=== PATIENT | female | born 1940 | race Caucasian/White ===

== ENCOUNTER 2016-04-26 11:52 | Emergency (ER) | payer MEDICARE, OTHER ==
[2016-04-26] MEDS ORDERED: KETOROLAC 60 MG/2 ML VIAL IM STA (13:33)
[2016-04-26] MEDS ORDERED: DEXAMETHASONE 10 MG/ML VIAL PO STA (13:33)
[2016-04-26] MEDS ORDERED: DEXAMETHASONE 10 MG/ML VIAL ONE (13:34)
[2016-04-26] MEDS ORDERED: CHERRY SYRUP 10 ML UDC PO ONE (13:35)
[2016-04-26] MEDS ORDERED: KETOROLAC 60 MG/2 ML VIAL ONE (13:35)
== END 2016-04-26 15:06 | disposition home or self-care (01) ==
DX: S20.219A Contusion of unspecified front wall of thorax, initial encounter (principal); W01.198A Fall on same level from slipping, tripping and stumbling with subsequent striking against other object, initial encounter; Y93.01 Activity, walking, marching and hiking; Y92.009 Unspecified place in unspecified non-institutional (private) residence as the place of occurrence of the external cause; Y99.8 Other external cause status; R03.0 Elevated blood-pressure reading, without diagnosis of hypertension; I50.9 Heart failure, unspecified; Z87.01 Personal history of pneumonia (recurrent); Z79.82 Long term (current) use of aspirin
CPT/HCPCS: 71020; 96372; 99283; 99284; A9270

== ENCOUNTER 2016-11-05 13:11 | Outpatient (CLI) | payer MEDICARE ==
--- NOTE | 2016-11-05 16:15 | DEXA Report ---
DEXA SCAN: 11/05/2016 CLINICAL INDICATION: Postmenopausal. TECHNIQUE: Dual energy x-ray absorptiometry (DXA) was performed on a [employer] system. Regions measured are the AP spine, femoral neck, and, if needed, forearm. COMPARISON: None. In accordance with the International Society for Clinical Densitometry (ISCD) guidelines, data from previous exams may be reanalyzed using current recommendations and techniques. This is done to allow a more accurate basis for comparison with the current study. FINDINGS: The data for the lumbar spine is as follows: REGION BMD (g/cm/cm) T-SCORE Z-SCORE L1 0.959 -1.4 0.3 L2 1.291 0.8 2.5 L3 1.478 2.3 4.0 L4 1.238 0.3 2.0 TOTAL 1.255 0.6 2.3 NOTE: All evaluable vertebrae are used for classification. The data for the hip is as follows: REGION BMD (g/cm/cm) T-SCORE Z-SCORE Neck 0.730 -2.2 -0.3 TOTAL 0.793 -1.7 0.0 NOTE: The femoral neck or total proximal femur, whichever is lowest, is used for classification. IMPRESSION: THE WHO CLASSIFICATION BASED ON THE INTERNATIONAL REFERENCE STANDARD IS OSTEOPENIA. THE FRACTURE RISK IS INCREASED. RECOMMENDATION: Patients with diagnosis of osteoporosis or osteopenia should have regular bone mineral density assessment. For those eligible for Medicare, routine testing is allowed once every 2 years. Testing frequency can be increased for patients who have rapidly progressing disease or for those who are receiving medical therapy to restore bone mass. COMMENT: World Health Organization (WHO) definitions for osteoporosis and osteopenia: NORMAL BMD: T-score at -1.0 or higher, fracture risk is low. OSTEOPENIA BMD: T-score between -1.0 and -2.5, fracture risk is increased. OSTEOPOROSIS BMD: T-score at -2.5 or lower, fracture risk high. National Osteoporosis Foundation recommends: 1. Obtain adequate dietary calcium (at least 1200 mg per day) and vitamin D (400 -800 international units per day). 2. Participate, as appropriate, in regular weightbearing and muscle- strengthening exercise. 3. Avoid tobacco use and reduce alcohol and caffeine intake. 4. For more detailed information see the website at www.NOF.org. MTDD
== END 2016-11-05 13:12 | disposition home or self-care (01) ==
LOC: DI 13:11
PROVIDERS: ATTEND Internal Medicine
DX: Z13.820 Encounter for screening for osteoporosis (principal); N95.8 Other specified menopausal and perimenopausal disorders; M85.88 Other specified disorders of bone density and structure, other site
CPT/HCPCS: 77080

== ENCOUNTER 2017-10-22 16:15 | Emergency (ER) | payer MEDICARE, OTHER ==
[2017-10-22 16:47] LABS: BASOPHILS # (AUTO) 0.1 10^3/uL (0.0-0.1); EOSINOPHILS % (AUTO) 0.5 %; HGB - HEMOGLOBIN 13.4 g/dL (12.0-16.0); LYMPHOCYTES # (AUTO) 1.4 10^3/uL (1.5-3.5); LYMPHOCYTES % (AUTO) 19.8 %; MEAN CORPUSCULAR HGB CONC 34.5 g/dL (32.0-36.0); MEAN CORPUSCULAR VOLUME 101.5 fL (81.0-99.0); MEAN PLATELET VOLUME 8.8 fL (7.9-10.8); MONOCYTES # (AUTO) 0.4 10^3/uL (0.0-1.0); MONOCYTES % (AUTO) 5.8 %; NEUTROPHILS # (AUTO) 5.3 10^3/uL (1.5-6.6); NEUTROPHILS % (AUTO) 72.9 %; PLT - PLATELET COUNT 164 10^3/uL (130-450); RED BLOOD COUNT 3.83 10^6/uL (4.20-5.40); RED CELL DISTRIBUTION WIDTH 14.6 % (12.0-15.0); WHITE BLOOD COUNT 7.3 x10^3/uL (4.8-10.8)
[2017-10-22] MEDS ORDERED: LOPERAMIDE 2 MG CAPSULE PO STA ×2 (16:51→18:13)
[2017-10-22] MEDS ORDERED: ONDANSETRON 4 MG/2 ML VIAL IVP STA (16:51)
[2017-10-22] MEDS ORDERED: PANTOPRAZOLE 40 MG VIAL IVP STA (16:51)
[2017-10-22 16:52] LABS: ALBUMIN 3.4 g/dL (3.2-5.5); ALBUMIN/GLOBULIN RATIO 1.1 (1.0-2.2); BILIRUBIN,TOTAL 1.2 mg/dL (0.2-1.0); CREATININE 1.3 mg/dL (0.4-1.0); TOTAL PROTEIN 6.6 g/dL (6.7-8.2)
--- NOTE | 2017-10-22 16:54 | ED Physician Documentation ---
PD HPI ABD PAIN - Stated complaint Stated Complaint: N/V/D WITH BLACK STOOL - Chief complaint Chief Complaint: Abd Pain - History obtained from History obtained from: Patient - History of Present Illness Timing - onset: Last night (Upset stomach last night and developed vomiting and diarrhea. Now she just has dry heaves in the vomit did turn dark this morning, quite black in fact. She has not taken any Pepto-Bismol. She does take Aleve somewhat regularly for bad back and also drinks occasionally but not daily. She takes Prilosec on occasion for heartburn. She does not have an history of ulcers per se.) Review of Systems Ten Systems: 10 systems reviewed and negative Constitutional: denies: Fever, Chills Cardiac: denies: Chest pain / pressure, Palpitations Respiratory: denies: Dyspnea, Cough GI: reports: Abdominal Pain, Nausea, Vomiting, Diarrhea, Bloody / black stool PD PAST MEDICAL HISTORY - Past Medical History Cardiovascular: Congestive heart failure, Hypertension Respiratory: Pneumonia GI: GERD - Past Surgical History Past Surgical History: Yes HEENT: Tonsil/Adenoidectomy - Present Medications Home Medications: Ambulatory Orders Medication Instructions Recorded Confirmed Aspirin [Aspir-Low] 81 mg PO 04/26/16 Furosemide [Lasix] 20 mg PO DAILY 04/26/16 04/26/16 HYDROcod/ACETAM 5/325 [[place] 5/325] 1 - 2 ea PO Q6H PRN #15 tablet 04/26/16 Omeprazole [PriLOSEC] 20 mg PO DAILY 04/26/16 04/26/16 - Allergies Allergies/Adverse Reactions: Allergies Allergy/AdvReac Type Severity Reaction Status Date / Time No Known Drug Allergies Allergy Verified 10/22/17 16:21 - Social History Does the pt smoke?: Yes Smoking Status: Current every day smoker Does the pt drink ETOH?: No Does the pt have substance abuse?: No - Family History Family history: reports: Non contributory - Immunizations Immunizations are current?: Yes PD ED PE NORMAL - Vitals Vital signs reviewed: Yes - General General: Alert and oriented X 3, No acute distress - HEENT HEENT: PERRL, EOMI - Neck Neck: Supple, no meningeal sign, No bony TTP, No bruit - Cardiac Cardiac: RRR, No murmur - Respiratory Respiratory: No respiratory distress - Abdomen Abdomen: Normal bowel sounds, Soft, Non tender - Rectal Rectal: Other (with Rebecca RN, Very loose liquidy brown stool but very guaiac positive.) - Back Back: No CVA TTP, No spinal TTP - Derm Derm: Normal color, Warm and dry - Extremities Extremities: No edema, No calf tenderness / cord - Neuro Neuro: Alert and oriented X 3, Normal speech - Psych Psych: Normal mood, Normal affect Results - Vitals Vitals: Vital Signs - 24 hr 10/22/17 10/22/17 16:18 17:26 Temperature 36.3 C L Heart Rate 56 L 72 Respiratory 22 16 Rate Blood Pressure 146/83 H 169/84 H O2 Saturation 97 96 Oxygen O2 Source Room air - Labs Labs: Laboratory Tests 10/22/17 10/22/17 10/22/17 16:29 16:29 17:07 WBC 7.3 RBC 3.83 L Hgb 13.4 Hct 38.8 MCV 101.5 H MCH 35.0 H MCHC 34.5 RDW 14.6 Plt Count 164 MPV 8.8 Neut # (Auto) 5.3 Lymph # (Auto) 1.4 L Ashley # (Auto) 0.4 Eos # (Auto) 0.0 Baso # (Auto) 0.1 Absolute Nucleated RBC 0.00 Nucleated RBC % 0.0 PT INR Sodium 137 Potassium 3.9 Chloride 105 Carbon Dioxide 24 Anion Gap 8.0 BUN 32 H Creatinine 1.3 H Estimated GFR (MDRD) 40 L Glucose 105 H Calcium 9.0 Total Bilirubin 1.2 H AST 22 ALT 13 Alkaline Phosphatase 51 Total Protein 6.6 L Albumin 3.4 Globulin 3.2 Albumin/Globulin Ratio 1.1 Lipase 33 Blood Type O POSITIVE Antibody Screen NEGATIVE 10/22/17 17:07 WBC RBC Hgb Hct MCV MCH MCHC RDW Plt Count MPV Neut # (Auto) Lymph # (Auto) Ashley # (Auto) Eos # (Auto) Baso # (Auto) Absolute Nucleated RBC Nucleated RBC % PT 11.0 INR 1.0 Sodium Potassium Chloride Carbon Dioxide Anion Gap BUN Creatinine Estimated GFR (MDRD) Glucose Calcium Total Bilirubin AST ALT Alkaline Phosphatase Total Protein Albumin Globulin Albumin/Globulin Ratio Lipase Blood Type Antibody Screen PD MEDICAL DECISION MAKING - ED course ED course: 76-year-old woman with what sounds like gastroenteritis. She had no hematemesis but developed dark stools and she is modestly guaiac positive but with reassuring H&H and hemodynamics. She was observed for couple of hours here and after medications was feeling much better and passed an oral challenge. She had no bowel movements while in the department. The lack of hematemesis is reassuring. She was eager for discharge and I told her to return in the morning if not better or anytime if worse. - Sepsis Event Vital Signs: Vital Signs - 24 hr 10/22/17 10/22/17 16:18 17:26 Temperature 36.3 C L Heart Rate 56 L 72 Respiratory 22 16 Rate Blood Pressure 146/83 H 169/84 H O2 Saturation 97 96 Oxygen O2 Source Room air Departure - Departure Disposition: Home, Self Care Clinical Impression: Gastroenteritis Condition: Good Record reviewed to determine appropriate education?: Yes Instructions: ED Gastroenteritis Viral Comments: Take your Prilosec daily. Return tomorrow morning if not better or anytime if worsening or if new symptoms develop, especially persistent black stools, dizziness, shortness of breath. Your blood pressure was elevated today on check into the emergency department. This does not mean that you have hypertension, it is a common phenomenon to come to the emergency department and have elevated blood pressure. I recommend that you see your primary care physician within the week to have it rechecked when you are feeling better.
[2017-10-22 17:27] VITALS: BP 169/84
[2017-10-22] MEDS ORDERED: ONDANSETRON ODT 4 MG Prepack 2 TL STA (18:13)
== END 2017-10-22 18:29 | disposition home or self-care (01) ==
LOC: ED 16:15
DX: K52.9 Noninfective gastroenteritis and colitis, unspecified (principal); I11.0 Hypertensive heart disease with heart failure; F17.200 Nicotine dependence, unspecified, uncomplicated
CPT/HCPCS: 36415; 80053; 83690; 85025; 85610; 86850; 86900; 86901; 96374; 99283; A9270

== ENCOUNTER 2017-10-25 11:45 | Outpatient (CLI) | payer MEDICARE | END 2017-10-25 11:46 | disposition critical access hospital (66) | LOC: EMS 11:45 | PROVIDERS: ATTEND Surgery | DX: R55 Syncope and collapse (principal) ==

== ENCOUNTER 2017-10-25 12:02 | Emergency (ER) | payer MEDICARE ==
[2017-10-25 13:12] LABS: BASOPHILS % (AUTO) 0.7 %; EOSINOPHILS # (AUTO) 0.1 10^3/uL (0.0-0.7); EOSINOPHILS % (AUTO) 0.9 %; HGB - HEMOGLOBIN 11.8 g/dL (12.0-16.0); LYMPHOCYTES # (AUTO) 0.6 10^3/uL (1.5-3.5); LYMPHOCYTES % (AUTO) 10.2 %; MEAN CORPUSCULAR HEMOGLOBIN 35.5 pg (27.0-31.0); MEAN CORPUSCULAR HGB CONC 34.5 g/dL (32.0-36.0); MEAN CORPUSCULAR VOLUME 102.9 fL (81.0-99.0); MEAN PLATELET VOLUME 8.9 fL (7.9-10.8); MONOCYTES # (AUTO) 0.3 10^3/uL (0.0-1.0); MONOCYTES % (AUTO) 5.7 %; NEUTROPHILS # (AUTO) 4.7 10^3/uL (1.5-6.6); NEUTROPHILS % (AUTO) 82.5 %; PLT - PLATELET COUNT 135 10^3/uL (130-450); RED BLOOD COUNT 3.32 10^6/uL (4.20-5.40); RED CELL DISTRIBUTION WIDTH 14.4 % (12.0-15.0); WHITE BLOOD COUNT 5.7 x10^3/uL (4.8-10.8)
[2017-10-25 13:29] LABS: ALBUMIN 3.5 g/dL (3.2-5.5); ALBUMIN/GLOBULIN RATIO 1.3 (1.0-2.2); BILIRUBIN,TOTAL 1.5 mg/dL (0.2-1.0); CALCIUM 9.1 mg/dL (8.5-10.3); CREATININE 1.6 mg/dL (0.4-1.0); TOTAL PROTEIN 6.3 g/dL (6.7-8.2)
--- NOTE | 2017-10-25 14:10 | ED Physician Documentation ---
PD HPI SYNCOPE - Stated complaint Stated Complaint: NEAR SYNCOPE - Chief complaint Chief Complaint: Neuro - History obtained from History obtained from: Patient - History of Present Illness Witnessed: Witnessed Timing - onset: How many hours ago (1.5), Today Duration: Minutes Preceding symptoms: Light headed (she had had blood in stool 2 days ago and had good blood count without further stools. Denies melena nor blood in BM yesterday. Had not had much to eat nor drink. Was standing briefly this morning and felt lightheaded and almost fainted. She sat down and felt better. Incontinuent of urine but states she leaks urine intermittently previously.), Generalized weakness Associated symptoms: Incontinant of urine. No: Headache, Chest pain, Diaphoresis, Dyspnea, Nausea / vomiting, Abdominal pain Contributing factors: Decreased PO intake, Just stood up, Other (she had had some blood in stool 2 days ago; none since.). No: Recent med change Injury occurred: No: Fell, Head injury, Neck injury Similar symptoms before: Has not had sx before Recently seen: Emergency Dept Review of Systems Constitutional: denies: Fever, Chills, Myalgias Nose: denies: Rhinorrhea / runny nose, Congestion Throat: denies: Sore throat Cardiac: denies: Chest pain / pressure, Palpitations Respiratory: denies: Cough GI: reports: Bloody / black stool (2 days ago, not since). denies: Abdominal Pain, Nausea, Vomiting : reports: Incontinent. denies: Dysuria Musculoskeletal: denies: Neck pain, Back pain Neurologic: reports: Generalized weakness, Near syncope. denies: Focal weakness , Numbness, Syncope, Seizure, Altered mental status PD PAST MEDICAL HISTORY - Past Medical History Cardiovascular: Congestive heart failure, Hypertension Respiratory: Pneumonia GI: GERD - Past Surgical History Past Surgical History: Yes HEENT: Tonsil/Adenoidectomy - Present Medications Home Medications: Ambulatory Orders Medication Instructions Recorded Confirmed Aspirin [Aspir-Low] 81 mg PO 04/26/16 Furosemide [Lasix] 20 mg PO DAILY 04/26/16 04/26/16 HYDROcod/ACETAM 5/325 [[place] 5/325] 1 - 2 ea PO Q6H PRN #15 tablet 04/26/16 Omeprazole [PriLOSEC] 20 mg PO DAILY 03/06/17 03/06/17 - Allergies Allergies/Adverse Reactions: Allergies Allergy/AdvReac Type Severity Reaction Status Date / Time No Known Drug Allergies Allergy Verified 10/25/17 12:12 - Social History Does the pt smoke?: Yes Smoking Status: Current every day smoker Does the pt drink ETOH?: No Does the pt have substance abuse?: No - Immunizations Immunizations are current?: Yes PD ED PE NORMAL - Vitals Vital signs reviewed: Yes - General General: Alert and oriented X 3, No acute distress, Well developed/nourished - HEENT HEENT: Pharynx benign. No: Moist mucous membranes - Neck Neck: Supple, no meningeal sign, No adenopathy - Cardiac Cardiac: RRR, No murmur - Respiratory Respiratory: Clear bilaterally - Abdomen Abdomen: Normal bowel sounds, Soft, Non tender, Non distended - Female Female : Deferred - Rectal Rectal: Other (stool brown and guiac negative) - Derm Derm: Normal color, Warm and dry - Extremities Extremities: No deformity, No tenderness to palpate, Normal ROM s pain, No edema , No calf tenderness / cord - Neuro Neuro: Alert and oriented X 3, No motor deficit, Normal speech Eye Opening: Spontaneous Motor: Obeys Commands Verbal: Oriented GCS Score: 15 Results - Vitals Vitals: Oxygen O2 Source Room air - Labs Labs: Laboratory Tests 10/25/17 10/25/17 10/25/17 12:48 12:48 13:03 WBC 5.7 RBC 3.32 L Hgb 11.8 L Hct 34.2 L MCV 102.9 H MCH 35.5 H MCHC 34.5 RDW 14.4 Plt Count 135 MPV 8.9 Neut # (Auto) 4.7 Lymph # (Auto) 0.6 L [place] # (Auto) 0.3 Eos # (Auto) 0.1 Baso # (Auto) 0.0 Absolute Nucleated RBC 0.00 Nucleated RBC % 0.0 Sodium 138 Potassium 4.0 Chloride 104 Carbon Dioxide 25 Anion Gap 9.0 BUN 21 H Creatinine 1.6 H Estimated GFR (MDRD) 31 L Glucose 113 H Calcium 9.1 Total Bilirubin 1.5 H AST 28 ALT 13 Alkaline Phosphatase 52 Troponin I < 0.04 Total Protein 6.3 L Albumin 3.5 Globulin 2.8 Albumin/Globulin Ratio 1.3 Lipase 34 Urine Color Urine Clarity Urine pH Ur Specific [place] Urine Protein Urine Glucose (UA) Urine Ketones Urine Occult Blood Urine Nitrite Urine Bilirubin Urine Urobilinogen Ur Leukocyte Esterase Urine RBC Urine WBC Ur Squamous Epith Cells Urine Bacteria Ur Microscopic Review Urine Culture Comments 10/25/17 15:00 WBC RBC Hgb Hct MCV MCH MCHC RDW Plt Count MPV Neut # (Auto) Lymph # (Auto) [place] # (Auto) Eos # (Auto) Baso # (Auto) Absolute Nucleated RBC Nucleated RBC % Sodium Potassium Chloride Carbon Dioxide Anion Gap BUN Creatinine Estimated GFR (MDRD) Glucose Calcium Total Bilirubin AST ALT Alkaline Phosphatase Troponin I Total Protein Albumin Globulin Albumin/Globulin Ratio Lipase Urine Color YELLOW Urine Clarity HAZY Urine pH 5.5 Ur Specific [place] 1.025 Urine Protein 100 H Urine Glucose (UA) NEGATIVE Urine Ketones NEGATIVE Urine Occult Blood NEGATIVE Urine Nitrite NEGATIVE Urine Bilirubin NEGATIVE Urine Urobilinogen 0.2 (NORMAL) Ur Leukocyte Esterase SMALL H Urine RBC None Seen Urine WBC 0-3 Ur Squamous Epith Cells MANY Squamous H Urine Bacteria Few Ur Microscopic Review INDICATED Urine Culture Comments NOT INDICATED PD MEDICAL DECISION MAKING - ED course Complexity details: reviewed old records, reviewed results, considered differential, d/w patient - Sepsis Event Vital Signs: Oxygen O2 Source Room air Departure - Departure Disposition: Home, Self Care Clinical Impression: Near syncope Condition: Stable Record reviewed to determine appropriate education?: Yes Instructions: ED Near Syncope Unkn Follow-Up: Rey Slater MD [Primary Care Provider] - [facility]Provider Group] Comments: Drink lots of fluids. Continue your omeprazole. Follow-up with your primary care and the surgery center regarding the recent GI bleeding. Your blood count went down just a little bit compared to the prior visit so does not seem like significant ongoing bleeding. Return if persistently lightheaded or he develop more blood or melena in your stool. Otherwise follow-up with your primary care and drink lots of fluids and have light activity for the next few days. Discharge Date/Time: 10/25/17 16:05
[2017-10-25 15:25] VITALS: BP 185/69
[2017-10-25 15:29] LABS: GLUCOSE, URINE (UA) NEGATIVE (NEGATIVE); KETONES,URINE (UA) NEGATIVE (NEGATIVE); LEUKOCYTE ESTERASE, URINE SMALL (NEGATIVE); NITRITE,URINE NEGATIVE (NEGATIVE); OCCULT BLOOD,URINE NEGATIVE (NEGATIVE); PH,URINE 5.5 PH (5.0-7.5); PROTEIN,URINE 100 mg/dL (NEGATIVE); UROBILINOGEN,URINE 0.2 (NORMAL) E.U./dL (NORMAL)
[2017-10-25 15:36] LABS: BILIRUBIN,URINE NEGATIVE (NEGATIVE); CLARITY,URINE HAZY (CLEAR); ICTOTEST,URINE NEGATIVE
[2017-10-25 15:56] LABS: BACTERIA,URINE Few /HPF (None Seen); RBC,URINE None Seen /HPF (0-5); SQUAMOUS EPITHELIAL CELL,UR MANY Squamous (<= Few)
== END 2017-10-25 16:05 | disposition home or self-care (01) ==
LOC: EDUNIT# → ED 12:02
DX: R55 Syncope and collapse (principal); I50.9 Heart failure, unspecified; F17.200 Nicotine dependence, unspecified, uncomplicated
CPT/HCPCS: 36415; 80053; 81001; 81003; 83690; 84484; 85025; 87086; 99284

== ENCOUNTER 2018-02-21 09:05 | Emergency (ER) | payer MEDICARE, MEDICAID ==
[2018-02-21] MEDS ORDERED: PANTOPRAZOLE 40 MG VIAL IVP STA (09:38)
--- NOTE | 2018-02-21 09:39 | ED Physician Documentation ---
PD HPI GI BLEED - Stated complaint Stated Complaint: THROWING UP, BLACK STOOLS - Chief complaint Chief Complaint: Abd Pain - History obtained from History obtained from: Patient, Family - History of Present Illness Timing - onset: Last night Timing - duration: Hours Timing - details: Gradual onset, Still present Associated symptoms: Coffee ground emesis, Black/tarry stool Contributing factors: Alcohol use. No: Sick contact, Bad food, Travel, Recent antibiotics, Aspirin use, NSAID use, Stress, Anticoagulated, Diabetes Improved by: Laying still, Vomiting Similar symptoms before: Diagnosis (GI bleeding) Recently seen: Not recently seen - Additional information Additional information: 77-year-old female with a history of GERD and hypertension and COPD has had a prior GI bleed 6 months ago and she developed symptoms again last night. She developed symptoms of vomiting coffee-ground emesis and dark tarry stool. She has not had syncope. Her past history with GI bleeding was a single episode in June 2017 at which time she had a syncopal episode at [facility] and was brought to the hospital. At that time her blood counts were stable. She was not admitted to the hospital and she has not had scoping done in follow-up. Review of Systems Constitutional: denies: Fever Eyes: denies: Decreased vision Ears: denies: Ear pain Nose: denies: Rhinorrhea / runny nose, Congestion Throat: denies: Sore throat Cardiac: denies: Chest pain / pressure, Palpitations Respiratory: denies: Dyspnea, Cough GI: reports: Nausea, Vomiting, Bloody / black stool, Other (coffee ground e mesis). denies: Abdominal Pain : denies: Dysuria Skin: denies: Rash Musculoskeletal: denies: Neck pain, Back pain, Extremity pain Neurologic: denies: Generalized weakness, Focal weakness, Numbness PD PAST MEDICAL HISTORY - Past Medical History Past Medical History: Yes Cardiovascular: Congestive heart failure, Hypertension Respiratory: Pneumonia GI: GERD, GI bleed - Past Surgical History Past Surgical History: Yes HEENT: Tonsil/Adenoidectomy - Present Medications Home Medications: Ambulatory Orders Medication Instructions Recorded Confirmed Omeprazole [PriLOSEC] 20 mg PO DAILY 04/26/16 02/21/18 Ranitidine HCl [Acid Manager Cost] 75 mg PO DAILY 02/21/18 02/21/18 Sucralfate [Carafate] 1 gm PO ACHS #30 tablet 02/21/18 - Allergies Allergies/Adverse Reactions: Allergies Allergy/AdvReac Type Severity Reaction Status Date / Time No Known Drug Allergies Allergy Verified 02/21/18 11:44 - Social History Does the pt smoke?: Yes Smoking Status: Current every day smoker Does the pt drink ETOH?: No Does the pt have substance abuse?: No - Immunizations Immunizations are current?: Yes PD ED PE NORMAL - Vitals Vital signs reviewed: Yes (tachy and hypertensive tachypneic) - General General: Alert and oriented X 3, No acute distress, Well developed/nourished - HEENT HEENT: Atraumatic, PERRL, EOMI - Neck Neck: Supple, no meningeal sign, No bony TTP - Cardiac Cardiac: No murmur, Other (tachy to 110) - Respiratory Respiratory: No respiratory distress, Other (scattered wheezes and rhonchi) - Abdomen Abdomen: Soft, Non tender - Derm Derm: Normal color, Warm and dry, No rash - Extremities Extremities: No deformity, No edema - Neuro Neuro: Alert and oriented X 3, label operator 2-12 intact, No motor deficit, No sensory deficit, Normal speech Eye Opening: Spontaneous Motor: Obeys Commands Verbal: Oriented GCS Score: 15 - Psych Psych: Normal mood, Normal affect Results - Vitals Vitals: Vital Signs - 24 hr 02/21/18 02/21/18 02/21/18 09:13 09:36 12:20 Temperature 36.6 C Heart Rate 106 H 80 80 Respiratory 28 H 20 20 Rate Blood Pressure 138/101 H 142/68 H 158/71 H O2 Saturation 96 100 97 Oxygen O2 Source Room air - Labs Labs: Laboratory Tests 02/21/18 02/21/18 02/21/18 10:20 10:20 10:45 WBC 6.0 RBC 3.71 L Hgb 12.6 Hct 37.2 MCV 100.4 H MCH 34.1 H MCHC 34.0 RDW 15.0 Plt Count 168 MPV 8.8 Neut # (Auto) 4.5 Lymph # (Auto) 1.0 L [place] # (Auto) 0.4 Eos # (Auto) 0.0 Baso # (Auto) 0.1 Absolute Nucleated RBC 0.00 Nucleated RBC % 0.0 PT INR APTT Sodium 136 Potassium 4.7 Chloride 103 Carbon Dioxide 23 Anion Gap 10.0 BUN 54 H Creatinine 1.2 H Estimated GFR (MDRD) 44 L Glucose 105 H Calcium 8.9 Total Bilirubin 0.9 AST 18 ALT 13 Alkaline Phosphatase 60 Troponin I < 0.04 Total Protein 6.2 L Albumin 3.0 L Globulin 3.2 Albumin/Globulin Ratio 0.9 L Lipase 34 Blood Type Antibody Screen 02/21/18 02/21/18 02/21/18 10:45 10:45 11:55 WBC RBC Hgb 12.4 Hct 36.7 L MCV MCH MCHC RDW Plt Count MPV Neut # (Auto) Lymph # (Auto) [place] # (Auto) Eos # (Auto) Baso # (Auto) Absolute Nucleated RBC Nucleated RBC % PT 11.3 INR 1.0 APTT 31.7 Sodium Potassium Chloride Carbon Dioxide Anion Gap BUN Creatinine Estimated GFR (MDRD) Glucose Calcium Total Bilirubin AST ALT Alkaline Phosphatase Troponin I Total Protein Albumin Globulin Albumin/Globulin Ratio Lipase Blood Type O POSITIVE Antibody Screen NEGATIVE PD MEDICAL DECISION MAKING - ED course Complexity details: reviewed old records, reviewed results, re-evaluated patient, considered differential, d/w patient, d/w family ED course: 77-year-old female with a prior history of upper GI bleed which resolved has not had formal evaluation with scoping. I have asked the patient to follow-up with the surgeon for scoping in follow-up. Today her hematocrit is stable and she has had no further output in the emergency department. Departure - Departure Disposition: 01 Home, Self Care Clinical Impression: Upper GI bleeding Condition: Stable Instructions: ED Bleed UGI Stable Follow-Up: Rey Slater MD [Primary Care Provider] - Toribio Logan MD [Provider Admit Priv/Credential] - Prescriptions: Sucralfate [Carafate] 1 gm PO ACHS #30 tablet
[2018-02-21 11:04] LABS: BASOPHILS # (AUTO) 0.1 10^3/uL (0.0-0.1); EOSINOPHILS % (AUTO) 0.8 %; HGB - HEMOGLOBIN 12.6 g/dL (12.0-16.0); LYMPHOCYTES % (AUTO) 16.2 %; MEAN CORPUSCULAR HEMOGLOBIN 34.1 pg (27.0-31.0); MEAN CORPUSCULAR VOLUME 100.4 fL (81.0-99.0); MEAN PLATELET VOLUME 8.8 fL (7.9-10.8); MONOCYTES # (AUTO) 0.4 10^3/uL (0.0-1.0); MONOCYTES % (AUTO) 6.3 %; NEUTROPHILS # (AUTO) 4.5 10^3/uL (1.5-6.6); NEUTROPHILS % (AUTO) 75.7 %; PLT - PLATELET COUNT 168 10^3/uL (130-450); RED BLOOD COUNT 3.71 10^6/uL (4.20-5.40)
[2018-02-21 11:23] LABS: PT - PROTHROMBIN TIME 11.3 secs (9.9-12.6)
[2018-02-21 12:10] LABS: HGB - HEMOGLOBIN 12.4 g/dL (12.0-16.0)
[2018-02-21 12:22] VITALS: BP 158/71
[2018-02-21 12:25] LABS: ALBUMIN/GLOBULIN RATIO 0.9 (1.0-2.2); BILIRUBIN,TOTAL 0.9 mg/dL (0.2-1.0); CALCIUM 8.9 mg/dL (8.5-10.3); CREATININE 1.2 mg/dL (0.4-1.0); TOTAL PROTEIN 6.2 g/dL (6.7-8.2)
== END 2018-02-21 12:46 | disposition home or self-care (01) ==
LOC: ED 09:05
DX: K92.0 Hematemesis (principal); K92.1 Melena; K21.9 Gastro-esophageal reflux disease without esophagitis; I10 Essential (primary) hypertension; J44.9 Chronic obstructive pulmonary disease, unspecified; F17.200 Nicotine dependence, unspecified, uncomplicated
CPT/HCPCS: 36415; 80053; 83690; 84484; 85014; 85018; 85025; 85610; 85730; 86850; 86900; 86901; 96374; 99283

== ENCOUNTER 2019-02-03 13:59 | Outpatient (CLI) | payer MEDICARE, MEDICAID | END 2019-02-03 14:00 | disposition critical access hospital (66) | LOC: EMS 13:59 | PROVIDERS: ATTEND Surgery | DX: M54.5 Low back pain (principal); S09.90XA Unspecified injury of head, initial encounter; W18.39XA Other fall on same level, initial encounter; Y92.512 Supermarket, store or market as the place of occurrence of the external cause; M25.522 Pain in left elbow; R42 Dizziness and giddiness; R11.2 Nausea with vomiting, unspecified | CPT/HCPCS: A0425; A0427 ==

== ENCOUNTER 2019-02-03 14:19 | Inpatient (IN) | payer MEDICARE, MEDICAID ==
--- NOTE | 2019-02-03 15:07 | ED Physician Documentation ---
PD HPI SYNCOPE - Stated complaint Stated Complaint: NEAR SYNCOPE - Chief complaint Chief Complaint: Neuro - History obtained from History obtained from: Patient, EMS - History of Present Illness Witnessed: Witnessed Timing - onset: Today Duration: Seconds Preceding symptoms: Vision changes, Light headed, Generalized weakness Associated symptoms: Seizure. No: Headache, Vision changes, Chest pain, Palpitations, Diaphoresis Contributing factors: Decreased PO intake Injury occurred: Fell, None Similar symptoms before: Has not had sx before Recently seen: Not recently seen - Additional information Additional information: 78 y/o female shopping at [employer] has had a syncopal episode and collapsed onto her back. She has pain to the head, neck and lower back. Review of Systems Constitutional: reports: Fatigue. denies: Fever, Chills Eyes: denies: Decreased vision Ears: denies: Ear pain Nose: denies: Rhinorrhea / runny nose, Congestion Throat: denies: Sore throat Cardiac: denies: Chest pain / pressure, Palpitations, Pedal edema, Calf pain Respiratory: reports: Cough (chronic). denies: Dyspnea, Wheezing GI: reports: Constipation. denies: Abdominal Pain, Nausea, Vomiting : denies: Dysuria, Frequency Skin: denies: Rash, Lesions Musculoskeletal: denies: Neck pain, Back pain, Extremity pain Neurologic: reports: Generalized weakness. denies: Focal weakness, Numbness PD PAST MEDICAL HISTORY - Past Medical History Cardiovascular: Congestive heart failure, Hypertension Respiratory: Pneumonia GI: GERD, GI bleed - Past Surgical History Past Surgical History: Yes HEENT: Tonsil/Adenoidectomy - Present Medications Home Medications: Ambulatory Orders Medication Instructions Recorded Confirmed Omeprazole [PriLOSEC] 20 mg PO DAILY 04/26/16 02/21/18 Ranitidine HCl [Acid Air Quality Consultant] 75 mg PO DAILY 02/21/18 02/21/18 Sucralfate [Carafate] 1 gm PO ACHS #30 tablet 02/21/18 - Allergies Allergies/Adverse Reactions: Allergies Allergy/AdvReac Type Severity Reaction Status Date / Time No Known Drug Allergies Allergy Verified 02/03/19 14:25 - Social History Does the pt smoke?: Yes Smoking Status: Current every day smoker Does the pt drink ETOH?: No Does the pt have substance abuse?: No - Immunizations Immunizations are current?: Yes PD ED PE NORMAL - Vitals Vital signs reviewed: Yes (hypertensive ) - General General: Alert and oriented X 3, No acute distress, Well developed/nourished - HEENT HEENT: Atraumatic, PERRL, EOMI, Other (dry mucous membranes ) - Neck Neck: Supple, no meningeal sign, Other (tenderness to the mid and lower cervical spine ) - Cardiac Cardiac: RRR, No murmur - Respiratory Respiratory: No respiratory distress, Clear bilaterally, Other (diminished breath sounds bilat) - Abdomen Abdomen: Soft, Non tender - Back Back: No CVA TTP, Other (tenderness to the lumbar spine especially to the lower lumbar/sacaral area. 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, No motor deficit, No sensory deficit, Normal speech Eye Opening: Spontaneous Motor: Obeys Commands Verbal: Oriented GCS Score: 15 - Psych Psych: Normal mood, Normal affect Results - Vitals Vitals: Vital Signs - 24 hr 02/03/19 02/03/19 02/03/19 14:25 15:01 17:00 Temperature 36.6 C 36.6 C Heart Rate 68 68 74 Respiratory 14 14 14 Rate Blood Pressure 180/100 H 180/100 H 241/94 H O2 Saturation 93 93 97 Oxygen O2 Source Room air Oxygen Flow Rate 2 - EKG (time done) 1523 Rate: Rate (enter#) (70) Rhythm: LAE QRS: LVH Ischemia: Other (strain pattern for LVH ) Compare to prior EKG: Unchanged from prior EKG (SPT 10-25-2017 no sig change) Computer interpretation: Agree with computer - Labs Labs: Laboratory Tests 02/03/19 02/03/19 02/03/19 15:15 15:15 15:15 WBC 6.1 RBC 4.64 Hgb 14.2 Hct 44.7 MCV 96.3 MCH 30.6 MCHC 31.8 L RDW 13.3 Plt Count 227 MPV 9.7 Neut # (Auto) 4.4 Lymph # (Auto) 1.1 L Leon # (Auto) 0.3 Eos # (Auto) 0.2 Baso # (Auto) 0.1 Absolute Nucleated RBC 0.00 Nucleated RBC % 0.0 VBG pH Ionized Calcium Sodium 137 Potassium 4.8 Chloride 95 L Carbon Dioxide 31 Anion Gap 11.0 BUN 15 Creatinine 2.0 H Estimated GFR (MDRD) 24 L Glucose 120 H Calcium 14.8 H* Total Bilirubin 1.1 H AST 21 ALT 13 Alkaline Phosphatase 78 Troponin I High Sens 39.5 H* Total Protein 7.8 Albumin 3.6 Globulin 4.2 Albumin/Globulin Ratio 0.9 L Lipase 41 PTH Intact Urine Color Urine Clarity Urine pH Ur Specific [place] Urine Protein Urine Glucose (UA) Urine Ketones Urine Occult Blood Urine Nitrite Urine Bilirubin Urine Urobilinogen Ur Leukocyte Esterase Urine RBC Urine WBC Ur Squamous Epith Cells Urine Bacteria Ur Microscopic Review Urine Culture Comments 02/03/19 02/03/19 02/03/19 15:15 16:45 17:15 WBC RBC Hgb Hct MCV MCH MCHC RDW Plt Count MPV Neut # (Auto) Lymph # (Auto) Leon # (Auto) Eos # (Auto) Baso # (Auto) Absolute Nucleated RBC Nucleated RBC % VBG pH Ionized Calcium Sodium Potassium Chloride Carbon Dioxide Anion Gap BUN Creatinine Estimated GFR (MDRD) Glucose Calcium 14.3 H* Total Bilirubin AST ALT Alkaline Phosphatase Troponin I High Sens Total Protein Albumin Globulin Albumin/Globulin Ratio Lipase PTH Intact 12 Urine Color YELLOW Urine Clarity CLEAR Urine pH 7.0 Ur Specific [place] 1.020 Urine Protein 100 H Urine Glucose (UA) NEGATIVE Urine Ketones NEGATIVE Urine Occult Blood TRACE-INTA Urine Nitrite NEGATIVE Urine Bilirubin NEGATIVE Urine Urobilinogen 0.2 (NORMAL) Ur Leukocyte Esterase NEGATIVE Urine RBC None Seen Urine WBC 0-3 Ur Squamous Epith Cells FEW Squamous Urine Bacteria Rare Ur Microscopic Review INDICATED Urine Culture Comments NOT INDICATED 02/03/19 02/03/19 17:35 18:20 WBC RBC Hgb Hct MCV MCH MCHC RDW Plt Count MPV Neut # (Auto) Lymph # (Auto) Leon # (Auto) Eos # (Auto) Baso # (Auto) Absolute Nucleated RBC Nucleated RBC % VBG pH 7.447 H Ionized Calcium 1.60 H* Sodium Potassium Chloride Carbon Dioxide Anion Gap BUN Creatinine Estimated GFR (MDRD) Glucose Calcium Total Bilirubin AST ALT Alkaline Phosphatase Troponin I High Sens 45.5 H* Total Protein Albumin Globulin Albumin/Globulin Ratio Lipase PTH Intact Urine Color Urine Clarity Urine pH Ur Specific [place] Urine Protein Urine Glucose (UA) Urine Ketones Urine Occult Blood Urine Nitrite Urine Bilirubin Urine Urobilinogen Ur Leukocyte Esterase Urine RBC Urine WBC Ur Squamous Epith Cells Urine Bacteria Ur Microscopic Review Urine Culture Comments - Rads (name of study) lumbar spine Radiology: Prelim report reviewed (Impression: 1. Compression deformities at L1- L3, indeterminate age but possibly chronic. MR could be considered for further evaluation if clinically warranted. Osteopenia. Multilevel lumbar degeneration. Diffuse atherosclerotic disease and probable abdominal aortic aneurysm measuring up to 32 mm.), EMP read indepedently, See rad report chest Radiology: Prelim report reviewed (Impression: 1. Lungs are clear. Small to moderate hiatal hernia.), EMP read indepedently, See rad report cervical spine Radiology: Prelim report reviewed (Impression: 1. No definite acute fracture or malalignment. Multilevel cervical degeneration.), EMP read indepedently, See rad report CT head Radiology: Prelim report reviewed (Impression: 1. No definite acute intracranial abnormality. No skull fracture. 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 She has marked hypercalcemia. She has normal albumin and a normal PTH. The albumin corrected calcium is 15.44 with treatment recommended and she is given saline as well as zoledronic acid 4mg IV. We do not have calcitonin. The patient is markedly hypertensive as well and is administered IV labetalol. Her injuries from the fall appear benign. The patient will require continued hydration and further work up. Her trops are mildly elevated and will need to be followed as well Departure - Departure Disposition: 66 [facility] DC/Xfer Clinical Impression: Dehydration, Hypercalcemia Syncope Qualifiers: Syncope type: unspecified Qualified Code(s): R55 - Syncope and collapse Condition: Stable
[2019-02-03 15:22] LABS: BASOPHILS # (AUTO) 0.1 10^3/uL (0.0-0.1); BASOPHILS % (AUTO) 0.8 %; EOSINOPHILS # (AUTO) 0.2 10^3/uL (0.0-0.7); EOSINOPHILS % (AUTO) 3.3 %; HGB - HEMOGLOBIN 14.2 g/dL (12.0-16.0); LYMPHOCYTES # (AUTO) 1.1 10^3/uL (1.5-3.5); LYMPHOCYTES % (AUTO) 17.6 %; MEAN CORPUSCULAR HEMOGLOBIN 30.6 pg (27.0-31.0); MEAN CORPUSCULAR HGB CONC 31.8 g/dL (32.0-36.0); MEAN CORPUSCULAR VOLUME 96.3 fL (81.0-99.0); MEAN PLATELET VOLUME 9.7 fL (7.9-10.8); MONOCYTES # (AUTO) 0.3 10^3/uL (0.0-1.0); MONOCYTES % (AUTO) 5.1 %; NEUTROPHILS # (AUTO) 4.4 10^3/uL (1.5-6.6); NEUTROPHILS % (AUTO) 72.4 %; PLT - PLATELET COUNT 227 10^3/uL (130-450); RED BLOOD COUNT 4.64 10^6/uL (4.20-5.40); RED CELL DISTRIBUTION WIDTH 13.3 % (12.0-15.0); WHITE BLOOD COUNT 6.1 x10^3/uL (4.8-10.8)
--- NOTE | 2019-02-03 15:22 | XRAY Report ---
Reason: fall tailbone pain Procedure Date: 02/03/2019 Accession Number: [id number] / [id number] Procedure: XR - Lumbar Spine 2 View CPT Code: Final Report FULL RESULT: EXAM: LUMBOSACRAL SPINE RADIOGRAPHY EXAM DATE: 02/03/2019 02:55 PM. CLINICAL HISTORY: Fall tailbone pain. COMPARISONS: None. TECHNIQUE: 3 views. FINDINGS: Alignment: Normal. No spondylolisthesis or scoliosis. Bones: Last complete disk space designated L5-S1. There is a moderate compression deformity of L1, mild compression deformities of L2 and L3, indeterminate age, possibly chronic. Disks: There is evidence of multilevel mild lumbar disc and moderate facet degeneration, most pronounced at the mid to lower lumbar levels. Facets: As above. Sacroiliac Joints: Unremarkable. Soft Tissues: Paraspinous soft tissues are unremarkable.Diffuse aortoiliac atheromatous calcification, aneurysmal appearance of the aorta measuring up to 32 mm. IMPRESSION: 1. Compression deformities at L1-L3, indeterminate age but possibly chronic. MR could be considered for further evaluation if clinically warranted. 2. Osteopenia.Multilevel lumbar degeneration. 3. Diffuse atherosclerotic disease and probable abdominal aortic aneurysm measuring up to 32 mm. RADIA
[2019-02-03] MEDS ORDERED: SODIUM CHLORIDE 0.9% 1,000 ML IV ONE (15:26)
--- NOTE | 2019-02-03 15:30 | CT Report ---
Reason: fall. head injury ? seizure Procedure Date: 02/03/2019 Accession Number: [id number] / [id number] Procedure: CT - HEAD WO CPT Code: Final Report FULL RESULT: EXAM: CT HEAD. CT SCAN OF THE CERVICAL SPINE. EXAM DATE: 02/03/2019 03:08 PM. CLINICAL HISTORY: Fall head injury neck pain. COMPARISON: HEAD W/O 02/03/2019 2:59 PM. TECHNIQUE: Noncontrast axial sections through the head and cervical spine. Reformats: Sagittal and coronal of the head, coronal and sagittal of the cervical spine. In accordance with CT protocol optimization, one or more of the following dose reduction techniques were utilized for this exam: automated exposure control, adjustment of mA and/or KV based on patient size, or use of iterative reconstructive technique. FINDINGS CT HEAD: Parenchyma: No intraparenchymal hemorrhage. No evidence of mass, midline shift, or CT findings of infarction. Probable small chronic left thalamic lacunar infarct versus prominent perivascular space. Borrero-white differentiation is otherwise distinct. Mild patchy hypodensity in the periventricular white matter and centrum semiovale, nonspecific but probably chronic microvascular ischemic change. Extraaxial Spaces: Normal for age. No subdural or epidural collections identified. Ventricles: Normal in size and position. Sinuses and orbits: Imaged paranasal sinuses, orbits, and mastoids show no significant abnormality. Bones: No evidence of fracture or calvarial defect. Other: None. FINDINGS CT CERVICAL SPINE: Alignment: Normal. No scoliosis or spondylolisthesis. Bones: No fracture or bone lesion. Interspace Levels/Facets: Multilevel cervical disk degeneration most pronounced at C4-C5 and C5-C6. Moderate multilevel cervical facet degeneration. Spinal Canal: Normal. Musculature: Normal. No fatty atrophy. Other: The paravertebral and prevertebral soft tissues are unremarkable. Mild linear atelectasis or scarring left posterior apex. Small apical pleural bleb on the right. IMPRESSION: Head CT: 1. No definite acute intracranial abnormality. No skull fracture. 2. Probable chronic microvascular ischemic changes as noted above. Cervical Spine CT: 1. No definite acute fracture or malalignment. 2. Multilevel cervical degeneration. RADIA
--- NOTE | 2019-02-03 15:30 | CT Report ---
Reason: fall head injury neck pain Procedure Date: 02/03/2019 Accession Number: [id number] / [id number] Procedure: CT - CERVICAL SPINE WO CPT Code: Final Report FULL RESULT: EXAM: CT HEAD. CT SCAN OF THE CERVICAL SPINE. EXAM DATE: 02/03/2019 03:08 PM. CLINICAL HISTORY: Fall head injury neck pain. COMPARISON: HEAD W/O 02/03/2019 2:59 PM. TECHNIQUE: Noncontrast axial sections through the head and cervical spine. Reformats: Sagittal and coronal of the head, coronal and sagittal of the cervical spine. In accordance with CT protocol optimization, one or more of the following dose reduction techniques were utilized for this exam: automated exposure control, adjustment of mA and/or KV based on patient size, or use of iterative reconstructive technique. FINDINGS CT HEAD: Parenchyma: No intraparenchymal hemorrhage. No evidence of mass, midline shift, or CT findings of infarction. Probable small chronic left thalamic lacunar infarct versus prominent perivascular space. Borrero-white differentiation is otherwise distinct. Mild patchy hypodensity in the periventricular white matter and centrum semiovale, nonspecific but probably chronic microvascular ischemic change. Extraaxial Spaces: Normal for age. No subdural or epidural collections identified. Ventricles: Normal in size and position. Sinuses and orbits: Imaged paranasal sinuses, orbits, and mastoids show no significant abnormality. Bones: No evidence of fracture or calvarial defect. Other: None. FINDINGS CT CERVICAL SPINE: Alignment: Normal. No scoliosis or spondylolisthesis. Bones: No fracture or bone lesion. Interspace Levels/Facets: Multilevel cervical disk degeneration most pronounced at C4-C5 and C5-C6. Moderate multilevel cervical facet degeneration. Spinal Canal: Normal. Musculature: Normal. No fatty atrophy. Other: The paravertebral and prevertebral soft tissues are unremarkable. Mild linear atelectasis or scarring left posterior apex. Small apical pleural bleb on the right. IMPRESSION: Head CT: 1. No definite acute intracranial abnormality. No skull fracture. 2. Probable chronic microvascular ischemic changes as noted above. Cervical Spine CT: 1. No definite acute fracture or malalignment. 2. Multilevel cervical degeneration. RADIA
[2019-02-03 15:38] LABS: ALBUMIN 3.6 g/dL (3.2-5.5); ALBUMIN/GLOBULIN RATIO 0.9 (1.0-2.2); BILIRUBIN,TOTAL 1.1 mg/dL (0.2-1.0); TOTAL PROTEIN 7.8 g/dL (6.7-8.2)
[2019-02-03 15:39] LABS: CALCIUM 14.8 mg/dL (8.5-10.3)
--- NOTE | 2019-02-03 16:16 | XRAY Report ---
Reason: syncope cough Procedure Date: 02/03/2019 Accession Number: [id number] / [id number] Procedure: XR - Chest 1 View X-Ray CPT Code: 81920 Final Report FULL RESULT: EXAM: CHEST RADIOGRAPHY EXAM DATE: 02/03/2019 03:50 PM. CLINICAL HISTORY: Syncope cough. COMPARISON: CHEST 2 VIEW PA/LAT 04/26/2016 2:00 PM. TECHNIQUE: Upright AP view. FINDINGS: Lungs/Pleura: No focal opacities evident. No pleural effusion. No pneumothorax. Mediastinum: Heart size is normal with minimal aortic arch calcification. Small to moderate hiatal hernia. Other: Minimal bilateral acromioclavicular joint osteoarthritis. Bones otherwise are grossly unremarkable. IMPRESSION: 1. Lungs are clear. 2. Small to moderate hiatal hernia. RADIA
[2019-02-03 17:03] LABS: BILIRUBIN,URINE NEGATIVE (NEGATIVE); GLUCOSE, URINE (UA) NEGATIVE (NEGATIVE); KETONES,URINE (UA) NEGATIVE (NEGATIVE); LEUKOCYTE ESTERASE, URINE NEGATIVE (NEGATIVE); NITRITE,URINE NEGATIVE (NEGATIVE); OCCULT BLOOD,URINE TRACE-INTA (NEGATIVE); PROTEIN,URINE 100 mg/dL (NEGATIVE); UROBILINOGEN,URINE 0.2 (NORMAL) E.U./dL (NORMAL)
[2019-02-03 17:13] LABS: CLARITY,URINE CLEAR (CLEAR)
[2019-02-03 17:14] LABS: BACTERIA,URINE Rare /HPF (None Seen); RBC,URINE None Seen /HPF (0-5); SQUAMOUS EPITHELIAL CELL,UR FEW Squamous (<= Few)
[2019-02-03] MEDS ORDERED: CALCITONIN 400 UNITS/2 ML VIAL IM ONE (17:50)
[2019-02-03] MEDS ORDERED: ZOLEDRONIC ACID 4 MG/100 ML 4 MG/100 ML BAG IV STA (17:59)
[2019-02-03] MEDS ORDERED: ZOLEDRONIC ACID 4 MG in SODIUM CHLORIDE 0.9% 100ML 100 ML IV SCH (18:00)
[2019-02-03] MEDS ORDERED: LABETALOL 20 MG/4 ML SYRINGE IVP STA (18:12)
[2019-02-03 18:26] LABS: VBG PH 7.447 (7.31-7.41)
--- NOTE | 2019-02-03 19:39 | HISTORY & PHYSICAL EXAMINATION ---
Chief Complaint - Chief Complaint Chief Complaint: Fall History of Present Illness - Admitted From Admitted From:: Home - History Obtained From Records Reviewed: Yes History obtained from: Patient, ER Physician, EMR Exam Limitations: Patient is lethargic and nauseous preferring not to speak a lot. - History of Present Illness HPI Comment/Other: This is a 78-year-old female without any significant past medical history who p resents today after having a fall while at [facility]. She states she was walking when she felt dizzy and she fell backwards and hit her head. She denies any chest pain prior to the event although she feels like her heart may have been racing a little bit. She states she felt dizzy this morning as well but did not fall. She reports she does have a history of falls in the past but cannot recall how recent was the last one. She does not report any loss of consciousness or syncope. She states this has not happened to her before. She normally ambulates on her own without the use of a walker or a cane. She states she currently feels nauseous and has had episodes of emesis. She reports her h ead does not hurt her at this time. She does complain of some abdominal pain. Reports no prior history of malignancy. She is a smoker and continues smoke a pack a day. She has been smoking for over 50 years. She does not report taking any [id number] vitamins including vitamin D. In the emergency room, she is found to be afebrile with temperature of 36.6, heart rate of 68, hypertensive the blood pressure of 180/100, and saturating 90% on room air. Labs were significant for a calcium of 14.8 and a creatinine of 2.0. Her ionized calcium was 1.6 mmol/L. Troponin is also elevated at 39.5. Chest x-ray performed was unremarkable. CT of the head and C-spine did not show any acute abnormalities. An x-ray of the lumbar spine revealed compression fomites at L1-L3 which may be chronic. There is also osteopenia noted. She started on IV hydration and given zoledronic acid IV in the emergency department. Unfortunately, Calcitonin is not available at this moment. Given her presentation and lab findings, medicine was consulted for admission. I did discuss goals of care with the patient and she would like to be a DNR. History - Past Medical History Cardiovascular: reports: Hypertension Respiratory: reports: Pneumonia GI: reports: GERD, GI bleed MRSA Hx?: No - Past Surgical History HEENT: reports: Tonsil/Adenoidectomy - Family & Social History Family History Comment/Other: She reports no family history to her knowledge. Living arrangement: At home Living Situation: With friend(s) Social History Notes: She lives at home with a friend. She ambulates on her own at baseline. She continues to smoke a pack a day and has been smoking for more than 50 years. She does drink alcohol but denies daily use. - Substance History Use: Uses substance without health or social issues: Tobacco, Alcohol Meds/Allgy - Home Medications Home Medications: Ambulatory Orders Medication Instructions Recorded Confirmed Omeprazole [PriLOSEC] 20 mg PO DAILY 04/26/16 02/21/18 Ranitidine HCl [Acid Principal Technical Specialist] 75 mg PO DAILY 02/21/18 02/21/18 Sucralfate [Carafate] 1 gm PO ACHS #30 tablet 02/21/18 - Allergies Allergies/Adverse Reactions: Allergies Allergy/AdvReac Type Severity Reaction Status Date / Time No Known Drug Allergies Allergy Verified 02/03/19 14:25 Review of Systems - Constitutional Constitutional: reports: Fatigue, Malaise, Weakness - Cardiovascular Cariovascular: reports: Palpitations, Lightheadedness. denies: Chest pain, Syncope, Exertional dyspnea, Decr. exercise tolerance - Respiratory Respiratory: denies: Cough, SOB at rest, SOB with exertion - Gastrointestinal Gastrointestinal: reports: Abdominal pain, Nausea, Vomiting - Musculoskeletal Musculoskeletal: reports: Back pain, Muscle weakness - Integumentary Integumentary: denies: Rash - Neurological Neurological: reports: General weakness, Dizziness. denies: Headache - All Other Systems All Other Systems: reports: Reviewed and negative (Review of systems is limited given she is lethargic and nauseous which limits her ability to converse.), Other Prior Level of Functionality: She is normally independent with her ADLs and ambulates without assistance. She does report a history of falls but is unable to go more in depth regarding will cause these falls and when the most recent one was. Exam - Vital Signs Reviewed Vital Signs: Yes Vital Signs: Vital Signs x48h Temp Pulse Resp BP Pulse Ox 02/03/19 18:52 57 L 27 H 243/109 H 95 02/03/19 18:43 61 24 237/91 H 94 02/03/19 18:41 70 21 250/102 H 98 02/03/19 17:00 74 14 241/94 H 97 02/03/19 15:01 36.6 C 68 14 180/100 H 93 02/03/19 14:25 36.6 C 68 14 180/100 H 93 - Physical Exam General Appearance: positive: Alert, Moderate distress, Lethargic Eyes Bilateral: positive: Normal inspection ENT: positive: ENT inspection nml, Dry mucous membranes Neck: positive: Nml inspection Respiratory: positive: No respiratory distress. negative: Wheezes, Rales, Rhonchi Cardiovascular: positive: Regular rate & rhythm, No murmur. negative: Systolic murmur, Diastolic murmur Abdomen: positive: Tenderness, Abnml bowel sounds (Hypoactive). negative: Guarding, Rebound Skin: positive: No rash, Warm, Dry Extremities: positive: Full ROM, No pedal edema Neurologic/Psychiatric: positive: Oriented x3, Other (No focal motor deficits). negative: Disoriented to person, Disoriented to place, Disoriented to time Conclusion/Plan - Problem List (1) Hypercalcemia Conclusion/Plan: The etiology of her hypercalcemia is not clear at this time. Her PTH is normal. She is not anemic or thrombocytopenic so less likely this is multiple myeloma. Given her smoking history the concern will be for a lung malignancy although her chest x-ray was unremarkable. Will treat her with IV saline at 200 cc an hour. She received zoledronic acid in the emergency department. Calcitonin is not available at this moment. We will continue to monitor her calcium and renal function. We will check a vitamin D level and PTH related protein given the concern for malignancy. (2) Acute kidney injury superimposed on chronic kidney disease Conclusion/Plan: The acute kidney injury is likely prerenal in nature given the hypercalcemia. She has chronic kidney disease at baseline with a creatinine of 1.4 and the etiology is not clear but suspect this may be secondary to hypertension. We will treat her with IV fluids and monitor her renal function. He does have proteinuria on her urinalysis and would likely benefit from an JESS or ARB once her kidney injury resolves. (3) Near syncope Conclusion/Plan: It appears her fall was not syncope but rather near syncope as she felt dizzy prior to the episode and never lost consciousness. Suspect sec secondary to her being dehydrated from the hypercalcemia. Will hydrate her with IV fluids. Will monitor her on telemetry. We will obtain an echocardiogram on Tuesday as it is not available over the weekend. (4) Hypertension Conclusion/Plan: Her blood pressure was initially in the 180s systolic and has now increased to the 220s systolic. The acute increase is likely from the IV saline in addition to the hypercalcemia. She does have a history of hypertension but not any medications at home. Her EKG does show LVH.. We will treat her with IV hydralazine for the time being. If her blood pressure remains significantly elevated, will consider transfer to the care unit for an IV infusion. Unable to give oral hypertensive at this time given her nausea and vomiting. (5) Elevated troponin Conclusion/Plan: She has no chest pain and EKG is without signs of ischemia. Suspect this is elevated secondary to the acute kidney injury. We will continue to trend her troponin and monitor her on telemetry. (6) Lumbar compression fracture Conclusion/Plan: She has compression fractures of L1-L3 evident on the x-ray of the lumbar spine. The chronicity is not clear at this time. We will treat her pain with Tylenol as needed. Qualifiers: Encounter type: initial encounter Lumbar vertebra fracture level: unspecified lumbar vertebra Qualified Code(s): S32.000A - Wedge compression fracture of unspecified lumbar vertebra, initial encounter for closed fracture - Lab Results Lab results reviewed: Yes Fish Bones: 02/03/19 15:15 02/03/19 15:15 - Diagnostic Imaging Results Diagnostic Imaging Results: positive: Final report reviewed - EKG Results EKG Interpreted Independently: Yes EKG Findings: Sinus rhythm without ischemic changes. Core Measures - Anticipated LOS I expect patient to be DC'd or transferred within 96 hours.: Yes - Issues Hospital Issues and Management Plan: 78-year-old female with hypercalcemia and acute kidney injury requiring IV hydration and further work-up of her hypercalcemia. - DVT/VTE - Prophylaxis VTE/DVT Device ordered at admit?: Yes VTE/DVT Prophylaxis med ordered at admit?: Yes
[2019-02-03] MEDS: ONDANSETRON 4 MG/2 ML VIAL IVP PRN (19:54)
[2019-02-03] MEDS: SODIUM CHLORIDE FLUSH 0.9% 10 ML SYRINGE IVP PRN (19:54)
[2019-02-03] MEDS: SODIUM CHLORIDE 0.9% 1,000 ML IV SCH (19:54)
[2019-02-03] MEDS: hydrALAZINE INJ 20 MG/ML VIAL IVP PRN ×2 (20:08→22:37)
[2019-02-03] MEDS ORDERED: PROCHLORPERAZINE 10 MG/2 ML VIAL IVP PRN (21:33)
[2019-02-03] MEDS: amLODIPine 5 MG TABLET PO SCH (23:07)
[2019-02-04] MEDS: SODIUM CHLORIDE 0.9% 1,000 ML IV SCH ×5 (00:51→22:22)
[2019-02-04] MEDS: SODIUM CHLORIDE FLUSH 0.9% 10 ML SYRINGE IVP SCH ×3 (00:51→18:10)
[2019-02-04] MEDS: oxyCODONE 5 MG TABLET PO PRN ×2 (01:00→04:53)
[2019-02-04 05:06] LABS: BASOPHILS % (AUTO) 0.2 %; HGB - HEMOGLOBIN 12.8 g/dL (12.0-16.0); LYMPHOCYTES # (AUTO) 0.7 10^3/uL (1.5-3.5); LYMPHOCYTES % (AUTO) 8.7 %; MEAN CORPUSCULAR HEMOGLOBIN 31.9 pg (27.0-31.0); MEAN CORPUSCULAR VOLUME 96.8 fL (81.0-99.0); MEAN PLATELET VOLUME 9.6 fL (7.9-10.8); MONOCYTES # (AUTO) 0.3 10^3/uL (0.0-1.0); MONOCYTES % (AUTO) 3.3 %; NEUTROPHILS # (AUTO) 7.2 10^3/uL (1.5-6.6); NEUTROPHILS % (AUTO) 87.2 %; PLT - PLATELET COUNT 210 10^3/uL (130-450); RED BLOOD COUNT 4.01 10^6/uL (4.20-5.40); RED CELL DISTRIBUTION WIDTH 13.2 % (12.0-15.0); WHITE BLOOD COUNT 8.3 x10^3/uL (4.8-10.8)
[2019-02-04 05:20] LABS: ALBUMIN 2.9 g/dL (3.2-5.5); ALBUMIN/GLOBULIN RATIO 0.8 (1.0-2.2); CALCIUM 11.5 mg/dL (8.5-10.3); CREATININE 1.7 mg/dL (0.4-1.0); MAGNESIUM 1.4 mg/dL (1.7-2.8); PHOSPHORUS 4.7 mg/dL (2.5-4.6); TOTAL PROTEIN 6.5 g/dL (6.7-8.2)
[2019-02-04] MEDS ORDERED: MAGNESIUM SULFATE 1 GM in SODIUM CHLORIDE 0.9% 50 ML IV ONE (08:00)
--- NOTE | 2019-02-04 08:14 | PROVIDER PROGRESS NOTE ---
Subjective - Prog Note Date Prog Note Date: 02/04/19 Prog Note Time: 10:17 - Subjective Subjective: She is sleeping. Does wake to my voice. Will wake with the nurse walks in. But she does not stay awake for long. And she keeps on telling us to leave her alone. She does not want to eat breakfast. She does not want to get up out of the bed to get in a chair. And she fell getting back to sleep. Calcium is come down to 14.3 and then to 11.5. Troponin has stayed steady state and was mildly elevated again this morning. She denies chest pain, shortness of breath. Current Medications - Current Medications Current Medications: Active Medications Acetaminophen (Tylenol) 650 mg PO Q4HR PRN PRN Reason: Pain 1 to 4 Amlodipine Besylate (Norvasc) 5 mg PO DAILY [facility] Last Admin: 02/03/19 23:07 Dose: Not Given Heparin Sodium (Porcine) () 5,000 unit SUBQ BID [facility] Hydralazine HCl (Apresoline Inj) 10 mg IVP Q4HR PRN PRN Reason: NEEDED PER PROVIDER ORDERS Last Admin: 02/03/19 22:37 Dose: 10 mg Sodium Chloride (Normal Saline 0.9%) 1,000 mls @ 200 mls/hr IV .Q5H [facility] Last Admin: 02/04/19 05:51 Dose: 200 mls/hr Magnesium Sulfate 1 gm/ Sodium (Chloride) 52 mls @ 52 mls/hr IV ONCE ONE Stop: 02/04/19 08:59 Magnesium Oxide (Mag Ox) 400 mg PO DAILYWM [facility] Nicotine (Nicoderm) 1 patch TOP DAILY [facility] Ondansetron HCl (Zofran Inj) 4 mg IVP Q6HR PRN PRN Reason: Nausea / Vomiting Last Admin: 02/03/19 19:54 Dose: 4 mg Ondansetron HCl (Zofran Odt) 4 mg TL Q6HR PRN PRN Reason: Nausea / Vomiting Oxycodone HCl (Roxicodone) 5 mg PO Q4HR PRN PRN Reason: Pain 5 to 7 Last Admin: 02/04/19 04:53 Dose: 5 mg Polyethylene Glycol (Miralax) 17 gm PO DAILY [facility] Prochlorperazine Edisylate (Compazine Inj) 10 mg IVP Q4HR PRN PRN Reason: Nausea / Vomiting Last Admin: 02/03/19 22:04 Dose: 10 mg Sodium Chloride (Normal Saline Flush 0.9%) 10 ml IVP PRN PRN PRN Reason: NEEDED PER PROVIDER ORDERS Last Admin: 02/03/19 19:54 Dose: 10 ml Sodium Chloride (Normal Saline Flush 0.9%) 10 ml IVP 0100,0900,1700 MIRANDA Last Admin: 02/04/19 00:51 Dose: 10 ml Omeprazole [PriLOSEC] 20 mg PO DAILY 04/26/16 Ranitidine HCl [Acid Director Digital Marketing] 75 mg PO DAILY 02/21/18 Objective - Vital Signs/Intake & Output Reviewed Vital Signs: Yes Vital Signs: Vital Signs x48h Temp Pulse Resp BP Pulse Ox 02/04/19 05:03 36.9 C 91 18 165/67 H 94 02/04/19 03:17 75 158/58 H Intake & Output: Intake & Output 02/01/19 02/02/19 02/03/19 02/04/19 23:59 23:59 23:59 23:59 Intake Total 1100 1990 Output Total 525 150 Balance 575 1840 - Objective General Appearance: positive: No acute distress, Lethargic Eyes Bilateral: positive: PERRL, EOMI ENT: positive: Dry mucous membranes Neck: positive: No JVD. negative: Stiff neck, Carotid bruit Respiratory: positive: Chest non-tender, No respiratory distress. negative: Wheezes, Rales, Rhonchi Cardiovascular: positive: Regular rate & rhythm, Systolic murmur. negative: Gallop/S4, Friction rub Abdomen: positive: Non-tender, No organomegaly, Nml bowel sounds, No distention Skin: positive: Warm, Dry Extremities: positive: Non-tender, Full ROM, No pedal edema Neurologic/Psychiatric: positive: CN's nml (2-12), Motor nml, Disoriented to place, Disoriented to time, Slurred/abnml speech Babinski Reflex: Right: Down, Left: Down - Lab Results Fish Bones: 02/04/19 04:55 02/04/19 04:55 Other Labs: Lab Results x24hrs 02/04/19 02/04/19 02/04/19 Range/Units 04:55 04:55 04:55 WBC 8.3 (4.8-10.8) x10^3/uL RBC 4.01 L (4.20-5.40) 10^6/uL Hgb 12.8 (12.0-16.0) g/dL Hct 38.8 (37.0-47.0) % MCV 96.8 (81.0-99.0) fL MCH 31.9 H (27.0-31.0) pg MCHC 33.0 (32.0-36.0) g/dL RDW 13.2 (12.0-15.0) % Plt Count 210 (130-450) 10^3/uL MPV 9.6 (7.9-10.8) fL Neut # (Auto) 7.2 H (1.5-6.6) 10^3/uL Lymph # (Auto) 0.7 L (1.5-3.5) 10^3/uL Ashley # (Auto) 0.3 (0.0-1.0) 10^3/uL Eos # (Auto) 0.0 (0.0-0.7) 10^3/uL Baso # (Auto) 0.0 (0.0-0.1) 10^3/uL Absolute Nucleated RBC 0.00 x10^3/uL Nucleated RBC % 0.0 /100WBC VBG pH (7.31-7.41) Ionized Calcium (1.15-1.33) mmol/L Sodium 137 (135-145) mmol/L Potassium 4.8 (3.5-5.0) mmol/L Chloride 100 L (101-111) mmol/L Carbon Dioxide 30 (21-32) mmol/L Anion Gap 7.0 (6-13) BUN 21 H (6-20) mg/dL Creatinine 1.7 H (0.4-1.0) mg/dL Estimated GFR (MDRD) 29 L (>89) Glucose 129 H (70-100) mg/dL Calcium 11.5 H (8.5-10.3) mg/dL Phosphorus 4.7 H (2.5-4.6) mg/dL Magnesium 1.4 L (1.7-2.8) mg/dL Total Bilirubin 1.0 (0.2-1.0) mg/dL AST 21 (10-42) IU/L ALT 12 (10-60) IU/L Alkaline Phosphatase 65 (42-121) IU/L Troponin I High Sens 54.1 H* (2.3-14.8) ng/L Total Protein 6.5 L (6.7-8.2) g/dL Albumin 2.9 L (3.2-5.5) g/dL Globulin 3.6 (2.1-4.2) g/dL Albumin/Globulin Ratio 0.8 L (1.0-2.2) Lipase (22-51) U/L PTH Intact (12-88) pg/mL Urine Color Urine Clarity (CLEAR) Urine pH (5.0-7.5) PH Ur Specific [place] (1.002-1.030) Urine Protein (NEGATIVE) mg/dL Urine Glucose (UA) (NEGATIVE) mg/dL Urine Ketones (NEGATIVE) mg/dL Urine Occult Blood (NEGATIVE) Urine Nitrite (NEGATIVE) Urine Bilirubin (NEGATIVE) Urine Urobilinogen (NORMAL) E.U./dL Ur Leukocyte Esterase (NEGATIVE) Urine RBC (0-5) /HPF Urine WBC (0-5) /HPF Ur Squamous Epith Cells (<= Few) Urine Bacteria (None Seen) /HPF Ur Microscopic Review Urine Culture Comments 02/03/19 02/03/19 02/03/19 Range/Units 22:00 18:20 17:35 WBC (4.8-10.8) x10^3/uL RBC (4.20-5.40) 10^6/uL Hgb (12.0-16.0) g/dL Hct (37.0-47.0) % MCV (81.0-99.0) fL MCH (27.0-31.0) pg MCHC (32.0-36.0) g/dL RDW (12.0-15.0) % Plt Count (130-450) 10^3/uL MPV (7.9-10.8) fL Neut # (Auto) (1.5-6.6) 10^3/uL Lymph # (Auto) (1.5-3.5) 10^3/uL Ashley # (Auto) (0.0-1.0) 10^3/uL Eos # (Auto) (0.0-0.7) 10^3/uL Baso # (Auto) (0.0-0.1) 10^3/uL Absolute Nucleated RBC x10^3/uL Nucleated RBC % /100WBC VBG pH 7.447 H (7.31-7.41) Ionized Calcium 1.60 H* (1.15-1.33) mmol/L Sodium (135-145) mmol/L Potassium (3.5-5.0) mmol/L Chloride (101-111) mmol/L Carbon Dioxide (21-32) mmol/L Anion Gap (6-13) BUN (6-20) mg/dL Creatinine (0.4-1.0) mg/dL Estimated GFR (MDRD) (>89) Glucose (70-100) mg/dL Calcium (8.5-10.3) mg/dL Phosphorus (2.5-4.6) mg/dL Magnesium (1.7-2.8) mg/dL Total Bilirubin (0.2-1.0) mg/dL AST (10-42) IU/L ALT (10-60) IU/L Alkaline Phosphatase (42-121) IU/L Troponin I High Sens 37.3 H* 45.5 H* (2.3-14.8) ng/L Total Protein (6.7-8.2) g/dL Albumin (3.2-5.5) g/dL Globulin (2.1-4.2) g/dL Albumin/Globulin Ratio (1.0-2.2) Lipase (22-51) U/L PTH Intact (12-88) pg/mL Urine Color Urine Clarity (CLEAR) Urine pH (5.0-7.5) PH Ur Specific [place] (1.002-1.030) Urine Protein (NEGATIVE) mg/dL Urine Glucose (UA) (NEGATIVE) mg/dL Urine Ketones (NEGATIVE) mg/dL Urine Occult Blood (NEGATIVE) Urine Nitrite (NEGATIVE) Urine Bilirubin (NEGATIVE) Urine Urobilinogen (NORMAL) E.U./dL Ur Leukocyte Esterase (NEGATIVE) Urine RBC (0-5) /HPF Urine WBC (0-5) /HPF Ur Squamous Epith Cells (<= Few) Urine Bacteria (None Seen) /HPF Ur Microscopic Review Urine Culture Comments 02/03/19 02/03/19 02/03/19 Range/Units 17:15 16:45 15:15 WBC (4.8-10.8) x10^3/uL RBC (4.20-5.40) 10^6/uL Hgb (12.0-16.0) g/dL Hct (37.0-47.0) % MCV (81.0-99.0) fL MCH (27.0-31.0) pg MCHC (32.0-36.0) g/dL RDW (12.0-15.0) % Plt Count (130-450) 10^3/uL MPV (7.9-10.8) fL Neut # (Auto) (1.5-6.6) 10^3/uL Lymph # (Auto) (1.5-3.5) 10^3/uL Ashley # (Auto) (0.0-1.0) 10^3/uL Eos # (Auto) (0.0-0.7) 10^3/uL Baso # (Auto) (0.0-0.1) 10^3/uL Absolute Nucleated RBC x10^3/uL Nucleated RBC % /100WBC VBG pH (7.31-7.41) Ionized Calcium (1.15-1.33) mmol/L Sodium (135-145) mmol/L Potassium (3.5-5.0) mmol/L Chloride (101-111) mmol/L Carbon Dioxide (21-32) mmol/L Anion Gap (6-13) BUN (6-20) mg/dL Creatinine (0.4-1.0) mg/dL Estimated GFR (MDRD) (>89) Glucose (70-100) mg/dL Calcium 14.3 H* (8.5-10.3) mg/dL Phosphorus (2.5-4.6) mg/dL Magnesium (1.7-2.8) mg/dL Total Bilirubin (0.2-1.0) mg/dL AST (10-42) IU/L ALT (10-60) IU/L Alkaline Phosphatase (42-121) IU/L Troponin I High Sens (2.3-14.8) ng/L Total Protein (6.7-8.2) g/dL Albumin (3.2-5.5) g/dL Globulin (2.1-4.2) g/dL Albumin/Globulin Ratio (1.0-2.2) Lipase (22-51) U/L PTH Intact 12 (12-88) pg/mL Urine Color YELLOW Urine Clarity CLEAR (CLEAR) Urine pH 7.0 (5.0-7.5) PH Ur Specific [place] 1.020 (1.002-1.030) Urine Protein 100 H (NEGATIVE) mg/dL Urine Glucose (UA) NEGATIVE (NEGATIVE) mg/dL Urine Ketones NEGATIVE (NEGATIVE) mg/dL Urine Occult Blood TRACE-INTA (NEGATIVE) Urine Nitrite NEGATIVE (NEGATIVE) Urine Bilirubin NEGATIVE (NEGATIVE) Urine Urobilinogen 0.2 (NORMAL) (NORMAL) E.U./dL Ur Leukocyte Esterase NEGATIVE (NEGATIVE) Urine RBC None Seen (0-5) /HPF Urine WBC 0-3 (0-5) /HPF Ur Squamous Epith Cells FEW Squamous (<= Few) Urine Bacteria Rare (None Seen) /HPF Ur Microscopic Review INDICATED Urine Culture Comments NOT INDICATED 02/03/19 02/03/19 02/03/19 Range/Units 15:15 15:15 15:15 WBC 6.1 (4.8-10.8) x10^3/uL RBC 4.64 (4.20-5.40) 10^6/uL Hgb 14.2 (12.0-16.0) g/dL Hct 44.7 (37.0-47.0) % MCV 96.3 (81.0-99.0) fL MCH 30.6 (27.0-31.0) pg MCHC 31.8 L (32.0-36.0) g/dL RDW 13.3 (12.0-15.0) % Plt Count 227 (130-450) 10^3/uL MPV 9.7 (7.9-10.8) fL Neut # (Auto) 4.4 (1.5-6.6) 10^3/uL Lymph # (Auto) 1.1 L (1.5-3.5) 10^3/uL Ashley # (Auto) 0.3 (0.0-1.0) 10^3/uL Eos # (Auto) 0.2 (0.0-0.7) 10^3/uL Baso # (Auto) 0.1 (0.0-0.1) 10^3/uL Absolute Nucleated RBC 0.00 x10^3/uL Nucleated RBC % 0.0 /100WBC VBG pH (7.31-7.41) Ionized Calcium (1.15-1.33) mmol/L Sodium 137 (135-145) mmol/L Potassium 4.8 (3.5-5.0) mmol/L Chloride 95 L (101-111) mmol/L Carbon Dioxide 31 (21-32) mmol/L Anion Gap 11.0 (6-13) BUN 15 (6-20) mg/dL Creatinine 2.0 H (0.4-1.0) mg/dL Estimated GFR (MDRD) 24 L (>89) Glucose 120 H (70-100) mg/dL Calcium 14.8 H* (8.5-10.3) mg/dL Phosphorus (2.5-4.6) mg/dL Magnesium (1.7-2.8) mg/dL Total Bilirubin 1.1 H (0.2-1.0) mg/dL AST 21 (10-42) IU/L ALT 13 (10-60) IU/L Alkaline Phosphatase 78 (42-121) IU/L Troponin I High Sens 39.5 H* (2.3-14.8) ng/L Total Protein 7.8 (6.7-8.2) g/dL Albumin 3.6 (3.2-5.5) g/dL Globulin 4.2 (2.1-4.2) g/dL Albumin/Globulin Ratio 0.9 L (1.0-2.2) Lipase 41 (22-51) U/L PTH Intact (12-88) pg/mL Urine Color Urine Clarity (CLEAR) Urine pH (5.0-7.5) PH Ur Specific [place] (1.002-1.030) Urine Protein (NEGATIVE) mg/dL Urine Glucose (UA) (NEGATIVE) mg/dL Urine Ketones (NEGATIVE) mg/dL Urine Occult Blood (NEGATIVE) Urine Nitrite (NEGATIVE) Urine Bilirubin (NEGATIVE) Urine Urobilinogen (NORMAL) E.U./dL Ur Leukocyte Esterase (NEGATIVE) Urine RBC (0-5) /HPF Urine WBC (0-5) /HPF Ur Squamous Epith Cells (<= Few) Urine Bacteria (None Seen) /HPF Ur Microscopic Review Urine Culture Comments ABX Reporting Has patient been on IV antibiotics over the past 48 hours?: No Assessment/Plan - Problem List (1) Hypercalcemia Impression: Calcium:14.8> 14.3> 11.5 The etiology of her hypercalcemia is not clear at this time. Her PTH is normal. She is not anemic or thrombocytopenic so less likely this is multiple myeloma. Given her smoking history the concern will be for a lung malignancy although her chest x-ray was unremarkable. Will treat her with IV saline at 200 cc an hour. She received zoledronic acid in the emergency department. Calcitonin is not available at this moment. We will continue to monitor her calcium and renal function. We will check a vitamin D level and PTH related protein given the concern for malignancy. Will also order SPEP with next blood draw. (2) Acute kidney injury superimposed on chronic kidney disease Conclusion/Plan: The acute kidney injury is likely prerenal in nature given the hypercalcemia. She has chronic kidney disease at baseline with a creatinine of 1.4 and the etiology is not clear but suspect this may be secondary to hypertension. We will treat her with IV fluids and monitor her renal function. She does have proteinuria on her urinalysis and would likely benefit from an JESS or ARB once her kidney injury resolves. Creatinine: 2.0>1.7 (3) Near syncope Conclusion/Plan: It appears her fall was not syncope but rather near syncope as she felt dizzy prior to the episode and never lost consciousness. Suspect sec secondary to her being dehydrated from the hypercalcemia. Will hydrate her with IV fluids. Monitor her on telemetry does not show any arrythmia. We will obtain an echocardiogram on Tuesday as it is not available over the weekend. (4) Hypertension Conclusion/Plan: Her blood pressure was initially in the 180s systolic and then increased to the 220s systolic. The acute increase is likely from the IV saline in addition to the hypercalcemia. She does have a history of hypertension but not any medications at home. Her EKG does show LVH.. W treated her with IV hydralazine for the time being. If her blood pressure remains significantly elevated, will consider transfer to the care unit for an IV infusion. Unable to give oral hypertensive at this time given her nausea and vomiting. So far systolic 148-165 this morning. No change in treatment at this time. Continue to monitor. (5) Elevated troponin Conclusion/Plan: Troponin: 45.5> 37.3>54.1 She has no chest pain and EKG is without signs of ischemia. Suspect this is elevated secondary to the acute kidney injury. We will continue to trend her troponin and monitor her on telemetry. (6) Lumbar compression fracture Conclusion/Plan: She has compression fractures of L1-L3 evident on the x-ray of the lumbar spine. The chronicity is not clear at this time. We will treat her pain with Tylenol as needed. Qualifiers: Encounter type: initial encounter Lumbar vertebra fracture level: unspec ified lumbar vertebra Qualified Code(s): S32.000A - Wedge compression fracture of unspecified lumbar vertebra, initial encounter for closed fracture
[2019-02-04] MEDS: HEPARIN 5,000 UNIT/ML VIAL SUBQ SCH ×2 (08:28→21:05)
[2019-02-04] MEDS: MAGNESIUM OXIDE 400 MG TABLET PO SCH (10:20)
[2019-02-04] MEDS: POLYETHYLENE GLYCOL 3350 17 GM PACKET PO SCH (10:20)
[2019-02-04] MEDS: amLODIPine 5 MG TABLET PO SCH (10:20)
[2019-02-04] MEDS: NICOTINE 21 MG PATCH TOP SCH (10:24)
[2019-02-04 13:36] LABS: CALCIUM 10.6 mg/dL (8.5-10.3)
[2019-02-04] MEDS: hydrALAZINE INJ 20 MG/ML VIAL IVP PRN (14:31)
[2019-02-04] MEDS ORDERED: FUROSEMIDE 20 MG/2 ML VIAL IVP STA (14:49)
--- NOTE | 2019-02-04 18:10 | Ultrasound Report ---
Reason: NEW RENAL FAILURE,HYPERCALCEMIA Procedure Date: 02/04/2019 Accession Number: [id number] / [id number] Procedure: US - Retroperitoneal CPT Code: Addended Final Report FULL RESULT: EXAM: RENAL ULTRASOUND EXAM DATE: 02/04/2019 04:40 PM. CLINICAL HISTORY: NEW RENAL Failure, hypercalcemia. COMPARISON: CHEST 1 VIEW 02/03/2019 3:35 PM. TECHNIQUE: Real-time scanning was performed with static images obtained. FINDINGS: Limited exam due to patient combativeness. Right Kidney: 12.1 x 4.9 x 5.8 cm. Thinned and echogenic cortex. No hydronephrosis. There are several cysts measuring up to 3.4 cm. Left Kidney: 9.5 x 5.0 x 5.2 cm. Thinned and echogenic cortex. No hydronephrosis. Probable nonobstructing stone measures 4 mm. Bladder: Bilateral jets seen. The prevoid bladder volume was 145 cc. The postvoid bladder volume was 122 cc. Other: The lace pinner identifies a solid appearing lesion in the right upper quadrant medial to the right kidney and liver and inferior to the gallbladder that measures 4.8 x 2.7 x 2.7 cm. This is of uncertain etiology. IMPRESSION: 1. Medical renal disease. No hydronephrosis. 2. Probable nonobstructing left renal stone. 3. Postvoid residual of 122 cc. 4. Solid appearing lesion in the right upper quadrant is of uncertain etiology, possibly a lymph node. CT could further assess. COLT The call report notification system was initiated by Dr. Jaquan Ma at 06:09 PM on 02/04/2019. ADDENDUM: 02/04/19 18:24 The above call report findings were discussed with Dr. Erwin by Dr. Jaquan Ma at 06:24 PM on 02/04/2019.
[2019-02-04 19:00] LABS: CALCIUM 10.5 mg/dL (8.5-10.3)
--- NOTE | 2019-02-04 21:38 | CT Report ---
Reason: neoplasm Procedure Date: 02/04/2019 Accession Number: [id number] / [id number] Procedure: CT - CHEST WO CPT Code: Final Report FULL RESULT: EXAM: CT CHEST EXAM DATE: 02/04/2019 07:18 PM. CLINICAL HISTORY: Neoplasm. COMPARISONS: ABDOMEN/PELVIS W/O 02/04/2019 7:13 PM. TECHNIQUE: Routine helical CT imaging was performed through the chest. IV contrast: None. Reconstructions: Coronal and sagittal. In accordance with CT protocol optimization, one or more of the following dose reduction techniques were utilized for this exam: automated exposure control, adjustment of mA and/or KV based on patient size, or use of iterative reconstructive technique. FINDINGS: Lungs/Pleura: Trace right pleural effusion. Bibasilar atelectasis and scarring. No nodules, bronchial thickening, consolidation, or edema. Pulmonary vasculature is normal. No pericardial effusion. No pneumothorax. Mediastinum: A moderate hiatal hernia limited to posterior mediastinum. Few subcentimeter mediastinal lymph nodes noted. The heart and great vessels are normal. Bones: Osteoporosis with age indeterminate mild compression of T4 vertebral body. Visualized Abdomen: Unremarkable. Other: None. IMPRESSION: A moderate hiatal hernia limited to the posterior mediastinum.Trace right pleural effusion. Bibasilar atelectasis and scarring, right greater than left. A few multistation mediastinal subcentimeter lymph nodes. No other significant abnormality. Osteoporosis with age indeterminate mild compression of T4 vertebral body. RADIA
--- NOTE | 2019-02-04 21:49 | CT Report ---
Reason: neoplasm abdomen Procedure Date: 02/04/2019 Accession Number: [id number] / [id number] Procedure: CT - Abdomen/Pelvis WO CPT Code: Final Report FULL RESULT: EXAM: CT ABDOMEN AND PELVIS EXAM DATE:02/04/2019 07:18 PM CLINICAL HISTORY: Neoplasm abdomen. Solid lesion in the right upper quadrant. COMPARISONS: RETROPERITONEAL 02/04/2019 4:13 PM CHEST 2 VIEW PA/LAT 04/26/2016 2:00 PM. TECHNIQUE: Routine helical CT imaging was performed through the abdomen and pelvis without IV contrast or oral contrast. Reconstructions: Coronal and sagittal. In accordance with CT protocol optimization, one or more of the following dose reduction techniques were utilized for this exam: automated exposure control, adjustment of mA and/or KV based on patient size, or use of iterative reconstructive technique. FINDINGS: Lung Bases: Mild cardiomegaly. Otherwise, unremarkable. Liver: Unremarkable. Gallbladder/Bile Ducts: Unremarkable. Spleen: Unremarkable. Pancreas: 3.2 x 2.5 x 1.6 cm heavily calcified mass at or adjacent to the uncinate process of the pancreas. The remainder of the head, body, and tail are intact. Adrenal Glands: Unremarkable. Kidneys: Unremarkable. Punctate calcifications are favored to represent arterial atherosclerotic calcifications. Renal cysts. Peritoneal Cavity/Bowel: Moderate hiatal hernia. Otherwise unremarkable.. The bowel is normal in contour and caliber. Normal appendix. Pelvic Organs: Unremarkable. Vasculature: Severe coronary artery and severe aortic atherosclerotic calcifications.. Bones: Unremarkable. Other: None. IMPRESSION: 1. 3.2 x 2.5 x 1.6 cm heavily calcified mass at or adjacent to the uncinate process of the pancreas. This correlates with the mass seen on the recent ultrasound. The differential diagnosis includes calcified neuroendocrine tumor and calcified peripancreatic lymph node. 2. Mild cardiomegaly. 3. Severe coronary artery and severe aortic atherosclerotic calcifications. 4. Moderate hiatal hernia RADIA
[2019-02-05] MEDS: SODIUM CHLORIDE FLUSH 0.9% 10 ML SYRINGE IVP SCH ×3 (00:19→16:26)
[2019-02-05] MEDS: SODIUM CHLORIDE 0.9% 1,000 ML IV SCH ×4 (03:55→22:05)
[2019-02-05 04:55] LABS: BASOPHILS % (AUTO) 0.4 %; EOSINOPHILS # (AUTO) 0.1 10^3/uL (0.0-0.7); EOSINOPHILS % (AUTO) 1.1 %; HGB - HEMOGLOBIN 10.1 g/dL (12.0-16.0); LYMPHOCYTES # (AUTO) 0.9 10^3/uL (1.5-3.5); LYMPHOCYTES % (AUTO) 12.3 %; MEAN CORPUSCULAR HEMOGLOBIN 31.1 pg (27.0-31.0); MEAN CORPUSCULAR HGB CONC 31.5 g/dL (32.0-36.0); MEAN CORPUSCULAR VOLUME 98.8 fL (81.0-99.0); MEAN PLATELET VOLUME 9.9 fL (7.9-10.8); MONOCYTES # (AUTO) 0.3 10^3/uL (0.0-1.0); MONOCYTES % (AUTO) 4.5 %; PLT - PLATELET COUNT 161 10^3/uL (130-450); RED BLOOD COUNT 3.25 10^6/uL (4.20-5.40); RED CELL DISTRIBUTION WIDTH 13.8 % (12.0-15.0); WHITE BLOOD COUNT 7.4 x10^3/uL (4.8-10.8)
[2019-02-05 05:11] LABS: ALBUMIN 2.6 g/dL (3.2-5.5); ALBUMIN/GLOBULIN RATIO 0.9 (1.0-2.2); CALCIUM 9.5 mg/dL (8.5-10.3); CREATININE 1.7 mg/dL (0.4-1.0); MAGNESIUM 1.6 mg/dL (1.7-2.8); PHOSPHORUS 2.9 mg/dL (2.5-4.6); TOTAL PROTEIN 5.6 g/dL (6.7-8.2)
[2019-02-05] MEDS: hydrALAZINE INJ 20 MG/ML VIAL IVP PRN (08:11)
[2019-02-05] MEDS: oxyCODONE 5 MG TABLET PO PRN ×2 (08:13→15:45)
[2019-02-05] MEDS: MAGNESIUM OXIDE 400 MG TABLET PO SCH (08:13)
[2019-02-05] MEDS: NICOTINE 21 MG PATCH TOP SCH (08:14)
[2019-02-05] MEDS: amLODIPine 5 MG TABLET PO SCH (08:14)
[2019-02-05] MEDS: POLYETHYLENE GLYCOL 3350 17 GM PACKET PO SCH (08:14)
[2019-02-05] MEDS: HEPARIN 5,000 UNIT/ML VIAL SUBQ SCH ×2 (08:17→22:04)
--- NOTE | 2019-02-05 08:28 | PROVIDER PROGRESS NOTE ---
Subjective - Prog Note Date Prog Note Date: 02/05/19 Prog Note Time: 15:44 - Subjective Subjective: confused, tired. not eating. doesn't want to get out of bed. Calcium is normal today. Current Medications - Current Medications Current Medications: Active Medications Acetaminophen (Tylenol) 650 mg PO Q4HR PRN PRN Reason: Pain 1 to 4 Amlodipine Besylate (Norvasc) 5 mg PO DAILY COUNTS INCLUDE 234 BEDS AT THE [facility] Last Admin: 02/05/19 08:14 Dose: 5 mg Heparin Sodium (Porcine) () 5,000 unit SUBQ BID COUNTS INCLUDE 234 BEDS AT THE [facility] Last Admin: 02/05/19 08:17 Dose: 5,000 unit Hydralazine HCl (Apresoline Inj) 10 mg IVP Q4HR PRN PRN Reason: NEEDED PER PROVIDER ORDERS Last Admin: 02/05/19 08:11 Dose: 10 mg Sodium Chloride (Normal Saline 0.9%) 1,000 mls @ 200 mls/hr IV .Q5H COUNTS INCLUDE 234 BEDS AT THE [facility] Last Infusion: 02/05/19 06:21 Dose: 200 mls/hr Magnesium Oxide (Mag Ox) 400 mg PO DAILYWM COUNTS INCLUDE 234 BEDS AT THE [facility] Last Admin: 02/05/19 08:13 Dose: 400 mg Nicotine (Nicoderm) 1 patch TOP DAILY COUNTS INCLUDE 234 BEDS AT THE [facility] Last Admin: 02/05/19 08:14 Dose: Not Given Ondansetron HCl (Zofran Inj) 4 mg IVP Q6HR PRN PRN Reason: Nausea / Vomiting Last Admin: 02/03/19 19:54 Dose: 4 mg Ondansetron HCl (Zofran Odt) 4 mg TL Q6HR PRN PRN Reason: Nausea / Vomiting Oxycodone HCl (Roxicodone) 5 mg PO Q4HR PRN PRN Reason: Pain 5 to 7 Last Admin: 02/05/19 08:13 Dose: 5 mg Polyethylene Glycol (Miralax) 17 gm PO DAILY COUNTS INCLUDE 234 BEDS AT THE [facility] Last Admin: 02/05/19 08:14 Dose: 17 gm Prochlorperazine Edisylate (Compazine Inj) 10 mg IVP Q4HR PRN PRN Reason: Nausea / Vomiting Last Admin: 02/03/19 22:04 Dose: 10 mg Sodium Chloride (Normal Saline Flush 0.9%) 10 ml IVP PRN PRN PRN Reason: NEEDED PER PROVIDER ORDERS Last Admin: 02/03/19 19:54 Dose: 10 ml Sodium Chloride (Normal Saline Flush 0.9%) 10 ml IVP 0100,0900,1700 MIRANDA Last Admin: 02/05/19 00:19 Dose: 10 ml Omeprazole [PriLOSEC] 20 mg PO DAILY 04/26/16 Ranitidine HCl [Acid Book Jacket Cover Machine Operator] 75 mg PO DAILY 02/21/18 Objective - Vital Signs/Intake & Output Reviewed Vital Signs: Yes Vital Signs: Vital Signs x48h Temp Pulse Pulse Resp BP BP Pulse Ox 02/05/19 08:23 198/65 H 02/05/19 08:11 188/58 H 02/05/19 07:58 36.9 C 82 22 188/58 H 94 02/05/19 06:11 37 C 80 18 95 02/05/19 04:51 37.0 C 80 18 177/64 H 95 Intake & Output: Intake & Output 02/02/19 02/03/19 02/04/19 02/05/19 23:59 23:59 23:59 23:59 Intake Total 1100 5465.333 1483.334 Output Total 525 1750 300 Balance 575 3715.333 1183.334 - Objective General Appearance: positive: No acute distress, Lethargic Eyes Bilateral: positive: PERRL, EOMI ENT: positive: Pharynx nml Neck: positive: No JVD. negative: Stiff neck Respiratory: positive: Chest non-tender, Rhonchi. negative: Wheezes, Rales Cardiovascular: positive: Regular rate & rhythm, Systolic murmur. negative: Gallop/S4, Friction rub Abdomen: positive: Non-tender, No organomegaly, Nml bowel sounds, No distention Skin: positive: Warm, Dry Extremities: positive: Full ROM, Pedal edema Neurologic/Psychiatric: positive: CN's nml (2-12), Motor nml, Disoriented to place, Disoriented to time, Slurred/abnml speech (slurred speech at times) - Lab Results Fish Bones: 02/05/19 04:39 02/05/19 04:39 Other Labs: Lab Results x24hrs 02/05/19 02/05/19 02/04/19 Range/Units 04:39 04:39 18:45 WBC 7.4 (4.8-10.8) x10^3/uL RBC 3.25 L (4.20-5.40) 10^6/uL Hgb 10.1 L (12.0-16.0) g/dL Hct 32.1 L (37.0-47.0) % MCV 98.8 (81.0-99.0) fL MCH 31.1 H (27.0-31.0) pg MCHC 31.5 L (32.0-36.0) g/dL RDW 13.8 (12.0-15.0) % Plt Count 161 (130-450) 10^3/uL MPV 9.9 (7.9-10.8) fL Neut # (Auto) 6.0 (1.5-6.6) 10^3/uL Lymph # (Auto) 0.9 L (1.5-3.5) 10^3/uL Smith # (Auto) 0.3 (0.0-1.0) 10^3/uL Eos # (Auto) 0.1 (0.0-0.7) 10^3/uL Baso # (Auto) 0.0 (0.0-0.1) 10^3/uL Absolute Nucleated RBC 0.00 x10^3/uL Nucleated RBC % 0.0 /100WBC Sodium 140 141 (135-145) mmol/L Potassium 4.1 4.6 (3.5-5.0) mmol/L Chloride 109 107 (101-111) mmol/L Carbon Dioxide 26 28 (21-32) mmol/L Anion Gap 5.0 L 6.0 (6-13) BUN 34 H 37 H (6-20) mg/dL Creatinine 1.7 H 2.0 H (0.4-1.0) mg/dL Estimated GFR (MDRD) 29 L 24 L (>89) Glucose 83 95 (70-100) mg/dL Calcium 9.5 10.5 H (8.5-10.3) mg/dL Phosphorus 2.9 (2.5-4.6) mg/dL Magnesium 1.6 L (1.7-2.8) mg/dL Total Bilirubin 1.0 (0.2-1.0) mg/dL AST 15 (10-42) IU/L ALT 10 (10-60) IU/L Alkaline Phosphatase 52 (42-121) IU/L Troponin I High Sens (2.3-14.8) ng/L Total Protein 5.6 L (6.7-8.2) g/dL Albumin 2.6 L (3.2-5.5) g/dL Globulin 3.0 (2.1-4.2) g/dL Albumin/Globulin Ratio 0.9 L (1.0-2.2) 02/04/19 02/04/19 Range/Units 13:05 09:58 WBC (4.8-10.8) x10^3/uL RBC (4.20-5.40) 10^6/uL Hgb (12.0-16.0) g/dL Hct (37.0-47.0) % MCV (81.0-99.0) fL MCH (27.0-31.0) pg MCHC (32.0-36.0) g/dL RDW (12.0-15.0) % Plt Count (130-450) 10^3/uL MPV (7.9-10.8) fL Neut # (Auto) (1.5-6.6) 10^3/uL Lymph # (Auto) (1.5-3.5) 10^3/uL Smith # (Auto) (0.0-1.0) 10^3/uL Eos # (Auto) (0.0-0.7) 10^3/uL Baso # (Auto) (0.0-0.1) 10^3/uL Absolute Nucleated RBC x10^3/uL Nucleated RBC % /100WBC Sodium 139 (135-145) mmol/L Potassium 5.4 H (3.5-5.0) mmol/L Chloride 105 (101-111) mmol/L Carbon Dioxide 25 (21-32) mmol/L Anion Gap 9.0 (6-13) BUN 35 H (6-20) mg/dL Creatinine 2.0 H (0.4-1.0) mg/dL Estimated GFR (MDRD) 24 L (>89) Glucose 95 (70-100) mg/dL Calcium 10.6 H (8.5-10.3) mg/dL Phosphorus (2.5-4.6) mg/dL Magnesium (1.7-2.8) mg/dL Total Bilirubin (0.2-1.0) mg/dL AST (10-42) IU/L ALT (10-60) IU/L Alkaline Phosphatase (42-121) IU/L Troponin I High Sens 65.0 H* (2.3-14.8) ng/L Total Protein (6.7-8.2) g/dL Albumin (3.2-5.5) g/dL Globulin (2.1-4.2) g/dL Albumin/Globulin Ratio (1.0-2.2) ABX Reporting Has patient been on IV antibiotics over the past 48 hours?: No Assessment/Plan - Problem List (1) Neoplasm of abdomen Impression: Yesterday afternoon into the evening her urine output was not as brisk as I would expect considering she was getting 200 cc an hour. She was sleepy, lethargic and was not improving. Creatinine was not improving. As such I obtained a renal ultrasound to see if she had obstruction. While she did not have renal obstruction, a mass was seen in the abdomen and as such I obtained a CT of the chest abdomen and pelvis. On CT abd a 3.2 x 2.5 x 1.6 cm heavily calcified mass seen at or adjacent to the uncinate process of the pancreas. The remainder of the head, body, and tail are intact. Moderate hiatal hernia. Severe coronary artery and severe aortic atherosclerotic calcification. Mild cardiomegaly. Lungs have a trace right pleural effusion. Bibasilar atelectasis and scarring. No nodules, bronchial thickening, consolidation, or anemia. (2) Hypercalcemia resolved Impression: Calcium:14.8> 14.3> 11.5>10.6>10.5>9.5 this am The etiology of her hypercalcemia may be the mass seen on CT. Her PTH is normal. She is not anemic or thrombocytopenic so less likely this is multiple myeloma. Given her smoking history the concern was for a lung malignancy but her chest x-ray and CT of the chest was unremarkable. We were treating her with IV saline at 200 cc an hour but with cough, congestion and hypoxia yesterday, I reduced rate to 85 cc/hr. She received zoledronic acid in the emergency department. Calcitonin is not available at this moment. We will continue to monitor her calcium and renal function even though calcium nml this am. We have checked a vitamin D level and PTH related protein given the concern for malignancy and those results are pengin. SPEP is also pending. (3) Acute kidney injury superimposed on chronic kidney disease Conclusion/Plan: The acute kidney injury is likely prerenal in nature given the hypercalcemia. She has chronic kidney disease at baseline with a creatinine of 1.4 and the etiology is not clear but suspect this may be secondary to hypertension. We have treated her with IV fluids and continue to monitor her renal function. We did not use contrast for the CT bc of the renal function. She does have pr oteinuria on her urinalysis and would likely benefit from an JESS or ARB once her kidney injury resolves. Creatinine: 2.0>1.7>2.0>2.0>1.7 this am (4) Near syncope Conclusion/Plan: It appears her fall was not syncope but rather near syncope as she felt dizzy prior to the episode and never lost consciousness. Suspect secondary to her being dehydrated from the hypercalcemia. We have hydrated her with IV fluids. Monitor her on telemetry does not show any arrythmia. We will obtain an echocardiogram on Tuesday as it is not available over the weekend. (5) Hypertension Conclusion/Plan: Her blood pressure was initially in the 180s systolic and then increased to the 220s systolic. The acute increase is likely from the IV saline in addition to the hypercalcemia. She does have a history of hypertension but not any m edications at home. Her EKG does show LVH. We treated her with IV hydralazine for the time being. If her blood pressure remains significantly elevated, would consider transfer to the care unit for an IV infusion. Unable to give oral hypertensive at this time given her nausea and vomiting. She has been consistently elevated. Her initial greater than 200 systolic is at least gone down. 24 January 2015 she was in the 140s to 160s. This morning she is 180s to 190s.She is on amlodipine 5 mg, hydralazine as needed. Will give amlodipine 10 mg this morning (6) Elevated troponin Conclusion/Plan: Troponin: 45.5> 37.3>54.1 >65.0 so trend is mildly up but not felt to have OH. Due to high BP and creatinine. She has no chest pain and EKG is without signs of ischemia. We will continue to trend her troponin and monitor her on telemetry. (7) Lumbar compression fracture Conclusion/Plan: She has compression fractures of L1-L3 evident on the x-ray of the lumbar spine. The chronicity is not clear at this time. We will treat her pain with Tylenol as needed. Qualifiers: Encounter type: initial encounter Lumbar vertebra fracture level: unspecified lumbar vertebra Qualified Code(s): S32.000A - Wedge compression fracture of unspecified lumbar vertebra, initial encounter for closed fracture (8) Metabolic encephalopathy Even though her calcium is been corrected, this patient has not rebounding to the level of what she was described at on admission. She described as an independent patient who lives with her sister. Drives cars. Pays bills. Goes grocery shopping. We will try and get her to work with physical therapy. I had hoped that nursing would be able to get out of bed but she is not wanting to get out of bed. She prefers the lights off, room darkened. Conversation is not very meaningful at this time with her.
--- NOTE | 2019-02-05 09:21 | PHARMACY PROGRESS NOTE ---
- Best Possible Medication History Admit Date and Time: 02/03/19 1824 Processed by: Pharmacy Medication History completed: In progress Patient Interview: Pt unable to participate Secondary Source(s): Other family member (pending interview), Physician records (Contacted listed PCP's office [phone]) As the person ultimately responsible for medication therapy, providers are able to order a medication from an existing home medication list in [facility] via the "Reconcile Routine" prior to Confirmation of that medication by retail support associate. Such practice is discouraged except when the physician, in their clinical judgment, deems that a medical need exists for a medication without regard to previous use.
[2019-02-06] MEDS: ACETAMINOPHEN 325 MG TABLET PO PRN (01:48)
[2019-02-06] MEDS: SODIUM CHLORIDE FLUSH 0.9% 10 ML SYRINGE IVP SCH ×3 (04:10→16:17)
[2019-02-06] MEDS: ONDANSETRON 4 MG/2 ML VIAL IVP PRN ×2 (05:05→17:37)
[2019-02-06 05:06] LABS: BASOPHILS % (AUTO) 0.6 %; EOSINOPHILS # (AUTO) 0.1 10^3/uL (0.0-0.7); EOSINOPHILS % (AUTO) 1.4 %; HGB - HEMOGLOBIN 9.3 g/dL (12.0-16.0); LYMPHOCYTES % (AUTO) 15.5 %; MEAN CORPUSCULAR HEMOGLOBIN 30.6 pg (27.0-31.0); MEAN CORPUSCULAR HGB CONC 30.1 g/dL (32.0-36.0); MEAN CORPUSCULAR VOLUME 101.6 fL (81.0-99.0); MEAN PLATELET VOLUME 10.1 fL (7.9-10.8); MONOCYTES # (AUTO) 0.3 10^3/uL (0.0-1.0); MONOCYTES % (AUTO) 4.5 %; NEUTROPHILS % (AUTO) 77.1 %; PLT - PLATELET COUNT 137 10^3/uL (130-450); RED BLOOD COUNT 3.04 10^6/uL (4.20-5.40); RED CELL DISTRIBUTION WIDTH 14.1 % (12.0-15.0); WHITE BLOOD COUNT 6.5 x10^3/uL (4.8-10.8)
[2019-02-06 05:20] LABS: MAGNESIUM 1.9 mg/dL (1.7-2.8); PHOSPHORUS 2.9 mg/dL (2.5-4.6)
[2019-02-06] MEDS: hydrALAZINE INJ 20 MG/ML VIAL IVP PRN (09:17)
[2019-02-06] MEDS: MAGNESIUM OXIDE 400 MG TABLET PO SCH (09:17)
[2019-02-06] MEDS: amLODIPine 5 MG TABLET PO SCH (09:17)
[2019-02-06] MEDS: oxyCODONE 5 MG TABLET PO PRN ×3 (09:17→21:33)
[2019-02-06] MEDS: POLYETHYLENE GLYCOL 3350 17 GM PACKET PO SCH (09:18)
[2019-02-06] MEDS: NICOTINE 21 MG PATCH TOP SCH (09:19)
[2019-02-06] MEDS: HEPARIN 5,000 UNIT/ML VIAL SUBQ SCH ×2 (09:21→21:33)
--- NOTE | 2019-02-06 11:22 | PROVIDER PROGRESS NOTE ---
Subjective - Prog Note Date Prog Note Date: 02/06/19 Prog Note Time: 11:19 - Subjective Subjective: I spoke to Dr. Slater about her. Try to get a baseline status of her activities, involvement with her healthcare. He sees her infrequently. The last time he saw her was February 2018 in follow-up for her coffee-ground emesis that we admitted her for. She did have hypercalcemia at that time. It also resolved with hydration. When she saw him in the office he felt that she may have alcohol gastritis. She never followed through with getting an EGD with a surgeon. As the last time he saw her. She continues to be withdrawn, sleeping. Hemoglobin is drifted down to 9.3 from 12.6 but does not require transfusion. She is hemodynamically stable with blood pressures that are quite brisk. Afebrile. Creatinine is coming back down to 1.7. Her baseline appears to be 1.3. Current Medications - Current Medications Current Medications: Active Medications Acetaminophen (Tylenol) 650 mg PO Q4HR PRN PRN Reason: Pain 1 to 4 Last Admin: 02/06/19 01:48 Dose: 650 mg Amlodipine Besylate (Norvasc) 5 mg PO DAILY [facility] Last Admin: 02/06/19 09:17 Dose: 5 mg Heparin Sodium (Porcine) () 5,000 unit SUBQ BID [facility] Last Admin: 02/06/19 09:21 Dose: 5,000 unit Hydralazine HCl (Apresoline Inj) 10 mg IVP Q4HR PRN PRN Reason: NEEDED PER PROVIDER ORDERS Last Admin: 02/06/19 09:17 Dose: 10 mg Sodium Chloride (Normal Saline 0.9%) 1,000 mls @ 80 mls/hr IV .[id number] [facility] Last Admin: 02/05/19 22:05 Dose: 80 mls/hr Magnesium Oxide (Mag Ox) 400 mg PO DAILYWM [facility] Last Admin: 02/06/19 09:17 Dose: 400 mg Nicotine (Nicoderm) 1 patch TOP DAILY [facility] Last Admin: 02/06/19 09:19 Dose: Not Given Ondansetron HCl (Zofran Inj) 4 mg IVP Q6HR PRN PRN Reason: Nausea / Vomiting Last Admin: 02/06/19 05:05 Dose: 4 mg Ondansetron HCl (Zofran Odt) 4 mg TL Q6HR PRN PRN Reason: Nausea / Vomiting Oxycodone HCl (Roxicodone) 5 mg PO Q4HR PRN PRN Reason: Pain 5 to 7 Last Admin: 02/06/19 09:17 Dose: 5 mg Polyethylene Glycol (Miralax) 17 gm PO DAILY [facility] Last Admin: 02/06/19 09:18 Dose: 17 gm Prochlorperazine Edisylate (Compazine Inj) 10 mg IVP Q4HR PRN PRN Reason: Nausea / Vomiting Last Admin: 02/03/19 22:04 Dose: 10 mg Sodium Chloride (Normal Saline Flush 0.9%) 10 ml IVP PRN PRN PRN Reason: NEEDED PER PROVIDER ORDERS Last Admin: 02/03/19 19:54 Dose: 10 ml Sodium Chloride (Normal Saline Flush 0.9%) 10 ml IVP 0100,0900,1700 [facility] Last Admin: 02/06/19 09:20 Dose: Not Given Omeprazole [PriLOSEC] 20 mg PO DAILY 04/26/16 Bupropion HCl [Bupropion HCl Sr] 150 mg PO BID 02/05/19 Objective - Vital Signs/Intake & Output Reviewed Vital Signs: Yes Vital Signs: Vital Signs x48h Temp Pulse Resp BP BP BP Pulse Ox 02/06/19 09:47 152/47 H 02/06/19 09:17 181/60 H 02/06/19 07:44 36.6 C 78 22 181/60 H 92 02/06/19 04:33 36.2 C L 72 20 170/50 H 95 Intake & Output: Intake & Output 02/03/19 02/04/19 02/05/19 02/06/19 23:59 23:59 23:59 23:59 Intake Total 1100 5465.333 3671.334 50 Output Total 525 1750 1000 410 Balance 575 3715.333 1521.334 360 - Objective General Appearance: positive: No acute distress, Lethargic Eyes Bilateral: positive: PERRL, EOMI ENT: positive: No signs of dehydration Neck: positive: No JVD Respiratory: positive: Chest non-tender, Other (Every once while she produces some scant phlegm that she has to cough up. But not severe.). negative: Wheezes, Rales, Rhonchi Cardiovascular: positive: Regular rate & rhythm. negative: Gallop/S4, Friction rub Abdomen: positive: Non-tender, No organomegaly, Nml bowel sounds, No distention Skin: positive: Warm, Dry, Pallor Extremities: positive: Non-tender, No pedal edema Neurologic/Psychiatric: positive: Oriented x3, CN's nml (2-12), Other (She requires a 2 person max assist to sit to stand and transferring to get to a chair. Psychomotor retardation.). negative: Motor nml (Generalized, nonfocal weakness) - Lab Results Fish Bones: 02/06/19 04:48 02/05/19 04:39 Other Labs: Lab Results x24hrs 02/06/19 02/06/19 02/04/19 Range/Units 04:48 04:48 04:55 WBC 6.5 (4.8-10.8) x10^3/uL RBC 3.04 L (4.20-5.40) 10^6/uL Hgb 9.3 L (12.0-16.0) g/dL Hct 30.9 L (37.0-47.0) % MCV 101.6 H (81.0-99.0) fL MCH 30.6 (27.0-31.0) pg MCHC 30.1 L (32.0-36.0) g/dL RDW 14.1 (12.0-15.0) % Plt Count 137 (130-450) 10^3/uL MPV 10.1 (7.9-10.8) fL Neut # (Auto) 5.0 (1.5-6.6) 10^3/uL Lymph # (Auto) 1.0 L (1.5-3.5) 10^3/uL [place] # (Auto) 0.3 (0.0-1.0) 10^3/uL Eos # (Auto) 0.1 (0.0-0.7) 10^3/uL Baso # (Auto) 0.0 (0.0-0.1) 10^3/uL Absolute Nucleated RBC 0.00 x10^3/uL Nucleated RBC % 0.0 /100WBC Phosphorus 2.9 (2.5-4.6) mg/dL Magnesium 1.9 (1.7-2.8) mg/dL 25-OH Vitamin D Total 5 L (30-100) ng/mL Assessment/Plan - Problem List (1) Neoplasm of abdomen Impression: 02/04 afternoon into the evening her urine output was not as brisk as I would expect considering she was getting 200 cc an hour. She was sleepy, lethargic and was not improving. Creatinine was not improving. As such I obtained a renal ultrasound to see if she had obstruction. While she did not have renal obstruction, a mass was seen in the abdomen and as such I obtained a CT of the chest abdomen and pelvis. On CT abd a 3.2 x 2.5 x 1.6 cm heavily calcified mass seen at or adjacent to the uncinate process of the pancreas. The remainder of the head, body, and tail are intact. Moderate hiatal hernia. Severe coronary artery and severe aortic atherosclerotic calcification. Mild cardiomegaly. Lungs have a trace right pleural effusion. Bibasilar atelectasis and scarring. No nodules, bronchial thickening, consolidation, or anemia. I do not know if that is been the cause of her hypercalcemia. She does not have hyperparathyroidism. Serum protein electrophoresis is pending. She will need to be seen in the outpatient setting in follow-up by oncology for continued work-up. (2) Hypercalcemia resolved Impression: Calcium:14.8> 14.3> 11.5>10.6>10.5>9.5 on 1216 am The etiology of her hypercalcemia may be the mass seen on CT. Her PTH is normal. She is not anemic or thrombocytopenic so less likely this is multiple myeloma. Given her smoking history the concern was for a lung malignancy but her chest x-ray and CT of the chest was unremarkable. We were treating her with IV saline at 200 cc an hour but with cough, congestion and hypoxia yesterday, I reduced rate to 85 cc/hr. She received zoledronic acid in the emergency department. Calcitonin is not available at this moment. We will continue to monitor her calcium and renal function even though calcium nml this am. We have checked a vitamin D level and PTH related protein given the concern for malignancy and those results are pengin. SPEP is also pending. (3) Acute kidney injury superimposed on chronic kidney disease Conclusion/Plan: The acute kidney injury is likely prerenal in nature given the hypercalcemia. She has chronic kidney disease at baseline with a creatinine of 1.4 and the etiology is not clear but suspect this may be secondary to hypertension. We have treated her with IV fluids and continue to monitor her renal function. We did not use contrast for the CT bc of the renal function. She does have proteinuria on her urinalysis and would likely benefit from an JESS or ARB once her kidney injury resolves. Creatinine: 2.0>1.7>2.0>2.0>1.7 this am (4) Near syncope Conclusion/Plan: It appears her fall was not syncope but rather near syncope as she felt dizzy prior to the episode and never lost consciousness. Suspect secondary to her being dehydrated from the hypercalcemia. We have hydrated her with IV fluids. Monitor her on telemetry does not show any arrythmia. We will obtain an echocardiogram on Tuesday as it is not available over the weekend. (5) Hypertension Conclusion/Plan: Her blood pressure was initially in the 180s systolic and then increased to the 220s systolic. The acute increase is likely from the IV saline in addition to the hypercalcemia. She does have a history of hypertension but not any medications at home. Her EKG does show LVH. We treated her with IV hydralazine for the time being. If her blood pressure remains significantly elevated, would consider transfer to the care unit for an IV infusion. Unable to give oral hypertensive at this time given her nausea and vomiting. She has been consistently elevated. Her initial greater than 200 systolic is at least gone down. 24 January 2015 she was in the 140s to 160s. 02/05 morning she was 180s to 190s. She was on amlodipine 5 mg, hydralazine as needed. Increased amlodipine to 10 mg and this morning 150s to 180s. (6) Elevated troponin Conclusion/Plan: Troponin: 45.5> 37.3>54.1 >65.0 so trend is mildly up but not felt to have [place]. Due to high BP and creatinine. She has no chest pain and EKG is without signs of ischemia. We will continue to trend her troponin and monitor her on telemetry. (7) Lumbar compression fracture Conclusion/Plan: She has compression fractures of L1-L3 evident on the x-ray of the lumbar spine. The chronicity is not clear at this time. We will treat her pain with Tylenol as needed. Qualifiers: Encounter type: initial encounter Lumbar vertebra fracture level: unspecified lumbar vertebra Qualified Code(s): S32.000A - Wedge compression fracture of unspecified lumbar vertebra, initial encounter for closed fracture (8) Metabolic encephalopathy Even though her calcium is been corrected, this patient has not rebounding to the level of what she was described at on admission. She described as an independent patient who lives with her sister. Drives cars. Pays bills. Goes grocery shopping. I try to get a baseline status with her primary care provider, unfortunately, he only sees her irregularly. While she walked into his office in February 2018 and appeared intact. He has not seen her since. We will try and get her to work with physical therapy. Nursing got her out of bed today. She prefers the lights off, room darkened And this was what she was doing in February 2018 when she was admitted for alcoholic gastritis. Conversation is not very meaningful at this time with her. I did find out this morning that the "sister" that she lives with is really not her sister. It is her landlord. The landlord feels there is close his sisters. The landlord has been presenting herself is the power of divorce attorney for this patient and she has not. I have asked social work to please track down the nearest living relative. That may be the niece of her brother Vinod Deras who is recently and used to be the next of kin to contact. I am asking for physical therapy evaluation for ability to cooperate with rehab. That would be her neck step is to place her in [facility] facility for strengthening.
[2019-02-06] MEDS: ONDANSETRON ODT 4 MG TABLET TL PRN (11:44)
[2019-02-06 11:51] LABS: CALCIUM 8.6 mg/dL (8.5-10.3); CREATININE 1.7 mg/dL (0.4-1.0)
[2019-02-06] MEDS: SODIUM CHLORIDE 0.9% 1,000 ML IV SCH (12:12)
[2019-02-06] MEDS: SODIUM CHLORIDE FLUSH 0.9% 10 ML SYRINGE IVP PRN (17:37)
[2019-02-07] MEDS: SODIUM CHLORIDE 0.9% 1,000 ML IV SCH (01:01)
[2019-02-07] MEDS: ONDANSETRON 4 MG/2 ML VIAL IVP PRN (01:05)
[2019-02-07] MEDS: SODIUM CHLORIDE FLUSH 0.9% 10 ML SYRINGE IVP SCH ×4 (01:08→15:51)
[2019-02-07] MEDS: ACETAMINOPHEN 325 MG TABLET PO PRN (05:58)
[2019-02-07 06:24] LABS: BASOPHILS % (AUTO) 0.6 %; EOSINOPHILS # (AUTO) 0.1 10^3/uL (0.0-0.7); EOSINOPHILS % (AUTO) 1.3 %; HGB - HEMOGLOBIN 9.9 g/dL (12.0-16.0); LYMPHOCYTES # (AUTO) 0.9 10^3/uL (1.5-3.5); LYMPHOCYTES % (AUTO) 12.3 %; MEAN CORPUSCULAR HEMOGLOBIN 31.8 pg (27.0-31.0); MEAN CORPUSCULAR VOLUME 102.6 fL (81.0-99.0); MEAN PLATELET VOLUME 10.4 fL (7.9-10.8); MONOCYTES # (AUTO) 0.3 10^3/uL (0.0-1.0); MONOCYTES % (AUTO) 4.2 %; NEUTROPHILS # (AUTO) 5.6 10^3/uL (1.5-6.6); NEUTROPHILS % (AUTO) 80.5 %; PLT - PLATELET COUNT 152 10^3/uL (130-450); RED BLOOD COUNT 3.11 10^6/uL (4.20-5.40); RED CELL DISTRIBUTION WIDTH 13.7 % (12.0-15.0)
[2019-02-07 06:31] LABS: CALCIUM 8.5 mg/dL (8.5-10.3); CREATININE 1.7 mg/dL (0.4-1.0); PHOSPHORUS 2.2 mg/dL (2.5-4.6)
[2019-02-07] MEDS: POLYETHYLENE GLYCOL 3350 17 GM PACKET PO SCH (08:16)
[2019-02-07] MEDS: NICOTINE 21 MG PATCH TOP SCH (08:16)
[2019-02-07] MEDS: MAGNESIUM OXIDE 400 MG TABLET PO SCH (08:17)
[2019-02-07] MEDS: amLODIPine 5 MG TABLET PO SCH (08:19)
[2019-02-07] MEDS: HEPARIN 5,000 UNIT/ML VIAL SUBQ SCH (08:27)
--- NOTE | 2019-02-07 08:30 | PROVIDER PROGRESS NOTE ---
Subjective - Prog Note Date Prog Note Date: 02/07/19 Prog Note Time: 08:41 - Subjective Subjective: she is coughing and sounds quite phlegmy in bed this am. Today is the most alert she's been with me. Trying to joke about her confusion and how hard it's been but she is alert and oriented, weak, tired, has no appetite. denies cp. phlegm is clear to white. denies abd pain. Current Medications - Current Medications Current Medications: Active Medications Acetaminophen (Tylenol) 650 mg PO Q4HR PRN PRN Reason: Pain 1 to 4 Last Admin: 02/07/19 05:58 Dose: 650 mg Amlodipine Besylate (Norvasc) 5 mg PO DAILY [facility] Last Admin: 02/07/19 08:19 Dose: 5 mg Heparin Sodium (Porcine) () 5,000 unit SUBQ BID [facility] Last Admin: 02/07/19 08:27 Dose: 5,000 unit Hydralazine HCl (Apresoline Inj) 10 mg IVP Q4HR PRN PRN Reason: NEEDED PER PROVIDER ORDERS Last Admin: 02/06/19 09:17 Dose: 10 mg Sodium Chloride (Normal Saline 0.9%) 1,000 mls @ 80 mls/hr IV .[id number] [facility] Last Infusion: 02/07/19 05:04 Dose: 80 mls/hr Magnesium Oxide (Mag Ox) 400 mg PO DAILYWM [facility] Last Admin: 02/07/19 08:17 Dose: 400 mg Nicotine (Nicoderm) 1 patch TOP DAILY [facility] Last Admin: 02/07/19 08:16 Dose: 1 patch Ondansetron HCl (Zofran Inj) 4 mg IVP Q6HR PRN PRN Reason: Nausea / Vomiting Last Admin: 02/07/19 01:05 Dose: 4 mg Ondansetron HCl (Zofran Odt) 4 mg TL Q6HR PRN PRN Reason: Nausea / Vomiting Last Admin: 02/06/19 11:44 Dose: 4 mg Oxycodone HCl (Roxicodone) 5 mg PO Q4HR PRN PRN Reason: Pain 5 to 7 Last Admin: 02/06/19 21:33 Dose: 5 mg Polyethylene Glycol (Miralax) 17 gm PO DAILY [facility] Last Admin: 02/07/19 08:16 Dose: 17 gm Prochlorperazine Edisylate (Compazine Inj) 10 mg IVP Q4HR PRN PRN Reason: Nausea / Vomiting Last Admin: 02/03/19 22:04 Dose: 10 mg Sodium Chloride (Normal Saline Flush 0.9%) 10 ml IVP PRN PRN PRN Reason: NEEDED PER PROVIDER ORDERS Last Admin: 02/06/19 17:37 Dose: 10 ml Sodium Chloride (Normal Saline Flush 0.9%) 10 ml IVP 0100,0900,1700 [facility] Last Admin: 02/07/19 08:17 Dose: 10 ml Omeprazole [PriLOSEC] 20 mg PO DAILY [facility] Bupropion HCl [Bupropion HCl Sr] 150 mg PO BID 02/05/19 Objective - Vital Signs/Intake & Output Reviewed Vital Signs: Yes Intake & Output: Intake & Output 02/04/19 02/05/19 02/06/19 02/07/19 23:59 23:59 23:59 23:59 Intake Total 5465.333 3671.334 1475 1674 Output Total 1750 1000 810 250 Balance 3715.333 2671.030 410 8012 - Objective General Appearance: positive: Alert (but tired), Mild distress (with cough and phlegm) Eyes Bilateral: positive: PERRL, EOMI Neck: positive: No JVD Respiratory: positive: Chest non-tender, Rhonchi, Other (mild increased rate with speaking to me, no use of accessory muscles). negative: Wheezes, Rales Cardiovascular: positive: Regular rate & rhythm. negative: Gallop/S4, Friction rub Abdomen: positive: Non-tender, No organomegaly, Nml bowel sounds, No distention Skin: positive: Warm, Dry Extremities: positive: Non-tender, Pedal edema Neurologic/Psychiatric: positive: Oriented x3, CN's nml (2-12), Motor nml (but with generalized weakness) - Lab Results Fish Bones: 02/07/19 06:10 02/07/19 06:10 Other Labs: Lab Results x24hrs 02/07/19 02/07/19 02/06/19 Range/Units 06:10 06:10 11:33 WBC 7.0 (4.8-10.8) x10^3/uL RBC 3.11 L (4.20-5.40) 10^6/uL Hgb 9.9 L (12.0-16.0) g/dL Hct 31.9 L (37.0-47.0) % MCV 102.6 H (81.0-99.0) fL MCH 31.8 H (27.0-31.0) pg MCHC 31.0 L (32.0-36.0) g/dL RDW 13.7 (12.0-15.0) % Plt Count 152 (130-450) 10^3/uL MPV 10.4 (7.9-10.8) fL Neut # (Auto) 5.6 (1.5-6.6) 10^3/uL Lymph # (Auto) 0.9 L (1.5-3.5) 10^3/uL [place] # (Auto) 0.3 (0.0-1.0) 10^3/uL Eos # (Auto) 0.1 (0.0-0.7) 10^3/uL Baso # (Auto) 0.0 (0.0-0.1) 10^3/uL Absolute Nucleated RBC 0.00 x10^3/uL Nucleated RBC % 0.0 /100WBC Sodium 142 139 (135-145) mmol/L Potassium 4.0 4.0 (3.5-5.0) mmol/L Chloride 111 109 (101-111) mmol/L Carbon Dioxide 24 24 (21-32) mmol/L Anion Gap 7.0 6.0 (6-13) BUN 29 H 33 H (6-20) mg/dL Creatinine 1.7 H 1.7 H (0.4-1.0) mg/dL Estimated GFR (MDRD) 29 L 29 L (>89) Glucose 82 94 (70-100) mg/dL Calcium 8.5 8.6 (8.5-10.3) mg/dL Phosphorus 2.2 L (2.5-4.6) mg/dL Magnesium 2.0 (1.7-2.8) mg/dL Assessment/Plan - Problem List (1) Cough Impression: with rhonchi and after agressive IVF for her hypercalcemia. She also has hypoxi a. Plan: BNP chest xray get out of bed (2) Metabolic encephalopathy Impression: Today is the best I've seen her with mentation. She is alert, appropriate, try ing to joke about her own confusion. Starting to want to go home. Doesn't have an appetite and doesn't want to eat. She described as an independent patient who lives with her sister (who really isn't her sister, it's her landlord). Drives cars. Pays bills. Goes grocery shopping. I tried to get a baseline status with her primary care provider 02/06, unfortunately, he only sees her irregularly. While she walked into his office in February 2018 and appeared intact. He has not seen her since. We will try and get her to work with physical therapy today. Nursing got her out of bed 02/06. She prefers the lights off, room darkened And this was what she was doing in February 2018 when she was admitted for alcoholic gastritis. Conversation is not very meaningful at this time with her. I did find out this morning that the "sister" that she lives with is really not her sister. It is her landlord. The landlord feels there is close his sisters. The landlord has been presenting herself is the power of district attorney for this patient and she has not. I have asked social work to please track down the nearest living relative. That may be the niece of her brother Vinod Deras who is recently and used to be the next of kin to contact. I am asking for physical therapy evaluation for ability to cooperate with rehab. That would be her neck step is to place her in assisted facility for strengthening. (3) Neoplasm of abdomen Impression: Impression: 02/05 afternoon into the evening her urine output was not as brisk as I would expect considering she was getting 200 cc an hour. She was sleepy, lethargic and was not improving. Creatinine was not improving. As such I obtained a renal ultrasound to see if she had obstruction. While she did not have renal obstruction, a mass was seen in the abdomen and as such I obtained a CT of the chest abdomen and pelvis. On CT abd a 3.2 x 2.5 x 1.6 cm heavily calcified mass seen at or adjacent to the uncinate process of the pancreas. The remainder of the head, body, and tail are intact. Moderate hiatal hernia. Severe coronary artery and severe aortic atherosclerotic calcification. Mild cardiomegaly. Lungs have a trace right pleural effusion. Bibasilar atelectasis and scarring. No nodules, bronchial thickening, consolidation, or anemia. (4) Hypercalcemia resolved Impression: Calcium:14.8> 14.3> 11.5>10.6>10.5>9.5>8.6>8.5 this am The etiology of her hypercalcemia may be the mass seen on CT. Her PTH is normal. She is not anemic or thrombocytopenic so less likely this is multiple myeloma. Given her smoking history the concern was for a lung malignancy but her chest x-ray and CT of the chest was unremarkable. We were treating her with IV saline at 200 cc an hour but with cough, congestion and hypoxia yesterday, I reduced rate to 85 cc/hr. She received zoledronic acid in the emergency department. Calcitonin is not available at this moment. We will continue to monitor her calcium and renal function even though calcium nml this am. We have checked a vitamin D level and PTH related protein given the concern for malignancy and those results are pengin. SPEP is also pending. Check iron and B12 studies since she has developed normocytic anemia during this stay. (5) Acute kidney injury resolved, superimposed on chronic kidney disease Conclusion/Plan: The acute kidney injury is likely prerenal in nature given the hypercalcemia. She has chronic kidney disease at baseline with a creatinine of 1.4 and the etiology is not clear but suspect this may be secondary to hypertension. We have treated her with IV fluids and continue to monitor her renal function. We did not use contrast for the CT bc of the renal function. She does have proteinuria on her urinalysis and would likely benefit from an JESS or ARB once her kidney injury resolves. Creatinine: 2.0>1.7>2.0>2.0>1.7 this am and for 3 days now. IVF have been reduced to 85 cc and she isn't drinking much (6) Near syncope resolved Conclusion/Plan: It appears her fall was not syncope but rather near syncope as she felt dizzy prior to the episode and never lost consciousness. Suspect secondary to her being dehydrated from the hypercalcemia. We have hydrated her with IV fluids. Monitor her on telemetry does not show any arrythmia. We will obtain an echocardiogram on Tuesday as it is not available over the weekend. (7) Hypertension Conclusion/Plan: Her blood pressure was initially in the 180s systolic and then increased to the 220s systolic. The acute increase is likely from the IV saline in addition to the hypercalcemia. She does have a history of hypertension but not any medications at home. Her EKG does show LVH. We treated her with IV hydralazine for the time being. If her blood pressure remains significantly elevated, would consider transfer to the care unit for an IV infusion. Unable to give oral hypertensive at this time given her nausea and vomiting. She has been consistently elevated. Her initial greater than 200 systolic is at least gone down. 24 January 2015 she was in the 140s to 160s. This morning she is 180s to 190s.She is on amlodipine 5 mg, hydralazine as needed. Will give amlodipine 10 mg this morning (8) Elevated troponin Conclusion/Plan: Troponin: 45.5> 37.3>54.1 >65.0 so trend is mildly up but not felt to have [place]. Due to high BP and creatinine. She has no chest pain and EKG is without signs of ischemia. We will continue to trend her troponin and monitor her on telemetry. (9) Lumbar compression fracture Conclusion/Plan: She has compression fractures of L1-L3 evident on the x-ray of the lumbar spine. The chronicity is not clear at this time. We will treat her pain with Tylenol as needed. Qualifiers: Encounter type: initial encounter Lumbar vertebra fracture level: unspecified lumbar vertebra Qualified Code(s): S32.000A - Wedge compression fracture of unspecified lumbar vertebra, initial encounter for closed fracture
--- NOTE | 2019-02-07 12:25 | XRAY Report ---
Reason: cough, hypoxia Procedure Date: 02/07/2019 Accession Number: [id number] / [id number] Procedure: XR - Chest 2 View X-Ray CPT Code: 76277 Final Report FULL RESULT: EXAM: CHEST RADIOGRAPHY EXAM DATE: 02/07/2019 09:41 AM. CLINICAL HISTORY: Cough, hypoxia. COMPARISON: CHEST 1 VIEW 02/03/2019 3:35 PM. TECHNIQUE: 2 views. FINDINGS: Lungs/Pleura: Development of small bilateral pleural fluid collections. Mildly prominent interstitial markings bilaterally suggesting increased fluid status such as borderline pulmonary edema. Borderline hyperinflation. Mediastinum: Stable moderate cardiomegaly. Stable appearance of the mediastinum. Other: Grade 2 compressive change at the L2 vertebral body, presumed chronic. IMPRESSION: Suspect developing pulmonary edema. Stable cardiomegaly. [facility]
[2019-02-07] MEDS ORDERED: SODIUM CHLORIDE FLUSH 0.9% 10 ML SYRINGE ONE (14:06)
[2019-02-07] MEDS: hydrALAZINE INJ 20 MG/ML VIAL IVP PRN (14:07)
[2019-02-07] MEDS ORDERED: NITROGLYCERIN 2% PASTE TOP ONE (14:08)
[2019-02-07] MEDS: MORPHINE 2 MG/ML CARPUJECT IVP PRN ×2 (14:15→21:28)
[2019-02-07] MEDS ORDERED: MORPHINE 10 MG/ML VIAL IVP ONE (14:36)
[2019-02-07] MEDS ORDERED: LORazepam 2 MG/ML VIAL IVP STA (14:40)
[2019-02-07] MEDS ORDERED: FUROSEMIDE 20 MG/2 ML VIAL IVP STA (14:51)
--- NOTE | 2019-02-07 15:05 | XRAY Report ---
Reason: sudden severe cp Procedure Date: 02/07/2019 Accession Number: [id number] / [id number] Procedure: XR - Chest 1 View X-Ray CPT Code: 91470 Final Report FULL RESULT: EXAM: CHEST RADIOGRAPHY EXAM DATE: 02/07/2019 02:39 PM. CLINICAL HISTORY: Sudden severe cp. COMPARISON: CHEST 2 VIEW 02/07/2019 9:14 AM. TECHNIQUE: 1 view. FINDINGS: Lungs/Pleura: Persistent groundglass opacities bilaterally which is slightly increased which may be due to technique and patient positioning. Mediastinum: Within exam limitations, the cardiomediastinal contour is normal. Other: None. IMPRESSION: No new focal consolidation. [facility]
[2019-02-07] MEDS ORDERED: ATORVASTATIN 40 MG TABLET PO SCH (15:14)
[2019-02-07] MEDS ORDERED: ENOXAPARIN 60 MG/0.6 ML SYRINGE SUBQ SCH (15:33)
[2019-02-07] MEDS: ASPIRIN 325 MG TABLET PO SCH (15:50)
[2019-02-07] MEDS: SODIUM CHLORIDE FLUSH 0.9% 10 ML SYRINGE IVP PRN (21:29)
[2019-02-07 22:15] LABS: ALBUMIN 2.9 g/dL (3.8-4.8); ALPHA 1 GLOBULIN 0.4 g/dL (0.2-0.3); BETA 1 GLOBULIN 0.5 g/dL (0.4-0.6); BETA 2 GLOBULIN 0.5 g/dL (0.2-0.5)
[2019-02-08] MEDS: SODIUM CHLORIDE FLUSH 0.9% 10 ML SYRINGE IVP SCH ×3 (00:09→16:57)
[2019-02-08] MEDS: ONDANSETRON ODT 4 MG TABLET TL PRN ×2 (02:01→11:47)
[2019-02-08] MEDS: MORPHINE 2 MG/ML CARPUJECT IVP PRN ×5 (02:02→14:09)
[2019-02-08 05:15] LABS: CALCIUM 8.2 mg/dL (8.5-10.3); CREATININE 1.8 mg/dL (0.4-1.0)
[2019-02-08] MEDS: POLYETHYLENE GLYCOL 3350 17 GM PACKET PO SCH (08:05)
[2019-02-08] MEDS: ONDANSETRON 4 MG/2 ML VIAL IVP PRN (08:05)
[2019-02-08] MEDS: DOCUSATE SODIUM 250 MG CAPSULE PO SCH (08:06)
[2019-02-08] MEDS: ASPIRIN 325 MG TABLET PO SCH (08:06)
[2019-02-08] MEDS: SODIUM CHLORIDE FLUSH 0.9% 10 ML SYRINGE IVP PRN (08:06)
[2019-02-08] MEDS: PANTOPRAZOLE 40 MG TABLET PO SCH (08:06)
[2019-02-08] MEDS: amLODIPine 5 MG TABLET PO SCH (08:06)
[2019-02-08] MEDS: SENNA 8.6 MG TABLET PO SCH (08:07)
[2019-02-08] MEDS: MAGNESIUM OXIDE 400 MG TABLET PO SCH (08:07)
[2019-02-08] MEDS ORDERED: ENOXAPARIN 60 MG/0.6 ML SYRINGE SUBQ SCH (09:00)
--- NOTE | 2019-02-08 13:12 | Nuclear Medicine Report ---
Reason: chest pain Procedure Date: 02/08/2019 Accession Number: [id number] / [id number] Procedure: NM - Lung Vent/Perf V/Q CPT Code: Final Report FULL RESULT: EXAM: VENTILATION/PERFUSION SCAN (V/Q SCAN) EXAM DATE: 02/08/2019 12:55 PM. CLINICAL HISTORY: Chest pain. COMPARISON: CHEST 1 VIEW 02/07/2019 2:16 PM CHEST W/O 02/04/2019 7:13 PM. TECHNIQUE: Patient was administered 41.3 mCi of technetium 99m DTPA aerosol by inhalation and 8 standard ventilation images of the lungs were obtained. Next, the patient was injected with 5.2 mCi of technetium 99m MAA intravenously and 8 standard perfusion images of the lungs were obtained. FINDINGS: Ventilation Scan: There is central clumping of the aerosolized radiotracer with very poor ventilation of lung periphery. Perfusion Scan: There is better perfusion compared with ventilation. IMPRESSION: 1. Low probability pattern for pulmonary embolism. 2. Central clumping of the aerosolized radiotracer with poor ventilation of the lung periphery, pattern may be seen with obstructive lung disease. [facility]
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
--- NOTE | 2019-02-08 14:08 | PROVIDER PROGRESS NOTE ---
Subjective - Prog Note Date Prog Note Date: 02/08/19 Prog Note Time: 14:21 - Subjective Subjective: She had a great day yesterday morning. Into the afternoon. She was awake, alert. Starting to eat a little bit. The fall was lifting. Then she started h aving agonizing chest pain at about 130 to 2:00 in the afternoon. It was so severe she was crying out with it and saying she would rather than live with this. She was evaluated for cardiac ischemia that was negative. Evaluated for pneumothorax or change on chest x-ray and that was negative. VQ scan was done this morning and she is not having a pulmonary emboli. Today the pain is still there off and on. It is not always present. It was worse with eating breakfast. It is also worse with changing position. Coughing, deep breathing. She says sometimes it is so severe it takes her jae ath away. It is right parasternal, right anterior chest and part of sternum. She is convinced that she did something to her chest wall when she fell before admission. But I explained to her that she would have had rib cage pain on admission and she did not. Pain started yesterday afternoon. Current Medications - Current Medications Current Medications: Active Medications Acetaminophen (Tylenol) 650 mg PO Q4HR PRN PRN Reason: Pain 1 to 4 Last Admin: 02/07/19 05:58 Dose: 650 mg Amlodipine Besylate (Norvasc) 5 mg PO DAILY [facility] Last Admin: 02/08/19 08:06 Dose: 5 mg Aspirin (Adi) 325 mg PO DAILYWM [facility] Last Admin: 02/08/19 08:06 Dose: 325 mg Atorvastatin Calcium (Lipitor) 40 mg PO QPM [facility] Docusate Sodium (Colace 250mg Capsule) 250 - 500 mg PO DAILY [facility] Last Admin: 02/08/19 08:06 Dose: 500 mg Enoxaparin Sodium (Lovenox) 60 mg SUBQ DAILY [facility] Hydralazine HCl (Apresoline Inj) 10 mg IVP Q4HR PRN PRN Reason: NEEDED PER PROVIDER ORDERS Last Admin: 02/07/19 14:07 Dose: 10 mg Magnesium Oxide (Mag Ox) 400 mg PO DAILYWM [facility] Last Admin: 02/08/19 08:07 Dose: 400 mg Morphine Sulfate (Morphine (Carpuject)) 2 mg IVP Q2HR PRN PRN Reason: PAIN Last Admin: 02/08/19 14:09 Dose: 2 mg Ondansetron HCl (Zofran Inj) 4 mg IVP Q6HR PRN PRN Reason: Nausea / Vomiting Last Admin: 02/08/19 08:05 Dose: 4 mg Ondansetron HCl (Zofran Odt) 4 mg TL Q6HR PRN PRN Reason: Nausea / Vomiting Last Admin: 02/08/19 11:47 Dose: 4 mg Oxycodone HCl (Roxicodone) 5 mg PO Q4HR PRN PRN Reason: Pain 5 to 7 Last Admin: 02/06/19 21:33 Dose: 5 mg Pantoprazole Sodium (Protonix) 40 mg PO QDAC [facility] Last Admin: 02/08/19 08:06 Dose: 40 mg Polyethylene Glycol (Miralax) 17 gm PO DAILY [facility] Last Admin: 02/08/19 08:05 Dose: 17 gm Prochlorperazine Edisylate (Compazine Inj) 10 mg IVP Q4HR PRN PRN Reason: Nausea / Vomiting Last Admin: 02/03/19 22:04 Dose: 10 mg Senna (Senokot) 8.6 - 17.2 mg PO DAILY [facility] Last Admin: 02/08/19 08:07 Dose: 17.2 mg Sodium Chloride (Normal Saline Flush 0.9%) 10 ml IVP PRN PRN PRN Reason: NEEDED PER PROVIDER ORDERS Last Admin: 02/08/19 08:06 Dose: 10 ml Sodium Chloride (Normal Saline Flush 0.9%) 10 ml IVP 0100,0900,1700 [facility] Last Admin: 02/08/19 08:06 Dose: 10 ml Omeprazole [PriLOSEC] 20 mg PO DAILY 04/26/16 Bupropion HCl [Bupropion HCl Sr] 150 mg PO BID 02/05/19 Objective - Vital Signs/Intake & Output Vital Signs: Vital Signs x48h Temp Pulse Pulse Pulse Resp BP BP 02/08/19 13:19 80 80 154/60 H 02/08/19 08:00 36.4 C L 61 20 177/65 H BP Pulse Ox 02/08/19 13:19 155/81 H 02/08/19 08:00 98 Intake & Output: Intake & Output 02/05/19 02/06/19 02/07/19 02/08/19 23:59 23:59 23:59 23:59 Intake Total 3671.334 1475 3023.34 850 Output Total 1000 810 925 300 Balance 2671.209 492 3323.34 550 - Objective General Appearance: positive: Mild distress, Other (exhausted. she has worked with OT today. Up in chair. Had a V/Q scan.) Eyes Bilateral: positive: PERRL, EOMI ENT: positive: No signs of dehydration, Other (dentures loose and come out and go back in) Neck: positive: No JVD. negative: Stiff neck Respiratory: positive: No respiratory distress, Rhonchi (that clear with cough), Other (pain of chest wall with palpaiton of ribs in right and sternum) Cardiovascular: positive: Regular rate & rhythm, Systolic murmur. negative: Gallop/S4, Friction rub Abdomen: positive: Non-tender, No organomegaly, Nml bowel sounds, No distention Skin: positive: Warm, Dry, Pallor Extremities: positive: Non-tender, No pedal edema Neurologic/Psychiatric: positive: Oriented x3, CN's nml (2-12), Motor nml (but w generalized weakness from being in bed) - Lab Results Fish Bones: 02/07/19 06:10 02/08/19 04:25 Other Labs: Lab Results x24hrs 02/08/19 02/08/19 02/07/19 Range/Units 04:25 04:25 23:30 D-Dimer (200.0-255.0) ng/mL Sodium 142 (135-145) mmol/L Potassium 4.1 (3.5-5.0) mmol/L Chloride 108 (101-111) mmol/L Carbon Dioxide 26 (21-32) mmol/L Anion Gap 8.0 (6-13) BUN 34 H (6-20) mg/dL Creatinine 1.8 H (0.4-1.0) mg/dL Estimated GFR (MDRD) 27 L (>89) Glucose 90 (70-100) mg/dL Calcium 8.2 L (8.5-10.3) mg/dL Troponin I High Sens 92.6 H* 94.9 H* (2.3-14.8) ng/L Zeht-9-Ubblydss (0.4-0.6) g/dL Vvlr-9-Xrxtutku (0.2-0.5) g/dL RODY & SPEP Interp Total Protein (RODY) (6.1-8.1) g/dL Albumin (RODY) (3.8-4.8) g/dL Xgjos-9-Mbrpvuxpn RODY (0.2-0.3) g/dL Xvost-9-Axjhwfuez RODY (0.5-0.9) g/dL Gamma Globulins (RODY) (0.8-1.7) g/dL 02/07/19 02/07/19 02/07/19 Range/Units 19:09 16:36 14:24 D-Dimer 935.6 H (200.0-255.0) ng/mL Sodium (135-145) mmol/L Potassium (3.5-5.0) mmol/L Chloride (101-111) mmol/L Carbon Dioxide (21-32) mmol/L Anion Gap (6-13) BUN (6-20) mg/dL Creatinine (0.4-1.0) mg/dL Estimated GFR (MDRD) (>89) Glucose (70-100) mg/dL Calcium (8.5-10.3) mg/dL Troponin I High Sens 94.0 H* 79.1 H* (2.3-14.8) ng/L Abwp-4-Qmoswyld (0.4-0.6) g/dL Yfvw-0-Xvqzjjkv (0.2-0.5) g/dL RODY & SPEP Interp Total Protein (RODY) (6.1-8.1) g/dL Albumin (RODY) (3.8-4.8) g/dL Qyvkn-6-Pfzaqkjmw RODY (0.2-0.3) g/dL Krwcm-2-Nogjgfzcf RODY (0.5-0.9) g/dL Gamma Globulins (RODY) (0.8-1.7) g/dL 02/07/19 02/04/19 Range/Units 14:24 14:30 D-Dimer (200.0-255.0) ng/mL Sodium (135-145) mmol/L Potassium (3.5-5.0) mmol/L Chloride (101-111) mmol/L Carbon Dioxide (21-32) mmol/L Anion Gap (6-13) BUN (6-20) mg/dL Creatinine (0.4-1.0) mg/dL Estimated GFR (MDRD) (>89) Glucose (70-100) mg/dL Calcium (8.5-10.3) mg/dL Troponin I High Sens 87.5 H* (2.3-14.8) ng/L Vabu-0-Yqznhdqk 0.5 (0.4-0.6) g/dL Qpag-3-Cbuvyczd 0.5 (0.2-0.5) g/dL RODY & SPEP Interp SEE NOTE Total Protein (RODY) 6.3 (6.1-8.1) g/dL Albumin (RODY) 2.9 L (3.8-4.8) g/dL Pjmjv-7-Hocpyggyf RODY 0.4 H (0.2-0.3) g/dL Jegxj-3-Lcsnuuimu RODY 1.0 H (0.5-0.9) g/dL Gamma Globulins (RODY) 1.0 (0.8-1.7) g/dL ABX Reporting Has patient been on IV antibiotics over the past 48 hours?: No Assessment/Plan - Problem List (1) Dementia Impression: She shares with me today that she has had a diagnosis of "empty head syndrome" which she tells me is dementia. I told her that I would make sure noted in the chart. Advanced care planning conversation held under separate note. Qualifiers: Dementia type: unspecified type Dementia behavioral disturbance: without behavioral disturbance Qualified Code(s): F03.90 - Unspecified dementia without behavioral disturbance (2) Chest pain, musculoskeletal Impression: When she was first admitted, she did have troponins checked to make sure that some of her metabolic encephalopathy was not caused by cardiac etiology. Troponin: 45.5> 37.3>54.1 >65.0 so trend is mildly up but not felt to have HI. Due to high BP and creatinine. She had no chest pain and EKG was without signs of ischemia. Then on February 07 she had sudden onset of agonizing, severe, pleuritic chest pain on the right side of her chest that was nonradiating. It was so agonizing she kept on saying she wanted to . It lasted for minutes. She needed 2 doses of morphine and Ativan to be able to take the pain away. She also received nitroglycerin paste, aspirin, statin, Lovenox 100 mg subcu twice daily. Which she responded to was the morphine and Ativan. EKG was without any change, and troponins were 87.5> 79.1> 94.0> 94.9> 92.6. Chest x-ray yesterday morning showed early vascular congestion. Repeat chest x- ray with this episode of chest pain showed the same vascular congestion. She has a moderate hiatal hernia. No acute infiltrate. No pneumothorax. I could not do a CT pulmonary angiogram because of her creatinine and GFR. A ventilation/perfusion scan shows low probability of pulmonary emboli. Today, she continues to have right-sided chest pain that comes and goes. Even lightly compressing her chest wall and sternum reproduces the pain and she cries out and will grab her hand to remove it from her chest. Sometimes eating makes it worse. My suspicion is that she has musculoskeletal chest wall pain. And some element of hiatal hernia pain. Plan: Check plain films for rib fractures Pain management Stop Lovenox and statin and aspirin (3) Metabolic encephalopathy resolved. By 02/07 She was alert, appropriate, trying to joke about her own confusion. Starting to want to go home. Doesn't have an appetite and doesn't want to eat. She described as an independent patient who lives with her sister (who really isn't her sister, it's her landlord). Drives cars. Pays bills. Goes grocery shopping. I tried to get a baseline status with her primary care provider 02/06, unfortunately, he only sees her irregularly. While she walked into his office in February 2018 and appeared intact. He has not seen her since. We will try and get her to work with physical therapy today. Nursing got her out of bed 02/06. She prefers the lights off, room darkened And this was what she was doing in February 2018 when she was admitted for alcoholic gastritis. Conversation was not very meaningful for the first few days here with her. I did find out 02/07 that the "sister" that she lives with is really not her s ister. It is her landlord. The landlord feels they are as close as sisters. The landlord has been presenting herself is the power of practice office associate for this patient and she is not. I have asked social work to please track down the nearest living relative. That may be the niece of her brother Vinod Deras who is recently and used to be the next of kin to contact. Yesterday I received the name of Anat Rizo [phone] and left a message then and today. No contact yet. Today I was also told a niece Shonna Dye [phone] is also available for contact. I am asking for physical therapy evaluation for ability to cooperate with rehab. Next step is to place her in care home facility for strengthening to return to independent living. Advanced Care Plan under separate conversation today. (4) Neoplasm of abdomen Impression: Impression: 02/05 afternoon into the evening her urine output was not as brisk as I would expect considering she was getting 200 cc an hour. She was sleepy, lethargic and was not improving. Creatinine was not improving. As such I obtained a renal ultrasound to see if she had obstruction. While she did not have renal obstruction, a mass was seen in the abdomen and as such I obtained a CT of the chest abdomen and pelvis. On CT abd a 3.2 x 2.5 x 1.6 cm heavily calcified mass seen at or adjacent to the uncinate process of the pancreas. The remainder of the head, body, and tail are intact. Moderate hiatal hernia. Severe coronary artery and severe aortic atherosclerotic calcification. Mild cardiomegaly. Lungs have a trace right pleural effusion. Bibasilar atelectasis and scarring. No nodules, bronchial thickening, consolidation, or anemia. She will need outpatient followup for this. (5) Hypercalcemia resolved Impression: Calcium:14.8> 14.3> 11.5>10.6>10.5>9.5>8.6>8.5>8.2 this am The etiology of her hypercalcemia may be the mass seen on CT. Her PTH is normal. She is not anemic or thrombocytopenic so less likely this is multiple myeloma. Given her smoking history the concern was for a lung malignancy but her chest x-ray and CT of the chest was unremarkable. We were treating her with IV saline at 200 cc an hour but with cough, congestion and hypoxia 02/06 I reduced rate to 85 cc/hr. She received zoledronic acid in the emergency department. Calcitonin is not available at this moment. We will continue to monitor her calcium and renal function even though calcium nml this am. We have checked a vitamin D level which was low and PTH related protein given the concern for malignancy and those results are pending. SPEP is inflam matory pattern, not multiple myeloma. (6) Acute kidney injury resolved, superimposed on chronic kidney disease Conclusion/Plan: The acute kidney injury is likely prerenal in nature given the hypercalcemia. She has chronic kidney disease at baseline with a creatinine of 1.4 and the etiology is not clear but suspect this may be secondary to hypertension. We have treated her with IV fluids and continue to monitor her renal function. We did not use contrast for the CT bc of the renal function. She does have proteinuria on her urinalysis and would likely benefit from an JESS or ARB once her kidney injury resolves. Creatinine: 2.0>1.7>2.0>2.0>1.7 for 3 days>1.8 today IVF have been stopped since she had vascular congestion 02/07 and she received a dose of lasix (7) Near syncope resolved Conclusion/Plan: It appears her fall was not syncope but rather near syncope as she felt dizzy prior to the episode and never lost consciousness. Suspect secondary to her being dehydrated from the hypercalcemia. We have hydrated her with IV fluids. Monitor her on telemetry does not show any arrythmia. We will obtain an e chocardiogram on Tuesday as it is not available over the weekend. (8) Hypertension Conclusion/Plan: Her blood pressure was initially in the 180s systolic and then increased to the 220s systolic. The acute increase is likely from the IV saline in addition to the hypercalcemia. She does have a history of hypertension but not any medications at home. Her EKG does show LVH. We treated her with IV hydralazine for the time being. If her blood pressure remains significantly elevated, would consider transfer to the care unit for an IV infusion. Unable to give oral hypertensive at this time given her nausea and vomiting. She has been consistently elevated. Her initial greater than 200 systolic is at least gone down. 24 January 2015 she was in the 140s to 160s. This morning she is 180s to 190s.She is on amlodipine 5 mg, hydralazine as needed. Will give amlodipine 10 mg this morning (9) Lumbar compression fracture and osteoporosis on plain film Conclusion/Plan: She has compression fractures of L1-L3 evident on the x-ray of the lumbar spine. The chronicity is not clear at this time. We will treat her pain with Tylenol as needed. Qualifiers: Encounter type: initial encounter Lumbar vertebra fracture level: unspecified lumbar vertebra Qualified Code(s): S32.000A - Wedge compression fracture of unspecified lumbar vertebra, initial encounter for closed fracture
--- NOTE | 2019-02-08 16:01 | XRAY Report ---
Reason: severe bone pain w palpation Procedure Date: 02/08/2019 Accession Number: [id number] / [id number] Procedure: XR - Ribs 2 View RT CPT Code: Final Report FULL RESULT: EXAM: RIGHT RIB RADIOGRAPHY EXAM DATE: 02/08/2019 03:28 PM. CLINICAL HISTORY: Severe bone pain w palpation. COMPARISON: CHEST 1 VIEW 02/07/2019 2:16 PM. TECHNIQUE: 2 views. FINDINGS: Bones: No rib fracture. Lungs: There is mild blunting of the right costophrenic angle consistent with a very small right pleural effusion. Mediastinum: There is atherosclerotic aortic calcification. No pneumothorax. Other: None. IMPRESSION: No visualized rib fracture or pneumothorax. RADIA
[2019-02-08] MEDS ORDERED: ATORVASTATIN 40 MG TABLET PO SCH (21:00)
[2019-02-09] MEDS: SODIUM CHLORIDE FLUSH 0.9% 10 ML SYRINGE IVP SCH ×2 (00:49→08:16)
[2019-02-09 05:13] LABS: CREATININE 1.8 mg/dL (0.4-1.0)
[2019-02-09] MEDS: PANTOPRAZOLE 40 MG TABLET PO SCH (05:59)
[2019-02-09 08:07] VITALS: BP 161/69
[2019-02-09] MEDS: POLYETHYLENE GLYCOL 3350 17 GM PACKET PO SCH (08:12)
[2019-02-09] MEDS: DOCUSATE SODIUM 250 MG CAPSULE PO SCH (08:13)
[2019-02-09] MEDS: SENNA 8.6 MG TABLET PO SCH (08:13)
[2019-02-09] MEDS: amLODIPine 5 MG TABLET PO SCH (08:14)
[2019-02-09] MEDS: ACETAMINOPHEN 325 MG TABLET PO PRN (08:14)
[2019-02-09] MEDS: ASPIRIN 325 MG TABLET PO SCH (08:14)
[2019-02-09] MEDS: MAGNESIUM OXIDE 400 MG TABLET PO SCH (08:14)
[2019-02-09] MEDS ORDERED: ENOXAPARIN 60 MG/0.6 ML SYRINGE SUBQ SCH (09:00)
[2019-02-09] MEDS ORDERED: ERGOCALCIFEROL 50,000 UNIT CAPSULE PO ONE (09:30)
[2019-02-09] MEDS ORDERED: MULTIVITAMIN W/MINERALS TABLET PO SCH (10:00)
--- NOTE | 2019-02-09 10:35 | Discharge Plan ---
"Discharge Plan for SNF / [facility] - Discharge Plan And Transition Orders Problem Reviewed?: Yes Disposition: SNF DC/Xfer Condition: Stable Allergies and Adverse Reactions: Allergies Allergy/AdvReac Type Severity Reaction Status Date / Time No Known Drug Allergies Allergy Verified 02/03/19 14:25 Health Concerns: Patient presented with hypercalcemia and hypertensive urgency. She was effectively treated for both her hypercalcemia and her hypertensive urgency. Her hypercalcemia has resolved and hypertensive urgency is now better controlled. We found a abdominal mass on her CT which needs further work-up and could be the source of her hypercalcemia. Patient is still pending her work-up for paraneoplastic cause of hypercalcemia as her PTH related protein is pending. She is very weak and needs PT and OT at the jail facility before she can go home. It is important that she follows up with her primary care physician regarding the above. She will also need titration of her antihypertensive medications while she is at the jail facility. Plan of Treatment: PT/OT will likely require 1 to 2 weeks of rehab before returning home. She will need follow-up for her abdominal mass, hypercalcemia and hypertension. - SNF / CUSTODIAL Transition Orders Admit to ([facility]): [facility] Discharge Diagnosis: 1. Severe hypercalcemia: Resolved 2. Abdominal mass: Guarded 3. Hypertensive urgency: Stable 4. Acute metabolic encephalopathy: Resolved 5. Acute kidney injury on chronic kidney disease: Stable 6. Chest pain: Stable 7. Mild cognitive impairment: Stable 8. Near syncope: Resolved 9. Lumbar compression fracture and osteoporosis: Stable Medicare Certification Statement: I certify that [facility] is medically necessary on a continuing basis for any of the conditions for which she/he is receiving care during hospitalization. Notify PCP of admission and forward orders to primary provider for signature. Weight on admission and: Weekly Call PCP immediately if weight increases by: 5 kg Other Notification Orders: Call PCP immediately if patient develops dyspnea, chest pain/tightness or edema. House Bowel Program: Yes Additional Bowel Program Orders: If no BM after 2 days, nurse may give M.O.M. 30ml PO PRN and/or ducolax Supp 1 [place] and/or CRISTIANO 250mg P.O., and/or senna 1-2 tabs PO. On day 3 nurse may give repeat above order until residents constipation is resolved. Annual Influenza Vaccine (between Oct 22 and May 21): Yes Two-step PPD per [facility] [id number] or approved exception documents: Yes Oxygen Orders: 1 L of oxygen at rest and with exertion please try to titrate while she is At the jail facility Lab Tests or X-ray Orders: None Medication Orders: PLEASE REFER TO THE DISCHARGE MEDICATION LIST. - Diet Type: Geriatric Texture: Regular Liquids: Thin May have monthly special meal: Yes - Therapies | Activity Therapy: Evaluation | Treat if indicated: PT, OT Rehabilitation Potential: Maximize functional status Activity: No Restrictions Weight Bearing: Full Weight Assistance Devices: Walker Follow Up: Patient needs follow-up with her primary care physician once she is discharged from the jail facility She will need further evaluation of the abdominal mass that was seen on CT scan with likely biopsy. She needs continued monitoring of her blood pressure and will need titration of antihypertensive medications. She needs follow-up for PTH related peptide which is still pending."
--- NOTE | 2019-02-09 10:51 | DISCHARGE SUMMARY ---
Discharge Summary Admit Date: 02/01/19 Discharge Date: 02/09/19 Discharging Provider: Francis Childress MD Primary Care Provider: Rey Slater Code Status: Do Not Attempt Resuscitation Condition at Discharge: Stable Discharge Disposition: 03 SNF DC/Xfer Discharge Facility Name: [facility] - DIAGNOSES Admission Diagnoses: 1. Hypercalcemia 2. Acute kidney injury superimposed on chronic kidney disease 3. Near syncope 4. Hypertension 5. Elevated troponin 6. Lumbar compression fracture Discharge Diagnoses with Status of Each Condition: 1. Severe hypercalcemia: Resolved 2. Abdominal mass: Guarded 3. Hypertensive urgency: Stable 4. Acute metabolic encephalopathy: Resolved 5. Acute kidney injury on chronic kidney disease: Stable 6. Chest pain: Stable 7. Mild cognitive impairment: Stable 8. Near syncope: Stable 9. Lumbar compression fracture and osteoporosis: Stable - HPI History of Present Illness: This is a 78-year-old female without any significant past medical history who presents today after having a fall while at [facility]. She states she was walking when she felt dizzy and she fell backwards and hit her head. She denies any chest pain prior to the event although she feels like her heart may have been racing a little bit. She states she felt dizzy this morning as well but did not fall. She reports she does have a history of falls in the past but cannot recall how recent was the last one. She does not report any loss of c onsciousness or syncope. She states this has not happened to her before. She normally ambulates on her own without the use of a walker or a cane. She states she currently feels nauseous and has had episodes of emesis. She reports her head does not hurt her at this time. She does complain of some abdominal pain. Reports no prior history of malignancy. She is a smoker and continues smoke a pack a day. She has been smoking for over 50 years. She does not report taking any qkaj-vpv-lunqyei vitamins including vitamin D. In the emergency room, she is found to be afebrile with temperature of 36.6, heart rate of 68, hypertensive the blood pressure of 180/100, and saturating 90% on room air. Labs were significant for a calcium of 14.8 and a creatinine of 2.0. Her ionized calcium was 1.6 mmol/L. Troponin is also elevated at 39.5. Chest x-ray performed was unremarkable. CT of the head and C-spine did not show any acute abnormalities. An x-ray of the lumbar spine revealed compression fomites at L1-L3 which may be chronic. There is also osteopenia noted. She started on IV hydration and given zoledronic acid IV in the emergency department. Unfortunately, Calcitonin is not available at this moment. Given her presentation and lab findings, medicine was consulted for admission. I did discuss goals of care with the patient and she would like to be a DNR. - HOSPITAL COURSE Hospital Course: The patient was admitted for hypercalcemia with initial calcium of 14.8. Work- up for her hypercalcemia revealed a normal PTH, low vitamin D level and a SPEP which shows an inflammatory pattern not consistent with multiple myeloma. The patient also had a PTH related protein sent off with concern for malignancy but this was still pending at the time of discharge. The patient was treated with IV fluids, zoledronic acid and calcium was monitored. The patient's calcium improved and was borderline low at discharge down to 8.2. The patient underwent a CT of her abdomen and pelvis which did reveal a 3.2 x 2.5 x 1.6 cm heavily calcified mass adjacent to the uncinate process of the pancreas. This was concerning for malignancy and could be the possible source of her hypercalcemia. No biopsy was done during the hospitalization but the patient will need to follow-up for further work-up on this mass. During the hospital course the franky ent also developed metabolic encephalopathy likely due to the hypercalcemia which seemed to resolve. The patient was noted to have some mild cognitive impairment at baseline. The patient was initially hypertensive on presentation and developed hypertensive urgency during the hospital course. She was treated with IV hydralazine and placed on oral amlodipine. The patient's amlodipine dose has been adjusted to 10 mg at the time of discharge and will need to have continued monitoring of her blood pressure at the senior care facility and might need further titration of her medications. The patient also had developed acute kidney injury on presentation likely secondary to hypercalcemia and severe dehydration. This improved with IV fluids and creatinine was back down to her baseline which is 1.8. The patient also developed chest pain during the hospitalization which was thought to be musculoskeletal. Patient did have troponins checked were which were mildly elevated but likely at her baseline given her chronic kidney disease. Patient underwent a VQ scan to rule out a PE and this showed low probability of PE. The patient's EKG showed no signs of acute ischemia. The patient was seen by PT and OT and was quite debilitated therefore they recommended that the patient go to a senior care facility. Care management worked on finding a senior care facility and were able to get her set up for [facility]. The patient was in stable condition at the time of discharge on 02/09/2019. It is important that she follows up closely for her hypertension and for this abdominal mass which needs further work-up. It is also important that her PTH related peptide lab work is followed up. - ALLERGIES Allergies/Adverse Reactions: Allergies Allergy/AdvReac Type Severity Reaction Status Date / Time No Known Drug Allergies Allergy Verified 02/03/19 14:25 - MEDICATIONS Home Medications: Ambulatory Orders Medication Instructions Recorded Confirmed Omeprazole [PriLOSEC] 20 mg PO DAILY 04/26/16 02/05/19 Bupropion HCl [Bupropion HCl Sr] 150 mg PO BID 02/05/19 02/05/19 Acetaminophen [Tylenol] 650 mg PO Q4HR PRN tablet 02/09/19 Aspirin [Adi] 325 mg PO DAILYWM tablet 02/09/19 Magnesium Oxide [Mag Ox] 400 mg PO DAILYWM tablet 02/09/19 Multivitamin W/Minerals [Theragran 1 tab PO DAILYWM tablet 02/09/19 M] amLODIPine [Norvasc] 10 mg PO DAILY tablet 02/09/19 - PHYSICAL EXAM AT DISCHARGE General Appearance: positive: No acute distress, Alert Eyes Bilateral: positive: Normal inspection, PERRL, EOMI, No lid inflammation, Conjunctivae nml, No scleral icterus ENT: positive: ENT inspection nml, Pharynx nml, No signs of dehydration Neck: positive: Nml inspection, Thyroid nml, No JVD, Trachea midline. negative: Lymphadenopathy (R), Lymphadenopathy (L), Stiff neck, Carotid bruit, Tracheal deviation Respiratory: positive: Chest non-tender, No respiratory distress, Rales (Rales at the bases). negative: Wheezes, Rhonchi Cardiovascular: positive: Regular rate & rhythm, No murmur, No gallop Peripheral Pulses: positive: 2+ Abdomen: positive: Non-tender, No organomegaly, Nml bowel sounds, No distention. negative: Guarding, Rebound, Hepatomegaly Back: positive: Nml inspection. negative: CVA tenderness (R), CVA tenderness (L) Skin: positive: Color nml, No rash, Warm. negative: Cyanosis, Diaphoresis, Pallor Extremities: positive: Non-tender, Full ROM, Nml appearance, No pedal edema Neurologic/Psychiatric: positive: Oriented x3, CN's nml (2-12), Motor nml, Sensation nml, Mood/affect nml - LABS Result Diagrams: 02/07/19 06:10 02/09/19 04:25 - DIAGNOSTIC IMAGING Diagnostic Imaging Results: Final report reviewed - QUALITY (Female Hip Fx Only) Was patient sent home on osteoporosis medication?: Yes - FOLLOW UP Follow Up: Patient will follow-up with provider at the senior care facility - TIME SPENT Time Spent in Discharge (Minutes): 45
== END 2019-02-09 13:27 | DRG 640 ==
LOC: EDUNIT# → ED 14:19 → MS3 18:24
PROVIDERS: ADMIT Internal Medicine; ATTEND Internal Medicine
DX: E83.52 Hypercalcemia (principal); G93.41 Metabolic encephalopathy; N17.9 Acute kidney failure, unspecified; R79.89 Other specified abnormal findings of blood chemistry; I11.0 Hypertensive heart disease with heart failure; I50.9 Heart failure, unspecified; R51 Headache; M50.321 Other cervical disc degeneration at C4-C5 level; M47.812 Spondylosis without myelopathy or radiculopathy, cervical region; M47.816 Spondylosis without myelopathy or radiculopathy, lumbar region; F17.200 Nicotine dependence, unspecified, uncomplicated; M80.08XA Age-related osteoporosis with current pathological fracture, vertebra(e), initial encounter for fracture; N18.9 Chronic kidney disease, unspecified; R55 Syncope and collapse; I16.0 Hypertensive urgency; I13.10 Hypertensive heart and chronic kidney disease without heart failure, with stage 1 through stage 4 chronic kidney disease, or unspecified chronic kidney disease; R07.89 Other chest pain; F17.210 Nicotine dependence, cigarettes, uncomplicated; E86.0 Dehydration; C76.2 Malignant neoplasm of abdomen; R11.2 Nausea with vomiting, unspecified; K21.9 Gastro-esophageal reflux disease without esophagitis; K44.9 Diaphragmatic hernia without obstruction or gangrene; I25.10 Atherosclerotic heart disease of native coronary artery without angina pectoris; I70.0 Atherosclerosis of aorta; F41.9 Anxiety disorder, unspecified; R05 Cough; R09.02 Hypoxemia; T50.3X5A Adverse effect of electrolytic, caloric and water-balance agents, initial encounter; Y92.230 Patient room in hospital as the place of occurrence of the external cause; D64.9 Anemia, unspecified; F32.9 Major depressive disorder, single episode, unspecified; R63.0 Anorexia; F03.90 Unspecified dementia, unspecified severity, without behavioral disturbance, psychotic disturbance, mood disturbance, and anxiety; Z66 Do not resuscitate; Z91.81 History of falling; Z79.899 Other long term (current) drug therapy; Z87.19 Personal history of other diseases of the digestive system; Z63.4 Disappearance and death of family member; Z68.21 Body mass index [BMI] 21.0-21.9, adult
CPT/HCPCS: 36415; 70450; 71045; 71046; 71100; 71250; 72100; 72125; 74176; 76770; 78582; 80048; 80053; 81001; 82306; 82310; 82330; 83519; 83690; 83735; 83970; 84100; 84155; 84165; 84484; 85025; 85379; 87205; 93005; 96360; 96361; 97116; 97161; 97165; 97530; 99284; 99285; A9270; J1650; J2060; J3489; J7040; Q0162; 81003; 87070; 87086

== ENCOUNTER 2019-02-20 11:05 | Outpatient (CLI) | payer MEDICARE, MEDICAID ==
[2019-02-20 18:49] LABS: BASOPHILS # (AUTO) 0.1 10^3/uL (0.0-0.1); EOSINOPHILS # (AUTO) 0.4 10^3/uL (0.0-0.7); EOSINOPHILS % (AUTO) 7.2 %; HGB - HEMOGLOBIN 8.9 g/dL (12.0-16.0); LYMPHOCYTES # (AUTO) 1.1 10^3/uL (1.5-3.5); LYMPHOCYTES % (AUTO) 22.4 %; MEAN CORPUSCULAR HEMOGLOBIN 31.2 pg (27.0-31.0); MEAN CORPUSCULAR VOLUME 97.5 fL (81.0-99.0); MEAN PLATELET VOLUME 10.6 fL (7.9-10.8); MONOCYTES # (AUTO) 0.6 10^3/uL (0.0-1.0); MONOCYTES % (AUTO) 11.5 %; NEUTROPHILS # (AUTO) 2.8 10^3/uL (1.5-6.6); NEUTROPHILS % (AUTO) 57.3 %; PLT - PLATELET COUNT 281 10^3/uL (130-450); RED BLOOD COUNT 2.85 10^6/uL (4.20-5.40); RED CELL DISTRIBUTION WIDTH 14.6 % (12.0-15.0); WHITE BLOOD COUNT 4.9 x10^3/uL (4.8-10.8)
[2019-02-20 19:39] LABS: ALBUMIN 2.4 g/dL (3.2-5.5); ALBUMIN/GLOBULIN RATIO 0.7 (1.0-2.2); ALKALINE PHOSPHATASE 66 IU/L (42-121); ALT ALANINE AMINOTRANSFERASE < 10 IU/L (10-60); AST ASPARTATE AMINOTRANSFERASE 18 IU/L (10-42); BILIRUBIN,TOTAL 0.5 mg/dL (0.2-1.0); BUN - BLOOD UREA NITROGEN 19 mg/dL (6-20); CALCIUM 8.3 mg/dL (8.5-10.3); CARBON DIOXIDE - CO2 21 mmol/L (21-32); CHLORIDE 106 mmol/L (101-111); CREATININE 2.4 mg/dL (0.4-1.0); GFR - MDRD 20 (>89); GLUCOSE 91 mg/dL (70-100); MAGNESIUM 2.9 mg/dL (1.7-2.8); PHOSPHORUS 3.5 mg/dL (2.5-4.6); SODIUM 135 mmol/L (135-145)
== END 2019-02-20 23:59 | disposition home or self-care (01) ==
LOC: LAB.R 11:05
DX: E61.2 Magnesium deficiency (principal); R79.89 Other specified abnormal findings of blood chemistry; R55 Syncope and collapse; R19.30 Abdominal rigidity, unspecified site; R68.89 Other general symptoms and signs; D51.9 Vitamin B12 deficiency anemia, unspecified; N17.9 Acute kidney failure, unspecified; Z87.19 Personal history of other diseases of the digestive system
CPT/HCPCS: 80053; 82607; 82728; 83735; 84100; 85025

== ENCOUNTER 2019-02-22 15:46 | Emergency (ER) | payer MEDICARE, MEDICAID ==
[2019-02-22] MEDS ORDERED: HYDROmorphone 1 MG/ML CARPUJECT IVP STA (16:29)
--- NOTE | 2019-02-22 16:32 | ED Physician Documentation ---
History of Present Illness - Stated complaint Stated Complaint: SOA/RIB PX - Chief complaint Chief Complaint: General - History obtained from History obtained from: Patient (She fell at [facility] a few weeks ago, was hospitalized here. There was no rib fracture but she did have elevated calcium and the pancreatic mass was identified needing follow-up. She was at a senior living until she went home and after going home her rib pain increased. She is not on any pain medications at home. She also has shortness of breath. Denies a significant cough.) Review of Systems Ten Systems: 10 systems reviewed and negative Constitutional: denies: Fever, Chills Cardiac: denies: Pedal edema, Calf pain Respiratory: denies: Hemoptysis, Wheezing PD PAST MEDICAL HISTORY - Past Medical History Cardiovascular: Hypertension Respiratory: Pneumonia GI: GERD, GI bleed Musculoskeletal: Chronic back pain - Past Surgical History Past Surgical History: Yes HEENT: Tonsil/Adenoidectomy - Present Medications Home Medications: Ambulatory Orders Medication Instructions Recorded Confirmed Omeprazole [PriLOSEC] 20 mg PO DAILY 04/26/16 02/05/19 Bupropion HCl [Bupropion HCl Sr] 150 mg PO BID 02/05/19 02/05/19 Acetaminophen [Tylenol] 650 mg PO Q4HR PRN tablet 02/09/19 Aspirin [Adi] 325 mg PO DAILYWM tablet 02/09/19 Magnesium Oxide [Mag Ox] 400 mg PO DAILYWM tablet 02/09/19 Multivitamin W/Minerals [Theragran 1 tab PO DAILYWM tablet 02/09/19 M] amLODIPine [Norvasc] 10 mg PO DAILY tablet 02/09/19 Oxycodone HCl/Acetaminophen 1 - 2 each PO Q6H PRN #20 tablet 02/22/19 [Percocet 5-325 mg Tablet] - Allergies Allergies/Adverse Reactions: Allergies Allergy/AdvReac Type Severity Reaction Status Date / Time No Known Drug Allergies Allergy Verified 02/22/19 15:52 - Social History Does the pt smoke?: Yes Smoking Status: Current every day smoker Does the pt drink ETOH?: No Does the pt have substance abuse?: No - Family History Family history: reports: Non contributory - Immunizations Immunizations are current?: Yes PD ED PE NORMAL - Vitals Vital signs reviewed: Yes - General General: Other (Smells heavily of cigarette smoke, winces in pain when she takes deep breaths or moves) - HEENT HEENT: PERRL, EOMI - Neck Neck: Supple, no meningeal sign, No bony TTP - Cardiac Cardiac: RRR, Other (Tender to the low ribs on both sides, breath sounds are equal, she does have a 2 out of 6 heart murmur systolic at the left lower sternal border) - Respiratory Respiratory: No respiratory distress, Clear bilaterally - Abdomen Abdomen: Non tender - Back Back: No CVA TTP, No spinal TTP - Derm Derm: Normal color, Warm and dry - Neuro Neuro: Alert and oriented X 3, Normal speech Results - Vitals Vitals: Vital Signs - 24 hr 02/22/19 02/22/19 15:52 17:02 Temperature 36.6 C Heart Rate 77 62 Respiratory 18 16 Rate Blood Pressure 139/87 H 158/66 H O2 Saturation 96 95 Oxygen O2 Source Room air - EKG (time done) 1653 Rate: Rate (enter#) (58) Rhythm: NSR (occ pac) [place]: Normal Intervals: Normal [place] QRS: LVH Ischemia: Non specific changes Compare to prior EKG: Unchanged from prior EKG Computer interpretation: Agree with computer - Labs Labs: Laboratory Tests 02/22/19 02/22/19 16:50 16:50 WBC 4.5 L RBC 3.00 L Hgb 9.5 L Hct 28.9 L MCV 96.3 MCH 31.7 H MCHC 32.9 RDW 14.6 Plt Count 255 MPV 10.1 Neut # (Auto) 2.8 Lymph # (Auto) 0.8 L [place] # (Auto) 0.5 Eos # (Auto) 0.3 Baso # (Auto) 0.1 Absolute Nucleated RBC 0.00 Nucleated RBC % 0.0 Sodium 132 L Potassium 4.2 Chloride 101 Carbon Dioxide 22 Anion Gap 9.0 BUN 18 Creatinine 2.3 H Estimated GFR (MDRD) 21 L Glucose 116 H Calcium 8.5 Total Bilirubin 0.8 AST 19 ALT 10 Alkaline Phosphatase 70 Total Protein 6.7 Albumin 2.8 L Globulin 3.9 Albumin/Globulin Ratio 0.7 L Lipase 47 - Rads (name of study) CT Chest Radiology: EMP read contemporaneously (new T12 comp frx; Bilateral pleural effusions, unchanged mediastinal lymph nodes.) PD MEDICAL DECISION MAKING - ED course ED course: 78-year-old woman with recent hospitalization for injury presents with new severe pain of the lower ribs, found to have a new T12 compression fracture which is likely causative. She is following up for the known pancreatic masses and pleural effusions as well, these are not acute. Departure - Departure Disposition: 01 Home, Self Care Clinical Impression: T12 compression fracture Qualifiers: Encounter type: initial encounter Qualified Code(s): S22.080A - Wedge compression fracture of T11-T12 vertebra, initial encounter for closed fracture Condition: Good Record reviewed to determine appropriate education?: Yes Instructions: ED Fx Comp Vertebral Prescriptions: Oxycodone HCl/Acetaminophen [Percocet 5-325 mg Tablet] 1 - 2 each PO Q6H PRN #20 tablet PRN Reason: pain Comments: Call your doctor to arrange a follow-up appointment, make the next available ap pointment. In the interim, return anytime if worse or if new symptoms develop. Do not drink or drive while taking narcotic pain medication. Note that many narcotic pain relievers also contain Tylenol/acetaminophen. Please ensure that your total dose of acetaminophen from all sources does not exceed 3 g (3000 mg) per day. You may get constipated while on this medication. Take a stool softener such as Colace twice a day while you are on it. Also add an agjv-hgv-fgxwmnk laxative such as senna or MiraLAX on any day that you do not have a bowel movement. If you received a narcotic pain medication or sedative while in the emergency department, do not drive for the next 24 hours.
[2019-02-22 17:02] LABS: BASOPHILS # (AUTO) 0.1 10^3/uL (0.0-0.1); BASOPHILS % (AUTO) 1.1 %; EOSINOPHILS # (AUTO) 0.3 10^3/uL (0.0-0.7); EOSINOPHILS % (AUTO) 6.9 %; HGB - HEMOGLOBIN 9.5 g/dL (12.0-16.0); LYMPHOCYTES # (AUTO) 0.8 10^3/uL (1.5-3.5); LYMPHOCYTES % (AUTO) 17.9 %; MEAN CORPUSCULAR HEMOGLOBIN 31.7 pg (27.0-31.0); MEAN CORPUSCULAR HGB CONC 32.9 g/dL (32.0-36.0); MEAN CORPUSCULAR VOLUME 96.3 fL (81.0-99.0); MEAN PLATELET VOLUME 10.1 fL (7.9-10.8); MONOCYTES # (AUTO) 0.5 10^3/uL (0.0-1.0); MONOCYTES % (AUTO) 11.6 %; NEUTROPHILS # (AUTO) 2.8 10^3/uL (1.5-6.6); NEUTROPHILS % (AUTO) 61.6 %; PLT - PLATELET COUNT 255 10^3/uL (130-450); RED CELL DISTRIBUTION WIDTH 14.6 % (12.0-15.0); WHITE BLOOD COUNT 4.5 x10^3/uL (4.8-10.8)
[2019-02-22 17:15] LABS: ALBUMIN 2.8 g/dL (3.2-5.5); ALBUMIN/GLOBULIN RATIO 0.7 (1.0-2.2); BILIRUBIN,TOTAL 0.8 mg/dL (0.2-1.0); CALCIUM 8.5 mg/dL (8.5-10.3); CREATININE 2.3 mg/dL (0.4-1.0); TOTAL PROTEIN 6.7 g/dL (6.7-8.2)
--- NOTE | 2019-02-22 18:20 | CT Report ---
Reason: chest wall pain Procedure Date: 02/22/2019 Accession Number: [id number] / [id number] Procedure: CT - CHEST WO CPT Code: Final Report FULL RESULT: EXAM: CT CHEST EXAM DATE: 02/22/2019 05:34 PM. CLINICAL HISTORY: Chest wall pain. COMPARISONS: CHEST W/O 02/04/2019 7:13 PM RIBS 2 VIEW RT 02/08/2019 3:01 PM CHEST 1 VIEW 02/07/2019 2:16 PM ABDOMEN/PELVIS W/O 02/04/2019 7:13 PM. TECHNIQUE: Routine helical CT imaging was performed through the chest. IV contrast: None. Reconstructions: Coronal and sagittal. In accordance with CT protocol optimization, one or more of the following dose reduction techniques were utilized for this exam: automated exposure control, adjustment of mA and/or KV based on patient size, or use of iterative reconstructive technique. FINDINGS: Lungs/Pleura: Small to moderate right pleural effusion and small left pleural effusion and bilateral lower lung opacities. No endobronchial obstruction. No vascular congestion. No pneumothorax. No parenchymal cavities. Emphysematous changes. Mediastinum: Cardiomegaly. Large hiatal hernia. Coronary artery and thoracic aortic calcified plaque. No aneurysm. No mediastinal hematoma. Aortic valve calcifications are also present. Mildly enlarged mediastinal and hilar lymph nodes are seen, the largest precarinal measuring up to 12-13 mm. Bones: Degenerative changes of the thoracic spine. Superior endplate compression of T4 again seen. Moderate superior endplate T12 compression deformity is new. L1 superior endplate compression is again evident. Degenerative changes of both shoulders. Visualized Abdomen: Abdominal aortic and vascular calcified plaque. Otherwise included portions of liver, spleen, pancreas and gallbladder appear normal. Bilateral adrenal gland thickening again seen. Bilateral renal parenchymal volume loss. Bilateral renal low-attenuation lesions indeterminate although limited in detail. Cluster of calcifications by the pancreatic head noted as before. Other: Subcutaneous edema. IMPRESSION: 1. Small to moderate right and small left plural effusions with posterior and bilateral lower lobe opacities likely atelectasis. 2. No pneumothorax. 3. Large hiatal hernia. 4. Thoracic aortic and coronary artery calcified plaque. 5. Multiple enlarged mediastinal hilar lymph nodes without significant change. 6. New moderate superior T12 compression fracture compared to 02/04/2019 CT. Superior endplate compression of T4 is unchanged. RADIA
[2019-02-22 18:39] VITALS: BP 183/64
[2019-02-22] MEDS ORDERED: ONDANSETRON ODT 4 MG TABLET TL STA (18:53)
== END 2019-02-22 19:00 | disposition home or self-care (01) ==
LOC: ED 15:46
DX: S22.080A Wedge compression fracture of T11-T12 vertebra, initial encounter for closed fracture (principal); I10 Essential (primary) hypertension; F17.200 Nicotine dependence, unspecified, uncomplicated
CPT/HCPCS: 36415; 71250; 80053; 83690; 85025; 93005; 96374; 99284; 99285; J1170; Q0162

== ENCOUNTER 2019-03-06 07:59 | Outpatient (CLI) | payer MEDICARE, MEDICAID | END 2019-03-06 08:00 | disposition critical access hospital (66) | LOC: EMS 07:59 | PROVIDERS: ATTEND Surgery | DX: R11.2 Nausea with vomiting, unspecified (principal); R53.1 Weakness; R05 Cough | CPT/HCPCS: A0425; A0427 ==

== ENCOUNTER 2019-03-06 08:24 | Inpatient (IN) | payer MEDICARE, MEDICAID ==
--- NOTE | 2019-03-06 08:39 | ED Physician Documentation ---
History of Present Illness - Stated complaint Stated Complaint: N/V - Chief complaint Chief Complaint: Cardiac - History obtained from History obtained from: Patient, EMS - History of Present Illness Timing: Yesterday Pain level max: 7 Pain level now: 7 - Additonal information Additional information: 78-year-old female, presents to the emergency department with nausea and vomiting since last night. She states she has had a cough for the past several weeks as well. 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 Possible calcified neuroendocrine tumor? She has a history of hypercalcemia as well. She denies any fevers. She states that her entire body aches. She was given Zofran by EMS. She is currently living at home with a roommate. Has chronic abdominal pain. She states that this is unchanged from her usual pain Last month she was discharged from the hospital to [facility]. She has been home for the past 2 weeks. Review of Systems Constitutional: denies: Fever, Chills Nose: reports: Rhinorrhea / runny nose, Congestion GI: reports: Nausea, Vomiting. denies: Diarrhea Skin: denies: Rash Musculoskeletal: denies: Neck pain, Back pain Neurologic: denies: Headache PD PAST MEDICAL HISTORY - Past Medical History Cardiovascular: Hypertension Respiratory: Pneumonia GI: GERD, GI bleed Musculoskeletal: Chronic back pain - Past Surgical History Past Surgical History: Yes HEENT: Tonsil/Adenoidectomy - Present Medications Home Medications: Ambulatory Orders Medication Instructions Recorded Confirmed Omeprazole [PriLOSEC] 20 mg PO DAILY 04/26/16 02/05/19 buPROPion HCL [Bupropion HCl Sr] 150 mg PO BID 02/05/19 02/05/19 Acetaminophen [Tylenol] 650 mg PO Q4HR PRN tablet 02/09/19 Aspirin [Adi] 325 mg PO DAILYWM tablet 02/09/19 Magnesium Oxide [Mag Ox] 400 mg PO DAILYWM tablet 02/09/19 Multivitamin W/Minerals [Theragran 1 tab PO DAILYWM tablet 02/09/19 M] amLODIPine [Norvasc] 10 mg PO DAILY tablet 02/09/19 Oxycodone HCl/Acetaminophen 1 - 2 each PO Q6H PRN #20 tablet 02/22/19 [Percocet 5-325 mg Tablet] - Allergies Allergies/Adverse Reactions: Allergies Allergy/AdvReac Type Severity Reaction Status Date / Time No Known Drug Allergies Allergy Verified 03/06/19 08:37 - Social History Does the pt smoke?: Yes Smoking Status: Current every day smoker Does the pt drink ETOH?: No Does the pt have substance abuse?: No - Immunizations Immunizations are current?: Yes PD ED PE NORMAL - Vitals Vital signs reviewed: Yes - General General: Alert and oriented X 3, No acute distress, Well developed/nourished - HEENT HEENT: PERRL, Moist mucous membranes, Pharynx benign - Neck Neck: Supple, no meningeal sign - Cardiac Cardiac: RRR, Strong equal pulses - Respiratory Respiratory: Other (Rhonchi bilaterally, tachypnea) - Abdomen Abdomen: Soft, Non distended, Other (diffusely ttp, no peritoneal signs) - Derm Derm: Warm and dry, No rash - Extremities Extremities: No edema - Neuro Neuro: Alert and oriented X 3 - Psych Psych: Normal mood, Normal affect - Free text exam Free text exam: diffuse all over body ttp Results - Vitals Vitals: Vital Signs - 24 hr 03/06/19 03/06/19 03/06/19 08:33 08:55 09:45 Temperature 36.3 C L Heart Rate 72 72 74 Respiratory 28 H 32 H 21 Rate Blood Pressure 196/88 H 217/80 H O2 Saturation 100 100 03/06/19 03/06/19 03/06/19 10:31 10:32 10:37 Temperature Heart Rate 55 L 55 L 53 L Respiratory 25 H 20 18 Rate Blood Pressure 212/84 H 122/70 151/76 H O2 Saturation 99 98 100 03/06/19 03/06/19 03/06/19 10:42 10:57 11:12 Temperature Heart Rate 54 L 54 L 55 L Respiratory 18 18 18 Rate Blood Pressure 178/79 H 186/84 H 191/65 H O2 Saturation 100 97 97 03/06/19 11:26 Temperature Heart Rate 55 L Respiratory 18 Rate Blood Pressure 198/82 H O2 Saturation 97 Oxygen O2 Source Nasal cannula - EKG (time done) 0826 Rate: Rate (enter#) (75) Rhythm: NSR, Other (PAC) [place]: Normal Intervals: Normal [place] QRS: LVH Ischemia: Normal ST segments - Labs Labs: Laboratory Tests 03/06/19 03/06/19 03/06/19 08:55 09:01 09:01 WBC 6.6 RBC 3.50 L Hgb 10.9 L Hct 32.6 L MCV 93.1 MCH 31.1 H MCHC 33.4 RDW 14.1 Plt Count 248 MPV 9.7 Neut # (Auto) 4.9 Lymph # (Auto) 1.2 L [place] # (Auto) 0.4 Eos # (Auto) 0.1 Baso # (Auto) 0.0 Absolute Nucleated RBC 0.00 Nucleated RBC % 0.0 Sodium 135 Potassium 3.9 Chloride 100 L Carbon Dioxide 23 Anion Gap 12.0 BUN 11 Creatinine 1.7 H Estimated GFR (MDRD) 29 L Glucose 139 H Calcium 9.5 Phosphorus 2.4 L Magnesium 1.6 L Total Bilirubin 0.8 AST 19 ALT < 10 L Alkaline Phosphatase 95 Troponin I High Sens Total Protein 6.9 Albumin 3.1 L Globulin 3.8 Albumin/Globulin Ratio 0.8 L Lipase 37 Urine Color Urine Clarity Urine pH Ur Specific [place] Urine Protein Urine Glucose (UA) Urine Ketones Urine Occult Blood Urine Nitrite Urine Bilirubin Urine Urobilinogen Ur Leukocyte Esterase Urine RBC Urine WBC Ur Epithelial Cells Ur Squamous Epith Cells Urine Bacteria Urine Casts Ur Microscopic Review Urine Culture Comments Influenza A (Rapid) Negative Influenza B (Rapid) Negative 03/06/19 03/06/19 09:01 10:25 WBC RBC Hgb Hct MCV MCH MCHC RDW Plt Count MPV Neut # (Auto) Lymph # (Auto) [place] # (Auto) Eos # (Auto) Baso # (Auto) Absolute Nucleated RBC Nucleated RBC % Sodium Potassium Chloride Carbon Dioxide Anion Gap BUN Creatinine Estimated GFR (MDRD) Glucose Calcium Phosphorus Magnesium Total Bilirubin AST ALT Alkaline Phosphatase Troponin I High Sens 17.9 H* Total Protein Albumin Globulin Albumin/Globulin Ratio Lipase Urine Color YELLOW Urine Clarity CLEAR Urine pH 7.5 Ur Specific [place] 1.025 Urine Protein 100 H Urine Glucose (UA) NEGATIVE Urine Ketones NEGATIVE Urine Occult Blood NEGATIVE Urine Nitrite NEGATIVE Urine Bilirubin NEGATIVE Urine Urobilinogen 0.2 (NORMAL) Ur Leukocyte Esterase NEGATIVE Urine RBC 0-5 Urine WBC 4-5 Ur Epithelial Cells RARE Renal Tubular Ur Squamous Epith Cells NONE SEEN Urine Bacteria Few Urine Casts 0-2 Hyaline Casts Ur Microscopic Review INDICATED Urine Culture Comments NOT INDICATED Influenza A (Rapid) Influenza B (Rapid) - Rads (name of study) cxr Radiology: Prelim report reviewed, EMP read contemporaneously, See rad report (Persistent small right pleural effusion and basilar airspace disease similar to previous. No significant new findings. ) PD MEDICAL DECISION MAKING - ED course Complexity details: reviewed results, re-evaluated patient, considered differential, d/w patient, d/w family ED course: 78-year-old female presents to the emergency department with persistent vomiting. Given Zofran x2, Phenergan. Continues to be unable to tolerate p.o. Appears to have a persistent pneumonia on chest x-ray as well. Was given Levaquin IV for this. She does not appear septic. Her O2 sat drops to 88-89 lying in bed, therefore was started on supplemental oxygen. Does not appear septic. Discussed the case with the hospitalist, Dr. Mora who accepts. This document was made in part using voice recognition software. While efforts are made to proofread this document, sound alike and grammatical errors may occur. Departure - Departure Disposition: 66 [facility] DC/Xfer Clinical Impression: Pleural effusion Pneumonia Qualifiers: Pneumonia type: due to unspecified organism Laterality: unspecified laterality Lung location: unspecified part of lung Qualified Code(s): J18.9 - Pneumonia, unspecified organism Intractable vomiting Qualifiers: Vomiting type: unspecified Nausea presence: with nausea Qualified Code(s): R11.2 - Nausea with vomiting, unspecified Condition: Stable Discharge Date/Time: 03/06/19 14:03
--- NOTE | 2019-03-06 09:00 | XRAY Report ---
Reason: cough Procedure Date: 03/06/2019 Accession Number: [id number] / [id number] Procedure: XR - Chest 2 View X-Ray CPT Code: 34066 Final Report FULL RESULT: EXAM: CHEST RADIOGRAPHY EXAM DATE: 03/06/2019 08:35 AM. CLINICAL HISTORY: Cough. COMPARISON: RIBS 2 VIEW RT 02/08/2019 3:01 PM CHEST 1 VIEW 02/07/2019 2:16 PM CHEST 2 VIEW 02/07/2019 9:14 AM CHEST W/O 02/22/2019 5:32 PM CHEST W/O 02/04/2019 7:13 PM. TECHNIQUE: 2 views. FINDINGS: Patient is rotated to the right. Lungs/Pleura: Right basilar airspace disease and pleural effusions similar to previous. No other focal opacities evident. No left pleural effusion. No pneumothorax. Mediastinum: Heart size accentuated by the AP technique. Other: Hiatal hernia. Degenerative change with compression fractures of the spine. IMPRESSION: Persistent small right pleural effusion and basilar airspace disease similar to previous. No significant new findings. RADIA
[2019-03-06 09:08] LABS: BASOPHILS % (AUTO) 0.6 %; EOSINOPHILS # (AUTO) 0.1 10^3/uL (0.0-0.7); EOSINOPHILS % (AUTO) 1.4 %; HGB - HEMOGLOBIN 10.9 g/dL (12.0-16.0); LYMPHOCYTES # (AUTO) 1.2 10^3/uL (1.5-3.5); LYMPHOCYTES % (AUTO) 17.7 %; MEAN CORPUSCULAR HEMOGLOBIN 31.1 pg (27.0-31.0); MEAN CORPUSCULAR HGB CONC 33.4 g/dL (32.0-36.0); MEAN CORPUSCULAR VOLUME 93.1 fL (81.0-99.0); MEAN PLATELET VOLUME 9.7 fL (7.9-10.8); MONOCYTES # (AUTO) 0.4 10^3/uL (0.0-1.0); MONOCYTES % (AUTO) 5.9 %; NEUTROPHILS # (AUTO) 4.9 10^3/uL (1.5-6.6); NEUTROPHILS % (AUTO) 73.9 %; PLT - PLATELET COUNT 248 10^3/uL (130-450); RED CELL DISTRIBUTION WIDTH 14.1 % (12.0-15.0); WHITE BLOOD COUNT 6.6 x10^3/uL (4.8-10.8)
[2019-03-06] MEDS ORDERED: PROMETHAZINE INJ 25 MG in SODIUM CHLORIDE 0.9% 50 ML IV STA (09:13)
[2019-03-06] MEDS ORDERED: ALBUTEROL NEB 2.5 MG/3 ML INH STA (09:13)
[2019-03-06] MEDS ORDERED: SODIUM CHLORIDE 0.9% 1,000 ML IV ONE (09:13)
[2019-03-06 09:19] LABS: ALBUMIN 3.1 g/dL (3.2-5.5); ALBUMIN/GLOBULIN RATIO 0.8 (1.0-2.2); ALKALINE PHOSPHATASE 95 IU/L (42-121); ALT ALANINE AMINOTRANSFERASE < 10 IU/L (10-60); AST ASPARTATE AMINOTRANSFERASE 19 IU/L (10-42); BILIRUBIN,TOTAL 0.8 mg/dL (0.2-1.0); BUN - BLOOD UREA NITROGEN 11 mg/dL (6-20); CALCIUM 9.5 mg/dL (8.5-10.3); CARBON DIOXIDE - CO2 23 mmol/L (21-32); CHLORIDE 100 mmol/L (101-111); CREATININE 1.7 mg/dL (0.4-1.0); GFR - MDRD 29 (>89); GLUCOSE 139 mg/dL (70-100); LIPASE 37 U/L (22-51); MAGNESIUM 1.6 mg/dL (1.7-2.8); PHOSPHORUS 2.4 mg/dL (2.5-4.6); SODIUM 135 mmol/L (135-145); TOTAL PROTEIN 6.9 g/dL (6.7-8.2)
[2019-03-06] MEDS ORDERED: MAGNESIUM SULFATE 2 GRAM 2 GM/50 ML BAG IV ONE ×2 (09:25→12:53)
[2019-03-06] MEDS ORDERED: LABETALOL 20 MG/4 ML SYRINGE IVP STA (10:07)
[2019-03-06] MEDS ORDERED: LABETALOL 5 MG/1 ML 20 ML MDV IVP STA (10:11)
[2019-03-06 10:40] LABS: BILIRUBIN,URINE NEGATIVE (NEGATIVE); GLUCOSE, URINE (UA) NEGATIVE (NEGATIVE); KETONES,URINE (UA) NEGATIVE (NEGATIVE); LEUKOCYTE ESTERASE, URINE NEGATIVE (NEGATIVE); NITRITE,URINE NEGATIVE (NEGATIVE); OCCULT BLOOD,URINE NEGATIVE (NEGATIVE); PH,URINE 7.5 PH (5.0-7.5); PROTEIN,URINE 100 mg/dL (NEGATIVE); UROBILINOGEN,URINE 0.2 (NORMAL) E.U./dL (NORMAL)
[2019-03-06 10:42] LABS: CLARITY,URINE CLEAR (CLEAR)
[2019-03-06 10:47] LABS: BACTERIA,URINE Few /HPF (None Seen); EPITHELIAL CELLS,UR RARE Renal Tubular /HPF (<= Few); RBC,URINE 0-5 /HPF (0-5); SQUAMOUS EPITHELIAL CELL,UR NONE SEEN (<= Few)
[2019-03-06 10:48] LABS: CASTS, URINE 0-2 Hyaline Casts /LPF
[2019-03-06] MEDS ORDERED: MORPHINE 2 MG/ML CARPUJECT IVP STA (11:11)
[2019-03-06] MEDS ORDERED: ONDANSETRON 4 MG/2 ML VIAL IVP STA (11:11)
[2019-03-06] MEDS ORDERED: levoFLOXacin 750 MG/150 ML 750 MG/150 ML BAG IV STA (11:41)
[2019-03-06] MEDS ORDERED: ACETAMINOPHEN 325 MG TABLET PO PRN (12:09)
[2019-03-06] MEDS ORDERED: VANCOMYCIN INJ 1.25 GM in SODIUM CHLORIDE 0.9% 250 ML IV ONE (13:00)
[2019-03-06] MEDS ORDERED: VANCOMYCIN PER PHARMACY 100 GM in SODIUM CHLORIDE 0.9% 250 ML IV SCH (13:00)
[2019-03-06] MEDS: DEXTROSE 5%-0.9% NACL 1,000 ML IV SCH (14:10)
[2019-03-06] MEDS: ONDANSETRON 4 MG/2 ML VIAL IVP PRN (14:15)
--- NOTE | 2019-03-06 15:55 | PHARMACY PROGRESS NOTE ---
- Therapy Status Vancomycin regimen day #: 1 (Loading dose: 1250 mg IV x1 (~21 mg/kg per protocol); Maintenance dose: 1 g IVq36h (17 mg/kg per protocol for target trough ~17)) Therapy status: Awaiting steady state Basis for treatment: Empirical Treatment indication: Pneumonia Trough goal: 15-20 Concurrent antibiotics: Levofloxacin - SHADIA Risk Acute Kidney Injury risk factors: Baseline CrCl <50, Goal trough >15, Chronic baseline hypertension - Monitoring and Recommendation Clinical response to treatment: I&O Previous 24 hours 03/04/19 03/05/19 03/06/19 23:59 23:59 23:59 Intake Total 251 Output Total 150 Balance 101 Lab Results 03/06/19 09:01 BUN 11 Creatinine 1.7 H Estimated GFR (MDRD) 29 L WBC: 6.6, Temp: 36.3 Monitoring plan: Daily serum creatinine, Draw trough early Next trough due prior to maintenance dose #: 1 (This may not represent true steady state; drawing level early to spot check for clearnace given current renal status) Next trough due (date/time): 03/08 at 00:33 Areas for additional monitoring: IV to PO when appropriate, Therapy de- escalation based on culture results, Acute Kidney Injury Pharmacy recommendation: Continue current regime (Dosing cautiously given renal status. Recommending renal and level monitoring and making subsequent dose adjustments accordingly as clinically appropriate)
[2019-03-06] MEDS: PROCHLORPERAZINE 10 MG/2 ML VIAL IVP PRN (16:45)
[2019-03-06] MEDS: SODIUM CHLORIDE FLUSH 0.9% 10 ML SYRINGE IVP SCH (16:45)
[2019-03-06] MEDS ORDERED: hydrALAZINE INJ 20 MG/ML VIAL IVP PRN (17:41)
[2019-03-06] MEDS ORDERED: cloNIDine 0.1 MG PATCH TOP SCH (18:00)
--- NOTE | 2019-03-06 20:02 | HISTORY & PHYSICAL EXAMINATION ---
DATE OF SERVICE: 03/06/2019 Physician: Tanisha Mora MD HISTORY OF PRESENT ILLNESS: This is a 78-year-old white female with a history of pancreatic mass, which was found when she was admitted here 1 month ago with symptomatic hypercalcemia. She was advised oncology workup and followup. She required muscle strengthening and was discharged to a shelter facility after that admission and has now been home for about 2 weeks. She developed a cough over the past 2 weeks and then one day of nausea and vomiting and presented to the emergency room. Chest imaging in the ER shows bilateral basilar opacities, which could be infiltrates, plus pleural effusions bilaterally that are larger than the trivial right-sided pleural effusion she had on past recent imaging, and she is being admitted for antiemetics and IV fluids and possible pneumonia. PAST MEDICAL HISTORY: Pancreatic mass, hypercalcemia which has now resolved, hypertension, GERD, remote GI bleeding, chronic back pain, CKD. MEDICATIONS 1. Prilosec 20 mg daily. 2. Bupropion 150 mg daily. 3. Tylenol p.r.n. 4. Aspirin 325 mg daily. 5. Magnesium oxide 400 mg daily. 6. Multivitamin daily. 7. Amlodipine 10 mg daily. 8. Tylenol with Codeine p.r.n. ALLERGIES: NONE. SOCIAL HISTORY: The patient is a smoker of a pack a day, drinks no alcohol, no history of drug use. FAMILY HISTORY: Noncontributory. REVIEW OF SYSTEMS: There has been no orthopnea, leg edema, chest pain, palpitations, or syncope. She remembers no fever and she produces no sputum. There has been no diarrhea or abdominal pain. A comprehensive review of systems was performed and the pertinent positives are listed, the rest are negative. PHYSICAL EXAMINATION GENERAL: Sleepy, elderly white female. She is in no distress. VITAL SIGNS: Blood pressure 190/70 and as high as 211/79, afebrile, heart rate 66, room air saturation 99%. HEENT: Reveals mildly dry oral mucosa and she is lethargic, but awakens and speaks normally and then dozes off to sleep. NECK: No JVD at a 30-degree upright angle. CHEST: Diminished breath sounds at both bases, but no rhonchi or rales or wheezes. HEART: Distant heart sounds. No RV heave. No murmur or gallop is heard. ABDOMEN: Soft with positive bowel sounds, nontender. No organomegaly. EXTREMITIES: No clubbing, cyanosis, or edema. NEUROLOGIC: Grossly intact. LABORATORY DATA: Normal electrolytes. BUN is 11, creatinine 1.7, which is approximately her baseline. Magnesium 1.6, phosphorus 2.4. Normal lipase. Normal liver tests. White blood count 6.6, hemoglobin 10.9, platelet count 248. No INR was done. Urinalysis was unremarkable. Serology was negative for influenza A and B. CHEST X-RAY: Mild bilateral opacities, mild bilateral pleural effusions. EKG: Normal sinus rhythm with frequent PACs, LVH voltage and nonspecific ST-T changes. There is also baseline wandering, which makes interpretation difficult. IMPRESSION/DIAGNOSIS 1. Bilateral opacities and new cough are concerning for healthcare-acquired pneumonia. 2. Nausea and vomiting, which is very likely a viral gastroenteritis by its presentation. 3. Pleural effusions. 4. Hypertension, poorly controlled. 5. Left ventricular hypertrophy on EKG. 6. Chronic pain. 7. Chronic kidney disease. 8. Hypomagnesemia. 9. Hypophosphatemia. 9. Pancreatic mass. 10. Anemia. PLAN: Place the patient in Observation status for beginning IV antibiotics, IV antiemetic antiemetics, IV fluids. Advance her diet as tolerated. Treat her hypertension with IV pushes of labetalol and hydralazine, and start a topical Clonidine patch. Oral medications can be resumed when her nausea and vomiting clear. Oral antibiotics will be started for empiric course of the pneumonia treatment as well, when she is not vomiting. CODE STATUS: DNR. DEEP VENOUS THROMBOSIS PROPHYLAXIS: SCDs. ATTESTATION: The patient is expected to be discharged or transferred to another facility within 96 hours: Yes. cc: Rey Slater MD TD: 03/06/2019 19:05 [email or web address]
[2019-03-06] MEDS: FAMOTIDINE 20 MG TABLET PO SCH (21:06)
[2019-03-06] MEDS: buPROPion SR 150 MG TABLET PO SCH (21:07)
[2019-03-07] MEDS: DEXTROSE 5%-0.9% NACL 1,000 ML IV SCH ×3 (01:25→21:29)
[2019-03-07] MEDS: SODIUM CHLORIDE FLUSH 0.9% 10 ML SYRINGE IVP SCH ×3 (01:31→16:25)
[2019-03-07 07:35] LABS: BASOPHILS % (AUTO) 0.2 %; EOSINOPHILS % (AUTO) 0.2 %; HGB - HEMOGLOBIN 9.2 g/dL (12.0-16.0); LYMPHOCYTES # (AUTO) 1.2 10^3/uL (1.5-3.5); LYMPHOCYTES % (AUTO) 14.4 %; MEAN CORPUSCULAR HEMOGLOBIN 30.9 pg (27.0-31.0); MEAN CORPUSCULAR HGB CONC 32.3 g/dL (32.0-36.0); MEAN CORPUSCULAR VOLUME 95.6 fL (81.0-99.0); MEAN PLATELET VOLUME 9.5 fL (7.9-10.8); MONOCYTES # (AUTO) 0.7 10^3/uL (0.0-1.0); NEUTROPHILS # (AUTO) 6.2 10^3/uL (1.5-6.6); NEUTROPHILS % (AUTO) 75.6 %; PLT - PLATELET COUNT 218 10^3/uL (130-450); RED BLOOD COUNT 2.98 10^6/uL (4.20-5.40); RED CELL DISTRIBUTION WIDTH 14.5 % (12.0-15.0); WHITE BLOOD COUNT 8.2 x10^3/uL (4.8-10.8)
[2019-03-07 07:47] LABS: CALCIUM 7.9 mg/dL (8.5-10.3); CREATININE 1.8 mg/dL (0.4-1.0); MAGNESIUM 1.8 mg/dL (1.7-2.8); PHOSPHORUS 2.8 mg/dL (2.5-4.6)
[2019-03-07] MEDS: buPROPion SR 150 MG TABLET PO SCH ×2 (08:42→20:45)
[2019-03-07] MEDS: ASPIRIN 325 MG TABLET PO SCH (08:42)
[2019-03-07] MEDS: FAMOTIDINE 20 MG TABLET PO SCH (08:42)
[2019-03-07] MEDS ORDERED: amLODIPine 5 MG TABLET PO SCH ×2 (09:00)
--- NOTE | 2019-03-07 09:09 | PHARMACY PROGRESS NOTE ---
- Best Possible Medication History Admit Date and Time: 03/06/19 1200 Processed by: Pharmacy Medication History completed: Yes Patient Interview: Completed Secondary Source(s): Physician records As the person ultimately responsible for medication therapy, providers are able to order a medication from an existing home medication list in [facility] via the "Reconcile Routine" prior to Confirmation of that medication by customer support professional. Such practice is discouraged except when the physician, in their clinical judgment, deems that a medical need exists for a medication without regard to previous use.
--- NOTE | 2019-03-07 09:33 | XRAY Report ---
Reason: Eval for pneumonia vs atelectasis Procedure Date: 03/07/2019 Accession Number: [id number] / [id number] Procedure: XR - Chest 1 View X-Ray CPT Code: 31354 Final Report FULL RESULT: EXAM: CHEST RADIOGRAPHY EXAM DATE: 03/07/2019 09:11 AM. CLINICAL HISTORY: Eval for pneumonia vs atelectasis. COMPARISON: CHEST 2 VIEW 03/06/2019 8:35 AM. TECHNIQUE: 1 view. FINDINGS: Lungs/Pleura: Subsegmental opacity right lung base posteromedially again seen. No separate consolidation. Lungs otherwise clear. No gross pleural effusion seen on frontal projection exam. Pulmonary vascularity appears normal. No edema. No pneumothorax. Mediastinum: Calcified atherosclerosis. Heart size normal. Air-fluid level associated with Hiatal hernia less apparent. Other: None. IMPRESSION: 1. Mild atelectasis/subsegmental consolidation at right lung base not significantly changed. 2. No other change seen. RADIA
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
[2019-03-08] MEDS ORDERED: VANCOMYCIN INJ 1 GM in SODIUM CHLORIDE 0.9% 250 ML IV SCH ×2 (01:00→02:00)
[2019-03-08 01:19] LABS: VANCOMYCIN,TROUGH 8.8 ug/mL (10.0-20.0)
[2019-03-08] MEDS: SODIUM CHLORIDE FLUSH 0.9% 10 ML SYRINGE IVP SCH ×3 (01:34→16:23)
[2019-03-08] MEDS: ONDANSETRON 4 MG/2 ML VIAL IVP PRN ×3 (04:38→19:25)
[2019-03-08] MEDS: HYDROmorphone 0.5 MG/0.5 ML SYRINGE IVP PRN ×3 (05:24→20:17)
[2019-03-08 05:52] LABS: BASOPHILS % (AUTO) 0.4 %; EOSINOPHILS # (AUTO) 0.2 10^3/uL (0.0-0.7); EOSINOPHILS % (AUTO) 3.7 %; HGB - HEMOGLOBIN 7.9 g/dL (12.0-16.0); LYMPHOCYTES # (AUTO) 1.7 10^3/uL (1.5-3.5); LYMPHOCYTES % (AUTO) 32.1 %; MEAN CORPUSCULAR HEMOGLOBIN 29.8 pg (27.0-31.0); MEAN CORPUSCULAR HGB CONC 31.3 g/dL (32.0-36.0); MEAN CORPUSCULAR VOLUME 95.1 fL (81.0-99.0); MONOCYTES # (AUTO) 0.5 10^3/uL (0.0-1.0); MONOCYTES % (AUTO) 8.7 %; NEUTROPHILS # (AUTO) 2.8 10^3/uL (1.5-6.6); NEUTROPHILS % (AUTO) 53.9 %; PLT - PLATELET COUNT 212 10^3/uL (130-450); RED BLOOD COUNT 2.65 10^6/uL (4.20-5.40); RED CELL DISTRIBUTION WIDTH 14.7 % (12.0-15.0); WHITE BLOOD COUNT 5.2 x10^3/uL (4.8-10.8)
[2019-03-08] MEDS: DEXTROSE 5%-0.9% NACL 1,000 ML IV SCH ×2 (08:30→09:23)
[2019-03-08] MEDS: SENNA 8.6 MG TABLET PO SCH (08:30)
[2019-03-08] MEDS: CHOLECALCIFEROL 5,000 UNIT CAPSULE PO SCH (08:30)
[2019-03-08] MEDS: ASPIRIN 325 MG TABLET PO SCH (08:30)
[2019-03-08] MEDS: buPROPion SR 150 MG TABLET PO SCH (08:30)
[2019-03-08] MEDS: DOCUSATE SODIUM 250 MG CAPSULE PO SCH (08:31)
[2019-03-08] MEDS: FAMOTIDINE 20 MG TABLET PO SCH (08:31)
[2019-03-08] MEDS ORDERED: amLODIPine 5 MG TABLET PO SCH (09:00)
--- NOTE | 2019-03-08 09:16 | PROVIDER PROGRESS NOTE ---
Assessment/Plan - Problem List (1) Chest pain Assessment/Plan: The [facility] [employer] [facility] Hospitalist saw her last night and found that she had significant tenderness of the anterior chest wall. This may be consistent with her recent excessive coughing and vomiting. EKG was done that showed LVH with strain pattern. Troponin was done that was negative. We will treat with empiric prn nonsteroidal anti-inflammatories (2) HCAP (healthcare-associated pneumonia) Assessment/Plan: No cough Sputum cx is growing Gram pos cocci and gram neg rods, awaiting identification and sensitivities. Empiric iv antibiotics continue. Will probably transition to oral antibx tomorrow and poss DCh tomorrow (3) Hypertensive urgency Assessment/Plan: She still has poorly controlled BP at night, without sundowning or other obvious cause, except 6L (+) fluid balance. Will increase the Amlodipine dose (4) Anemia Assessment/Plan: Hgb has dropped from 10 to 9 and today 7.9. She is 6L (+) in fluid balance, and this is likely hemodilutional. Will check B12, Folate and iron levels, treat if low. (5) Pancreatic mass Assessment/Plan: This needed outpt Oncol w/u (6) Chronic pain Assessment/Plan: No c/o (7) CKD (chronic kidney disease) Assessment/Plan: She is at her baseline with creat of 1.6 today (8) Dementia Assessment/Plan: Good mental status today, was able to discuss her home aprtment and living situation (9) N&V (nausea and vomiting) Assessment/Plan: Resolved. Will advance diet (10) Dehydration Assessment/Plan: Resolved (11) Acute kidney injury superimposed on chronic kidney disease Assessment/Plan: Resolved, she is at her baseline creat of 1.6 today. - Current Meds Current Meds: Current Medications Generic Name Dose Route Start Last Admin Trade Name Freq PRN Reason Stop Dose Admin Acetaminophen 650 mg 03/06/19 12:09 03/06/19 16:34 Tylenol PO 650 mg Q6H PRN Administration Pain or Fever > 38C (100.4F) Amlodipine Besylate 5 mg 03/08/19 09:00 03/08/19 08:30 Norvasc PO 5 mg DAILY MIRANDA Administration Aspirin 325 mg 03/07/19 08:00 03/08/19 08:30 Adi PO 325 mg DAILYWM MIRANDA Administration Bupropion HCl 150 mg 03/06/19 21:00 03/08/19 08:30 Wellbutrin Sr PO 150 mg BID MIRANDA Administration Cholecalciferol 5,000 unit 03/08/19 09:00 03/08/19 08:30 Vitamin D3 PO 5,000 unit DAILY MIRANDA Administration Docusate Sodium 250 - 500 mg 03/08/19 09:00 03/08/19 08:31 Colace 250mg Capsule PO 250 mg DAILY MIRANDA Administration Famotidine 20 mg 03/06/19 21:00 03/08/19 08:31 Pepcid PO 20 mg DAILY MIRANDA Administration Hydralazine HCl 10 mg 03/06/19 17:41 03/08/19 04:30 Apresoline Inj IVP 10 mg Q6H PRN Administration Hypertensive Emergency Hydromorphone HCl 0.5 mg 03/06/19 17:43 03/08/19 05:24 Dilaudid Inj Syringe IVP 0.5 mg Q2H PRN Administration PAIN Dextrose/Sodium Chloride 1,000 mls @ 100 mls/hr 03/06/19 13:00 03/08/19 08:30 D5ns IV 100 mls/hr .Q10H MIRANDA Administration Ondansetron HCl 4 mg 03/06/19 12:09 03/08/19 04:38 Zofran Inj IVP 4 mg Q6HR PRN Administration Nausea / Vomiting Prochlorperazine Edisylate 10 mg 03/06/19 12:09 03/06/19 16:45 Compazine Inj IVP 10 mg Q6HR PRN Administration Nausea / Vomiting Senna 8.6 - 17.2 mg 03/08/19 09:00 03/08/19 08:30 Senokot PO 8.6 mg DAILY MIRANDA Administration Sodium Chloride 10 ml 03/06/19 17:00 03/08/19 08:33 Normal Saline Flush 0.9% IVP Not Given 0100,0900,1700 MIRANDA - Lab Result Fish Bone Diagrams: 03/08/19 05:20 03/08/19 05:20 - EKG Results EKG Interpreted Independently: Yes EKG Comparison: Unchanged from prior EKG EKG Findings: NSR, rate 72, frequent PACs, LVH with strain pattern - Additional Planning My Orders: My Active Orders 03/07/19 11:40 CUL, RESPIRATORY [RM] Routine 03/07/19 Dinner DIET [Soft (Low Fiber) Diet] [DIET] 03/08/19 09:00 Cholecalciferol [Vitamin D3] 5,000 unit PO DAILY Docusate Sodium 250Mg Capsule [Colace 250Mg Capsule] 250 - 500 mg PO DAILY Senna [Senokot] 8.6 - 17.2 mg PO DAILY amLODIPine [Norvasc] 5 mg PO DAILY 03/08/19 12:00 levoFLOXacin 750 MG/150 ML [Levaquin 750 mg/150 ml] 750 mg in 150 ml IV Q48H 03/08/19 Dinner DIET [Soft Mechanical Diet] [DIET] 03/09/19 14:00 Vancomycin Inj [Vancomycin] 1 gm Sodium Chloride 0.9% [Normal Saline 0.9%] 250 ml IV Q24H 03/11/19 13:30 VANCOMYCIN TROUGH [CHEM] Timed Subjective - Subjective Patient Reports: Feeling Better, No Complaints, Other (Had chest pain last night, was seen by [employer], resolved) Objective Vital Signs: Vital Signs - 24 hr 03/07/19 03/07/19 03/07/19 12:52 14:12 15:00 Temperature 36.9 C 37.2 C Heart Rate [ 85 Activity] Heart Rate [ 77 84 Brachial] Respiratory 20 18 Rate Blood Pressure Blood Pressure 150/73 H [Activity] Blood Pressure 127/57 L 150/63 H [Right Brachial artery] O2 Saturation 97 99 03/07/19 03/07/19 03/07/19 16:52 19:00 21:00 Temperature 37.1 C 37.4 C 36.9 C Heart Rate [ Activity] Heart Rate [ 70 67 66 Brachial] Respiratory 20 16 16 Rate Blood Pressure Blood Pressure [Activity] Blood Pressure 140/58 H 143/60 H 164/58 H [Right Brachial artery] O2 Saturation 98 98 97 03/07/19 03/08/19 03/08/19 22:54 00:31 02:57 Temperature 37.2 C 36.5 C 36.7 C Heart Rate [ Activity] Heart Rate [ 68 75 100 Brachial] Respiratory 20 20 18 Rate Blood Pressure Blood Pressure [Activity] Blood Pressure 143/61 H 170/65 H 154/60 H [Right Brachial artery] O2 Saturation 98 95 95 03/08/19 03/08/19 03/08/19 04:30 04:35 04:40 Temperature 36.7 C Heart Rate [ Activity] Heart Rate [ 77 Brachial] Respiratory 34 H Rate Blood Pressure Blood Pressure [Activity] Blood Pressure 211/86 H 178/71 H 184/70 H [Right Brachial artery] O2 Saturation 95 03/08/19 03/08/19 03/08/19 04:45 05:00 05:16 Temperature Heart Rate [ Activity] Heart Rate [ Brachial] Respiratory Rate Blood Pressure 161/48 H Blood Pressure [Activity] Blood Pressure 170/52 H 161/48 H 155/62 H [Right Brachial artery] O2 Saturation 03/08/19 03/08/19 03/08/19 05:30 07:00 07:52 Temperature 36.5 C 36.2 C L Heart Rate [ Activity] Heart Rate [ 78 75 Brachial] Respiratory 18 18 Rate Blood Pressure Blood Pressure [Activity] Blood Pressure 147/45 H 135/56 H 135/51 H [Right Brachial artery] O2 Saturation 94 92 Oxygen O2 Source Room air I&O (Last 24 Hrs): Intake and Output Totals x24h 03/06/19 03/07/19 03/08/19 23:59 23:59 23:59 Intake Total 1501 4143.333 1350 Output Total 150 250 350 Balance 1351 3893.333 1000 General: Alert, Oriented x3 HEENT: Mucous membr. moist/pink Neck: Supple, No JVD Neuro: Alert, Non Focal Cardiovascular: Regular rate, No murmurs Respiratory: No respiratory distress, Breath sounds nml Abdomen: Normal bowel sounds, Soft Extremities: No edema - Results Results: Laboratory Results WBC 5.2 x10^3/uL (4.8-10.8) 03/08/19 05:20 RBC 2.65 10^6/uL (4.20-5.40) L 03/08/19 05:20 Hgb 7.9 g/dL (12.0-16.0) L 03/08/19 05:20 Hct 25.2 % (37.0-47.0) L 03/08/19 05:20 MCV 95.1 fL (81.0-99.0) 03/08/19 05:20 MCH 29.8 pg (27.0-31.0) 03/08/19 05:20 MCHC 31.3 g/dL (32.0-36.0) L 03/08/19 05:20 RDW 14.7 % (12.0-15.0) 03/08/19 05:20 Plt Count 212 10^3/uL (130-450) 03/08/19 05:20 MPV 10.0 fL (7.9-10.8) 03/08/19 05:20 Neut # (Auto) 2.8 10^3/uL (1.5-6.6) 03/08/19 05:20 Lymph # (Auto) 1.7 10^3/uL (1.5-3.5) 03/08/19 05:20 [place] # (Auto) 0.5 10^3/uL (0.0-1.0) 03/08/19 05:20 Eos # (Auto) 0.2 10^3/uL (0.0-0.7) 03/08/19 05:20 Baso # (Auto) 0.0 10^3/uL (0.0-0.1) 03/08/19 05:20 Absolute Nucleated RBC 0.00 x10^3/uL 03/08/19 05:20 Nucleated RBC % 0.0 /100WBC 03/08/19 05:20 Sodium 135 mmol/L (135-145) 03/07/19 07:20 Potassium 3.8 mmol/L (3.5-5.0) 03/07/19 07:20 Chloride 105 mmol/L (101-111) 03/07/19 07:20 Carbon Dioxide 24 mmol/L (21-32) 03/07/19 07:20 Anion Gap 6.0 (6-13) 03/07/19 07:20 BUN 25 mg/dL (6-20) H 03/07/19 07:20 Creatinine 1.8 mg/dL (0.4-1.0) H 03/07/19 07:20 Estimated GFR (MDRD) 27 (>89) L 03/07/19 07:20 Glucose 116 mg/dL (70-100) H 03/07/19 07:20 Calcium 7.9 mg/dL (8.5-10.3) L 03/07/19 07:20 Phosphorus 2.8 mg/dL (2.5-4.6) 03/07/19 07:20 Magnesium 1.8 mg/dL (1.7-2.8) 03/07/19 07:20 Total Bilirubin 0.8 mg/dL (0.2-1.0) 03/06/19 09:01 AST 19 IU/L (10-42) 03/06/19 09:01 ALT < 10 IU/L (10-60) L 03/06/19 09:01 Alkaline Phosphatase 95 IU/L (42-121) 03/06/19 09:01 Troponin I High Sens 21.5 ng/L (2.3-14.8) H* 03/08/19 05:20 Total Protein 6.9 g/dL (6.7-8.2) 03/06/19 09:01 Albumin 3.1 g/dL (3.2-5.5) L 03/06/19 09:01 Globulin 3.8 g/dL (2.1-4.2) 03/06/19 09:01 Albumin/Globulin Ratio 0.8 (1.0-2.2) L 03/06/19 09:01 Lipase 37 U/L (22-51) 03/06/19 09:01 Urine Color YELLOW 03/06/19 10:25 Urine Clarity CLEAR (CLEAR) 03/06/19 10:25 Urine pH 7.5 PH (5.0-7.5) 03/06/19 10:25 Ur Specific [place] 1.025 (1.002-1.030) 03/06/19 10:25 Urine Protein 100 mg/dL (NEGATIVE) H 03/06/19 10:25 Urine Glucose (UA) NEGATIVE mg/dL (NEGATIVE) 03/06/19 10:25 Urine Ketones NEGATIVE mg/dL (NEGATIVE) 03/06/19 10:25 Urine Occult Blood NEGATIVE (NEGATIVE) 03/06/19 10:25 Urine Nitrite NEGATIVE (NEGATIVE) 03/06/19 10:25 Urine Bilirubin NEGATIVE (NEGATIVE) 03/06/19 10:25 Urine Urobilinogen 0.2 (NORMAL) E.U./dL (NORMAL) 03/06/19 10:25 Ur Leukocyte Esterase NEGATIVE (NEGATIVE) 03/06/19 10:25 Urine RBC 0-5 /HPF (0-5) 03/06/19 10:25 Urine WBC 4-5 /HPF (0-5) 03/06/19 10:25 Ur Epithelial Cells RARE Renal Tubular /HPF (<= Few) 03/06/19 10:25 Ur Squamous Epith Cells NONE SEEN (<= Few) 03/06/19 10:25 Urine Bacteria Few /HPF (None Seen) 03/06/19 10:25 Urine Casts 0-2 Hyaline Casts /LPF 03/06/19 10:25 Ur Microscopic Review INDICATED 03/06/19 10:25 Urine Culture Comments NOT INDICATED 03/06/19 10:25 Last Dose Date UNKNOWN 03/08/19 00:30 Last Dose Time UNKNOWN 03/08/19 00:30 Vancomycin Trough 8.8 ug/mL (10.0-20.0) L 03/08/19 00:30 Influenza A (Rapid) Negative (Negative) 03/06/19 08:55 Influenza B (Rapid) Negative (Negative) 03/06/19 08:55
[2019-03-08] MEDS ORDERED: IBUPROFEN 400 MG TABLET PO PRN (09:17)
[2019-03-08 09:46] LABS: CALCIUM 7.5 mg/dL (8.5-10.3); CREATININE 1.6 mg/dL (0.4-1.0)
[2019-03-08] MEDS ORDERED: levoFLOXacin 750 MG/150 ML 750 MG/150 ML BAG IV SCH (12:00)
[2019-03-08] MEDS: PROCHLORPERAZINE 10 MG/2 ML VIAL IVP PRN (17:30)
[2019-03-08] MEDS: SODIUM CHLORIDE FLUSH 0.9% 10 ML SYRINGE IVP PRN ×2 (19:25→20:17)
[2019-03-09] MEDS: buPROPion SR 150 MG TABLET PO SCH ×3 (00:21→20:41)
[2019-03-09] MEDS: SODIUM CHLORIDE FLUSH 0.9% 10 ML SYRINGE IVP SCH ×3 (00:28→17:56)
[2019-03-09] MEDS: HYDROmorphone 0.5 MG/0.5 ML SYRINGE IVP PRN ×2 (00:34→08:57)
[2019-03-09] MEDS: PROCHLORPERAZINE 10 MG/2 ML VIAL IVP PRN (00:34)
[2019-03-09] MEDS: DEXTROSE 5%-0.9% NACL 1,000 ML IV SCH ×2 (00:39→17:56)
[2019-03-09 06:31] LABS: BASOPHILS % (AUTO) 0.6 %; EOSINOPHILS # (AUTO) 0.1 10^3/uL (0.0-0.7); HGB - HEMOGLOBIN 7.8 g/dL (12.0-16.0); LYMPHOCYTES # (AUTO) 1.1 10^3/uL (1.5-3.5); MEAN CORPUSCULAR HEMOGLOBIN 31.2 pg (27.0-31.0); MEAN CORPUSCULAR HGB CONC 32.2 g/dL (32.0-36.0); MEAN CORPUSCULAR VOLUME 96.8 fL (81.0-99.0); MEAN PLATELET VOLUME 9.8 fL (7.9-10.8); MONOCYTES # (AUTO) 0.4 10^3/uL (0.0-1.0); MONOCYTES % (AUTO) 8.7 %; NEUTROPHILS # (AUTO) 3.3 10^3/uL (1.5-6.6); NEUTROPHILS % (AUTO) 64.9 %; PLT - PLATELET COUNT 214 10^3/uL (130-450)
[2019-03-09 06:48] LABS: CALCIUM 7.8 mg/dL (8.5-10.3); CREATININE 1.7 mg/dL (0.4-1.0)
[2019-03-09 07:11] LABS: FOLATE 11.99 ng/mL (5.90 - >24.8)
[2019-03-09] MEDS: ASPIRIN 325 MG TABLET PO SCH (08:46)
[2019-03-09] MEDS: CHOLECALCIFEROL 5,000 UNIT CAPSULE PO SCH (08:47)
[2019-03-09] MEDS: DOCUSATE SODIUM 250 MG CAPSULE PO SCH (08:47)
[2019-03-09] MEDS: FAMOTIDINE 20 MG TABLET PO SCH (08:47)
[2019-03-09] MEDS: amLODIPine 5 MG TABLET PO SCH (08:47)
[2019-03-09] MEDS: SENNA 8.6 MG TABLET PO SCH (08:47)
[2019-03-09] MEDS: ONDANSETRON 4 MG/2 ML VIAL IVP PRN ×2 (08:57→17:54)
--- NOTE | 2019-03-09 10:25 | PROVIDER PROGRESS NOTE ---
Assessment/Plan - Problem List (1) HCAP (healthcare-associated pneumonia) Assessment/Plan: Staph aureus and another bacteria are being identified in the sputum. She needs to remain on iv antibiotics until she is not nauseated and can reliably take po meds. Await the sensitivities of the Staph aureus. Await the identification of the second sputum bacteria isolate. (2) Nausea Assessment/Plan: Her admission was for dehydration and N/V, which resolved 2 days ago, but recurred again last night. Today she is nauseated and no appetite, took no breakfast. Will treat for constipation (no BMs for 5 days), and give anti-emetics and continue meds via iv route. (3) Anemia Assessment/Plan: Will check levels and replace if low. Follow CBC daily (4) Pancreatic mass Assessment/Plan: This still requires oncology work-up and manage (5) Chronic pain Assessment/Plan: Her home medications are continued (6) CKD (chronic kidney disease) Assessment/Plan: The creatinine has leveled off at 1.7-1.8 (7) Dementia Assessment/Plan: There must be very mild dementia since the patient is very functional (8) Constipation Assessment/Plan: No BMs for 5 days. This may be the reason for recurrence of N/V. Will give meds per bowel protocol. (9) Chest pain Assessment/Plan: Resolved - Current Meds Current Meds: Current Medications Generic Name Dose Route Start Last Admin Trade Name Freq PRN Reason Stop Dose Admin Acetaminophen 650 mg 03/06/19 12:09 03/06/19 16:34 Tylenol PO 650 mg Q6H PRN Administration Pain or Fever > 38C (100.4F) Amlodipine Besylate 10 mg 03/09/19 09:00 03/09/19 08:47 Norvasc PO 10 mg DAILY MIRANDA Administration Aspirin 325 mg 03/07/19 08:00 03/09/19 08:46 Adi PO 325 mg DAILYWM MIRANDA Administration Bupropion HCl 150 mg 03/06/19 21:00 03/09/19 08:47 Wellbutrin Sr PO 150 mg BID MIRANDA Administration Cholecalciferol 5,000 unit 03/08/19 09:00 03/09/19 08:47 Vitamin D3 PO 5,000 unit DAILY MIRANDA Administration Docusate Sodium 250 - 500 mg 03/08/19 09:00 03/09/19 08:47 Colace 250mg Capsule PO 250 mg DAILY MIRANDA Administration Famotidine 20 mg 03/06/19 21:00 03/09/19 08:47 Pepcid PO 20 mg DAILY MIRANDA Administration Hydralazine HCl 10 mg 03/06/19 17:41 03/08/19 04:30 Apresoline Inj IVP 10 mg Q6H PRN Administration Hypertensive Emergency Hydromorphone HCl 0.5 mg 03/06/19 17:43 03/09/19 08:57 Dilaudid Inj Syringe IVP 0.5 mg Q2H PRN Administration PAIN Levofloxacin 750 mg in 150 mls @ 100 mls/hr 03/08/19 12:00 03/08/19 13:28 Levaquin 750 Mg/150 Ml IV Infused Q48H MIRANDA Infusion Dextrose/Sodium Chloride 1,000 mls @ 60 mls/hr 03/08/19 09:17 03/09/19 00:39 D5ns IV 60 mls/hr .[id number] MIRANDA Administration Ondansetron HCl 4 mg 03/06/19 12:09 03/09/19 08:57 Zofran Inj IVP 4 mg Q6HR PRN Administration Nausea / Vomiting Prochlorperazine Edisylate 10 mg 03/06/19 12:09 03/09/19 00:34 Compazine Inj IVP 10 mg Q6HR PRN Administration Nausea / Vomiting Senna 8.6 - 17.2 mg 03/08/19 09:00 03/09/19 08:47 Senokot PO 8.6 mg DAILY MIRANDA Administration Sodium Chloride 10 ml 03/06/19 12:09 03/08/19 20:17 Normal Saline Flush 0.9% IVP 10 ml PRN PRN Administration NEEDED PER PROVIDER ORDERS Sodium Chloride 10 ml 03/06/19 17:00 03/09/19 08:48 Normal Saline Flush 0.9% IVP Not Given 0100,0900,1700 MIRANDA - Lab Result Fish Bone Diagrams: 03/10/19 05:00 03/10/19 05:00 - Additional Planning My Orders: My Active Orders 03/08/19 12:00 levoFLOXacin 750 MG/150 ML [Levaquin 750 mg/150 ml] 750 mg in 150 ml IV Q48H 03/08/19 Dinner DIET [Soft Mechanical Diet] [DIET] 03/09/19 09:00 amLODIPine [Norvasc] 10 mg PO DAILY 03/09/19 14:00 Vancomycin Inj [Vancomycin] 1 gm Sodium Chloride 0.9% [Normal Saline 0.9%] 250 ml IV Q24H 03/11/19 13:30 VANCOMYCIN TROUGH [CHEM] Timed Objective Vital Signs: Vital Signs - 24 hr 03/08/19 03/08/19 03/08/19 10:32 13:00 13:42 Temperature 36.8 C 36.3 C L Heart Rate [ 85 Activity] Heart Rate [ 70 78 Brachial] Respiratory 20 18 Rate Blood Pressure 150/73 H [Activity] Blood Pressure [Left Brachial artery] Blood Pressure 133/55 H 162/77 H [Right Brachial artery] O2 Saturation 95 98 03/08/19 03/08/19 03/08/19 15:15 16:44 20:10 Temperature 36.4 C L 36.6 C Heart Rate [ Activity] Heart Rate [ 65 72 79 Brachial] Respiratory 18 24 24 Rate Blood Pressure [Activity] Blood Pressure 179/46 H [Left Brachial artery] Blood Pressure 149/53 H 117/58 L [Right Brachial artery] O2 Saturation 95 96 95 03/08/19 03/09/19 03/09/19 21:20 00:38 04:58 Temperature 36.9 C 36.8 C Heart Rate [ Activity] Heart Rate [ 79 75 Brachial] Respiratory 16 18 18 Rate Blood Pressure [Activity] Blood Pressure 156/49 H [Left Brachial artery] Blood Pressure 176/56 H [Right Brachial artery] O2 Saturation 93 96 95 03/09/19 03/09/19 08:16 09:01 Temperature 37.2 C Heart Rate [ Activity] Heart Rate [ 68 65 Brachial] Respiratory 16 Rate Blood Pressure [Activity] Blood Pressure [Left Brachial artery] Blood Pressure 176/48 H 170/56 H [Right Brachial artery] O2 Saturation 96 Oxygen O2 Source Room air I&O (Last 24 Hrs): Intake and Output Totals x24h 03/07/19 03/08/19 03/09/19 23:59 23:59 23:59 Intake Total 4143.333 2033.333 1036.667 Output Total 250 900 200 Balance 3893.333 1133.333 836.667 General: Alert, Oriented x3 HEENT: Mucous membr. moist/pink Neuro: Alert, Non Focal Cardiovascular: No murmurs Respiratory: No respiratory distress, Breath sounds nml Abdomen: Normal bowel sounds, Soft Extremities: No edema - Results Results: Laboratory Results WBC 5.0 x10^3/uL (4.8-10.8) 03/09/19 05:35 RBC 2.50 10^6/uL (4.20-5.40) L 03/09/19 05:35 Hgb 7.8 g/dL (12.0-16.0) L 03/09/19 05:35 Hct 24.2 % (37.0-47.0) L 03/09/19 05:35 MCV 96.8 fL (81.0-99.0) 03/09/19 05:35 MCH 31.2 pg (27.0-31.0) H 03/09/19 05:35 MCHC 32.2 g/dL (32.0-36.0) 03/09/19 05:35 RDW 15.0 % (12.0-15.0) 03/09/19 05:35 Plt Count 214 10^3/uL (130-450) 03/09/19 05:35 MPV 9.8 fL (7.9-10.8) 03/09/19 05:35 Neut # (Auto) 3.3 10^3/uL (1.5-6.6) 03/09/19 05:35 Lymph # (Auto) 1.1 10^3/uL (1.5-3.5) L 03/09/19 05:35 [place] # (Auto) 0.4 10^3/uL (0.0-1.0) 03/09/19 05:35 Eos # (Auto) 0.1 10^3/uL (0.0-0.7) 03/09/19 05:35 Baso # (Auto) 0.0 10^3/uL (0.0-0.1) 03/09/19 05:35 Absolute Nucleated RBC 0.00 x10^3/uL 03/09/19 05:35 Nucleated RBC % 0.0 /100WBC 03/09/19 05:35 Sodium 140 mmol/L (135-145) 03/09/19 05:35 Potassium 3.7 mmol/L (3.5-5.0) 03/09/19 05:35 Chloride 112 mmol/L (101-111) H 03/09/19 05:35 Carbon Dioxide 22 mmol/L (21-32) 03/09/19 05:35 Anion Gap 6.0 (6-13) 03/09/19 05:35 BUN 18 mg/dL (6-20) 03/09/19 05:35 Creatinine 1.7 mg/dL (0.4-1.0) H 03/09/19 05:35 Estimated GFR (MDRD) 29 (>89) L 03/09/19 05:35 Glucose 98 mg/dL (70-100) 03/09/19 05:35 Calcium 7.8 mg/dL (8.5-10.3) L 03/09/19 05:35 Phosphorus 2.8 mg/dL (2.5-4.6) 03/07/19 07:20 Magnesium 1.8 mg/dL (1.7-2.8) 03/07/19 07:20 Iron 28 ug/dL (28-170) 03/09/19 05:35 TIBC 231 ug/dL (250-450) L 03/09/19 05:35 % Saturation 12 % (20-50) L 03/09/19 05:35 Transferrin 165 mg/dL (192-382) L 03/09/19 05:35 Total Bilirubin 0.8 mg/dL (0.2-1.0) 03/06/19 09:01 AST 19 IU/L (10-42) 03/06/19 09:01 ALT < 10 IU/L (10-60) L 03/06/19 09:01 Alkaline Phosphatase 95 IU/L (42-121) 03/06/19 09:01 Troponin I High Sens 21.5 ng/L (2.3-14.8) H* 03/08/19 05:20 Total Protein 6.9 g/dL (6.7-8.2) 03/06/19 09:01 Albumin 3.1 g/dL (3.2-5.5) L 03/06/19 09:01 Globulin 3.8 g/dL (2.1-4.2) 03/06/19 09:01 Albumin/Globulin Ratio 0.8 (1.0-2.2) L 03/06/19 09:01 Lipase 37 U/L (22-51) 03/06/19 09:01 Vitamin B12 232 pg/mL (180-914) 03/09/19 05:35 Folate 11.99 ng/mL (5.90 - >24.8) 03/09/19 05:35 Urine Color YELLOW 03/06/19 10:25 Urine Clarity CLEAR (CLEAR) 03/06/19 10:25 Urine pH 7.5 PH (5.0-7.5) 03/06/19 10:25 Ur Specific [place] 1.025 (1.002-1.030) 03/06/19 10:25 Urine Protein 100 mg/dL (NEGATIVE) H 03/06/19 10:25 Urine Glucose (UA) NEGATIVE mg/dL (NEGATIVE) 03/06/19 10:25 Urine Ketones NEGATIVE mg/dL (NEGATIVE) 03/06/19 10:25 Urine Occult Blood NEGATIVE (NEGATIVE) 03/06/19 10:25 Urine Nitrite NEGATIVE (NEGATIVE) 03/06/19 10:25 Urine Bilirubin NEGATIVE (NEGATIVE) 03/06/19 10:25 Urine Urobilinogen 0.2 (NORMAL) E.U./dL (NORMAL) 03/06/19 10:25 Ur Leukocyte Esterase NEGATIVE (NEGATIVE) 03/06/19 10:25 Urine RBC 0-5 /HPF (0-5) 03/06/19 10:25 Urine WBC 4-5 /HPF (0-5) 03/06/19 10:25 Ur Epithelial Cells RARE Renal Tubular /HPF (<= Few) 03/06/19 10:25 Ur Squamous Epith Cells NONE SEEN (<= Few) 03/06/19 10:25 Urine Bacteria Few /HPF (None Seen) 03/06/19 10:25 Urine Casts 0-2 Hyaline Casts /LPF 03/06/19 10:25 Ur Microscopic Review INDICATED 03/06/19 10:25 Urine Culture Comments NOT INDICATED 03/06/19 10:25 Last Dose Date UNKNOWN 03/08/19 00:30 Last Dose Time UNKNOWN 03/08/19 00:30 Vancomycin Trough 8.8 ug/mL (10.0-20.0) L 03/08/19 00:30 Influenza A (Rapid) Negative (Negative) 03/06/19 08:55 Influenza B (Rapid) Negative (Negative) 03/06/19 08:55
[2019-03-09] MEDS ORDERED: BISACODYL 10 MG SUPP PR ONE (11:00)
[2019-03-09] MEDS ORDERED: VANCOMYCIN INJ 1 GM in SODIUM CHLORIDE 0.9% 250 ML IV SCH (14:00)
[2019-03-10] MEDS: SODIUM CHLORIDE FLUSH 0.9% 10 ML SYRINGE IVP SCH ×3 (03:53→17:15)
[2019-03-10 05:25] LABS: BASOPHILS % (AUTO) 0.5 %; EOSINOPHILS # (AUTO) 0.1 10^3/uL (0.0-0.7); EOSINOPHILS % (AUTO) 3.3 %; HGB - HEMOGLOBIN 7.6 g/dL (12.0-16.0); LYMPHOCYTES # (AUTO) 1.1 10^3/uL (1.5-3.5); LYMPHOCYTES % (AUTO) 24.8 %; MEAN CORPUSCULAR HEMOGLOBIN 30.8 pg (27.0-31.0); MEAN CORPUSCULAR HGB CONC 31.7 g/dL (32.0-36.0); MEAN CORPUSCULAR VOLUME 97.2 fL (81.0-99.0); MONOCYTES # (AUTO) 0.4 10^3/uL (0.0-1.0); MONOCYTES % (AUTO) 9.8 %; NEUTROPHILS # (AUTO) 2.6 10^3/uL (1.5-6.6); NEUTROPHILS % (AUTO) 60.2 %; PLT - PLATELET COUNT 212 10^3/uL (130-450); RED BLOOD COUNT 2.47 10^6/uL (4.20-5.40); RED CELL DISTRIBUTION WIDTH 15.1 % (12.0-15.0); WHITE BLOOD COUNT 4.3 x10^3/uL (4.8-10.8)
[2019-03-10 05:43] LABS: CALCIUM 7.8 mg/dL (8.5-10.3); CREATININE 1.6 mg/dL (0.4-1.0)
[2019-03-10] MEDS: ASPIRIN 325 MG TABLET PO SCH (08:01)
[2019-03-10] MEDS: FAMOTIDINE 20 MG TABLET PO SCH (08:46)
[2019-03-10] MEDS: CHOLECALCIFEROL 5,000 UNIT CAPSULE PO SCH (08:46)
[2019-03-10] MEDS: SENNA 8.6 MG TABLET PO SCH (08:47)
[2019-03-10] MEDS: amLODIPine 5 MG TABLET PO SCH (08:47)
[2019-03-10] MEDS: buPROPion SR 150 MG TABLET PO SCH (08:47)
[2019-03-10] MEDS: DOCUSATE SODIUM 250 MG CAPSULE PO SCH (08:48)
[2019-03-10] MEDS: ONDANSETRON 4 MG/2 ML VIAL IVP PRN (09:32)
[2019-03-10] MEDS: SODIUM CHLORIDE FLUSH 0.9% 10 ML SYRINGE IVP PRN (09:32)
[2019-03-10] MEDS: HYDROmorphone 0.5 MG/0.5 ML SYRINGE IVP PRN (09:32)
--- NOTE | 2019-03-10 11:43 | Discharge Plan ---
Discharge Plan Problem Reviewed?: Yes Disposition: Home, Self Care Condition: Stable Prescriptions: Clindamycin HCl [Clindamycin 300MG CAP] 600 mg PO TID #39 capsule Diet: Soft Activity Restrictions: Activity as Tolerated Shower Restrictions: No Weight Bearing: Full Weight Instruction Topics: Clindamycin capsules Health Concerns: You were diagnosed with a pneumonia and your sputum sample grew Streptococcus plus Staphylococcus, and this is a methicillin-resistant Staph. You should finish the course of treatment with the prescribed antibiotics and probiotics. Eat a soft diet, easy to digest, while you have nausea and a sensitive stomach. Resume all your other prehospital medications. Plan of Treatment: As above. You should see your primary care provider in 1 week in hospital follow-up. Care Goals: Improvement in symptoms and stabilization are the goals. Assessment: Patient understands and is in agreement. Additional Instructions or Follow Up instructions: If you have new or worsening symptoms, contact your PCP for advice or come to the emergency room. No Smoking: If you smoke, Please STOP! Call for help. Follow-up with: Rey Slater MD [Primary Care Provider] -
[2019-03-10] MEDS: DEXTROSE 5%-0.9% NACL 1,000 ML IV SCH (12:30)
[2019-03-10] MEDS ORDERED: CLINDAMYCIN 150 MG CAPSULE PO SCH ×2 (14:00)
[2019-03-10 16:49] VITALS: BP 154/53
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
== END 2019-03-10 18:44 | disposition home or self-care (01) | DRG 178 ==
LOC: EDBD → EDUNIT# → ED 08:24 → INTOOBSV 12:00 → MS2 12:00 → OBSVTOIN 03-07 10:34
PROVIDERS: ADMIT Internal Medicine; ATTEND Internal Medicine
DX: R05 Cough (principal); R91.8 Other nonspecific abnormal finding of lung field; J90 Pleural effusion, not elsewhere classified; J15.212 Pneumonia due to Methicillin resistant Staphylococcus aureus; R10.9 Unspecified abdominal pain; N17.9 Acute kidney failure, unspecified; E44.1 Mild protein-calorie malnutrition; T76.11XA Adult physical abuse, suspected, initial encounter; E83.42 Hypomagnesemia; E83.39 Other disorders of phosphorus metabolism; D64.9 Anemia, unspecified; K21.9 Gastro-esophageal reflux disease without esophagitis; Y95 Nosocomial condition; F17.210 Nicotine dependence, cigarettes, uncomplicated; J15.4 Pneumonia due to other streptococci; R11.2 Nausea with vomiting, unspecified; I16.0 Hypertensive urgency; Z66 Do not resuscitate; I13.10 Hypertensive heart and chronic kidney disease without heart failure, with stage 1 through stage 4 chronic kidney disease, or unspecified chronic kidney disease; N18.9 Chronic kidney disease, unspecified; G89.29 Other chronic pain; E86.0 Dehydration; K86.9 Disease of pancreas, unspecified; D50.9 Iron deficiency anemia, unspecified; R07.89 Other chest pain; F03.90 Unspecified dementia, unspecified severity, without behavioral disturbance, psychotic disturbance, mood disturbance, and anxiety; T14.8XXA Other injury of unspecified body region, initial encounter; X58.XXXA Exposure to other specified factors, initial encounter; K59.00 Constipation, unspecified; Z68.20 Body mass index [BMI] 20.0-20.9, adult; Z79.899 Other long term (current) drug therapy; Z86.39 Personal history of other endocrine, nutritional and metabolic disease; Z79.82 Long term (current) use of aspirin
CPT/HCPCS: 36415; 51701; 71045; 71046; 80048; 80053; 80202; 81001; 82607; 82746; 83540; 83690; 83735; 84100; 84466; 84484; 85025; 87070; 87181; 87205; 87275; 87276; 93005; 94640; 96361; 96365; 96366; 96367; 96375; 96376; 97116; 97161; 97165; 97530; 99284; 99285; A9270; G0378; J1170; J3370; J7040; 81003; 82565; 84520; 87086

== ENCOUNTER 2019-03-11 11:18 | Outpatient (CLI) | payer MEDICARE, MEDICAID | END 2019-03-11 11:19 | disposition critical access hospital (66) | LOC: EMS 11:18 | PROVIDERS: ATTEND Surgery | DX: R53.1 Weakness (principal); R11.10 Vomiting, unspecified; R06.02 Shortness of breath | CPT/HCPCS: A0425; A0429 ==

== ENCOUNTER 2019-03-11 11:37 | Inpatient (IN) | payer MEDICARE, MEDICAID ==
[2019-03-11 12:04] LABS: BASOPHILS % (AUTO) 0.5 %; EOSINOPHILS % (AUTO) 0.3 %; HGB - HEMOGLOBIN 8.7 g/dL (12.0-16.0); LYMPHOCYTES # (AUTO) 0.9 10^3/uL (1.5-3.5); LYMPHOCYTES % (AUTO) 10.8 %; MEAN CORPUSCULAR HEMOGLOBIN 30.7 pg (27.0-31.0); MEAN CORPUSCULAR HGB CONC 32.7 g/dL (32.0-36.0); MEAN PLATELET VOLUME 9.7 fL (7.9-10.8); MONOCYTES # (AUTO) 0.4 10^3/uL (0.0-1.0); MONOCYTES % (AUTO) 5.3 %; NEUTROPHILS # (AUTO) 6.5 10^3/uL (1.5-6.6); NEUTROPHILS % (AUTO) 81.8 %; PLT - PLATELET COUNT 254 10^3/uL (130-450); RED BLOOD COUNT 2.83 10^6/uL (4.20-5.40); RED CELL DISTRIBUTION WIDTH 14.8 % (12.0-15.0)
[2019-03-11 12:14] LABS: ALBUMIN 2.5 g/dL (3.2-5.5); ALBUMIN/GLOBULIN RATIO 0.8 (1.0-2.2); BILIRUBIN,TOTAL 0.9 mg/dL (0.2-1.0); CALCIUM 8.6 mg/dL (8.5-10.3); CREATININE 1.6 mg/dL (0.4-1.0); TOTAL PROTEIN 5.8 g/dL (6.7-8.2)
[2019-03-11] MEDS ORDERED: HYDROmorphone 1 MG/ML CARPUJECT IVP STA (12:14)
[2019-03-11] MEDS ORDERED: ONDANSETRON 4 MG/2 ML VIAL IVP STA ×2 (12:14→15:35)
--- NOTE | 2019-03-11 12:17 | ED Physician Documentation ---
PD HPI CHEST PAIN - Stated complaint Stated Complaint: VOMITING - Chief complaint Chief Complaint: Cardiac - History obtained from History obtained from: Patient, EMS - History of Present Illness Timing - onset: Today (Hospitalized for pneumonia, released yesterday. She was doing well, she says that this morning around 4 AM she suddenly started having nausea and vomiting and some central nonradiating chest pain which is worse with deep breathing and movement. She denies shortness of breath. She continues to have a productive cough but it is not worse than on discharge. She is on clindamycin for the pneumonia, has not been to the pharmacy yet. She denies any changes in bowel movements. Did have a normal bowel movement this morning. Denies abdominal pain, but abdominal tenderness is noted on exam.) Review of Systems Ten Systems: 10 systems reviewed and negative Constitutional: denies: Fever, Chills Nose: denies: Rhinorrhea / runny nose, Congestion Cardiac: reports: Chest pain / pressure. denies: Palpitations, Pedal edema, Calf pain Respiratory: reports: Cough. denies: Dyspnea PD PAST MEDICAL HISTORY - Past Medical History Cardiovascular: Hypertension Respiratory: Pneumonia GI: GERD, GI bleed : None Psych: None Musculoskeletal: Chronic back pain Derm: None - Past Surgical History Past Surgical History: Yes HEENT: Tonsil/Adenoidectomy - Present Medications Home Medications: Ambulatory Orders Medication Instructions Recorded Confirmed Omeprazole [PriLOSEC] 20 mg PO DAILY 04/26/16 03/07/19 buPROPion HCL [Bupropion HCl Sr] 150 mg PO BID 02/05/19 03/07/19 Acetaminophen [Tylenol] 650 mg PO Q4HR PRN tablet 02/09/19 03/07/19 Aspirin [Adi] 325 mg PO DAILYWM tablet 02/09/19 03/07/19 Magnesium Oxide [Mag Ox] 400 mg PO DAILYWM tablet 02/09/19 03/07/19 Multivitamin W/Minerals [Theragran 1 tab PO DAILYWM tablet 02/09/19 03/07/19 M] amLODIPine [Norvasc] 10 mg PO DAILY tablet 02/09/19 03/07/19 Clindamycin HCl [Clindamycin 300MG 600 mg PO TID #39 capsule 03/10/19 CAP] - Allergies Allergies/Adverse Reactions: Allergies Allergy/AdvReac Type Severity Reaction Status Date / Time No Known Drug Allergies Allergy Verified 03/11/19 11:41 - Social History Does the pt smoke?: Yes Smoking Status: Current every day smoker Does the pt drink ETOH?: Yes Does the pt have substance abuse?: No - Family History Family history: reports: Non contributory - Immunizations Immunizations are current?: Yes PD ED PE NORMAL - Vitals Vital signs reviewed: Yes - General General: Alert and oriented X 3, No acute distress - HEENT HEENT: PERRL, EOMI - Neck Neck: Supple, no meningeal sign, No bony TTP - Cardiac Cardiac: RRR, Other (2 out of 6 decrescendo systolic murmur) - Respiratory Respiratory: Other (Decreased at the right base, otherwise nonlabored and clear) - Abdomen Abdomen: Normal bowel sounds, Soft, Other (Moderately tender on the right side of the abdomen, no surgical signs.) - Back Back: No CVA TTP, No spinal TTP - Derm Derm: Normal color, Warm and dry - Extremities Extremities: No edema, No calf tenderness / cord - Neuro Neuro: Alert and oriented X 3, Normal speech Results - Vitals Vitals: Vital Signs - 24 hr 03/11/19 03/11/19 03/11/19 11:41 11:58 14:08 Temperature 36.4 C L 36.3 C L Heart Rate 76 78 75 Respiratory 24 24 16 Rate Blood Pressure 191/76 H 175/76 H 190/72 H O2 Saturation 96 97 96 03/11/19 03/11/19 15:11 16:23 Temperature Heart Rate 72 79 Respiratory 20 18 Rate Blood Pressure 186/68 H 151/57 H O2 Saturation 96 94 Oxygen O2 Source Room air - EKG (time done) 1145 Rate: Rate (enter#) (71) Rhythm: NSR (w pac) [place]: Normal Intervals: Normal [place], Prolonged QT (504) QRS: Normal Ischemia: Other (Mild ST depression inferior and septal) Computer interpretation: Agree with computer - Labs Labs: Laboratory Tests 03/11/19 03/11/19 03/11/19 11:47 11:47 11:47 WBC 8.0 RBC 2.83 L Hgb 8.7 L Hct 26.6 L MCV 94.0 MCH 30.7 MCHC 32.7 RDW 14.8 Plt Count 254 MPV 9.7 Neut # (Auto) 6.5 Lymph # (Auto) 0.9 L [place] # (Auto) 0.4 Eos # (Auto) 0.0 Baso # (Auto) 0.0 Absolute Nucleated RBC 0.00 Nucleated RBC % 0.0 D-Dimer Sodium 136 Potassium 3.2 L Chloride 109 Carbon Dioxide 20 L Anion Gap 7.0 BUN 14 Creatinine 1.6 H Estimated GFR (MDRD) 31 L Glucose 123 H Calcium 8.6 Total Bilirubin 0.9 AST 18 ALT 10 Alkaline Phosphatase 81 Troponin I High Sens 20.5 H* Total Protein 5.8 L Albumin 2.5 L Globulin 3.3 Albumin/Globulin Ratio 0.8 L Lipase 25 Urine Color Urine Clarity Urine pH Ur Specific [place] Urine Protein Urine Glucose (UA) Urine Ketones Urine Occult Blood Urine Nitrite Urine Bilirubin Urine Urobilinogen Ur Leukocyte Esterase Urine RBC Urine WBC Ur Squamous Epith Cells Urine Bacteria Urine Casts Ur Microscopic Review Urine Culture Comments 03/11/19 03/11/19 03/11/19 11:47 14:25 14:45 WBC RBC Hgb Hct MCV MCH MCHC RDW Plt Count MPV Neut # (Auto) Lymph # (Auto) [place] # (Auto) Eos # (Auto) Baso # (Auto) Absolute Nucleated RBC Nucleated RBC % D-Dimer > 1050.0 H Sodium Potassium Chloride Carbon Dioxide Anion Gap BUN Creatinine Estimated GFR (MDRD) Glucose Calcium Total Bilirubin AST ALT Alkaline Phosphatase Troponin I High Sens 21.1 H* Total Protein Albumin Globulin Albumin/Globulin Ratio Lipase Urine Color YELLOW Urine Clarity HAZY Urine pH 6.0 Ur Specific [place] 1.020 Urine Protein 100 H Urine Glucose (UA) NEGATIVE Urine Ketones NEGATIVE Urine Occult Blood TRACE-INTA Urine Nitrite NEGATIVE Urine Bilirubin NEGATIVE Urine Urobilinogen 0.2 (NORMAL) Ur Leukocyte Esterase NEGATIVE Urine RBC 0-5 Urine WBC 0-3 Ur Squamous Epith Cells RARE Squamous Urine Bacteria None Seen Urine Casts 3-5 Hyaline Casts Ur Microscopic Review INDICATED Urine Culture Comments NOT INDICATED - Rads (name of study) CT Angio chest and Abd Pelvis Radiology: EMP read contemporaneously (No PE, esophageal wall thickening suspicious for esophagitis, moderate hiatal hernia, small to moderate right pleural effusion without significant change, right lower lobe atelectasis. Coronary artery calcification. Also atherosclerosis elsewhere. Small free fluid in the low pelvis. Chronic compression fractures of lumbar spine.) PD MEDICAL DECISION MAKING - ED course ED course: 78-year-old woman presents with vomiting and chest pain today. Recent hospitalization so concern for PE is high. Her troponin is about where it was on the previous admission, only minimally elevated. A CT angiography of the chest was done as well as a belly CT given right-sided abdominal tenderness. The angiography study I guess is not diagnostic due to poor contrast timing and the radiologist recommends rescanning. I would like to get a d-dimer first, on the off chance it is negative we can probably avoid a second dose of contrast given that her renal function is already mediocre. If her d-dimer is positive though we will have to rescan her, I will hydrate her in the meantime. Her d-dimer was quite positive and the images were shot again without evidence of PE.Also note that it was stable from last admission. We are unable to get a hold of her nausea and vomiting and she failed to pass a p.o. challenge despite multiple rounds of nausea medicine here and I spoke with Dr. Mora for observation at 4:42 PM. Troponin was stable, Departure - Departure Disposition: ED Place in Observation Clinical Impression: Intractable vomiting Qualifiers: Vomiting type: unspecified Nausea presence: with nausea Qualified Code(s): R11.2 - Nausea with vomiting, unspecified Chest pain Qualifiers: Chest pain type: precordial pain Qualified Code(s): R07.2 - Precordial pain Abdominal pain Qualifiers: Abdominal location: generalized Qualified Code(s): R10.84 - Generalized abdominal pain Condition: Good
--- NOTE | 2019-03-11 12:22 | XRAY Report ---
Reason: Chest Pain Procedure Date: 03/11/2019 Accession Number: [id number] / [id number] Procedure: XR - Chest 1 View X-Ray CPT Code: 37204 Final Report FULL RESULT: EXAM: CHEST RADIOGRAPHY EXAM DATE: 03/11/2019 11:59 AM. CLINICAL HISTORY: Chest pain. Left-sided chest pressure radiating to back. Recently released from hospital for pneumonia. COMPARISON: CHEST 1 VIEW 03/07/2019 8:56 AM CHEST 2 VIEW 03/06/2019 8:35 AM CHEST W/O 02/22/2019 5:32 PM. TECHNIQUE: 1 view. FINDINGS: Lungs/Pleura: Hazy right basilar opacity. Normal pulmonary vasculature. No evidence of edema. No pneumothorax. Mediastinum: Within exam limitations, heart size is normal. The aorta is tortuous and contains atherosclerotic calcifications, as before. Redemonstration of large hiatal hernia. Other: The bones are unremarkable. IMPRESSION: 1. Hazy right basilar opacity, which could represent infiltrate or small layering effusion. 2. Large hiatal hernia, as before. RADIA
[2019-03-11] MEDS ORDERED: IOVERSOL 320 100 ML VIAL IVP ONE ×3 (12:24→14:11)
[2019-03-11] MEDS ORDERED: POTASSIUM CHLORIDE 20 MEQ TABLET PO STA (12:41)
[2019-03-11] MEDS ORDERED: SODIUM CHLORIDE 0.9% 1,000 ML IV ONE (13:18)
--- NOTE | 2019-03-11 13:25 | CT Report ---
Reason: right side abdominal pain Procedure Date: 03/11/2019 Accession Number: [id number] / [id number] Procedure: CT - Abdomen/Pelvis W CPT Code: Final Report FULL RESULT: EXAM: CT ABDOMEN AND PELVIS EXAM DATE: 03/11/2019 01:06 PM. CLINICAL HISTORY: Right side abdominal pain. COMPARISONS: CHEST W/O 02/22/2019 5:32 PM ABDOMEN/PELVIS W/O 02/04/2019 7:13 PM. TECHNIQUE: Routine helical CT imaging was performed through the abdomen and pelvis. IV contrast: OPTI 320 90ML. Enteric contrast: No. Reconstructions: Coronal and sagittal. In accordance with CT protocol optimization, one or more of the following dose reduction techniques were utilized for this exam: automated exposure control, adjustment of mA and/or KV based on patient size, or use of iterative reconstructive technique. FINDINGS: Lung Bases: There are bilateral pleural effusions. Chest findings dictated in a separate report. Liver: Normal. No masses. Gallbladder/Bile Ducts: Unremarkable. Spleen: Normal. Pancreas: There are coarse calcifications located posterior to the pancreatic head. Pancreas appears otherwise unremarkable. Adrenal Glands: Normal. Kidneys: There is an exophytic cortical cyst arising from the lower pole of the right kidney measuring 34 mm in diameter. There are vascular calcifications. No hydronephrosis. Peritoneal Cavity/Bowel: There is a moderate size sliding hiatal hernia. The small bowel is normal in caliber. There is no transition zone. There is a very small volume of free fluid in the low pelvis. No free air or abscess. The appendix is well visualized and normal. Pelvic Organs: Uterus and ovaries appear normal in size. Urinary bladder appears unremarkable. Vasculature: There is moderate to marked atherosclerotic calcification of the abdominal aorta, mesenteric vessels and renal arteries. The iliac and common femoral arteries are heavily calcified. There is hypoenhancement of the bilateral femoral arteries. Bones: There is demineralization of the spine. There are compression fractures at all levels of the lumbar spine which appear similar to previous exam. Other: None. IMPRESSION: 1. Severe atherosclerotic vascular calcification and disease. There are findings of significant luminal narrowing noting hypoenhancement of bilateral superficial femoral arteries. 2. Small free fluid in the low pelvis. No hematoma or abscess. 3. Moderate sized sliding hiatal hernia. 4. No bowel dilation or obstruction. 5. Chronic insufficiency compression fractures of the lumbar spine. RADIA
[2019-03-11 14:40] LABS: BILIRUBIN,URINE NEGATIVE (NEGATIVE); GLUCOSE, URINE (UA) NEGATIVE (NEGATIVE); KETONES,URINE (UA) NEGATIVE (NEGATIVE); LEUKOCYTE ESTERASE, URINE NEGATIVE (NEGATIVE); NITRITE,URINE NEGATIVE (NEGATIVE); OCCULT BLOOD,URINE TRACE-INTA (NEGATIVE); PROTEIN,URINE 100 mg/dL (NEGATIVE); UROBILINOGEN,URINE 0.2 (NORMAL) E.U./dL (NORMAL)
[2019-03-11 14:49] LABS: CLARITY,URINE HAZY (CLEAR)
--- NOTE | 2019-03-11 14:49 | CT Report ---
Reason: chest pain Procedure Date: 03/11/2019 Accession Number: [id number] / [id number] Procedure: CT - ANGIO CHEST W/WO CPT Code: Final Report FULL RESULT: EXAM: CT ANGIOGRAM CHEST EXAM DATE: 03/11/2019 01:06 PM. CLINICAL HISTORY: Chest pain. COMPARISON: CT chest 02/22/2019. TECHNIQUE: Routine helical imaging was performed through the chest in the pulmonary arterial phase. IV Contrast: 90 cc Optiray 320 IV. Reconstructions: Coronal 3-D MIP reconstructions.Sagittal and coronal. Patient was scanned a second time after initial exam was nondiagnostic. In accordance with CT protocol optimization, one or more of the following dose reduction techniques were utilized for this exam: automated exposure control, adjustment of mA and/or KV based on patient size, or use of iterative reconstructive technique. FINDINGS: Pulmonary Arteries: Diagnostic quality: Adequate vessel enhancement through the segmental arteries. Negative for an acute pulmonary embolism through the segmental arteries. The main pulmonary artery is normal in size. Lungs/Pleura: There is a small to moderate right-sided pleural effusion. There is a very small left-sided pleural effusion. There is near complete collapse and consolidation of the right lower lobe. There is partial collapse of the right middle lobe. There is no nondependent consolidation or definite interstitial pulmonary edema. No central endobronchial obstructing lesion. Mediastinum: There is diffuse moderate circumferential wall thickening of the esophagus. There is a moderate sized sliding hiatal hernia. The hernia appears similar in size but the wall thickening appears increased. There are multiple borderline to mildly enlarged mediastinal lymph nodes which appear similar. Thoracic Aorta: There is calcification of the thoracic aorta without aneurysm or dissection. There are aortic valve calcifications. There are dense coronary artery calcifications. Upper Abdomen: Dictated in a separate report. Other: None. IMPRESSION: 1. Negative for acute pulmonary embolism. 2. Diffuse esophageal wall thickening is increased compared with 02/22/2019 suspicious for esophagitis. Moderate sized hiatal hernia appears similar. 3. Small to moderate right pleural effusion appears without significant change. Very small left pleural effusion not significantly changed. 4. Increased right lower lobe atelectasis. 5. No thoracic aortic aneurysm or dissection. 6. Dense coronary artery atherosclerotic calcification. RADIA
[2019-03-11 14:57] LABS: BACTERIA,URINE None Seen /HPF (None Seen); CASTS, URINE 3-5 Hyaline Casts /LPF; RBC,URINE 0-5 /HPF (0-5); SQUAMOUS EPITHELIAL CELL,UR RARE Squamous (<= Few)
[2019-03-11] MEDS ORDERED: MORPHINE 2 MG/ML CARPUJECT IVP STA (15:00)
[2019-03-11] MEDS ORDERED: METOCLOPRAMIDE 10 MG/2 ML VIAL IVP STA (15:00)
[2019-03-11] MEDS ORDERED: ONDANSETRON 4 MG/2 ML VIAL IVP PRN (16:51)
[2019-03-11] MEDS ORDERED: PROCHLORPERAZINE 10 MG/2 ML VIAL IVP PRN (16:51)
[2019-03-11] MEDS ORDERED: SUCRALFATE 1 GM/10 ML UDC PO STA (16:54)
[2019-03-11] MEDS ORDERED: CLINDAMYCIN 600 MG/50 ML 50 ML IV SCH (17:00)
[2019-03-11] MEDS ORDERED: cloNIDine 0.1 MG PATCH TOP SCH (17:00)
[2019-03-11] MEDS ORDERED: ACETAMINOPHEN 1,000 MG/100 ML 100 ML IV PRN (17:07)
[2019-03-11] MEDS ORDERED: hydrALAZINE INJ 20 MG/ML VIAL IVP PRN (17:08)
[2019-03-11] MEDS: SODIUM CHLORIDE FLUSH 0.9% 10 ML SYRINGE IVP SCH ×2 (18:22→23:43)
[2019-03-11] MEDS: DEXTROSE 5%-0.9% NACL 1,000 ML IV SCH (18:22)
[2019-03-11] MEDS: METOCLOPRAMIDE 10 MG/2 ML VIAL IVP SCH ×2 (19:39→23:42)
[2019-03-11] MEDS: HYDROmorphone 0.5 MG/0.5 ML SYRINGE IVP PRN (19:48)
[2019-03-11] MEDS ORDERED: VANCOMYCIN PER PHARMACY 100 GM in SODIUM CHLORIDE 0.9% 250 ML IV SCH (20:00)
[2019-03-11] MEDS ORDERED: VANCOMYCIN INJ 0.75 GM in SODIUM CHLORIDE 0.9% 250 ML IV SCH (21:00)
--- NOTE | 2019-03-11 21:00 | HISTORY & PHYSICAL EXAMINATION ---
DATE OF SERVICE: 03/11/2019 Physician: Tanisha Mora MD HISTORY OF PRESENT ILLNESS: This is a 70-year-old white female who lives alone, has a history of HTN and CKD, and pancreatic abnormality found during an admission for hypercalcemia about a month ago, which has not been evaluated yet. She presented about a week ago here with cough, desaturations, found to have healthcare-associated pneumonia, as well as nausea and vomiting that was intermittent and slowly improved. She was just sent home yesterday to finish a course of treatment for MRSA and streptococcal pneumonia to use clindamycin. She apparently did not get her antibiotics filled and also, since arriving home, she was nauseated and vomiting repeatedly. She lives with a roommate, not a caregiver and was unable to get up to drink liquids, and finally was brought in by ambulance for incessant nausea and vomiting. She received fluids and antiemetics in the emergency room, was given a trial of p.o. with pudding, vomited that up and is being admitted for incessant vomiting. She is unable to keep down any pills, even her antibiotics. ALLERGIES: NONE. MEDICATIONS 1. Bupropion 150 mg b.i.d. 2. Amlodipine 10 mg daily. 3. Prilosec 20 mg daily. 4. Multivitamin daily. 5. Magnesium 400 mg daily. 6. Adult dose aspirin daily. 7. Tylenol p.r.n. 8. Clindamycin 600 mg t.i.d. REVIEW OF SYSTEMS: There has been no fever, no diarrhea. She is passing gas and belching normally. A comprehensive review of systems was performed and the pertinent positives are listed, the rest are negative. PHYSICAL EXAMINATION GENERAL: Elderly white female. She appears fatigued. VITAL SIGNS: Blood pressure 186/68, afebrile, respiratory rate 16, room air saturation 96, heart rate 78, in sinus rhythm. HEENT: Reveals dry oral mucosa. NECK: No JVD or carotid bruits. CHEST: Diminished breath sounds at both bases, but no rales or rhonchi. HEART: Normal heart sounds. ABDOMEN: Soft, nontender. Hyperactive bowel sounds. No organomegaly. EXTREMITIES: No clubbing, cyanosis or edema. NEUROLOGIC: Grossly intact. LABORATORY DATA: Sodium 136, potassium 3.2, BUN 14, creatinine 1.6. Her baseline creatinine is 1.6-1.8. Normal liver tests. Troponins are flat at 20 and 21. Lipase normal at 25. No INR was done. White blood count 8, hemoglobin 8.7, platelet count normal at 254. Urinalysis unremarkable. D-dimer greater than 1050. EKG: Normal sinus rhythm, LVH voltage, frequent PACs, early R/S transition. IMAGING: Imaging was done by CT. The abdomen and pelvis CT shows coarse calcifications of the posterior pancreatic head. Kidneys have no hydronephrosis or stones. There is a moderate sized sliding hiatal hernia. There is thickening of the esophagus consistent with esophagitis. There is marked atherosclerosis of the aorta, as well as mesenteric vessels, renal arteries and iliac vessels. She has significant narrowing of her femoral arteries. She has demineralization of the spine and compression fractures of the lumbar spine, which are chronic. Lung imaging showed unchanged right-sided infiltrate or atelectasis as well as bilateral pleural effusions. The pulmonary arteries are clear with no evidence of pulmonary embolism. IMPRESSION/DIAGNOSES 1. Nausea and vomiting. 2. Hypokalemia. 3. Esophagitis. 4. Hiatal hernia. 5. Chronic kidney disease. 6. MRSA pneumonia. 7. Hypertension. 8. Anemia. PLAN: Place the patient in Observation status to start IV fluids, antiemetics and bowel rest, changing all her p.o. medication to IV. Replace potassium with iv riders, not orally. Trial of oral Sucralfate and iv antacid for the esophagitis, then try advancing her diet after 24 hours, in order to resume her p.o. antibiotics and her other medications. If she cannot tolerate a diet or oral meds, she will need a longer course of hospitalization for IV antibiotics. She may then need a surgical consult. Continue with MRSA isolation precautions. Follow her BMP, magnesium and CBC daily. DEEP VENOUS THROMBOSIS PROPHYLAXIS: SCDs. CODE STATUS: DNR. ATTESTATION: The patient is expected to be discharged or transferred to another facility within 96 hours: Yes. TD: 03/11/2019 19:25 RADHA
[2019-03-11] MEDS: FAMOTIDINE 20 MG/2 ML VIAL IVP SCH (21:14)
[2019-03-12] MEDS: DEXTROSE 5%-0.9% NACL 1,000 ML IV SCH ×3 (04:16→19:52)
[2019-03-12 05:10] LABS: BASOPHILS % (AUTO) 0.4 %; EOSINOPHILS % (AUTO) 0.5 %; HGB - HEMOGLOBIN 7.3 g/dL (12.0-16.0); LYMPHOCYTES % (AUTO) 12.7 %; MEAN CORPUSCULAR HEMOGLOBIN 29.9 pg (27.0-31.0); MEAN CORPUSCULAR HGB CONC 31.5 g/dL (32.0-36.0); MEAN CORPUSCULAR VOLUME 95.1 fL (81.0-99.0); MEAN PLATELET VOLUME 10.1 fL (7.9-10.8); MONOCYTES # (AUTO) 0.5 10^3/uL (0.0-1.0); MONOCYTES % (AUTO) 6.4 %; NEUTROPHILS # (AUTO) 5.9 10^3/uL (1.5-6.6); NEUTROPHILS % (AUTO) 78.9 %; PLT - PLATELET COUNT 218 10^3/uL (130-450); RED BLOOD COUNT 2.44 10^6/uL (4.20-5.40); WHITE BLOOD COUNT 7.5 x10^3/uL (4.8-10.8)
[2019-03-12 05:21] LABS: CREATININE 1.3 mg/dL (0.4-1.0)
[2019-03-12] MEDS: METOCLOPRAMIDE 10 MG/2 ML VIAL IVP SCH ×4 (05:54→23:46)
[2019-03-12] MEDS: SODIUM CHLORIDE FLUSH 0.9% 10 ML SYRINGE IVP SCH ×2 (08:52→16:45)
[2019-03-12] MEDS: FAMOTIDINE 20 MG/2 ML VIAL IVP SCH (08:52)
[2019-03-12] MEDS: HYDROmorphone 0.5 MG/0.5 ML SYRINGE IVP PRN ×2 (12:12→21:42)
--- NOTE | 2019-03-12 13:13 | PROVIDER PROGRESS NOTE ---
Assessment/Plan - Problem List (1) Intractable vomiting Qualifiers: Vomiting type: unspecified Nausea presence: with nausea Qualified Code(s): R11.2 - Nausea with vomiting, unspecified Assessment/Plan: The plan was for 24 hours of complete stomach and bowel rest. The patient did not have nausea or vomiting when she had strict n.p.o. status. She received 100 mL of water and took 8 ounce cup of ice chips and then developed "indigestion and burning pain". Will restart scheduled sucralfate. Continue with IV hydration. Continue with IV antibiotics for her recent MRSA pneumonia. We will admit her to Inpatient status since she has not had rapid improvement in her nausea and vomiting and needs continued hospitalization (2) Esophagitis Assessment/Plan: As in #1 (3) Sliding hiatal hernia Assessment/Plan: As in #1 If no improvement with conservative management, will request consult from Gen Surgery. (4) Pancreatic mass Assessment/Plan: This has not yet had an Oncol W/U (5) MRSA pneumonia Assessment/Plan: Completed IV antibiotics as it was transitioned to oral clindamycin for home treatment however did not fill the prescription and now she cannot take p.o. antibiotics or pills because of her nausea. Will continue her MRSA pneumonia treatment with IV Vanco, chosen over clindamycin since there would be less chance of C. difficile (6) Anemia Assessment/Plan: Continue to monitor daily CBC (7) CKD (chronic kidney disease) Assessment/Plan: Her creatinine of 1.6 to 1.3 is her baseline creatinine (8) Hypertension Assessment/Plan: Only parenteral medical management is planned for the first day or 2: Clonidine patch, IV Hydralazine, will use IV beta-blockers also if needed - Current Meds Current Meds: Current Medications Generic Name Dose Route Start Last Admin Trade Name Freq PRN Reason Stop Dose Admin Clonidine HCl 1 patch 03/11/19 17:00 03/11/19 18:29 [id number] TOP 1 patch Q7D MIRANDA Administration Famotidine 20 mg 03/11/19 21:00 03/12/19 08:52 Pepcid IVP 20 mg BID MIRANDA Administration Hydromorphone HCl 0.5 mg 03/11/19 16:51 03/12/19 12:12 Dilaudid Inj Syringe IVP 0.5 mg Q4H PRN Administration Pain 8 to 10 Dextrose/Sodium Chloride 1,000 mls @ 125 mls/hr 03/11/19 17:00 03/12/19 12:16 D5ns IV 125 mls/hr .Q8H MIRANDA Administration Vancomycin HCl 0.75 gm/ Sodium 250 mls @ 167 mls/hr 03/11/19 21:00 03/11/19 22:49 Chloride IV Infused Q24H MIRANDA Infusion Metoclopramide HCl 5 mg 03/11/19 18:00 03/12/19 12:13 Reglan Inj IVP 5 mg Q6HR MIRANDA Administration Sodium Chloride 10 ml 03/11/19 17:00 03/12/19 08:52 Normal Saline Flush 0.9% IVP 10 ml 0100,0900,1700 MIRANDA Administration - Lab Result Fish Bone Diagrams: 03/12/19 04:52 03/12/19 04:52 - Additional Planning My Orders: My Active Orders 03/11/19 16:51 Activity Orders [RC] Q2HR IO [RC] IOSHIFT Initiate Bowel Care Protocol [RC] .protocol Initiate Lung Inflation Protoc [RC] .PROTOCOL Initiate Personal Care Protoco [RC] .protocol Initiate Secretion Clearance P [RC] .PROTOCOL Oxygen Therapy [RC] Routine Vital Signs [RC] Q4HR NPO [DIET] HYDROmorphone INJ SYRINGE [Dilaudid Inj Syringe] 0.5 mg IVP Q4H PRN Ondansetron Inj [Zofran Inj] 4 mg IVP Q6HR PRN Prochlorperazine Inj [Compazine Inj] 10 mg IVP Q6HR PRN Sodium Chloride Flush 0.9% [Normal Saline Flush 0.9%] 10 ml IVP PRN PRN Code Status [OTHERS] Routine Condition of Patient [OTHERS] Routine DVT Prophylaxis [OTHERS] Routine 03/11/19 16:52 IV Insert [RC] .ONCE Incentive Spirometry - RT [RC] Routine 03/11/19 16:53 SCDs [RC] QSHIFT 03/11/19 16:54 Initiate Line Care Protocol [RC] QSHIFT 03/11/19 17:00 Dextrose 5%-0.9% NaCl [D5ns] 1,000 ml IV 125 mls/hr Sodium Chloride Flush 0.9% [Normal Saline Flush 0.9%] 10 ml IVP 0100,0900,1700 cloNIDine 0.1 MG PATCH [[id number]-5] 1 patch TOP Q7D 03/11/19 17:07 Acetaminophen 1,000 mg/100 ml [Ofirmev] 100 ml IV Q6HR 03/11/19 17:09 hydrALAZINE INJ [Apresoline Inj] 10 mg IVP Q6H PRN 03/11/19 18:00 Metoclopramide Inj [Reglan Inj] 5 mg IVP Q6HR 03/11/19 18:11 Tobacco Cessation [RC] .ONCE 03/11/19 21:00 Famotidine [Pepcid] 20 mg IVP BID Vancomycin Inj [Vancomycin] 0.75 gm Sodium Chloride 0.9% [Normal Saline 0.9%] 250 ml IV Q24H 03/12/19 MRSA (NASAL) PCR SCREEN Routine 03/12/19 13:05 Sucralfate [Carafate] 1 gm PO 0700,1100,1700,2200 03/12/19 13:09 Transfer [Admit \\ Transfer \\ Status] [RC] .ONCE 03/13/19 05:00 BMP - BASIC METABOLIC PANEL [CHEM] DAILYLAB CBC - COMP BLD CT W/AUTO DIFF [HEME] DAILYLAB 03/14/19 05:00 BMP - BASIC METABOLIC PANEL [CHEM] DAILYLAB CBC - COMP BLD CT W/AUTO DIFF [HEME] DAILYLAB Subjective - Subjective Patient Reports: Fatigue, Other (No nausea or vomiting when she had strict n.p.o. status, but feels "indigestion burning pain" when she tried water and ice chips) Objective Vital Signs: Vital Signs - 24 hr 03/11/19 03/11/19 03/11/19 14:08 15:11 16:23 Temperature 36.3 C L Heart Rate 75 72 79 Heart Rate [ Brachial] Respiratory 16 20 18 Rate Blood Pressure 190/72 H 186/68 H 151/57 H Blood Pressure [Left Brachial artery] O2 Saturation 96 96 94 03/11/19 03/11/19 03/11/19 17:39 20:36 21:12 Temperature 36.6 C 37.2 C Heart Rate Heart Rate [ 88 73 75 Brachial] Respiratory 20 16 Rate Blood Pressure Blood Pressure 155/73 H 193/60 H 152/62 H [Left Brachial artery] O2 Saturation 97 97 03/11/19 03/12/19 03/12/19 23:41 03:27 04:21 Temperature 36.7 C 37.7 C H 37.4 C Heart Rate Heart Rate [ 88 80 Brachial] Respiratory 17 19 Rate Blood Pressure Blood Pressure 158/67 H 162/74 H [Left Brachial artery] O2 Saturation 96 93 03/12/19 03/12/19 08:47 12:44 Temperature 37.3 C 36.6 C Heart Rate Heart Rate [ 76 71 Brachial] Respiratory 20 18 Rate Blood Pressure Blood Pressure 173/63 H 179/66 H [Left Brachial artery] O2 Saturation 94 93 Oxygen O2 Source Room air I&O (Last 24 Hrs): Intake and Output Totals x24h 03/10/19 03/11/19 03/12/19 23:59 23:59 23:59 Intake Total 1700 1558.333 Balance 1700 1558.333 General: Other (Lethargic) HEENT: Mucous membr. moist/pink Neck: Supple, No JVD Neuro: Alert, Non Focal Cardiovascular: No murmurs Respiratory: No respiratory distress, Breath sounds nml Abdomen: Soft Extremities: Other (Trace hand edema) - Results Results: Laboratory Results WBC 7.5 x10^3/uL (4.8-10.8) 03/12/19 04:52 RBC 2.44 10^6/uL (4.20-5.40) L 03/12/19 04:52 Hgb 7.3 g/dL (12.0-16.0) L 03/12/19 04:52 Hct 23.2 % (37.0-47.0) L 03/12/19 04:52 MCV 95.1 fL (81.0-99.0) 03/12/19 04:52 MCH 29.9 pg (27.0-31.0) 03/12/19 04:52 MCHC 31.5 g/dL (32.0-36.0) L 03/12/19 04:52 RDW 15.0 % (12.0-15.0) 03/12/19 04:52 Plt Count 218 10^3/uL (130-450) 03/12/19 04:52 MPV 10.1 fL (7.9-10.8) 03/12/19 04:52 Neut # (Auto) 5.9 10^3/uL (1.5-6.6) 03/12/19 04:52 Lymph # (Auto) 1.0 10^3/uL (1.5-3.5) L 03/12/19 04:52 [place] # (Auto) 0.5 10^3/uL (0.0-1.0) 03/12/19 04:52 Eos # (Auto) 0.0 10^3/uL (0.0-0.7) 03/12/19 04:52 Baso # (Auto) 0.0 10^3/uL (0.0-0.1) 03/12/19 04:52 Absolute Nucleated RBC 0.00 x10^3/uL 03/12/19 04:52 Nucleated RBC % 0.0 /100WBC 03/12/19 04:52 D-Dimer > 1050.0 ng/mL (200.0-255.0) H 03/11/19 11:47 Sodium 140 mmol/L (135-145) 03/12/19 04:52 Potassium 3.6 mmol/L (3.5-5.0) 03/12/19 04:52 Chloride 112 mmol/L (101-111) H 03/12/19 04:52 Carbon Dioxide 22 mmol/L (21-32) 03/12/19 04:52 Anion Gap 6.0 (6-13) 03/12/19 04:52 BUN 19 mg/dL (6-20) 03/12/19 04:52 Creatinine 1.3 mg/dL (0.4-1.0) H 03/12/19 04:52 Estimated GFR (MDRD) 40 (>89) L 03/12/19 04:52 Glucose 94 mg/dL (70-100) 03/12/19 04:52 Calcium 8.0 mg/dL (8.5-10.3) L 03/12/19 04:52 Total Bilirubin 0.9 mg/dL (0.2-1.0) 03/11/19 11:47 AST 18 IU/L (10-42) 03/11/19 11:47 ALT 10 IU/L (10-60) 03/11/19 11:47 Alkaline Phosphatase 81 IU/L (42-121) 03/11/19 11:47 Troponin I High Sens 21.1 ng/L (2.3-14.8) H* 03/11/19 14:45 Total Protein 5.8 g/dL (6.7-8.2) L 03/11/19 11:47 Albumin 2.5 g/dL (3.2-5.5) L 03/11/19 11:47 Globulin 3.3 g/dL (2.1-4.2) 03/11/19 11:47 Albumin/Globulin Ratio 0.8 (1.0-2.2) L 03/11/19 11:47 Lipase 25 U/L (22-51) 03/11/19 11:47 Urine Color YELLOW 03/11/19 14:25 Urine Clarity HAZY (CLEAR) 03/11/19 14:25 Urine pH 6.0 PH (5.0-7.5) 03/11/19 14:25 Ur Specific [place] 1.020 (1.002-1.030) 03/11/19 14:25 Urine Protein 100 mg/dL (NEGATIVE) H 03/11/19 14:25 Urine Glucose (UA) NEGATIVE mg/dL (NEGATIVE) 03/11/19 14:25 Urine Ketones NEGATIVE mg/dL (NEGATIVE) 03/11/19 14:25 Urine Occult Blood TRACE-INTA (NEGATIVE) 03/11/19 14:25 Urine Nitrite NEGATIVE (NEGATIVE) 03/11/19 14:25 Urine Bilirubin NEGATIVE (NEGATIVE) 03/11/19 14:25 Urine Urobilinogen 0.2 (NORMAL) E.U./dL (NORMAL) 03/11/19 14:25 Ur Leukocyte Esterase NEGATIVE (NEGATIVE) 03/11/19 14:25 Urine RBC 0-5 /HPF (0-5) 03/11/19 14:25 Urine WBC 0-3 /HPF (0-5) 03/11/19 14:25 Ur Squamous Epith Cells RARE Squamous (<= Few) 03/11/19 14:25 Urine Bacteria None Seen /HPF (None Seen) 03/11/19 14:25 Urine Casts 3-5 Hyaline Casts /LPF 03/11/19 14:25 Ur Microscopic Review INDICATED 03/11/19 14:25 Urine Culture Comments NOT INDICATED 03/11/19 14:25
[2019-03-12] MEDS: SUCRALFATE 1 GM/10 ML UDC PO SCH ×2 (13:31→20:57)
--- NOTE | 2019-03-12 18:34 | PHARMACY PROGRESS NOTE ---
- Therapy Status Vancomycin regimen day #: 2 (750 mg IV given 03/11; Cautiously slightly increased dose to 1 g IV q24h as SCr improved (consistent with protocol - 15mg/kg maintenance dose)- Per [facility] pharmcokinetic calculation this will target trough ~18 (within trough goal range of 15-20)) Therapy status: Awaiting steady state Basis for treatment: Empirical (Previous admission: MRSA + culture) Treatment indication: MRSA pneumonia Trough goal: 15-20 - SHADIA Risk Acute Kidney Injury risk factors: Baseline CrCl <50, Goal trough >15, Chronic baseline hypertension - Monitoring and Recommendation Clinical response to treatment: I&O Previous 24 hours 03/10/19 03/11/19 03/12/19 23:59 23:59 23:59 Intake Total 1700 1658.333 Balance 1700 1658.333 Lab Results 03/12/19 03/11/19 04:52 11:47 BUN 19 14 Creatinine 1.3 H 1.6 H Estimated GFR (MDRD) 40 L 31 L Monitoring plan: Daily serum creatinine Next trough due prior to maintenance dose #: 2 Next trough due (date/time): 03/13 at 2030 Areas for additional monitoring: IV to PO when appropriate, Therapy de- escalation based on culture results, Acute Kidney Injury
[2019-03-12] MEDS: VANCOMYCIN INJ 1 GM in SODIUM CHLORIDE 0.9% 250 ML IV SCH (20:57)
[2019-03-13] MEDS: SODIUM CHLORIDE FLUSH 0.9% 10 ML SYRINGE IVP SCH ×3 (00:08→16:25)
[2019-03-13] MEDS: HYDROmorphone 0.5 MG/0.5 ML SYRINGE IVP PRN ×2 (02:06→17:27)
[2019-03-13 05:00] LABS: BASOPHILS % (AUTO) 0.6 %; EOSINOPHILS # (AUTO) 0.3 10^3/uL (0.0-0.7); EOSINOPHILS % (AUTO) 5.5 %; LYMPHOCYTES # (AUTO) 1.1 10^3/uL (1.5-3.5); LYMPHOCYTES % (AUTO) 23.7 %; MEAN CORPUSCULAR HEMOGLOBIN 30.5 pg (27.0-31.0); MEAN CORPUSCULAR HGB CONC 31.1 g/dL (32.0-36.0); MEAN CORPUSCULAR VOLUME 98.2 fL (81.0-99.0); MEAN PLATELET VOLUME 10.2 fL (7.9-10.8); MONOCYTES # (AUTO) 0.4 10^3/uL (0.0-1.0); MONOCYTES % (AUTO) 7.6 %; NEUTROPHILS # (AUTO) 2.9 10^3/uL (1.5-6.6); NEUTROPHILS % (AUTO) 61.5 %; PLT - PLATELET COUNT 193 10^3/uL (130-450); RED BLOOD COUNT 2.26 10^6/uL (4.20-5.40); RED CELL DISTRIBUTION WIDTH 15.9 % (12.0-15.0); WHITE BLOOD COUNT 4.7 x10^3/uL (4.8-10.8)
[2019-03-13 05:04] LABS: HGB - HEMOGLOBIN 6.9 g/dL (12.0-16.0)
[2019-03-13 05:08] LABS: CALCIUM 7.5 mg/dL (8.5-10.3); CREATININE 1.4 mg/dL (0.4-1.0)
[2019-03-13] MEDS: DEXTROSE 5%-0.9% NACL 1,000 ML IV SCH (05:51)
[2019-03-13] MEDS: SUCRALFATE 1 GM/10 ML UDC PO SCH ×4 (06:00→21:31)
[2019-03-13] MEDS: METOCLOPRAMIDE 10 MG/2 ML VIAL IVP SCH ×3 (06:00→17:17)
--- NOTE | 2019-03-13 07:49 | PROVIDER PROGRESS NOTE ---
Subjective - Prog Note Date Prog Note Date: 03/13/19 - Subjective Subjective: She not had any further abdominal pain or nausea/vomiting. She has not had anything to eat since 11 March. She is agreeable to trying a clear liquid diet. She does report chest pain that is located over her sternum and is most prominent when she has episodes of vomiting. She does continue to have bowel movements. She states they are dark although she does not believe there is blood present. She reports no shortness of breath. Current Medications - Current Medications Current Medications: Active Medications Clonidine HCl ([id number]-[id number]-9) 1 patch TOP Q7D [facility] Last Admin: 03/11/19 18:29 Dose: 1 patch Famotidine (Pepcid) 20 mg IVP DAILY [facility] Hydralazine HCl (Apresoline Inj) 10 mg IVP Q6H PRN PRN Reason: Hypertensive Emergency Hydromorphone HCl (Dilaudid Inj Syringe) 0.5 mg IVP Q4H PRN PRN Reason: Pain 8 to 10 Last Admin: 03/13/19 02:06 Dose: 0.5 mg Dextrose/Sodium Chloride (D5ns) 1,000 mls @ 125 mls/hr IV .Q8H [facility] Last Admin: 03/13/19 05:51 Dose: 125 mls/hr Acetaminophen (Ofirmev) 100 mls @ 400 mls/hr IV Q6HR PRN PRN Reason: PAIN Last Infusion: 03/12/19 17:10 Dose: Infused Vancomycin HCl 1 gm/ Sodium (Chloride) 250 mls @ 167 mls/hr IV Q24H [facility] Last Infusion: 03/12/19 22:34 Dose: Infused Potassium Chloride (Potassium Chloride) 10 meq in 100 mls @ 100 mls/hr IV Q1H [facility] Stop: 03/13/19 11:59 Metoclopramide HCl (Reglan Inj) 5 mg IVP Q6HR [facility] Last Admin: 03/13/19 06:00 Dose: 5 mg Ondansetron HCl (Zofran Inj) 4 mg IVP Q6HR PRN PRN Reason: Nausea / Vomiting Prochlorperazine Edisylate (Compazine Inj) 10 mg IVP Q6HR PRN PRN Reason: Nausea / Vomiting Sodium Chloride (Normal Saline Flush 0.9%) 10 ml IVP PRN PRN PRN Reason: NEEDED PER PROVIDER ORDERS Sodium Chloride (Normal Saline Flush 0.9%) 10 ml IVP 0100,0900,1700 [facility] Last Admin: 03/13/19 00:08 Dose: Not Given Sucralfate (Carafate) 1 gm PO 0700,1100,1700,2200 [facility] Last Admin: 03/13/19 06:00 Dose: 1 gm Omeprazole [PriLOSEC] 20 mg PO DAILY 04/26/16 buPROPion HCL [Bupropion HCl Sr] 150 mg PO BID 02/05/19 Objective - Vital Signs/Intake & Output Reviewed Vital Signs: Yes Vital Signs: Vital Signs x48h Temp Pulse Resp BP Pulse Ox 03/13/19 05:00 36.7 C 59 L 16 175/45 H 93 Intake & Output: Intake & Output 03/10/19 03/11/19 03/12/19 03/13/19 23:59 23:59 23:59 23:59 Intake Total 1700 2858.333 1000 Output Total 465 450 Balance 1700 2393.333 550 - Objective General Appearance: positive: No acute distress, Alert Eyes Bilateral: positive: Normal inspection ENT: positive: ENT inspection nml Neck: positive: Nml inspection Respiratory: positive: No respiratory distress. negative: Wheezes, Rales, R honchi Cardiovascular: positive: Regular rate & rhythm, Systolic murmur. negative: Tachycardia, Bradycardia Abdomen: positive: No organomegaly, No distention, Tenderness (Tender in the epigastric region. No guarding or rebound tenderness), Abnml bowel sounds (Hyperactive bowel sounds.). negative: Guarding, Rebound Skin: positive: No rash, Warm, Dry Extremities: positive: No pedal edema Neurologic/Psychiatric: positive: Oriented x3. negative: Disoriented to person, Disoriented to place, Disoriented to time - Lab Results Fish Bones: 03/13/19 04:50 03/13/19 04:50 Other Labs: Lab Results x24hrs 03/13/19 03/13/19 Range/Units 04:50 04:50 WBC 4.7 L (4.8-10.8) x10^3/uL RBC 2.26 L (4.20-5.40) 10^6/uL Hgb 6.9 L* (12.0-16.0) g/dL Hct 22.2 L (37.0-47.0) % MCV 98.2 (81.0-99.0) fL MCH 30.5 (27.0-31.0) pg MCHC 31.1 L (32.0-36.0) g/dL RDW 15.9 H (12.0-15.0) % Plt Count 193 (130-450) 10^3/uL MPV 10.2 (7.9-10.8) fL Neut # (Auto) 2.9 (1.5-6.6) 10^3/uL Lymph # (Auto) 1.1 L (1.5-3.5) 10^3/uL [place] # (Auto) 0.4 (0.0-1.0) 10^3/uL Eos # (Auto) 0.3 (0.0-0.7) 10^3/uL Baso # (Auto) 0.0 (0.0-0.1) 10^3/uL Absolute Nucleated RBC 0.00 x10^3/uL Nucleated RBC % 0.0 /100WBC Sodium 140 (135-145) mmol/L Potassium 3.2 L (3.5-5.0) mmol/L Chloride 111 (101-111) mmol/L Carbon Dioxide 21 (21-32) mmol/L Anion Gap 8.0 (6-13) BUN 12 (6-20) mg/dL Creatinine 1.4 H (0.4-1.0) mg/dL Estimated GFR (MDRD) 36 L (>89) Glucose 92 (70-100) mg/dL Calcium 7.5 L (8.5-10.3) mg/dL ABX Reporting Has patient been on IV antibiotics over the past 48 hours?: Yes Assessment/Plan - Problem List (1) Intractable vomiting Impression: He had no more vomiting although she has been strictly n.p.o. She currently does not have nausea and reports her abdominal pain is controlled. CT of abdomen and pelvis not reveal an acute process although there was suggestion of esophagitis and hiatal hernia. She is agreeable to tolerating a diet and we will start her on a clear liquid diet. If she continues to have vomiting, we will need to consult general surgery for endoscopy. We will continue with anti- emetics as needed. Qualifiers: Vomiting type: unspecified Nausea presence: without nausea Qualified Code(s): R11.11 - Vomiting without nausea (2) Anemia Impression: This is likely anemia of chronic disease given her iron studies. Her hemoglobin has been slowly trending down over the past few days likely because of the IV f luid she has been receiving as well as frequent blood draws. We will obtain a type and screen and transfuse 1 unit of packed red blood cells. We will check her stool for occult blood given the dark stools she has been having. If it is positive, will discuss with general surgery regarding endoscopy especially given her vomiting. (3) Hypertension Impression: She remains hypertensive but her blood pressure is better controlled. As she is n.p.o., we are holding her home Norvasc for the time being. She has been started on clonidine patch as well as hydralazine IV as needed. We will continue these until she taking p.o. and then restart her home antihy pertensives. (4) MRSA pneumonia Impression: Remains on IV vancomycin for the MRSA pneumonia she was being treated for during her last hospitalization. She did complete 1 week of therapy. Tomorrow will be last day of IV antibiotics. (5) CKD (chronic kidney disease) Impression: Renal function is stable with a creatinine of 1.4 which is about her baseline. Continue to monitor her renal function
[2019-03-13] MEDS: POTASSIUM CHLOR 10 MEQ/100 ML 10 MEQ/100 ML BAG IV SCH ×4 (09:17→12:30)
[2019-03-13] MEDS: FAMOTIDINE 20 MG/2 ML VIAL IVP SCH (09:17)
--- NOTE | 2019-03-13 11:36 | PHARMACY PROGRESS NOTE ---
- Best Possible Medication History Admit Date and Time: 03/12/19 3261 Processed by: Pharmacy Medication History completed: Yes Patient Interview: Completed Secondary Source(s): Previous admit records As the person ultimately responsible for medication therapy, providers are able to order a medication from an existing home medication list in [facility] via the "Reconcile Routine" prior to Confirmation of that medication by integrated logistics support manager. Such practice is discouraged except when the physician, in their clinical judgment, deems that a medical need exists for a medication without regard to previous use.
[2019-03-13] MEDS: hydrALAZINE INJ 20 MG/ML VIAL IVP PRN (17:09)
[2019-03-13] MEDS: SODIUM CHLORIDE FLUSH 0.9% 10 ML SYRINGE IVP PRN (17:28)
[2019-03-13 20:37] LABS: VANCOMYCIN,TROUGH 19.9 ug/mL (10.0-20.0)
[2019-03-13] MEDS: VANCOMYCIN INJ 1 GM in SODIUM CHLORIDE 0.9% 250 ML IV SCH (21:31)
[2019-03-14] MEDS: METOCLOPRAMIDE 10 MG/2 ML VIAL IVP SCH ×3 (00:07→11:39)
[2019-03-14] MEDS: SODIUM CHLORIDE FLUSH 0.9% 10 ML SYRINGE IVP SCH ×4 (00:08→23:54)
[2019-03-14] MEDS: HYDROmorphone 0.5 MG/0.5 ML SYRINGE IVP PRN ×3 (02:10→11:40)
[2019-03-14 05:34] LABS: BASOPHILS # (AUTO) 0.1 10^3/uL (0.0-0.1); EOSINOPHILS # (AUTO) 0.2 10^3/uL (0.0-0.7); EOSINOPHILS % (AUTO) 4.1 %; HGB - HEMOGLOBIN 8.4 g/dL (12.0-16.0); LYMPHOCYTES # (AUTO) 1.1 10^3/uL (1.5-3.5); MEAN CORPUSCULAR HEMOGLOBIN 29.9 pg (27.0-31.0); MEAN CORPUSCULAR HGB CONC 29.9 g/dL (32.0-36.0); MEAN PLATELET VOLUME 10.2 fL (7.9-10.8); MONOCYTES # (AUTO) 0.3 10^3/uL (0.0-1.0); MONOCYTES % (AUTO) 6.4 %; NEUTROPHILS # (AUTO) 3.4 10^3/uL (1.5-6.6); NEUTROPHILS % (AUTO) 65.5 %; PLT - PLATELET COUNT 191 10^3/uL (130-450); RED BLOOD COUNT 2.81 10^6/uL (4.20-5.40); RED CELL DISTRIBUTION WIDTH 15.7 % (12.0-15.0); WHITE BLOOD COUNT 5.1 x10^3/uL (4.8-10.8)
[2019-03-14] MEDS: hydrALAZINE INJ 20 MG/ML VIAL IVP PRN (05:42)
[2019-03-14 05:43] LABS: CALCIUM 7.7 mg/dL (8.5-10.3); CREATININE 1.4 mg/dL (0.4-1.0)
[2019-03-14] MEDS: SUCRALFATE 1 GM/10 ML UDC PO SCH ×4 (06:38→21:54)
[2019-03-14] MEDS: FAMOTIDINE 20 MG/2 ML VIAL IVP SCH (10:23)
--- NOTE | 2019-03-14 12:09 | PHARMACY PROGRESS NOTE ---
- Therapy Status Therapy status: Trough therapeutic Basis for treatment: Culture result (Previous admission: MRSA + culture) Treatment indication: MRSA Pneumonia Trough goal: 15-20 - SHADIA Risk Risk level for Acute Kidney Injury: Moderate Acute Kidney Injury risk factors: Baseline CrCl <50, Goal trough >15, Chronic baseline hypertension - Monitoring and Recommendation Clinical response to treatment: I&O Previous 24 hours 03/12/19 03/13/19 03/14/19 23:59 23:59 23:59 Intake Total 2858.333 3724 0 Output Total 465 850 Balance 2393.333 2874 0 Lab Results 03/14/19 03/13/19 03/12/19 05:25 04:50 04:52 BUN 9 12 19 Creatinine 1.4 H 1.4 H 1.3 H Estimated GFR (MDRD) 36 L 36 L 40 L 03/11/19 11:47 BUN 14 Creatinine 1.6 H Estimated GFR (MDRD) 31 L Vancomycin Monitoring 03/13/19 20:25 Vancomycin Trough 19.9 Cultures 03/13/19 08:00 Stool Occult Blood - Final Monitoring plan: Daily serum creatinine Areas for additional monitoring: IV to PO when appropriate, Therapy de- escalation based on culture results, Acute Kidney Injury
--- NOTE | 2019-03-14 12:46 | PROVIDER PROGRESS NOTE ---
Subjective - Prog Note Date Prog Note Date: 03/14/19 - Subjective Pt reports feeling: Worse Subjective: States he is able to tolerate a clear liquid diet yesterday for lunch and dinner but morning when she tried a mechanical soft diet, she had another episode of emesis and abdominal pain. She reports no appetite. She is scared to eat anything that is not liquid for the fear of further vomiting. Her stool occult was positive yesterday and she did receive 1 unit of packed red blood cells. She reports no chest pain or dyspnea today. Current Medications - Current Medications Current Medications: Active Medications Clonidine HCl (Adzitvsu-Oms-4) 1 patch TOP Q7D [facility] Last Admin: 03/11/19 18:29 Dose: 1 patch Famotidine (Pepcid) 20 mg IVP DAILY [facility] Last Admin: 03/14/19 10:23 Dose: 20 mg Hydralazine HCl (Apresoline Inj) 10 mg IVP Q6H PRN PRN Reason: Hypertensive Emergency Last Admin: 03/14/19 05:42 Dose: 10 mg Hydromorphone HCl (Dilaudid Inj Syringe) 0.5 mg IVP Q4H PRN PRN Reason: Pain 8 to 10 Last Admin: 03/14/19 11:40 Dose: 0.5 mg Acetaminophen (Ofirmev) 100 mls @ 400 mls/hr IV Q6HR PRN PRN Reason: PAIN Last Infusion: 03/12/19 17:10 Dose: Infused Metoclopramide HCl (Reglan Inj) 5 mg IVP Q6HR [facility] Last Admin: 03/14/19 11:39 Dose: 5 mg Ondansetron HCl (Zofran Inj) 4 mg IVP Q6HR PRN PRN Reason: Nausea / Vomiting Last Admin: 03/14/19 10:23 Dose: 4 mg Pantoprazole Sodium (Protonix) 40 mg IVP QDAC MIRANDA Prochlorperazine Edisylate (Compazine Inj) 10 mg IVP Q6HR PRN PRN Reason: Nausea / Vomiting Sodium Chloride (Normal Saline Flush 0.9%) 10 ml IVP PRN PRN PRN Reason: NEEDED PER PROVIDER ORDERS Last Admin: 03/13/19 17:28 Dose: 10 ml Sodium Chloride (Normal Saline Flush 0.9%) 10 ml IVP 0100,0900,1700 [facility] Last Admin: 03/14/19 10:24 Dose: 10 ml Sucralfate (Carafate) 1 gm PO 0700,1100,1700,2200 [facility] Last Admin: 03/14/19 11:39 Dose: 1 gm Omeprazole [PriLOSEC] 20 mg PO DAILY 04/26/16 buPROPion HCL [Bupropion HCl Sr] 150 mg PO BID 02/05/19 Objective - Vital Signs/Intake & Output Reviewed Vital Signs: Yes Vital Signs: Vital Signs x48h Temp Pulse Resp BP BP Pulse Ox 03/14/19 08:07 36.7 C 71 16 153/51 H 95 03/14/19 07:40 154/71 H 03/14/19 07:13 77 154/71 H 03/14/19 07:12 83 158/80 H 03/14/19 06:45 79 174/60 H 03/14/19 06:30 74 170/71 H 03/14/19 06:15 75 162/55 H 03/14/19 06:10 72 177/44 H 03/14/19 06:05 77 171/47 H 03/14/19 05:44 197/60 H 03/14/19 05:42 188/51 H Intake & Output: Intake & Output 03/11/19 03/12/19 03/13/19 03/14/19 23:59 23:59 23:59 23:59 Intake Total 1700 2858.333 3724 0 Output Total 465 850 Balance 1700 2393.333 2874 0 - Objective General Appearance: positive: Alert, Mild distress Eyes Bilateral: positive: Normal inspection, Conjunctivae nml ENT: positive: ENT inspection nml Neck: positive: Nml inspection Respiratory: positive: No respiratory distress. negative: Wheezes, Rales Cardiovascular: positive: Regular rate & rhythm, Systolic murmur. negative: Tachycardia, Bradycardia Abdomen: positive: No distention, Tenderness (Epigastric region.). negative: Non-tender, Guarding, Rebound Skin: positive: No rash, Warm, Dry Extremities: positive: Full ROM, No pedal edema Neurologic/Psychiatric: positive: Oriented x3. negative: Disoriented to person, Disoriented to place, Disoriented to time - Lab Results Fish Bones: 03/14/19 05:25 03/14/19 05:25 Other Labs: Lab Results x24hrs 03/14/19 03/14/19 03/13/19 Range/Units 05:25 05:25 20:25 WBC 5.1 (4.8-10.8) x10^3/uL RBC 2.81 L (4.20-5.40) 10^6/uL Hgb 8.4 L (12.0-16.0) g/dL Hct 28.1 L (37.0-47.0) % MCV 100.0 H (81.0-99.0) fL MCH 29.9 (27.0-31.0) pg MCHC 29.9 L (32.0-36.0) g/dL RDW 15.7 H (12.0-15.0) % Plt Count 191 (130-450) 10^3/uL MPV 10.2 (7.9-10.8) fL Neut # (Auto) 3.4 (1.5-6.6) 10^3/uL Lymph # (Auto) 1.1 L (1.5-3.5) 10^3/uL [place] # (Auto) 0.3 (0.0-1.0) 10^3/uL Eos # (Auto) 0.2 (0.0-0.7) 10^3/uL Baso # (Auto) 0.1 (0.0-0.1) 10^3/uL Absolute Nucleated RBC 0.00 x10^3/uL Nucleated RBC % 0.0 /100WBC Sodium 139 (135-145) mmol/L Potassium 3.5 (3.5-5.0) mmol/L Chloride 113 H (101-111) mmol/L Carbon Dioxide 19 L (21-32) mmol/L Anion Gap 7.0 (6-13) BUN 9 (6-20) mg/dL Creatinine 1.4 H (0.4-1.0) mg/dL Estimated GFR (MDRD) 36 L (>89) Glucose 85 (70-100) mg/dL Calcium 7.7 L (8.5-10.3) mg/dL Last Dose Date 03/12/2019 Last Dose Time 2234 Vancomycin Trough 19.9 (10.0-20.0) ug/mL Blood Type Antibody Screen Crossmatch IS Only 03/13/19 Range/Units 08:30 WBC (4.8-10.8) x10^3/uL RBC (4.20-5.40) 10^6/uL Hgb (12.0-16.0) g/dL Hct (37.0-47.0) % MCV (81.0-99.0) fL MCH (27.0-31.0) pg MCHC (32.0-36.0) g/dL RDW (12.0-15.0) % Plt Count (130-450) 10^3/uL MPV (7.9-10.8) fL Neut # (Auto) (1.5-6.6) 10^3/uL Lymph # (Auto) (1.5-3.5) 10^3/uL [place] # (Auto) (0.0-1.0) 10^3/uL Eos # (Auto) (0.0-0.7) 10^3/uL Baso # (Auto) (0.0-0.1) 10^3/uL Absolute Nucleated RBC x10^3/uL Nucleated RBC % /100WBC Sodium (135-145) mmol/L Potassium (3.5-5.0) mmol/L Chloride (101-111) mmol/L Carbon Dioxide (21-32) mmol/L Anion Gap (6-13) BUN (6-20) mg/dL Creatinine (0.4-1.0) mg/dL Estimated GFR (MDRD) (>89) Glucose (70-100) mg/dL Calcium (8.5-10.3) mg/dL Last Dose Date Last Dose Time Vancomycin Trough (10.0-20.0) ug/mL Blood Type O POSITIVE Antibody Screen NEGATIVE Crossmatch IS Only See Detail Assessment/Plan - Problem List (1) Intractable vomiting Impression: Unfortunately she has been unable to tolerate advancement of her diet to mechanical soft from clear liquid. Continues to have emesis with epigastric abdominal pain. Given the CT was concerning for esophagitis and her stool was occult positive, I will ask general surgery to guide the patient for endoscopy. We will keep her on a clear liquid diet for the time being but make her n.p.o. at midnight. Continue the antiemetics as needed. Qualifiers: Vomiting type: unspecified Nausea presence: without nausea Qualified Code(s): R11.11 - Vomiting without nausea (2) Esophagitis Impression: This was evident on the CT of the abdomen and pelvis. This may be secondary to her persistent vomiting although there may be concern for gastritis or inflammation as well given her stool is occult positive. Will consult general surgery for endoscopy and start her on Protonix IV. (3) Anemia Impression: This is likely anemia of chronic disease given her iron studies and her underlying renal disease. She was transfused 1 unit of packed red blood cells yesterday improvement of her hemoglobin from 6.9-8.4. Her stool occult was positive. Given this and her persistent epigastric pain along with vomiting, I have asked general surgery to evaluate her for endoscopy. Continue to check her hemoglobin on a daily basis. We will transfuse only for hemoglobin less than 7. (4) Hypertension Impression: Blood pressure remains elevated with a systolic in the 150s. Given her poor ability to keep oral intake down, will continue with the clonidine patch and hydralazine IV as needed. When she is able to tolerate oral intake, will restart her on her home antihypertensives. (5) MRSA pneumonia Impression: She has completed 7 days of IV therapy for the MRSA pneumonia. We will now discontinue antibiotics. (6) CKD (chronic kidney disease) Impression: Renal function remains at baseline with a creatinine of 1.4. Continue to monito r renal function.
[2019-03-14] MEDS ORDERED: PANTOPRAZOLE 40 MG VIAL IVP SCH (13:00)
[2019-03-14] MEDS: SODIUM CHLORIDE FLUSH 0.9% 10 ML SYRINGE IVP PRN (13:24)
[2019-03-14] MEDS ORDERED: LIDO GARGLE 30 ML BOTTLE ONE (15:14)
--- NOTE | 2019-03-14 15:19 | CONSULTATION NOTE ---
Referring Provider Name of Referring Provider:: Dr. Puente Consult Date: 03/14/19 Chief Complaint - Chief Complaint Chief Complaint: recurrent N/V, abn CT esophagus History of Present Illness - Admitted From Admitted From:: ER - History Obtained From Records Reviewed: yes History obtained from: pt, records Exam Limitations: none - History of Present Illness HPI Comment/Other: 78 yo female admitted on 03/11/19 with intractable N/V. Recently admitted and treated for MRSA pneumonitis. Pt reports 2-3 month hx of intermittent N/V of swallowed food, with occasional coffee ground emesis. Has longstanding hx of heartburn treated in the past with prescription PPI therapy but ran out when moved to [facility] recently with worsening sx of heartburn for which she has been taking various OTC antacids prn. No dysphagia. No abd pain, but she has noted intermittent black stools over the past several months as well. No prior endoscopic GI evaluations. FH colon cancer in brother in his 80s. Hx excessive alcohol intake, but quit approx 5 yrs ago. Longstanding tobacco use, quit 2 months ago. She reports a 20-30# wt loss over the past few months. She report frequent use of NSAIDs. No hx of PUD. No hx hematochezia. Evaluation included CT chest showing diffuse thickening of the esophagus and moderate sized sliding type of hiatal hernia. CT abd/pelvis essentially neg. Calcifications were noted in the pancreas without mass. REcent admission for hypercalcemia of unclear etiology. She was noted to be anemic with hgb of 6.9 and heme + stool; was transfused 1 unit prbcs and surgical consultation was requested. History - Past Medical History Cardiovascular: reports: Hypertension Respiratory: reports: Pneumonia GI: reports: GERD, GI bleed : reports: None Psych: reports: None Musculoskeletal: reports: Chronic back pain Derm: reports: None MRSA Hx?: Yes - Past Surgical History HEENT: reports: Tonsil/Adenoidectomy - Family & Social History Family History Comment/Other: FH CRC in brother in his 80s Living arrangement: long term Living Situation: With friend(s) Social History Notes: She lives at home with a friend. She ambulates on her own at baseline. She continues to smoke a pack a day and has been smoking for more than 50 years. She does drink alcohol but denies daily use. 03/14/19: states stopped tobacco in 12/2018 and no alcohol for 5 yrs... - Substance History Use: Uses substance without health or social issues: Tobacco, Alcohol Tobacco Details: Cigarettes Meds/Allgy - Home Medications Home Medications: Ambulatory Orders Medication Instructions Recorded Confirmed Omeprazole [PriLOSEC] 20 mg PO DAILY 04/26/16 03/13/19 buPROPion HCL [Bupropion HCl Sr] 150 mg PO BID 02/05/19 03/13/19 Acetaminophen [Tylenol] 650 mg PO Q4HR PRN tablet 02/09/19 03/13/19 Aspirin [Adi] 325 mg PO DAILYWM tablet 02/09/19 03/13/19 Magnesium Oxide [Mag Ox] 400 mg PO DAILYWM tablet 02/09/19 03/13/19 Multivitamin W/Minerals [Theragran 1 tab PO DAILYWM tablet 02/09/19 03/13/19 M] amLODIPine [Norvasc] 10 mg PO DAILY tablet 02/09/19 03/13/19 Clindamycin HCl [Clindamycin 300MG 600 mg PO TID #39 capsule 03/10/19 03/13/19 CAP] - Allergies Allergies/Adverse Reactions: Allergies Allergy/AdvReac Type Severity Reaction Status Date / Time No Known Drug Allergies Allergy Verified 03/11/19 11:41 Review of Systems - Constitutional Constitutional: reports: Weight loss. denies: Fever - Gastrointestinal Gastrointestinal: reports: Black stools, Nausea, Vomiting, Bile emesis, Coffee grounds emesis, Reflux/heartburn, Poor appetite. denies: Abdominal pain, Abdominal distention, Constipation, Diarrhea, Change in bowel habits, Rectal bleeding, Sebastian blood emesis - Hematologic/Lymphatic Hematologic/Lymphatic: denies: Blood clots, Bleeding tendencies - All Other Systems All Other Systems: reports: Reviewed and negative (or covered in HPI/PMH) Exam - Vital Signs Reviewed Vital Signs: Yes Vital Signs: Vital Signs x48h Temp Pulse Resp BP BP BP Pulse Ox 03/14/19 13:00 36.7 C 79 16 145/67 H 95 03/14/19 08:07 36.7 C 71 16 153/51 H 95 03/14/19 07:40 154/71 H 03/14/19 07:13 77 154/71 H 03/14/19 07:12 83 158/80 H - Physical Exam General Appearance: positive: No acute distress, Alert Eyes Bilateral: positive: Normal inspection, No scleral icterus ENT: positive: ENT inspection nml, Pharynx nml, Dry mucous membranes. negative: Oral lesions Neck: positive: Nml inspection, No JVD, Trachea midline. negative: Lymphadenopathy (R), Lymphadenopathy (L) Respiratory: positive: Chest non-tender, No respiratory distress, Rales (faint left base), Other (diminished breath sounds right base) Cardiovascular: positive: Regular rate & rhythm, No murmur, No gallop Abdomen: positive: No organomegaly, Nml bowel sounds, No distention, Tenderness (mild epigastric and ruq tenderness with voluntary guarding but no peritoneal signs), Guarding. negative: Rebound, Hepatomegaly, Splenomegaly, Mass Skin: positive: Color nml, No rash, Warm, Dry. negative: Cyanosis Extremities: negative: Calf tenderness Neurologic/Psychiatric: positive: Oriented x3 Conclusion and Plan - Lab Results Microbiology Results 03/13/19 08:00 Stool Occult Blood - Final Laboratory Results 03/14/19 05:25: WBC 5.1, RBC 2.81 L, Hgb 8.4 L, Hct 28.1 L, MCV 100.0 H, MCH 29.9, MCHC 29.9 L, RDW 15.7 H, Plt Count 191, MPV 10.2, Neut # (Auto) 3.4, Lymph # (Auto) 1.1 L, [place] # (Auto) 0.3, Eos # (Auto) 0.2, Baso # (Auto) 0.1, Absolute Nucleated RBC 0.00, Nucleated RBC % 0.0 03/14/19 05:25: Sodium 139, Potassium 3.5, Chloride 113 H, Carbon Dioxide 19 L, Anion Gap 7.0, BUN 9, Creatinine 1.4 H, Estimated GFR (MDRD) 36 L, Glucose 85, Calcium 7.7 L 03/13/19 20:25: Last Dose Date 03/12/2019, Last Dose Time 2233, Vancomycin Trough 19.9 03/13/19 08:30: Blood Type O POSITIVE, Antibody Screen NEGATIVE, Crossmatch IS Only See Detail 03/13/19 04:50: WBC 4.7 L, RBC 2.26 L, Hgb 6.9 L*, Hct 22.2 L, MCV 98.2, MCH 30.5, MCHC 31.1 L, RDW 15.9 H, Plt Count 193, MPV 10.2, Neut # (Auto) 2.9, Lymph # (Auto) 1.1 L, [place] # (Auto) 0.4, Eos # (Auto) 0.3, Baso # (Auto) 0.0, Absolute Nucleated RBC 0.00, Nucleated RBC % 0.0 03/13/19 04:50: Sodium 140, Potassium 3.2 L, Chloride 111, Carbon Dioxide 21, Anion Gap 8.0, BUN 12, Creatinine 1.4 H, Estimated GFR (MDRD) 36 L, Glucose 92, Calcium 7.5 L - Diagnostic Imaging Results Diagnostic Imaging Results: positive: Final report reviewed, Read independently Diagnostic Imaging Results Comments: See HPI - Diagnosis Diagnosis: 1. Abnormal esophagus on CT: ddx includes esophagitis, reflux or fu ngal or other in nature, neoplasm. 2. intractable N/V with coffee ground hematemesis: ddx includes medication induced, PUD, gastritis, H. Pylori infection, UGI neoplasm, M-W tear, doubt varices. 3. melena, anemia; ddx includes upper and lower gi sources including as noted above, CRC, angioplasia, etc. - Plan Plan: EGD today. PAR conference. If neg, pt should be prepped and undergo further evaluation with colonoscopy. Thanks,
[2019-03-14] MEDS ORDERED: LACTATED RINGERS 1,000 ML IV ONE (16:28)
--- NOTE | 2019-03-14 17:00 | PROCEDURE REPORT ---
Hospitalist Procedure Note - Procedure Note Procedure Note: EGD: severe diffuse esophagitis with fibrin exudates c/w candidal esophagitis, biopsied multiple gastric erosions, biopsied, JEANETTE test pending 3 cm hiatal hernia Rec: empiric treatment with fluconazole high dose PPI therapy avoid NSAIDs
[2019-03-14] MEDS: FLUCONAZOLE 200 MG/100 ML 100 ML IV SCH ×2 (18:26→20:30)
[2019-03-14] MEDS: PANTOPRAZOLE 40 MG VIAL IVP SCH (21:54)
[2019-03-14] MEDS ORDERED: BENZOCAINE/MENTHOL LOZENGE MM PRN (23:51)
[2019-03-15] MEDS: hydrALAZINE INJ 20 MG/ML VIAL IVP PRN (06:15)
[2019-03-15] MEDS: SUCRALFATE 1 GM/10 ML UDC PO SCH ×3 (06:20→20:07)
[2019-03-15] MEDS: SODIUM CHLORIDE FLUSH 0.9% 10 ML SYRINGE IVP PRN (06:20)
[2019-03-15 08:15] LABS: CALCIUM 7.8 mg/dL (8.5-10.3); CREATININE 1.4 mg/dL (0.4-1.0)
[2019-03-15 08:48] LABS: BASOPHILS % (AUTO) 0.8 %; EOSINOPHILS # (AUTO) 0.2 10^3/uL (0.0-0.7); EOSINOPHILS % (AUTO) 5.1 %; HGB - HEMOGLOBIN 8.9 g/dL (12.0-16.0); LYMPHOCYTES # (AUTO) 1.1 10^3/uL (1.5-3.5); LYMPHOCYTES % (AUTO) 23.8 %; MEAN CORPUSCULAR HGB CONC 33.1 g/dL (32.0-36.0); MEAN CORPUSCULAR VOLUME 93.7 fL (81.0-99.0); MONOCYTES # (AUTO) 0.4 10^3/uL (0.0-1.0); MONOCYTES % (AUTO) 9.1 %; NEUTROPHILS # (AUTO) 2.9 10^3/uL (1.5-6.6); NEUTROPHILS % (AUTO) 60.1 %; PLT - PLATELET COUNT 192 10^3/uL (130-450); RED BLOOD COUNT 2.87 10^6/uL (4.20-5.40); RED CELL DISTRIBUTION WIDTH 15.4 % (12.0-15.0); WHITE BLOOD COUNT 4.8 x10^3/uL (4.8-10.8)
[2019-03-15] MEDS ORDERED: FLUCONAZOLE 200 MG/100 ML 100 ML IV SCH (09:00)
[2019-03-15] MEDS: SODIUM CHLORIDE FLUSH 0.9% 10 ML SYRINGE IVP SCH ×2 (09:01→20:07)
[2019-03-15] MEDS: PANTOPRAZOLE 40 MG VIAL IVP SCH (09:02)
[2019-03-15] MEDS: HYDROmorphone 0.5 MG/0.5 ML SYRINGE IVP PRN (09:43)
[2019-03-15 16:08] LABS: CREATININE,URINE 71.4 mg/dL
--- NOTE | 2019-03-15 16:12 | DISCHARGE SUMMARY ---
"Discharge Summary Admit Date: 03/11/19 Discharge Date: 03/15/19 Discharging Provider: Garcia Puente Primary Care Provider: Rey Slater Code Status: Do Not Attempt Resuscitation Condition at Discharge: Good Discharge Disposition: Home, Self Care - DIAGNOSES Admission Diagnoses: Nausea and vomiting Hypokalemia Esophagitis Hiatal hernia Chronic kidney disease MRSA pneumonia Hypertension Anemia Discharge Diagnoses with Status of Each Condition: Kelsi esophagitis - She is found to have Kelsi esophagitis on endoscopy performed March 14. Biopsies are pending. She was started on fluconazole and she is to continue 200 mg daily for 12 more days to complete 2 weeks of treatment. Gastritis - Was also evident on the endoscopy performed March 14. She will start Protonix 40 mg twice a day for at least 1 month. We will continue her baby aspirin but she was informed to avoid NSAIDs. This was likely the reason for the positive occult blood in the stool. Intractable vomiting - This has improved and she is now able to tolerate a liquid and soft diet. She would like to go home and this is reasonable as she is able to tolerate oral intake. She is to continue to take the fluconazole as prescribed as well as her Protonix. Anemia - Her anemia appears to be secondary to chronic disease and not iron deficiency based off of her iron studies. Her stool occult was positive this was likely secondary to the gastritis. She was transfused 1 unit of packed red blood cells during this hospitalization. Hemoglobin trended down likely due to the large amount of IV fluids she received. Her hemoglobin responded appropriat elena to transfusion and has been increasing since then. No other obvious signs of bleeding at the moment. Hypertension - She has been hypertensive during this hospitalization and due to her vomiting, we are unable to give her oral antihypertensives. She was treated with a clonidine patch and hydralazine IV as needed. She will resume her home amlodipine on discharge. She will follow-up with her primary care physician as she may require a second antihypertensive. Chronic kidney disease - Her renal function has been stable with a baseline creatinine of 1.4. Upper extremity edema - She has bilateral upper extremity edema that is relatively stable. Her abdomen is low at 2.5 and her urinalysis is suggestive of proteinuria. Suspect that her edema is likely secondary to the large amount of IV fluid she has received over the last 9 days. Less likely this is a DVT given it is bilateral we do not suspect an IV infiltrated. An echocardiogram was obtained and the pulmonary report shows an EF of approximately 50% and moderate aortic stenosis. She was asked to continue to elevate her extremities to mobilize the fluid. Moderate aortic stenosis - The preliminary echocardiogram report revealed moderate aortic stenosis. Official report is pending. This will need to be monitored on an outpatient basis. History of hypercalcemia - She was admitted back in January for severe hypercalcemia with a level greater than 15. The etiology of this was not clear. There was concern that she may have had pancreatic mass on a CT the abdomen pelvis performed back in January. A repeat CT this month did not show pancreatic mass but there was calcification of the pancreas. Her vitamin D leve l was less than 5. Her PTH was within normal limits. Her PTH related protein is also normal limits. SPEP and UPEP were negative. Her cuff numbers have since been within normal limits when corrected for her albumin. She is to continue to have her calcium levels monitored and she may benefit from an newspaper columnist referral. Vitamin D deficiency - Her vitamin level was less than 5 back in January but this has not been replaced given she had hypercalcemia back then. She also has chronic kidney disease and her GFR is just above 30. As such, she has not been started on vitamin D replacement. Would recommend that a vitamin D level be rechecked on outpatient basis and given her history of hypercalcemia, her calcium to be closely watched if she is supplemented with vitamin D and she may benefit from newspaper columnist referral. - HPI History of Present Illness: H&P per Dr. Mora on 03/11/19: This is a 70-year-old white female who lives alone, has a history of hypertension and CKD, and pancreatic abnormality found during an admission for hypercalcemia about a month ago, which has not been evaluated yet. She presented about a week ago here with cough, desaturations, found to have healthcare associated pneumonia, as well as nausea and vomiting that was intermittent and slowly improved. She was just sent home yesterday finish her course of treatment for MRSA and streptococcal pneumonia to his clindamycin. She pain did not get her antibiotics filled and also, was driving home, she was nauseated and vomiting repeatedly. She lives with a roommate, not a caregiver and was unable to get up to drink liquids, and finally was brought in by ambulance for incessant nausea and vomiting. She received fluids and antiemetics emergency room, was given a trial of p.o. was putting, vomited that up and is being admitted for incessant vomiting. She is unable to keep any pills, even her antibiotics. - CONSULTS | PROCEDURES Procedures: She had a CTA of the chest which was negative for pulmonary embolism. There was concern for diffuse esophageal wall thickening which suspicious for esophagitis. She has small to moderate right pleural effusion that was stable. - HOSPITAL COURSE Hospital Course: Was admitted for intractable nausea and vomiting. She treated with bowel rest and antiemetics. She was then started on a clear liquid diet and tolerated that well. Her diet was advanced to a soft mechanical diet but then she began to vomit once again. She was also found to have a slow decline in her hemoglobin likely dilutional. Her stool occult was then checked and it was positive. Given her persistent vomiting and a positive stool occult, surgery was consulted for endoscopy. EGD was performed on March 14 which showed Kelsi esophagitis and gastritis. She started on fluconazole and Protonix twice daily. She was once again started on a clear liquid diet and has since been tolerating that. Her diet was advanced to a soft diet without difficulty. She is now stable to be discharged home to complete a two-week course of fluconazole and she is to continue Protonix 40 mg twice daily. She completed her course of antibiotics for her prior MRSA pneumonia during this hospitalization. - ALLERGIES Allergies/Adverse Reactions: Allergies Allergy/AdvReac Type Severity Reaction Status Date / Time No Known Drug Allergies Allergy Verified 03/11/19 11:41 - MEDICATIONS Home Medications: Ambulatory Orders Medication Instructions Recorded Confirmed Magnesium Oxide [Mag Ox] 400 mg PO DAILYWM tablet 02/09/19 03/13/19 Multivitamin W/Minerals [Theragran 1 tab PO DAILYWM tablet 02/09/19 03/13/19 M] Acetaminophen [Tylenol] 650 mg PO Q4HR PRN #30 tablet 03/15/19 Amlodipine Besylate 10 mg PO DAILY #30 tablet 03/15/19 Aspirin [Aspirin EC] 81 mg PO DAILY #30 tablet. 03/15/19 Fluconazole 200 mg PO DAILY 12 Days #12 tablet 03/15/19 Pantoprazole [Protonix] 40 mg PO BID #60 tablet 03/15/19 buPROPion HCL [Bupropion HCl Sr] 150 mg PO BID #60 tab.er.12h 03/15/19 - PHYSICAL EXAM AT DISCHARGE General Appearance: positive: No acute distress, Alert Eyes Bilateral: positive: Normal inspection ENT: positive: ENT inspection nml Neck: positive: Nml inspection Respiratory: positive: No respiratory distress. negative: Wheezes, Rales Cardiovascular: positive: Regular rate & rhythm, Systolic murmur. negative: Irregularly irregular, Tachycardia, Bradycardia Abdomen: positive: Nml bowel sounds, No distention, Tenderness (Mild tenderness in epigastric region.). negative: Non-tender, Guarding, Rebound Skin: positive: Warm, Dry, Other (A few areas of ecchymosis over her bilateral upper extremities.) Extremities: positive: Full ROM, Pedal edema (He has about +1 pitting edema in her bilateral upper extremities. She also has +1 pitting edema in her lower extremities above the knee. There is no edema near her ankles.) Neurologic/Psychiatric: positive: Oriented x3. negative: Disoriented to person, Disoriented to place, Disoriented to time - LABS Result Diagrams: 03/15/19 08:45 03/15/19 07:45 - DIAGNOSTIC IMAGING Diagnostic Imaging Results: Final report reviewed - FOLLOW UP Follow Up: Her primary care physician's office was contacted and they be calling the patient tomorrow to schedule appointment for next week. - TIME SPENT Time Spent in Discharge (Minutes): 40"
--- NOTE | 2019-03-15 16:12 | Discharge Plan ---
Discharge Plan Problem Reviewed?: Yes Disposition: Home, Self Care Condition: Good Prescriptions: Acetaminophen [Tylenol] 650 mg PO Q4HR PRN #30 tablet PRN Reason: Pain 1 to 4 Amlodipine Besylate 10 mg PO DAILY #30 tablet Aspirin [Aspirin EC] 81 mg PO DAILY #30 tablet. buPROPion HCL [Bupropion HCl Sr] 150 mg PO BID #60 tab.er.12h Fluconazole 200 mg PO DAILY 12 Days #12 tablet Pantoprazole [Protonix] 40 mg PO BID #60 tablet Diet: Low Sodium Activity Restrictions: Activity as Tolerated Shower Restrictions: No Driving Restrictions: No Instruction Topics: Gastritis Tx, ED Kelsi Esophagitis Health Concerns: You were seen in the hospital because of persistent nausea and vomiting. Despite medication to help with your nausea you continue to vomit. We then asked the surgeon to evaluate you and you had a procedure called endoscopy performed. This found that you had a fungal infection of your esophagus. You are started on a medication called fluconazole which you need to take prescribed to complete 2 weeks of treatment. You also have found to have gastritis which is inflammation of your stomach. This can occur because of medications like aspirin and ibuprofen. It is okay to continue taking your baby aspirin but it is important you start taking a medication called Protonix twice a day which can help with decreasing acid production in your stomach and helping with the inflammation. You can likely begin to take this once a day after you take it twice a day for 1 month. Your blood counts were also low during this hospitalization and you required 1 unit of blood to be transfused. Your blood counts have since been stable. It is likely you blood counts were low because we gave you a lot of fluids which dilutes her blood. The inflammation of your stomach may have also caused small amounts of bleeding which is why it is important to take the Protonix as prescribed. Please follow-up with your primary care physician next week. Plan of Treatment: Please take fluconazole 200 mg daily for 12 more days to complete 2 weeks of treatment. These take Protonix 40 mg twice a day for at least 1 month. You will likely need to take this daily thereafter. These resume your blood pressure medication called amlodipine 10 mg. The antibiotics you were previously prescribed for pneumonia you no longer need to take as you completed treatment while you were here in the hospital. Care Goals: Dr. Slater's office will contact you tomorrow to schedule a follow-up appointment next week. We will send him your records. It is important to follow-up because you had high calcium levels in the past. Assessment: Patient expressed understanding of the treatment plan. No Smoking: If you smoke, Please STOP! Call for help.
[2019-03-15] MEDS ORDERED: CHOLECALCIFEROL 5,000 UNIT CAPSULE PO SCH (17:00)
[2019-03-15] MEDS ORDERED: MIDAZOLAM 2 MG/2 ML VIAL IVP ONE (17:59)
[2019-03-15] MEDS ORDERED: fentaNYL 100 MCG/2 ML VIAL IVP ONE (17:59)
[2019-03-15 18:31] VITALS: BP 154/68
== END 2019-03-15 18:00 | disposition home or self-care (01) | DRG 368 ==
LOC: EDUNIT# → ED 11:37 → MS3 16:47 → OBSVTOIN 03-12 13:09
PROVIDERS: ADMIT Internal Medicine; ATTEND Internal Medicine
PROC: 30233N1 Transfusion of Nonautologous Red Blood Cells into Peripheral Vein, Percutaneous Approach (ICD-10-PCS; 2019-03-13)
PROC: 0DB68ZX Excision of Stomach, Via Natural or Artificial Opening Endoscopic, Diagnostic (ICD-10-PCS; 2019-03-14)
PROC: 0DB28ZX Excision of Middle Esophagus, Via Natural or Artificial Opening Endoscopic, Diagnostic (ICD-10-PCS; 2019-03-14)
PROC: 0DB38ZX Excision of Lower Esophagus, Via Natural or Artificial Opening Endoscopic, Diagnostic (ICD-10-PCS; principal; 2019-03-14 15:30)
DX: R11.2 Nausea with vomiting, unspecified (principal); B37.81 Candidal esophagitis; K20.9 Esophagitis, unspecified; J15.212 Pneumonia due to Methicillin resistant Staphylococcus aureus; K29.31 Chronic superficial gastritis with bleeding; D64.9 Anemia, unspecified; K55.1 Chronic vascular disorders of intestine; K21.0 Gastro-esophageal reflux disease with esophagitis; E87.6 Hypokalemia; F17.200 Nicotine dependence, unspecified, uncomplicated; D63.8 Anemia in other chronic diseases classified elsewhere; Y95 Nosocomial condition; I12.9 Hypertensive chronic kidney disease with stage 1 through stage 4 chronic kidney disease, or unspecified chronic kidney disease; N18.9 Chronic kidney disease, unspecified; K44.9 Diaphragmatic hernia without obstruction or gangrene; I35.0 Nonrheumatic aortic (valve) stenosis; K86.89 Other specified diseases of pancreas; F17.210 Nicotine dependence, cigarettes, uncomplicated; R60.9 Edema, unspecified; M81.0 Age-related osteoporosis without current pathological fracture; T36.8X6A Underdosing of other systemic antibiotics, initial encounter; Y92.009 Unspecified place in unspecified non-institutional (private) residence as the place of occurrence of the external cause; M48.56XD Collapsed vertebra, not elsewhere classified, lumbar region, subsequent encounter for fracture with routine healing; E55.9 Vitamin D deficiency, unspecified; I70.0 Atherosclerosis of aorta; I70.1 Atherosclerosis of renal artery; I25.10 Atherosclerotic heart disease of native coronary artery without angina pectoris; I70.8 Atherosclerosis of other arteries; Z66 Do not resuscitate; Z79.82 Long term (current) use of aspirin
CPT/HCPCS: 36415; 71045; 71275; 74177; 80048; 80053; 80202; 81001; 82272; 82570; 83690; 84156; 84484; 85025; 85379; 86850; 86900; 86901; 86920; 87081; 93005; 93306; 96361; 96365; 96366; 96367; 96375; 96376; 99285; 99406; A9270; G0378; J0131; J1170; J2765; J3370; J7120; P9016; Q9967; 81003; 87086

== ENCOUNTER 2019-03-25 14:55 | Outpatient (CLI) | payer MEDICARE, MEDICAID | END 2019-03-25 14:56 | disposition critical access hospital (66) | LOC: EMS 14:55 | PROVIDERS: ATTEND Surgery | DX: R42 Dizziness and giddiness (principal); R53.1 Weakness | CPT/HCPCS: A0425; A0429 ==

== ENCOUNTER 2019-03-25 15:14 | Inpatient (IN) | payer MEDICARE, MEDICAID ==
--- NOTE | 2019-03-25 15:21 | ED Physician Documentation ---
History of Present Illness - Stated complaint Stated Complaint: DIZZINESS - Additonal information Additional information: This is a 78-year-old female with a history of hypertension, pneumonia, HF who presents with dizziness. Patient was hospitalized with pneumonia until 03/11, and after being discharged on clindamycin she returned with intractable vomiting and was admitted on 03/14, was found to have Kelsi esophagitis, for which she was a started on fluconazole for 2 weeks, as well as Protonix 40 mg twice daily. She had CT PE scan during that visit that was negative. She completed her antibiotics for pneumonia during that hospitalization. Patient states since the time of discharge she has had dizziness which she describes as feeling unstable on her feet, sometimes generlized weakness, and sometimes feeling lightheaded. This morning she was using her walker and she felt unsteady on her feet and fell backwards hitting her head and her lower back. She has pain in both of these regions. She did not lose consciousness. She denies any specific/localized weakness or numbness. She notes she has had a tremor/ache since starting the new medication and being discharged from the hospital. She also notes that she has some swelling in her left lower leg. She denies chest pain, has had shortness of breath when lying flat or with walking. She states she thinks she has had a history of a blood clot in the past. She does not remember where this was. She is not on any blood thinners. Review of Systems Constitutional: denies: Fever Cardiac: denies: Chest pain / pressure Respiratory: reports: Dyspnea, Cough GI: denies: Abdominal Pain : denies: Dysuria Skin: denies: Rash Musculoskeletal: reports: Back pain Neurologic: reports: Other (+ dizziness) Endocrine: denies: Easy bruising / bleeding PD PAST MEDICAL HISTORY - Past Medical History Cardiovascular: Hypertension Respiratory: Pneumonia GI: GERD, GI bleed : None Psych: None Musculoskeletal: Chronic back pain Derm: None - Past Surgical History Past Surgical History: Yes HEENT: Tonsil/Adenoidectomy - Present Medications Home Medications: Ambulatory Orders Medication Instructions Recorded Confirmed Magnesium Oxide [Mag Ox] 400 mg PO DAILYWM tablet 02/09/19 03/25/19 Multivitamin W/Minerals [Theragran 1 tab PO DAILYWM tablet 02/09/19 03/25/19 M] Acetaminophen [Tylenol] 650 mg PO Q4HR PRN #30 tablet 03/15/19 03/25/19 Amlodipine Besylate 10 mg PO DAILY #30 tablet 03/15/19 03/25/19 Aspirin [Aspirin EC] 81 mg PO DAILY #30 tablet. 03/15/19 03/25/19 Fluconazole 200 mg PO DAILY 12 Days #12 tablet 03/15/19 03/25/19 Pantoprazole [Protonix] 40 mg PO BID #60 tablet 03/15/19 03/25/19 buPROPion HCL [Bupropion HCl Sr] 150 mg PO BID #60 tab.er.12h 03/15/19 03/25/19 - Allergies Allergies/Adverse Reactions: Allergies Allergy/AdvReac Type Severity Reaction Status Date / Time No Known Drug Allergies Allergy Verified 03/25/19 15:23 - Social History Does the pt smoke?: Yes Smoking Status: Former smoker Does the pt drink ETOH?: Yes Does the pt have substance abuse?: No - Immunizations Immunizations are current?: Yes PD ED PE NORMAL - Vitals Vital signs reviewed: Yes - General General: Alert and oriented X 3, No acute distress - HEENT HEENT: Other (Small contusion to the left posterior occiput which measures 2 cm in diameter. No open skin wounds on the head. Face is atraumatic.) - Neck Neck: Supple, no meningeal sign, No bony TTP - Cardiac Cardiac: RRR - Respiratory Respiratory: Other (Tachypnea, bibasilar crackles) - Abdomen Abdomen: Normal bowel sounds, Soft, Non tender, Non distended - Back Back: Other (There is mild kyphosis, patient is tender to palpation of the mid L-spine, no T or C-spine tenderness. Back appears atraumatic.) - Derm Derm: Warm and dry - Extremities Extremities: No deformity, Other (2+ lower extremity edema on the left leg, trace on the right.) - Neuro Neuro: Alert and oriented X 3, manager mass 2-12 intact, Normal speech, Other (Patient has a fine tremor and both upper extremities. No dysmetria) - Psych Psych: Normal mood, Normal affect Results - Vitals Vitals: Vital Signs - 24 hr 03/25/19 03/25/19 03/25/19 15:15 17:00 18:30 Temperature 36 C L Heart Rate 64 58 L Respiratory 27 H 16 Rate Blood Pressure 159/73 H 137/58 H O2 Saturation 95 93 86 L 03/25/19 19:05 Temperature Heart Rate 61 Respiratory 14 Rate Blood Pressure 140/54 H O2 Saturation 93 Oxygen O2 Source Room air - EKG (time done) 16:53 Other comments: Other comments (Rate 58, rhythm sinus, Slight less than 0.[address] depression in the lateral leads, consistent with left ventricular hypertrophy. No significant ST segment elevation. No significant change from prior on 02/2019) - Labs Labs: Laboratory Tests 03/25/19 03/25/19 03/25/19 17:15 17:50 17:50 WBC 5.1 RBC 2.81 L Hgb 8.5 L Hct 26.2 L MCV 93.2 MCH 30.2 MCHC 32.4 RDW 15.9 H Plt Count 241 MPV 10.7 Neut # (Auto) 3.2 Lymph # (Auto) 1.1 L Sandoval # (Auto) 0.4 Eos # (Auto) 0.4 Baso # (Auto) 0.1 Absolute Nucleated RBC 0.00 Nucleated RBC % 0.0 PT INR Sodium 131 L Potassium 4.4 Chloride 100 L Carbon Dioxide 21 Anion Gap 10.0 BUN 14 Creatinine 2.1 H Estimated GFR (MDRD) 23 L Glucose 68 L Calcium 8.2 L Total Bilirubin 0.6 AST 24 ALT 15 Alkaline Phosphatase 79 Troponin I High Sens B-Natriuretic Peptide 558 H Total Protein 5.8 L Albumin 2.3 L Globulin 3.5 Albumin/Globulin Ratio 0.7 L Lipase 23 TSH Free T4 Ethyl Alcohol < 5.0 03/25/19 03/25/19 03/25/19 17:50 17:50 17:50 WBC RBC Hgb Hct MCV MCH MCHC RDW Plt Count MPV Neut # (Auto) Lymph # (Auto) Sandoval # (Auto) Eos # (Auto) Baso # (Auto) Absolute Nucleated RBC Nucleated RBC % PT 11.4 INR 1.0 Sodium Potassium Chloride Carbon Dioxide Anion Gap BUN Creatinine Estimated GFR (MDRD) Glucose Calcium Total Bilirubin AST ALT Alkaline Phosphatase Troponin I High Sens 21.2 H* B-Natriuretic Peptide Total Protein Albumin Globulin Albumin/Globulin Ratio Lipase TSH 8.24 H Free T4 Ethyl Alcohol 03/25/19 17:50 WBC RBC Hgb Hct MCV MCH MCHC RDW Plt Count MPV Neut # (Auto) Lymph # (Auto) Sandoval # (Auto) Eos # (Auto) Baso # (Auto) Absolute Nucleated RBC Nucleated RBC % PT INR Sodium Potassium Chloride Carbon Dioxide Anion Gap BUN Creatinine Estimated GFR (MDRD) Glucose Calcium Total Bilirubin AST ALT Alkaline Phosphatase Troponin I High Sens B-Natriuretic Peptide Total Protein Albumin Globulin Albumin/Globulin Ratio Lipase TSH Free T4 0.99 Ethyl Alcohol - Rads (name of study) CT head WO Radiology: Other (No acute intracranial process, posterior superior scalp contusion.) CT L spine WO Radiology: Other (Multiple chronic deformities unchanged compared to January 2019, including 25% loss of anterior compression fracture of L1, andDeformities of L2 with 10% height loss. There is some calcification of the pancreas, as noted in prior studies) CXR Radiology: Other (Small right base pleural effusion appears decreased from previous study) Duplex LLE Radiology: Other (No DVT in the left lower extremity) PD MEDICAL DECISION MAKING - ED course Complexity details: considered differential (Dysrhythmia, ACS, hypotension, stroke, medication side effect, deconditioning, vertigo, DVT, electrolyte abnormality) ED course: On arrival patient is nontoxic-appearing. She has a fine tremor, but no neurologic deficits. She has symmetric strength in upper and lower extremities, though flexion of her hips is limited slightly due to pain in her lower back. On exam she does have a small contusion to her posterior occiput and some lumbar pain, CTs of these areas were obtained and showed no acute intracranial abnormality, no new fracture or bony abnormality in her lumbar spine. Labs show a stable anemia with a hemoglobin of 8.5, hyponatremia 131, which is likely related to some volume overload, her creatinine is also somewhat elevated at 2.1, normally it appears to be in 0.3 range. Her BNP is elevated at 558, and this suggests some degree of heart dysfunction or volume overload especially given her lower extremity edema. Her high-sensitivity troponin is just above the limits of normal at 21, which is also consistent with heart strain/heart failure. She has no chest pain, and her overall story is not consistent with ACS. Her TSH is a bit high, reflex T4 was added. Echocardiogram from 03/15/2019 was reviewed, it shows ejection fraction of 50-55% with moderate and mild MS, small pleural effusion and small pericardial effusion. She has been told in the past that she has "a weak left ventricle." I personally ambulated the patient, she has no ataxia she is using her walker and appears fairly stable, however she states that she feels like her legs are weak, and she becomes short of breath. In bed she is 85% on room air, and if she lays flat she maintains oxygen saturations in the 86 to 88% range. Upon sitting up and resting, her oxygen returned to the low to mid 90s. She is not on home oxygen. Given her negative DVT scan, lack of chest pain, and somewhat recent negative PE scan, I feel PE is very unlikely and HF exacerbation better fits her clinical presentation. I have a high suspicion that she has some volume overload/congestive heart failure exacerbation combined with deconditioning. I spoke with Dr. Fulton for admission of the patient, and patient agrees to the plan for admission for [facility] evaluation and treatment. Departure - Departure Disposition: 66 [facility] DC/Xfer Clinical Impression: Hypoxemia, Hyponatremia Acute exacerbation of congestive heart failure Qualifiers: Heart failure type: unspecified Qualified Code(s): I50.9 - Heart failure, unspecified CKD (chronic kidney disease) Qualifiers: Chronic kidney disease stage: unspecified stage Qualified Code(s): N18.9 - Chronic kidney disease, unspecified Condition: Stable
[2019-03-25] MEDS ORDERED: SODIUM CHLORIDE 0.9% 500 ML IV STA (15:35)
--- NOTE | 2019-03-25 16:26 | CT Report ---
Reason: Fall, head trauma, dizzy Procedure Date: 03/25/2019 Accession Number: [id number] / [id number] Procedure: CT - HEAD WO CPT Code: Final Report FULL RESULT: EXAM: CT HEAD EXAM DATE: 03/25/2019 04:02 PM. CLINICAL HISTORY: Fall, head trauma, dizzy. COMPARISON: CERVICAL SPINE W/O 02/03/2019 2:59 PM HEAD W/O 02/03/2019 2:59 PM. TECHNIQUE: Multiaxial CT images were obtained from the foramen magnum to the vertex. Reformats: Sagittal and coronal. IV contrast: None. In accordance with CT protocol optimization, one or more of the following dose reduction techniques were utilized for this exam: automated exposure control, adjustment of mA and/or KV based on patient size, or use of iterative reconstructive technique. FINDINGS: Parenchyma: No intraparenchymal hemorrhage. No evidence of mass, midline shift, or CT findings of acute infarction. Borrero-white differentiation is distinct. Diffuse chronic microangiopathic white matter changes are evident. Chronic appearing lacunar type infarction in the left thalamus. Extraaxial Spaces: Normal for age. No subdural or epidural collections identified. Ventricles: The ventricles and cortical sulci are enlarged, consistent with age-related tissue loss. Sinuses and orbits: Imaged paranasal sinuses, orbits, and mastoids show no significant abnormality. Bones: No evidence of fracture or calvarial defect. Other: Posterior superior scalp contusion. IMPRESSION: 1. No acute intracranial process. 2. Posterior superior scalp contusion RADIA
--- NOTE | 2019-03-25 16:27 | XRAY Report ---
Reason: Dizziness Procedure Date: 03/25/2019 Accession Number: [id number] / [id number] Procedure: XR - Chest 1 View X-Ray CPT Code: 69172 Final Report FULL RESULT: EXAM: CHEST RADIOGRAPHY EXAM DATE: 03/25/2019 04:01 PM. CLINICAL HISTORY: Dizziness. COMPARISON: CHEST 1 VIEW 03/11/2019 11:44 AM ABDOMEN/PELVIS W/ 03/11/2019 12:50 PM. TECHNIQUE: 1 view. FINDINGS: Lungs/Pleura: Small right base pleural effusion appears decreased compared to the prior chest x-ray. No consolidation or pneumothorax. Mediastinum: Within exam limitations, the cardiomediastinal contour is normal. IMPRESSION: Small right base pleural effusion, appears decreased. RADIA
--- NOTE | 2019-03-25 16:46 | CT Report ---
Reason: Fall, lumbar tenderness Procedure Date: 03/25/2019 Accession Number: [id number] / [id number] Procedure: CT - LUMBAR SPINE WO CPT Code: Final Report FULL RESULT: EXAM: CT LUMBAR SPINE WITHOUT CONTRAST EXAM DATE: 03/25/2019 04:02 PM. CLINICAL HISTORY: Fall, lumbar tenderness. COMPARISONS: ABDOMEN/PELVIS W/ 03/11/2019 12:50 PM ABDOMEN/PELVIS W/O 02/04/2019 7:13 PM LUMBAR SPINE 2 VIEW 02/03/2019 2:40 PM. TECHNIQUE: Thin-section axial images were acquired of the lumbar spine from T12 to S1 without contrast. Post-processing: Coronal and sagittal reformats. Other: None. In accordance with CT protocol optimization, one or more of the following dose reduction techniques were utilized for this exam: automated exposure control, adjustment of mA and/or KV based on patient size, or use of iterative reconstructive technique. FINDINGS: Alignment: No scoliosis or spondylolisthesis. Bones: Bones are osteopenic. Five [id number] lumbar vertebral bodies are present. No acute fracture. There are multiple chronic deformities of the lumbar spine, unchanged compared to January 2019. This involves -Anterior compression fracture of the L1 vertebral body (25% loss of anterior height). -Deformities of the superior endplate of L2 with approximately 10% loss of height centrally. -Loss of height of the L3, L4, and L5 vertebral bodies, approximately 10-25%. Disk Levels/Facets: Multilevel degenerative disk disease. Greatest loss of disk height is noted at L2-L3. There is multilevel facet arthropathy. Musculature: Normal. No fatty atrophy. Other: There is vascular calcification, compatible with atherosclerotic disease. No aneurysmal dilatation. There is a hiatal hernia. Tiny subcentimeter hypodensities are seen within the right kidney, probably cysts. Tiny calcifications within the kidneys are incompletely visualized. It is unclear if some of these are renal stones versus vascular calcifications. Calcification within the pancreatic head is incompletely visualized. There are bilateral pleural effusions. Small amount of free fluid within the pelvis. IMPRESSION: 1. No acute fracture. 2. Chronic deformities of the lumbar spine are unchanged compared to January 2019. These are described in detail above. 3. Multilevel degenerative disease. 4. Bilateral pleural effusions. 5. Calcifications within the pancreatic head are incompletely visualized, but better seen on prior CT scan. 6. Hiatal hernia. 7. Small amount of free fluid within the pelvis. RADIA The call report notification system was initiated by Dr. Mary Alice Prieto at 04:40 PM on 03/25/2019. The above call report findings were discussed with Wiliam Mix by Dr. Mary Alice Prieot at 04:44 PM on 03/25/2019.
--- NOTE | 2019-03-25 17:15 | Ultrasound Report ---
Reason: New onset leg swelling Procedure Date: 03/25/2019 Accession Number: [id number] / [id number] Procedure: US - Duplex Ext Veins Left CPT Code: Final Report FULL RESULT: EXAM: LEFT LOWER EXTREMITY VENOUS ULTRASOUND EXAM DATE: 03/25/2019 04:53 PM. CLINICAL HISTORY: New onset leg swelling. COMPARISON: None. TECHNIQUE: Real-time sonographic vascular imaging was performed by the windows desktop support through the lower extremity utilizing both color-flow and Doppler spectral analysis. Multiple health and safety representative static images were saved for review. FINDINGS: Common Femoral Vein (CFV): Normal. CFV-GSV Junction: Normal. Profunda Femoral Vein (PFV): Normal. Femoral Vein (FV) Prox: Normal. Femoral Vein (FV) Mid: Normal. Femoral Vein (FV) Dist: Normal. Popliteal Vein: Normal. Posterior Tibial Veins: Normal. Peroneal Veins: Limited, visualized portions. Contralateral Side CFV: Normal. Other: Calcified atherosclerotic arterial disease is noted. IMPRESSION: No evidence for deep venous thrombosis in the visualized left lower extremity. RADIA
[2019-03-25 17:24] LABS: BASOPHILS # (AUTO) 0.1 10^3/uL (0.0-0.1); EOSINOPHILS # (AUTO) 0.4 10^3/uL (0.0-0.7); EOSINOPHILS % (AUTO) 7.5 %; HGB - HEMOGLOBIN 8.5 g/dL (12.0-16.0); LYMPHOCYTES # (AUTO) 1.1 10^3/uL (1.5-3.5); LYMPHOCYTES % (AUTO) 21.2 %; MEAN CORPUSCULAR HEMOGLOBIN 30.2 pg (27.0-31.0); MEAN CORPUSCULAR HGB CONC 32.4 g/dL (32.0-36.0); MEAN CORPUSCULAR VOLUME 93.2 fL (81.0-99.0); MEAN PLATELET VOLUME 10.7 fL (7.9-10.8); MONOCYTES # (AUTO) 0.4 10^3/uL (0.0-1.0); MONOCYTES % (AUTO) 7.5 %; NEUTROPHILS # (AUTO) 3.2 10^3/uL (1.5-6.6); NEUTROPHILS % (AUTO) 62.2 %; PLT - PLATELET COUNT 241 10^3/uL (130-450); RED BLOOD COUNT 2.81 10^6/uL (4.20-5.40); RED CELL DISTRIBUTION WIDTH 15.9 % (12.0-15.0); WHITE BLOOD COUNT 5.1 x10^3/uL (4.8-10.8)
[2019-03-25 18:38] LABS: PT - PROTHROMBIN TIME 11.4 secs (9.9-12.6)
[2019-03-25 18:40] LABS: ALBUMIN 2.3 g/dL (3.2-5.5); ALKALINE PHOSPHATASE 79 IU/L (42-121); ALT ALANINE AMINOTRANSFERASE 15 IU/L (10-60); AST ASPARTATE AMINOTRANSFERASE 24 IU/L (10-42); BILIRUBIN,TOTAL 0.6 mg/dL (0.2-1.0); BUN - BLOOD UREA NITROGEN 14 mg/dL (6-20); CALCIUM 8.2 mg/dL (8.5-10.3); CARBON DIOXIDE - CO2 21 mmol/L (21-32); CHLORIDE 100 mmol/L (101-111); CREATININE 2.1 mg/dL (0.4-1.0); GFR - MDRD 23 (>89); GLUCOSE 68 mg/dL (70-100); SODIUM 131 mmol/L (135-145); TOTAL PROTEIN 5.8 g/dL (6.7-8.2)
[2019-03-25 18:41] LABS: ALBUMIN/GLOBULIN RATIO 0.7 (1.0-2.2); LIPASE 23 U/L (22-51)
[2019-03-25] MEDS ORDERED: FUROSEMIDE 40 MG/4 ML VIAL IVP STA (19:26)
--- NOTE | 2019-03-25 19:37 | HISTORY & PHYSICAL EXAMINATION ---
Chief Complaint - Chief Complaint Chief Complaint: fall, weakness, hypoxia History of Present Illness - Admitted From Admitted From:: [facility] - History Obtained From Records Reviewed: yes History obtained from: patient - History of Present Illness HPI Comment/Other: Patient is a 78 y/o female who presented to the ED after a fall at home. She was using a walker at the time of the incident. She reports feeling dizzy prior to falling. She fell backwards, hitting her head. She did not black out. Her roommate (Hannah) called EMS. She was recently discharged from the hospital on 03/15/19. This is her 4th admission in the past 7 weeks. Since discharge she has been progressively weak and unable to carry out activities of daily living. She has been relying significantly on her roommate Hannah. She has pain in her hips from the fall. She reports swelling in her legs and arms over the past 1 week. This is more significant on the left side. She reports a reproducible sternal chest pain. She describes it as an ache and it is non-radiating. She denies dyspnea, however her oxygenation dropped to 86% on room air while attempting to ambulate in the ED. She has wheezes but is also a chronic smoker. She denies abdominal pain, nausea, vomiting, fever or chills. She was found to have a BNP of 558 and a Cr of 2.1. Her last echo was on 03/12/2019. It showed an EF of 50- 55%. Overall left ventricular function was estimated at the lower limit of normal. Left ventricle was normal size. She was presented for admission for further treatment. History - Past Medical History Cardiovascular: reports: Hypertension Respiratory: reports: Pneumonia GI: reports: GERD, GI bleed : reports: None Psych: reports: None Musculoskeletal: reports: Chronic back pain Derm: reports: None MRSA Hx?: Yes - Past Surgical History HEENT: reports: Tonsil/Adenoidectomy - Family & Social History Family History Comment/Other: FH CRC in brother in his 80s Social History Notes: She lives at home with a friend. She ambulates on her own at baseline. She continues to smoke a pack a day and has been smoking for more than 50 years. She does drink alcohol but denies daily use. 03/14/19: states stopped tobacco in 12/2018 and no alcohol for 5 yrs... - Substance History Use: Uses substance without health or social issues: Tobacco, Alcohol - POLST Patient has POLST: Yes POLST Status: DNR Meds/Allgy - Home Medications Home Medications: Ambulatory Orders Medication Instructions Recorded Confirmed Magnesium Oxide [Mag Ox] 400 mg PO DAILYWM tablet 02/09/19 03/25/19 Multivitamin W/Minerals [Theragran 1 tab PO DAILYWM tablet 02/09/19 03/25/19 M] Acetaminophen [Tylenol] 650 mg PO Q4HR PRN #30 tablet 03/15/19 03/25/19 Amlodipine Besylate 10 mg PO DAILY #30 tablet 03/15/19 03/25/19 Aspirin [Aspirin EC] 81 mg PO DAILY #30 tablet.dr 03/15/19 03/25/19 Fluconazole 200 mg PO DAILY 12 Days #12 tablet 03/15/19 03/25/19 Pantoprazole [Protonix] 40 mg PO BID #60 tablet 03/15/19 03/25/19 buPROPion HCL [Bupropion HCl Sr] 150 mg PO BID #60 tab.er.12h 03/15/19 03/25/19 - Allergies Allergies/Adverse Reactions: Allergies Allergy/AdvReac Type Severity Reaction Status Date / Time No Known Drug Allergies Allergy Verified 03/25/19 15:23 Review of Systems - Constitutional Constitutional: reports: Fatigue, Weakness. denies: Fever, Chills - Eyes Eyes: denies: Pain - Ears, Nose & Throat Ears, Nose & Throat: denies: Tinnitus, Vertigo - Cardiovascular Cariovascular: reports: Edema, Exertional dyspnea, Decr. exercise tolerance. denies: Chest pain, Lightheadedness, Syncope - Respiratory Respiratory: reports: Cough, Wheezing, SOB with exertion - Gastrointestinal Gastrointestinal: reports: Reflux/heartburn. denies: Abdominal pain, Abdominal distention, Constipation, Diarrhea, Change in bowel habits, Nausea, Vomiting, Coffee grounds emesis - Genitourinary Genitourinary: denies: Dysuria, Frequency, Urgency, Hematuria - Musculoskeletal Musculoskeletal: reports: Back pain. denies: Muscle pain - Integumentary Integumentary: denies: Rash, Pruritis, Lesions - Neurological Neurological: reports: General weakness. denies: Focal weakness, Headache - Psychiatric Psychiatric: reports: Depression. denies: Anxiety - Endocrine Endocrine: denies: Polyuria, Polydypsia - Hematologic/Lymphatic Hematologic/Lymphatic: denies: Anemia, Bruising, Petechiae Prior Level of Functionality: Patient is usually independent of activities of daily living but has been getting progressively weak/deconditioned lately. This is her 4th admission to the hospital in 7 weeks Exam - Vital Signs Vital Signs: Vital Signs x48h Temp Pulse Resp BP Pulse Ox 03/25/19 19:05 61 14 140/54 H 93 03/25/19 18:30 86 L 03/25/19 17:00 58 L 16 137/58 H 93 03/25/19 15:15 36 C L 64 27 H 159/73 H 95 - Physical Exam General Appearance: positive: Alert, Moderate distress Eyes Bilateral: positive: PERRL, EOMI ENT: positive: No signs of dehydration Neck: positive: No JVD Respiratory: positive: No respiratory distress, Wheezes. negative: Chest non- tender Cardiovascular: positive: Regular rate & rhythm Abdomen: positive: Non-tender, No organomegaly, Nml bowel sounds, No distention. negative: Guarding, Rebound Back: positive: Nml inspection Skin: positive: Color nml, No rash, Warm Extremities: positive: Non-tender, Full ROM, Nml appearance, Pedal edema (2+ on left sided) Neurologic/Psychiatric: positive: Oriented x3, Motor nml, Mood/affect nml Conclusion/Plan - Problem List (1) Acute exacerbation of congestive heart failure Conclusion/Plan: New onset Patient given lasix 40mg IV X1 in the ED Will continue lasix 20mg IV bid 2D echo in the am. Daily weights Daily weight. Cardiac diet. Qualifiers: Heart failure type: unspecified Qualified Code(s): I50.9 - Heart failure, unspecified (2) Acute on chronic kidney failure Conclusion/Plan: Likely related to CHF exacerbation Baseline Creatinine is 1.4 Patient receiving lasix IV. Anticipate improvement with diuresis Will monitor renal function (3) Hypertension Conclusion/Plan: Will resume amlodipine at home dose (4) GERD (gastroesophageal reflux disease) Conclusion/Plan: Protonix ordered (5) Generalized weakness Conclusion/Plan: Patient has been steadily getting weaker. It is becoming increasingly difficult to manage activities of daily living at home PT/OT to evaluate and treat and give recs for subsequent disposition. - Lab Results Fish Bones: 03/25/19 17:15 03/25/19 17:50 Core Measures - Anticipated LOS I expect patient to be DC'd or transferred within 96 hours.: Yes - DVT/VTE - Prophylaxis VTE/DVT Device ordered at admit?: Yes VTE/DVT Prophylaxis med ordered at admit?: Yes
[2019-03-25 21:28] LABS: BILIRUBIN,URINE NEGATIVE (NEGATIVE); GLUCOSE, URINE (UA) NEGATIVE (NEGATIVE); KETONES,URINE (UA) NEGATIVE (NEGATIVE); LEUKOCYTE ESTERASE, URINE NEGATIVE (NEGATIVE); NITRITE,URINE NEGATIVE (NEGATIVE); OCCULT BLOOD,URINE NEGATIVE (NEGATIVE); PH,URINE 5.5 PH (5.0-7.5); PROTEIN,URINE 30 mg/dL (NEGATIVE); UROBILINOGEN,URINE 0.2 (NORMAL) E.U./dL (NORMAL)
[2019-03-25 21:32] LABS: CLARITY,URINE CLEAR (CLEAR)
[2019-03-25 21:44] LABS: BACTERIA,URINE Few /HPF (None Seen); RBC,URINE 0-5 /HPF (0-5); SQUAMOUS EPITHELIAL CELL,UR MANY Squamous (<= Few)
[2019-03-25] MEDS: HEPARIN 5,000 UNIT/ML VIAL SUBQ SCH (22:07)
[2019-03-25] MEDS: HYDROcod/ACETAM 7.5 MG/325 MG TABLET PO PRN (22:07)
[2019-03-26] MEDS: SODIUM CHLORIDE FLUSH 0.9% 10 ML SYRINGE IVP SCH ×3 (01:04→16:08)
[2019-03-26 05:35] LABS: BASOPHILS % (AUTO) 0.5 %; EOSINOPHILS # (AUTO) 0.4 10^3/uL (0.0-0.7); EOSINOPHILS % (AUTO) 9.7 %; HGB - HEMOGLOBIN 8.1 g/dL (12.0-16.0); LYMPHOCYTES # (AUTO) 1.2 10^3/uL (1.5-3.5); LYMPHOCYTES % (AUTO) 31.9 %; MEAN CORPUSCULAR HGB CONC 32.3 g/dL (32.0-36.0); MEAN PLATELET VOLUME 10.7 fL (7.9-10.8); MONOCYTES # (AUTO) 0.3 10^3/uL (0.0-1.0); MONOCYTES % (AUTO) 8.9 %; NEUTROPHILS # (AUTO) 1.8 10^3/uL (1.5-6.6); NEUTROPHILS % (AUTO) 48.7 %; PLT - PLATELET COUNT 189 10^3/uL (130-450); RED CELL DISTRIBUTION WIDTH 15.9 % (12.0-15.0); WHITE BLOOD COUNT 3.7 x10^3/uL (4.8-10.8)
[2019-03-26 05:45] LABS: CALCIUM 7.9 mg/dL (8.5-10.3); CREATININE 2.3 mg/dL (0.4-1.0)
[2019-03-26] MEDS ORDERED: FUROSEMIDE 20 MG/2 ML VIAL IVP SCH ×2 (06:00→12:00)
[2019-03-26] MEDS: SODIUM CHLORIDE FLUSH 0.9% 10 ML SYRINGE IVP PRN ×2 (06:08→22:19)
[2019-03-26] MEDS: NICOTINE 14 MG PATCH TOP SCH (10:50)
[2019-03-26] MEDS: HEPARIN 5,000 UNIT/ML VIAL SUBQ SCH ×2 (10:51→20:30)
[2019-03-26] MEDS: HYDROcod/ACETAM 7.5 MG/325 MG TABLET PO PRN ×3 (10:58→20:58)
[2019-03-26] MEDS ORDERED: IPRATROPIUM/ALBUTEROL 3 ML NEB INH PRN (13:02)
[2019-03-26] MEDS ORDERED: ALBUTEROL NEB 2.5 MG/3 ML INH PRN (13:02)
--- NOTE | 2019-03-26 13:24 | PROVIDER PROGRESS NOTE ---
Subjective - Prog Note Date Prog Note Date: 03/26/19 - Subjective Pt reports feeling: Improved Subjective: pt report she feel better. she denies chest pain, shortness of breath, fever, chill. pt does not present bilateral leg edema. Pt's ECHO on today is the similar as two weeks ago. EF is at 50-55% with normal right heart pressure. Current Medications - Current Medications Current Medications: Active Medications Hydrocodone Bitart/Acetaminophen ([place] 7.5/325) 1 tab PO Q4HR PRN PRN Reason: PAIN Last Admin: 03/26/19 10:58 Dose: 1 tab Albuterol () 2.5 mg INH RTQ4H PRN PRN Reason: Wheezing Albuterol/Ipratropium (Duoneb) 3 ml INH RTQID PRN PRN Reason: Shortness of Air/Wheezing Aspirin (Ecotrin) 81 mg PO DAILY [facility] Heparin Sodium (Porcine) () 5,000 unit SUBQ BID [facility] Last Admin: 03/26/19 10:51 Dose: 5,000 unit Sodium Chloride (Normal Saline 0.9%) 1,000 mls @ 75 mls/hr IV .[id number] [facility] Stop: 03/27/19 16:39 Nicotine (Nicoderm) 1 patch TOP DAILY [facility] Last Admin: 03/26/19 10:50 Dose: 1 patch Non-Formulary Medication (Amlodipine Besylate [Amlodipine Besylate]) 10 mg PO DAILY [facility] Non-Formulary Medication (Bupropion Hcl [Bupropion Hcl Sr]) 150 mg PO BID [facility] Sodium Chloride (Normal Saline Flush 0.9%) 10 ml IVP PRN PRN PRN Reason: NEEDED PER PROVIDER ORDERS Last Admin: 03/26/19 06:08 Dose: 10 ml Sodium Chloride (Normal Saline Flush 0.9%) 10 ml IVP 0100,0900,1700 [facility] Last Admin: 03/26/19 10:51 Dose: 10 ml Objective - Vital Signs/Intake & Output Vital Signs: Vital Signs x48h Temp Pulse Resp BP Pulse Ox 03/26/19 11:13 36.7 C 69 18 154/60 H 91 L 03/26/19 08:57 36.7 C 72 18 153/61 H 91 L Intake & Output: Intake & Output 03/23/19 03/24/19 03/25/1903/20 23:59 23:59 23:59 23:59 Intake Total 216.6 180 Output Total 200 800 Balance 16.6 -620 - Objective General Appearance: positive: No acute distress, Alert. negative: Lethargic Eyes Bilateral: positive: Normal inspection, PERRL, EOMI, No lid inflammation ENT: positive: ENT inspection nml, Pharynx nml, No signs of dehydration. negative: Purulent nasal drainage Neck: positive: Nml inspection, Thyroid nml, No JVD, Trachea midline. negative: Thyromegaly, Lymphadenopathy (R), Lymphadenopathy (L), Stiff neck, Tracheal deviation Respiratory: positive: Chest non-tender, No respiratory distress. negative: Wheezes, Rales, Rhonchi Cardiovascular: positive: Regular rate & rhythm, Systolic murmur, Diastolic murmur. negative: No murmur, No gallop, Irregularly irregular, Extrasystoles, Tachycardia, Bradycardia, JVD present Peripheral Pulses: 2+ Radial (R), 2+ Radial (L), 2+ Dorsalis pedis (R), 2+ Dorsalis pedis (L) Abdomen: positive: Non-tender, No organomegaly, Nml bowel sounds, No distention. negative: Tenderness, Guarding, Rebound Back: positive: Nml inspection. negative: CVA tenderness (R), CVA tenderness (L) Skin: positive: Color nml, No rash, Warm, Dry. negative: Cyanosis, Diaphoresis, Pallor, Skin rash Extremities: positive: Non-tender, Nml appearance, No pedal edema. negative: Calf tenderness, Say's sign/cords Neurologic/Psychiatric: positive: Sensation nml, Mood/affect nml. negative: [place]a kness, Sensory loss, Facial droop, Slurred/abnml speech, Depressed mood/affect - Lab Results Fish Bones: 03/26/19 05:29 03/26/19 05:29 Other Labs: Lab Results x24hrs 03/26/19 03/26/19 03/26/19 Range/Units 06:06 05:29 05:29 WBC (4.8-10.8) x10^3/uL RBC (4.20-5.40) 10^6/uL Hgb (12.0-16.0) g/dL Hct (37.0-47.0) % MCV (81.0-99.0) fL MCH (27.0-31.0) pg MCHC (32.0-36.0) g/dL RDW (12.0-15.0) % Plt Count (130-450) 10^3/uL MPV (7.9-10.8) fL Neut # (Auto) (1.5-6.6) 10^3/uL Lymph # (Auto) (1.5-3.5) 10^3/uL [place] # (Auto) (0.0-1.0) 10^3/uL Eos # (Auto) (0.0-0.7) 10^3/uL Baso # (Auto) (0.0-0.1) 10^3/uL Absolute Nucleated RBC x10^3/uL Nucleated RBC % /100WBC PT (9.9-12.6) secs INR (0.8-1.2) Sodium (135-145) mmol/L Potassium (3.5-5.0) mmol/L Chloride (101-111) mmol/L Carbon Dioxide (21-32) mmol/L Anion Gap (6-13) BUN (6-20) mg/dL Creatinine (0.4-1.0) mg/dL Estimated GFR (MDRD) (>89) Glucose (70-100) mg/dL Calcium (8.5-10.3) mg/dL Magnesium 2.0 (1.7-2.8) mg/dL Total Bilirubin (0.2-1.0) mg/dL AST (10-42) IU/L ALT (10-60) IU/L Alkaline Phosphatase (42-121) IU/L Troponin I High Sens 21.2 H* (2.3-14.8) ng/L B-Natriuretic Peptide 459 H (5-100) pg/mL Total Protein (6.7-8.2) g/dL Albumin (3.2-5.5) g/dL Globulin (2.1-4.2) g/dL Albumin/Globulin Ratio (1.0-2.2) Lipase (22-51) U/L TSH (0.34-5.60) uIU/mL Free T4 (0.58-1.64) ng/dL Urine Color Urine Clarity (CLEAR) Urine pH (5.0-7.5) PH Ur Specific [place] (1.002-1.030) Urine Protein (NEGATIVE) mg/dL Urine Glucose (UA) (NEGATIVE) mg/dL Urine Ketones (NEGATIVE) mg/dL Urine Occult Blood (NEGATIVE) Urine Nitrite (NEGATIVE) Urine Bilirubin (NEGATIVE) Urine Urobilinogen (NORMAL) E.U./dL Ur Leukocyte Esterase (NEGATIVE) Urine RBC (0-5) /HPF Urine WBC (0-5) /HPF Ur Squamous Epith Cells (<= Few) Urine Bacteria (None Seen) /HPF Urine Culture Comments Ethyl Alcohol mg/dL 03/26/19 03/26/19 03/26/19 Range/Units 05:29 05:29 00:18 WBC 3.7 L (4.8-10.8) x10^3/uL RBC 2.70 L (4.20-5.40) 10^6/uL Hgb 8.1 L (12.0-16.0) g/dL Hct 25.1 L (37.0-47.0) % MCV 93.0 (81.0-99.0) fL MCH 30.0 (27.0-31.0) pg MCHC 32.3 (32.0-36.0) g/dL RDW 15.9 H (12.0-15.0) % Plt Count 189 (130-450) 10^3/uL MPV 10.7 (7.9-10.8) fL Neut # (Auto) 1.8 (1.5-6.6) 10^3/uL Lymph # (Auto) 1.2 L (1.5-3.5) 10^3/uL [place] # (Auto) 0.3 (0.0-1.0) 10^3/uL Eos # (Auto) 0.4 (0.0-0.7) 10^3/uL Baso # (Auto) 0.0 (0.0-0.1) 10^3/uL Absolute Nucleated RBC 0.00 x10^3/uL Nucleated RBC % 0.0 /100WBC PT (9.9-12.6) secs INR (0.8-1.2) Sodium 130 L (135-145) mmol/L Potassium 4.3 (3.5-5.0) mmol/L Chloride 98 L (101-111) mmol/L Carbon Dioxide 25 (21-32) mmol/L Anion Gap 7.0 (6-13) BUN 13 (6-20) mg/dL Creatinine 2.3 H (0.4-1.0) mg/dL Estimated GFR (MDRD) 21 L (>89) Glucose 60 L* (70-100) mg/dL Calcium 7.9 L (8.5-10.3) mg/dL Magnesium (1.7-2.8) mg/dL Total Bilirubin (0.2-1.0) mg/dL AST (10-42) IU/L ALT (10-60) IU/L Alkaline Phosphatase (42-121) IU/L Troponin I High Sens 19.1 H* (2.3-14.8) ng/L B-Natriuretic Peptide (5-100) pg/mL Total Protein (6.7-8.2) g/dL Albumin (3.2-5.5) g/dL Globulin (2.1-4.2) g/dL Albumin/Globulin Ratio (1.0-2.2) Lipase (22-51) U/L TSH (0.34-5.60) uIU/mL Free T4 (0.58-1.64) ng/dL Urine Color Urine Clarity (CLEAR) Urine pH (5.0-7.5) PH Ur Specific [place] (1.002-1.030) Urine Protein (NEGATIVE) mg/dL Urine Glucose (UA) (NEGATIVE) mg/dL Urine Ketones (NEGATIVE) mg/dL Urine Occult Blood (NEGATIVE) Urine Nitrite (NEGATIVE) Urine Bilirubin (NEGATIVE) Urine Urobilinogen (NORMAL) E.U./dL Ur Leukocyte Esterase (NEGATIVE) Urine RBC (0-5) /HPF Urine WBC (0-5) /HPF Ur Squamous Epith Cells (<= Few) Urine Bacteria (None Seen) /HPF Urine Culture Comments Ethyl Alcohol mg/dL 03/25/19 03/25/19 03/25/19 Range/Units 21:00 17:50 17:50 WBC (4.8-10.8) x10^3/uL RBC (4.20-5.40) 10^6/uL Hgb (12.0-16.0) g/dL Hct (37.0-47.0) % MCV (81.0-99.0) fL MCH (27.0-31.0) pg MCHC (32.0-36.0) g/dL RDW (12.0-15.0) % Plt Count (130-450) 10^3/uL MPV (7.9-10.8) fL Neut # (Auto) (1.5-6.6) 10^3/uL Lymph # (Auto) (1.5-3.5) 10^3/uL [place] # (Auto) (0.0-1.0) 10^3/uL Eos # (Auto) (0.0-0.7) 10^3/uL Baso # (Auto) (0.0-0.1) 10^3/uL Absolute Nucleated RBC x10^3/uL Nucleated RBC % /100WBC PT (9.9-12.6) secs INR (0.8-1.2) Sodium (135-145) mmol/L Potassium (3.5-5.0) mmol/L Chloride (101-111) mmol/L Carbon Dioxide (21-32) mmol/L Anion Gap (6-13) BUN (6-20) mg/dL Creatinine (0.4-1.0) mg/dL Estimated GFR (MDRD) (>89) Glucose (70-100) mg/dL Calcium (8.5-10.3) mg/dL Magnesium (1.7-2.8) mg/dL Total Bilirubin (0.2-1.0) mg/dL AST (10-42) IU/L ALT (10-60) IU/L Alkaline Phosphatase (42-121) IU/L Troponin I High Sens 21.2 H* (2.3-14.8) ng/L B-Natriuretic Peptide (5-100) pg/mL Total Protein (6.7-8.2) g/dL Albumin (3.2-5.5) g/dL Globulin (2.1-4.2) g/dL Albumin/Globulin Ratio (1.0-2.2) Lipase (22-51) U/L TSH (0.34-5.60) uIU/mL Free T4 0.99 (0.58-1.64) ng/dL Urine Color YELLOW Urine Clarity CLEAR (CLEAR) Urine pH 5.5 (5.0-7.5) PH Ur Specific [place] >=1.030 H (1.002-1.030) Urine Protein 30 H (NEGATIVE) mg/dL Urine Glucose (UA) NEGATIVE (NEGATIVE) mg/dL Urine Ketones NEGATIVE (NEGATIVE) mg/dL Urine Occult Blood NEGATIVE (NEGATIVE) Urine Nitrite NEGATIVE (NEGATIVE) Urine Bilirubin NEGATIVE (NEGATIVE) Urine Urobilinogen 0.2 (NORMAL) (NORMAL) E.U./dL Ur Leukocyte Esterase NEGATIVE (NEGATIVE) Urine RBC 0-5 (0-5) /HPF Urine WBC 4-5 (0-5) /HPF Ur Squamous Epith Cells MANY Squamous H (<= Few) Urine Bacteria Few (None Seen) /HPF Urine Culture Comments NOT INDICATED Ethyl Alcohol mg/dL 03/25/19 03/25/19 03/25/19 Range/Units 17:50 17:50 17:50 WBC (4.8-10.8) x10^3/uL RBC (4.20-5.40) 10^6/uL Hgb (12.0-16.0) g/dL Hct (37.0-47.0) % MCV (81.0-99.0) fL MCH (27.0-31.0) pg MCHC (32.0-36.0) g/dL RDW (12.0-15.0) % Plt Count (130-450) 10^3/uL MPV (7.9-10.8) fL Neut # (Auto) (1.5-6.6) 10^3/uL Lymph # (Auto) (1.5-3.5) 10^3/uL [place] # (Auto) (0.0-1.0) 10^3/uL Eos # (Auto) (0.0-0.7) 10^3/uL Baso # (Auto) (0.0-0.1) 10^3/uL Absolute Nucleated RBC x10^3/uL Nucleated RBC % /100WBC PT 11.4 (9.9-12.6) secs INR 1.0 (0.8-1.2) Sodium 131 L (135-145) mmol/L Potassium 4.4 (3.5-5.0) mmol/L Chloride 100 L (101-111) mmol/L Carbon Dioxide 21 (21-32) mmol/L Anion Gap 10.0 (6-13) BUN 14 (6-20) mg/dL Creatinine 2.1 H (0.4-1.0) mg/dL Estimated GFR (MDRD) 23 L (>89) Glucose 68 L (70-100) mg/dL Calcium 8.2 L (8.5-10.3) mg/dL Magnesium (1.7-2.8) mg/dL Total Bilirubin 0.6 (0.2-1.0) mg/dL AST 24 (10-42) IU/L ALT 15 (10-60) IU/L Alkaline Phosphatase 79 (42-121) IU/L Troponin I High Sens (2.3-14.8) ng/L B-Natriuretic Peptide (5-100) pg/mL Total Protein 5.8 L (6.7-8.2) g/dL Albumin 2.3 L (3.2-5.5) g/dL Globulin 3.5 (2.1-4.2) g/dL Albumin/Globulin Ratio 0.7 L (1.0-2.2) Lipase 23 (22-51) U/L TSH 8.24 H (0.34-5.60) uIU/mL Free T4 (0.58-1.64) ng/dL Urine Color Urine Clarity (CLEAR) Urine pH (5.0-7.5) PH Ur Specific [place] (1.002-1.030) Urine Protein (NEGATIVE) mg/dL Urine Glucose (UA) (NEGATIVE) mg/dL Urine Ketones (NEGATIVE) mg/dL Urine Occult Blood (NEGATIVE) Urine Nitrite (NEGATIVE) Urine Bilirubin (NEGATIVE) Urine Urobilinogen (NORMAL) E.U./dL Ur Leukocyte Esterase (NEGATIVE) Urine RBC (0-5) /HPF Urine WBC (0-5) /HPF Ur Squamous Epith Cells (<= Few) Urine Bacteria (None Seen) /HPF Urine Culture Comments Ethyl Alcohol < 5.0 mg/dL 03/25/19 03/25/19 Range/Units 17:50 17:15 WBC 5.1 (4.8-10.8) x10^3/uL RBC 2.81 L (4.20-5.40) 10^6/uL Hgb 8.5 L (12.0-16.0) g/dL Hct 26.2 L (37.0-47.0) % MCV 93.2 (81.0-99.0) fL MCH 30.2 (27.0-31.0) pg MCHC 32.4 (32.0-36.0) g/dL RDW 15.9 H (12.0-15.0) % Plt Count 241 (130-450) 10^3/uL MPV 10.7 (7.9-10.8) fL Neut # (Auto) 3.2 (1.5-6.6) 10^3/uL Lymph # (Auto) 1.1 L (1.5-3.5) 10^3/uL [place] # (Auto) 0.4 (0.0-1.0) 10^3/uL Eos # (Auto) 0.4 (0.0-0.7) 10^3/uL Baso # (Auto) 0.1 (0.0-0.1) 10^3/uL Absolute Nucleated RBC 0.00 x10^3/uL Nucleated RBC % 0.0 /100WBC PT (9.9-12.6) secs INR (0.8-1.2) Sodium (135-145) mmol/L Potassium (3.5-5.0) mmol/L Chloride (101-111) mmol/L Carbon Dioxide (21-32) mmol/L Anion Gap (6-13) BUN (6-20) mg/dL Creatinine (0.4-1.0) mg/dL Estimated GFR (MDRD) (>89) Glucose (70-100) mg/dL Calcium (8.5-10.3) mg/dL Magnesium (1.7-2.8) mg/dL Total Bilirubin (0.2-1.0) mg/dL AST (10-42) IU/L ALT (10-60) IU/L Alkaline Phosphatase (42-121) IU/L Troponin I High Sens (2.3-14.8) ng/L B-Natriuretic Peptide 558 H (5-100) pg/mL Total Protein (6.7-8.2) g/dL Albumin (3.2-5.5) g/dL Globulin (2.1-4.2) g/dL Albumin/Globulin Ratio (1.0-2.2) Lipase (22-51) U/L TSH (0.34-5.60) uIU/mL Free T4 (0.58-1.64) ng/dL Urine Color Urine Clarity (CLEAR) Urine pH (5.0-7.5) PH Ur Specific [place] (1.002-1.030) Urine Protein (NEGATIVE) mg/dL Urine Glucose (UA) (NEGATIVE) mg/dL Urine Ketones (NEGATIVE) mg/dL Urine Occult Blood (NEGATIVE) Urine Nitrite (NEGATIVE) Urine Bilirubin (NEGATIVE) Urine Urobilinogen (NORMAL) E.U./dL Ur Leukocyte Esterase (NEGATIVE) Urine RBC (0-5) /HPF Urine WBC (0-5) /HPF Ur Squamous Epith Cells (<= Few) Urine Bacteria (None Seen) /HPF Urine Culture Comments Ethyl Alcohol mg/dL ABX Reporting Has patient been on IV antibiotics over the past 48 hours?: No Sepsis Event Note (H) - Evaluation Current Stage of Sepsis: Ruled out Assessment/Plan - Problem List (1) Acute on chronic kidney failure Impression: 2/3 pt's creatinine is 2.3 increased from previous 1.4. slight worsening from the admission at 2.1 of creatinine. it is likely from her dehydration gently hydration with IVF lab monitor, hold nephrological toxical agent (2)hyponatremia 2/3 Na is 130 today. Na was 131 at the admission. it is likely from hypovolumia hyponatremia. plan: gently IVF of NS, lab monitor (3)fall pt had fall at home without loss of conscience. CT of head and spinal reveals no acute injury. pt is living with her roommate, limited social support. consult with PT/OT, will followup (4)generalized weakness Patient has been steadily getting weaker, and she had fall in the home. she is becoming increasingly difficult to manage activities of daily living at home consult with PT/OT to evaluate and treat treat underline hydration and hyponatremia (5) Hypertension Conclusion/Plan: stable, resume amlodipine at home dose (6) GERD (gastroesophageal reflux disease) Conclusion/Plan: Protonix ordered (7) current smoker pt is still cigarette smoker, pt has Nicotine patch. advise pt quit cigarette smoking (8) elevated troponin pt has hx of chronic elevated troponin. serial troponin is stable. pt denies chest pain, palpitation. EKG reveals SR without ST various.
[2019-03-26] MEDS ORDERED: SODIUM CHLORIDE 0.9% 1,000 ML IV SCH (14:00)
--- NOTE | 2019-03-26 14:15 | PHARMACY PROGRESS NOTE ---
- Best Possible Medication History Admit Date and Time: 03/25/191926 Processed by: Nursing (Paola Ralph) Medication History completed: Yes As the person ultimately responsible for medication therapy, providers are able to order a medication from an existing home medication list in [facility] via the "Reconcile Routine" prior to Confirmation of that medication by child support specialist. Such practice is discouraged except when the physician, in their clinical judgment, deems that a medical need exists for a medication without regard to previous use.
[2019-03-26] MEDS: SODIUM CHLORIDE 0.9% 1,000 ML IV SCH (14:25)
[2019-03-26] MEDS: buPROPion SR 150 MG TABLET PO SCH (20:31)
[2019-03-26] MEDS: PANTOPRAZOLE 40 MG TABLET PO SCH (21:09)
[2019-03-26] MEDS: ONDANSETRON 4 MG/2 ML VIAL IVP PRN (22:19)
[2019-03-27] MEDS: SODIUM CHLORIDE FLUSH 0.9% 10 ML SYRINGE IVP SCH ×3 (00:20→18:15)
[2019-03-27] MEDS: HYDROcod/ACETAM 7.5 MG/325 MG TABLET PO PRN ×3 (01:24→20:40)
[2019-03-27] MEDS: SODIUM CHLORIDE 0.9% 1,000 ML IV SCH (02:07)
[2019-03-27 06:24] LABS: BASOPHILS % (AUTO) 0.8 %; EOSINOPHILS # (AUTO) 0.4 10^3/uL (0.0-0.7); EOSINOPHILS % (AUTO) 11.7 %; LYMPHOCYTES # (AUTO) 1.3 10^3/uL (1.5-3.5); LYMPHOCYTES % (AUTO) 36.1 %; MEAN CORPUSCULAR HEMOGLOBIN 30.3 pg (27.0-31.0); MEAN CORPUSCULAR VOLUME 94.7 fL (81.0-99.0); MEAN PLATELET VOLUME 10.4 fL (7.9-10.8); MONOCYTES # (AUTO) 0.3 10^3/uL (0.0-1.0); MONOCYTES % (AUTO) 9.2 %; NEUTROPHILS # (AUTO) 1.5 10^3/uL (1.5-6.6); NEUTROPHILS % (AUTO) 41.9 %; PLT - PLATELET COUNT 203 10^3/uL (130-450); RED BLOOD COUNT 2.64 10^6/uL (4.20-5.40); RED CELL DISTRIBUTION WIDTH 15.9 % (12.0-15.0); WHITE BLOOD COUNT 3.6 x10^3/uL (4.8-10.8)
[2019-03-27 06:30] LABS: CALCIUM 7.7 mg/dL (8.5-10.3); CREATININE 2.1 mg/dL (0.4-1.0)
[2019-03-27] MEDS ORDERED: amLODIPine 5 MG TABLET PO SCH (09:00)
[2019-03-27] MEDS ORDERED: NON FORMULARY MED (Amlodipine Besylate [Amlodipine Besylate] 10 MG) PO SCH (09:00)
[2019-03-27] MEDS: ASPIRIN EC 81 MG TABLET PO SCH (09:22)
[2019-03-27] MEDS: PANTOPRAZOLE 40 MG TABLET PO SCH ×2 (09:22→20:40)
[2019-03-27] MEDS: polyethylene glycoL 3350 17 GM PACKET PO SCH (09:22)
[2019-03-27] MEDS: buPROPion SR 150 MG TABLET PO SCH ×2 (09:23→20:41)
[2019-03-27] MEDS: NICOTINE 14 MG PATCH TOP SCH (09:23)
[2019-03-27] MEDS: HEPARIN 5,000 UNIT/ML VIAL SUBQ SCH (09:43)
--- NOTE | 2019-03-27 16:29 | PROVIDER PROGRESS NOTE ---
Subjective - Prog Note Date Prog Note Date: 03/27/19 Prog Note Time: 16:27 - Subjective Pt reports feeling: Improved Subjective: Cara complains of tailbone pain and understands she broke her tailbone a short time ago. She does not known why her blood sugars have been low and admits to feeling hungry when food is offered. She denies chest pain, nausea, vomiting, diarrhea, a new rash, or increased shortness of breath. Current Medications - Current Medications Current Medications: Active Medications: Hydrocodone Bitart/Acetaminophen ([place] 7.5/325) 1 tab PO Q4HR PRN Albuterol 2.5 mg INH RTQ4H PRN Albuterol/Ipratropium (Duoneb) 3 ml INH RTQID PRN Aspirin (Ecotrin) 81 mg PO DAILY MIRANDA Bupropion HCl (Wellbutrin Sr) 150 mg PO BID MIRANDA Furosemide 40 mg IV BID Lovenox 40 mg SQ daily Nicotine (Nicoderm) 1 patch TOP DAILY MIRANDA Ondansetron HCl (Zofran Inj) 4 mg IVP Q6HR PRN Pantoprazole Sodium (Protonix) 40 mg PO BID MIRANDA Polyethylene Glycol (Miralax) 17 gm PO DAILY MIRANDA Objective - Vital Signs/Intake & Output Reviewed Vital Signs: Yes Vital Signs: Vital Signs x48h Temp Pulse Pulse Pulse Resp BP BP 03/27/19 15:41 36.4 C L 60 14 151/50 H 03/27/19 15:06 67 160/53 H 03/27/19 09:15 74 20 03/27/19 08:48 36.4 C L 58 L 18 147/53 H Pulse Ox 03/27/19 15:41 94 03/27/19 15:06 03/27/19 09:15 03/27/19 08:48 91 L Intake & Output: Intake & Output 03/24/19 03/25/19 03/26/19 03/27/19 23:59 23:59 23:59 23:59 Intake Total 216.6 650 2594.61 Output Total 200 2418 400 Balance 16.6 -1768 2194.61 - Objective General Appearance: positive: Alert, Moderate distress Eyes Bilateral: positive: PERRL Eyes: OU Conjunctivae pale, OU Scleral icterus ENT: positive: Pharyngeal erythema, Dry mucous membranes Neck: positive: Trachea midline, Stiff neck Respiratory: positive: Chest non-tender, No respiratory distress, Rhonchi Cardiovascular: positive: Regular rate & rhythm, No gallop, JVD present, Systolic murmur, Decreased pulse(s) Peripheral Pulses: 2+ Radial (R), 2+ Radial (L) Abdomen: positive: Non-tender, Hepatomegaly, Abnml bowel sounds, Other (soft, rounded) Back: positive: Nml inspection Skin: positive: No rash, Warm, Dry, Other (scattered bruises to BUEs, poor overall skin condition) Extremities: positive: Non-tender, Pedal edema, Joint swelling, Other (BUE pitting edema, swollen hand/knuckles, dependent edema to BLEs (non-pitting)) Neurologic/Psychiatric: positive: Oriented x3, CN's nml (2-12), Motor nml, Sensation nml, Weakness, Sensory loss, Depressed mood/affect Reflexes: Bicep (R): 3+, Bicep (L): 3+ - Lab Results Fish Bones: 03/27/19 05:54 03/27/19 05:54 Other Labs: Lab Results x24hrs 03/27/19 03/27/19 Range/Units 05:54 05:54 WBC 3.6 L (4.8-10.8) x10^3/uL RBC 2.64 L (4.20-5.40) 10^6/uL Hgb 8.0 L (12.0-16.0) g/dL Hct 25.0 L (37.0-47.0) % MCV 94.7 (81.0-99.0) fL MCH 30.3 (27.0-31.0) pg MCHC 32.0 (32.0-36.0) g/dL RDW 15.9 H (12.0-15.0) % Plt Count 203 (130-450) 10^3/uL MPV 10.4 (7.9-10.8) fL Neut # (Auto) 1.5 (1.5-6.6) 10^3/uL Lymph # (Auto) 1.3 L (1.5-3.5) 10^3/uL [place] # (Auto) 0.3 (0.0-1.0) 10^3/uL Eos # (Auto) 0.4 (0.0-0.7) 10^3/uL Baso # (Auto) 0.0 (0.0-0.1) 10^3/uL Absolute Nucleated RBC 0.00 x10^3/uL Nucleated RBC % 0.0 /100WBC Sodium 133 L (135-145) mmol/L Potassium 4.4 (3.5-5.0) mmol/L Chloride 101 (101-111) mmol/L Carbon Dioxide 24 (21-32) mmol/L Anion Gap 8.0 (6-13) BUN 14 (6-20) mg/dL Creatinine 2.1 H (0.4-1.0) mg/dL Estimated GFR (MDRD) 23 L (>89) Glucose 66 L (70-100) mg/dL Calcium 7.7 L (8.5-10.3) mg/dL ABX Reporting Has patient been on IV antibiotics over the past 48 hours?: No Assessment/Plan - Problem List (1) Acute on chronic diastolic (congestive) heart failure Impression: -Echo from 03/25/2019 shows a grade II diastolic dysfunction, LVH -Moderate aortic stenosis, profound murmur on exam -Preserved EF of 50-55% -Exam findings of pitting BUE edema, abdominal edema, dependent BLE edema -Elevated BNP on 03/26/2019 of 459 -Imaging showed both bilateral pleural effusion, and free fluid within the pelvis -SHADIA is likely due to poor cardiac perfusion, so resuming IV Lasix -Daily weights, strict I/O, and routine labs Acute kidney Injury -Baseline creatinine has been ~1.4 -Upon admission, up to 2.1, worsened to 2.3 -GFR is only 23, low serum sodium of 133 -Imaging from February showed a cortical cyst on the right kidney -This is likely a consequence of poor renal perfusion given her known aortic stenosis, diastolic dysfunction, and exam findings -Stopped IV fluids today, resumed IV Lasix -Kidney US is now ordered -Continue routine labs Hypoglycemia -Patient is NOT a diabetic -Known pancreatic calcification located on the posterior pancreatic head -Admission BS was 55, today fasting BS on labs was 60 -Patient denies waking up in a full body sweat, or sweating throughout the day -TSH also elevated of greater than 8 -Possible liver dysfunction, although LFTs have been normal -Checking AM cortisol to evaluate for adrenal insufficiency as a possible contributing factor of these low blood sugars -Consider starting low dose steroids, outpatient endocrine consult follow up Falls -Patient describes that she does not have a LOC, but rather profound weakness and as if someone is pulling her down, backwards -Patient has known lumbar spinal compression fractures -Continues with daily PT/OT who recommends rehab at a SNF -Fall precautions Moderate aortic stenosis -Echo shows moderate without measurements -A likely contributing factor of the patients recent falls/syncope -Rate control, diuretics are the treatment of choice -Fall precautions, change positions slowly Generalized weakness -Multiple, recurrent hospital admission, 3 in the past 1 month -Progressive weakness AND falls with injury -Lives alone with poor social support Hypertension -Takes Norvasc at homes -Now stopped due to SHADIA -No indication for rate control, starting IV Lasix today GERD (gastroesophageal reflux disease) -Exacerbated by sliding hiatal hernia -Home medications include PPI -Continues on Protonix Tobacco dependence -Patient notes this is life-long, greater than 1 PPD, lately patient admits to around 10 per day -COPD as a consequence -Patient states, she has attempted several times to stop -Recommend pulmonary rehab after SNF rehab -Continues on nicotine patch, decreased amount to start in the AM
[2019-03-27] MEDS: FUROSEMIDE 40 MG/4 ML VIAL IVP SCH (18:14)
[2019-03-27] MEDS: FLUCONAZOLE 100 MG TABLET PO SCH (18:14)
[2019-03-28] MEDS: SODIUM CHLORIDE FLUSH 0.9% 10 ML SYRINGE IVP SCH ×3 (00:42→17:34)
[2019-03-28 05:15] LABS: BASOPHILS % (AUTO) 0.5 %; EOSINOPHILS # (AUTO) 0.4 10^3/uL (0.0-0.7); EOSINOPHILS % (AUTO) 9.8 %; HGB - HEMOGLOBIN 7.9 g/dL (12.0-16.0); LYMPHOCYTES # (AUTO) 1.1 10^3/uL (1.5-3.5); LYMPHOCYTES % (AUTO) 29.2 %; MEAN CORPUSCULAR HEMOGLOBIN 28.3 pg (27.0-31.0); MEAN CORPUSCULAR VOLUME 91.4 fL (81.0-99.0); MEAN PLATELET VOLUME 10.2 fL (7.9-10.8); MONOCYTES # (AUTO) 0.4 10^3/uL (0.0-1.0); MONOCYTES % (AUTO) 9.5 %; NEUTROPHILS # (AUTO) 1.9 10^3/uL (1.5-6.6); NEUTROPHILS % (AUTO) 50.7 %; PLT - PLATELET COUNT 201 10^3/uL (130-450); RED BLOOD COUNT 2.79 10^6/uL (4.20-5.40); RED CELL DISTRIBUTION WIDTH 15.5 % (12.0-15.0); WHITE BLOOD COUNT 3.8 x10^3/uL (4.8-10.8)
[2019-03-28 05:26] LABS: ALBUMIN 2.2 g/dL (3.2-5.5); ALBUMIN/GLOBULIN RATIO 0.6 (1.0-2.2); BILIRUBIN,TOTAL 1.3 mg/dL (0.2-1.0); CALCIUM 8.4 mg/dL (8.5-10.3); CREATININE 2.2 mg/dL (0.4-1.0); TOTAL PROTEIN 6.1 g/dL (6.7-8.2)
--- NOTE | 2019-03-28 05:54 | Ultrasound Report ---
Reason: SHADIA, known kidney cysts, low urine output Procedure Date: 03/28/2019 Accession Number: [id number] / [id number] Procedure: US - Retroperitoneal CPT Code: Final Report FULL RESULT: EXAM: RENAL ULTRASOUND EXAM DATE: 03/28/2019 04:12 AM CLINICAL HISTORY: SHADIA, known kidney cysts, low urine output. COMPARISON: ABDOMEN/PELVIS W/ 03/11/2019 12:50 PM, RETROPERITONEAL 02/04/2019 4:13 PM. TECHNIQUE: Real-time scanning was performed with static images obtained. FINDINGS: Right Kidney: 9.1 x 4.5 x 4.4 cm. Moderate diffuse increased renal parenchymal echogenicity is noted. There is no definite hydronephrosis. A few scattered renal cysts are noted, including a dominant cyst within the lower portion of the right kidney measuring 3 cm. Left Kidney: 10.1 x 5.5 x 4.3 cm. Moderate diffuse increased parenchymal echogenicity. There is parenchymal thinning. No hydronephrosis. Tiny renal cortical cyst noted measuring up to 4 mm. Bladder: No suspicious bladder filling defect is evident on this exam. Left ureteral jet is identified. Bladder measured 337 mL prevoid, and 305 mL postvoid. Other: Bilateral pleural effusions are present. IMPRESSION: 1. Moderate to severe diffuse increased renal parenchymal echogenicity bilaterally coupled with parenchymal thinning, most consistent with chronic medical renal disease. 2. A few scattered small renal cysts are noted. 3. Bilateral pleural effusions are noted. 4. Large bladder volume residual, potentially related to outflow obstruction. RADIA
[2019-03-28] MEDS: FUROSEMIDE 40 MG/4 ML VIAL IVP SCH ×2 (05:59→14:52)
[2019-03-28 06:05] LABS: HB2 TOTAL 7.9 g/dL; HEMOGLOBIN A1C 0.1 g/dL; HEMOGLOBIN A1C % 3.3 % (4.6-6.2)
[2019-03-28] MEDS ORDERED: ENOXAPARIN 40 MG/0.4 ML SYRINGE SUBQ SCH (09:00)
[2019-03-28] MEDS: HYDROcod/ACETAM 7.5 MG/325 MG TABLET PO PRN ×2 (09:46→19:01)
[2019-03-28] MEDS: ENOXAPARIN 30 MG/0.3 ML SYRINGE SUBQ SCH (09:46)
[2019-03-28] MEDS: ONDANSETRON 4 MG/2 ML VIAL IVP PRN ×2 (09:46→17:34)
[2019-03-28] MEDS: FLUCONAZOLE 100 MG TABLET PO SCH (09:47)
[2019-03-28] MEDS: PANTOPRAZOLE 40 MG TABLET PO SCH ×2 (09:47→21:20)
[2019-03-28] MEDS: buPROPion SR 150 MG TABLET PO SCH ×2 (09:47→21:20)
[2019-03-28] MEDS: ASPIRIN EC 81 MG TABLET PO SCH (09:47)
[2019-03-28] MEDS: NICOTINE 7 MG PATCH TOP SCH (09:47)
[2019-03-28] MEDS: polyethylene glycoL 3350 17 GM PACKET PO SCH (09:48)
--- NOTE | 2019-03-28 10:13 | PROVIDER PROGRESS NOTE ---
Subjective - Prog Note Date Prog Note Date: 03/28/19 Prog Note Time: 10:13 - Subjective Pt reports feeling: Improved Subjective: Cara continues to be profoundly uncomfortable during her time in the chair due to her broken butt. She continues to deny any symptoms of hypoglycemia including diaphoresis, nausea, vomiting, confusion, dizziness, or blurred vision. She is agreeable to a Palliative care consult, and a speaker phone was used to invite her niece, Anat to attend, but timing will not allow for this hospital stay. Contact was made with Malu Booker, who will plan to see her at [facility] during her rehab stay to allow her niece to be present as her memory is not too good lately. Current Medications - Current Medications Current Medications: Active Medications: Hydrocodone Bitart/Acetaminophen ([place] 7.5/325) 1 tab PO Q4HR PRN Albuterol 2.5 mg INH RTQ4H PRN Albuterol/Ipratropium (Duoneb) 3 ml INH RTQID PRN Aspirin (Ecotrin) 81 mg PO DAILY MIRANDA Bupropion HCl (Wellbutrin Sr) 150 mg PO BID MIRANDA Lasix IV 40mg BID Lovenox 40 mg SQ daily Nicotine (Nicoderm) 1 patch TOP DAILY MIRANDA Ondansetron HCl (Zofran Inj) 4 mg IVP Q6HR PRN Pantoprazole Sodium (Protonix) 40 mg PO BID MIRANDA Polyethylene Glycol (Miralax) 17 gm PO DAILY MIRANDA Objective - Vital Signs/Intake & Output Reviewed Vital Signs: Yes Vital Signs: Vital Signs x48h Temp Pulse Resp BP Pulse Ox 03/28/19 07:33 36.5 C 60 18 163/56 H 91 L Intake & Output: Intake & Output 03/25/19 03/26/19 03/27/19 03/28/19 23:59 23:59 23:59 23:59 Intake Total 216.6 650 3224.61 340 Output Total 200 2418 900 1200 Balance 16.6 -1768 2324.61 -860 - Objective General Appearance: positive: No acute distress, Alert Eyes Bilateral: positive: PERRL, No lid inflammation Eyes: OU Conjunctivae pale, OU Scleral icterus ENT: positive: Pharyngeal erythema, Dry mucous membranes Neck: positive: No JVD, Trachea midline, Stiff neck Respiratory: positive: Chest non-tender, No respiratory distress, Other (diminished, bilaterally, occasional scattered crackles) Cardiovascular: positive: Regular rate & rhythm, JVD present (scant), Systolic murmur, Diastolic murmur, Decreased pulse(s) Peripheral Pulses: 1+ Radial (R), 1+ Radial (L) Abdomen: positive: Non-tender, Nml bowel sounds, Hepatomegaly, Other (rounded, soft) Back: positive: Nml inspection Skin: positive: No rash, Warm, Dry, Other (bronze toned, scattered bruising) Extremities: positive: Non-tender, No pedal edema, Joint swelling, Other (BUE pi tting edema, resolution of finger edema, profound abdominal edema) Neurologic/Psychiatric: positive: Oriented x3, Weakness, Sensory loss, Depressed mood/affect, Other (asterixis bilaterally hands) Reflexes: Bicep (R): 3+, Bicep (L): 3+ - Lab Results Fish Bones: 03/28/19 04:50 03/28/19 04:50 Other Labs: Lab Results x24hrs 03/28/19 03/28/19 03/28/19 Range/Units 04:50 04:50 04:50 WBC (4.8-10.8) x10^3/uL RBC (4.20-5.40) 10^6/uL Hgb (12.0-16.0) g/dL Hct (37.0-47.0) % MCV (81.0-99.0) fL MCH (27.0-31.0) pg MCHC (32.0-36.0) g/dL RDW (12.0-15.0) % Plt Count (130-450) 10^3/uL MPV (7.9-10.8) fL Neut # (Auto) (1.5-6.6) 10^3/uL Lymph # (Auto) (1.5-3.5) 10^3/uL [place] # (Auto) (0.0-1.0) 10^3/uL Eos # (Auto) (0.0-0.7) 10^3/uL Baso # (Auto) (0.0-0.1) 10^3/uL Absolute Nucleated RBC x10^3/uL Nucleated RBC % /100WBC Sodium (135-145) mmol/L Potassium (3.5-5.0) mmol/L Chloride (101-111) mmol/L Carbon Dioxide (21-32) mmol/L Anion Gap (6-13) BUN (6-20) mg/dL Creatinine (0.4-1.0) mg/dL Estimated GFR (MDRD) (>89) Glucose (70-100) mg/dL Glycated Hemoglobin 3.3 L (4.6-6.2) % Estim Average Glucose 48 L (70-100) Calcium (8.5-10.3) mg/dL Total Bilirubin (0.2-1.0) mg/dL AST (10-42) IU/L ALT (10-60) IU/L Alkaline Phosphatase (42-121) IU/L B-Natriuretic Peptide 445 H (5-100) pg/mL Total Protein (6.7-8.2) g/dL Albumin (3.2-5.5) g/dL Globulin (2.1-4.2) g/dL Albumin/Globulin Ratio (1.0-2.2) Cortisol AM Sample 7.7 ug/dL 03/28/19 03/28/19 Range/Units 04:50 04:50 WBC 3.8 L (4.8-10.8) x10^3/uL RBC 2.79 L (4.20-5.40) 10^6/uL Hgb 7.9 L (12.0-16.0) g/dL Hct 25.5 L (37.0-47.0) % MCV 91.4 (81.0-99.0) fL MCH 28.3 (27.0-31.0) pg MCHC 31.0 L (32.0-36.0) g/dL RDW 15.5 H (12.0-15.0) % Plt Count 201 (130-450) 10^3/uL MPV 10.2 (7.9-10.8) fL Neut # (Auto) 1.9 (1.5-6.6) 10^3/uL Lymph # (Auto) 1.1 L (1.5-3.5) 10^3/uL [place] # (Auto) 0.4 (0.0-1.0) 10^3/uL Eos # (Auto) 0.4 (0.0-0.7) 10^3/uL Baso # (Auto) 0.0 (0.0-0.1) 10^3/uL Absolute Nucleated RBC 0.00 x10^3/uL Nucleated RBC % 0.0 /100WBC Sodium 131 L (135-145) mmol/L Potassium 4.8 (3.5-5.0) mmol/L Chloride 96 L (101-111) mmol/L Carbon Dioxide 27 (21-32) mmol/L Anion Gap 8.0 (6-13) BUN 17 (6-20) mg/dL Creatinine 2.2 H (0.4-1.0) mg/dL Estimated GFR (MDRD) 22 L (>89) Glucose 67 L (70-100) mg/dL Glycated Hemoglobin (4.6-6.2) % Estim Average Glucose (70-100) Calcium 8.4 L (8.5-10.3) mg/dL Total Bilirubin 1.3 H (0.2-1.0) mg/dL AST 18 (10-42) IU/L ALT 11 (10-60) IU/L Alkaline Phosphatase 84 (42-121) IU/L B-Natriuretic Peptide (5-100) pg/mL Total Protein 6.1 L (6.7-8.2) g/dL Albumin 2.2 L (3.2-5.5) g/dL Globulin 3.9 (2.1-4.2) g/dL Albumin/Globulin Ratio 0.6 L (1.0-2.2) Cortisol AM Sample ug/dL ABX Reporting Has patient been on IV antibiotics over the past 48 hours?: No Sepsis Event Note (H) - Evaluation Current Stage of Sepsis: Ruled out Assessment/Plan - Problem List (1) Acute on chronic diastolic (congestive) heart failure Impression: -Echo from 03/25/2019 shows a grade II diastolic dysfunction, LVH -Moderate aortic stenosis, profound murmur on exam -Preserved EF of 50-55% -Exam findings of pitting BUE edema (improved today), abdominal edema, dependent BLE edema -sausage appearing fingers have resolved since yesterday -Elevated BNP at 445 -Weight has gone up from 67 kg on admit to 71 kg today -Imaging showed both bilateral pleural effusion, and free fluid within the pelvis -SHADIA is likely due to poor cardiac perfusion, continues on IV Lasix -Daily weights, strict I/O, and routine labs Acute kidney Injury -Baseline creatinine has been ~1.4 -Upon admission, up to 2.1, worsened to 2.2 -GFR is only 22, low serum sodium of 131 -Imaging from February showed a cortical cyst on the right kidney -This is likely a consequence of poor renal perfusion given her known aortic stenosis, diastolic dysfunction, and exam findings -Continues on IV Lasix -Kidney US shows no hydronephrosis, evidence of chronic renal disease -US also show urinary retention, urine today appears clear, light yellow noted in wall canister -Continue routine labs Hypoglycemia -Patient is NOT a diabetic -Known pancreatic calcification located on the posterior pancreatic head -Admission BS was 55, today on AM labs it was 67 -Patient denies waking up in a full body sweat, or sweating throughout the day, also no nursing reports of this -TSH also elevated of greater than 8 -Possible liver dysfunction, although LFTs have been normal -AM cortisol normal -Spoke with Dr. Herman Johnson, [facility] for a phone consult who recommends: AM labs to include; Plasma insulin, plasma pro-insulin, C peptide, Plasma beta- hydroxybutyrate, and sulfonylureas screen - ACTH stimulation test using 250 mcg IM of costotropin and timed labs to follow at 30 minutes, then 60 minutes is still pending -Encouraged to call back in the AM to discuss next steps -Will likely require outpatient endocrine consult follow up, a referral to this clinic has already been made prior to this admission Falls -Patient describes that she does not have a LOC, but rather profound weakness and as if someone is pulling her down, backwards -Patient has known lumbar spinal compression fractures -Continues with daily PT/OT who recommends rehab at a SNF -Fall precautions Moderate aortic stenosis -Echo shows moderate without measurements -A likely contributing factor of the patients recent falls/syncope -Rate control, diuretics are the treatment of choice -Fall precautions, change positions slowly Generalized weakness -Multiple, recurrent hospital admission, 3 in the past 1 month -Progressive weakness AND falls with injury -Lives alone with poor social support Hypertension -Takes Norvasc at home -Now stopped due to SHADIA -No indication for rate control, continues on IV Lasix to be changed to PO in the AM GERD (gastroesophageal reflux disease) -Exacerbated by sliding hiatal hernia, history of alcohol gastritits diagnosed via EGD -Home medications include PPI -Continues on Protonix Vitamin D deficiency -Complicated by CKD -Hypercalcemia noted in January 2019, now low serum calcium -Recent clinic notes from 03/16/2019 show an Endocrine consult which is still pending with Dr. Herman Johnson from [facility] -Spoke with Dr. Herman Johnson today regarding further work up for the new finding of; hemoglobin A1C of 3.3% -May consider starting on Vitamin D3 upon discharge, to allow for hypoglycemia etiology testing Tobacco dependence -Patient notes this is life-long, greater than 1 PPD, lately patient admits to around 10 per day -COPD as a consequence -Patient states, she has attempted several times to stop -Recommend pulmonary rehab after SNF rehab -Continues on nicotine patch, decreased amount from 14 to 7 today
[2019-03-28] MEDS ORDERED: COSYNTROPIN 0.25 MG VIAL IM ONE (14:00)
[2019-03-28] MEDS: SODIUM CHLORIDE FLUSH 0.9% 10 ML SYRINGE IVP PRN (14:53)
[2019-03-29] MEDS: SODIUM CHLORIDE FLUSH 0.9% 10 ML SYRINGE IVP SCH (00:09)
[2019-03-29 05:35] LABS: BASOPHILS % (AUTO) 0.3 %; EOSINOPHILS # (AUTO) 0.3 10^3/uL (0.0-0.7); EOSINOPHILS % (AUTO) 7.4 %; HGB - HEMOGLOBIN 7.8 g/dL (12.0-16.0); LYMPHOCYTES # (AUTO) 1.1 10^3/uL (1.5-3.5); MEAN CORPUSCULAR HGB CONC 32.4 g/dL (32.0-36.0); MEAN CORPUSCULAR VOLUME 89.6 fL (81.0-99.0); MEAN PLATELET VOLUME 10.4 fL (7.9-10.8); MONOCYTES # (AUTO) 0.4 10^3/uL (0.0-1.0); MONOCYTES % (AUTO) 10.9 %; NEUTROPHILS # (AUTO) 1.7 10^3/uL (1.5-6.6); NEUTROPHILS % (AUTO) 48.8 %; PLT - PLATELET COUNT 187 10^3/uL (130-450); RED BLOOD COUNT 2.69 10^6/uL (4.20-5.40); RED CELL DISTRIBUTION WIDTH 15.5 % (12.0-15.0); WHITE BLOOD COUNT 3.5 x10^3/uL (4.8-10.8)
[2019-03-29] MEDS: SODIUM CHLORIDE FLUSH 0.9% 10 ML SYRINGE IVP PRN (05:54)
[2019-03-29] MEDS: FUROSEMIDE 40 MG/4 ML VIAL IVP SCH (05:54)
[2019-03-29] MEDS: ENOXAPARIN 30 MG/0.3 ML SYRINGE SUBQ SCH (08:23)
[2019-03-29] MEDS: PANTOPRAZOLE 40 MG TABLET PO SCH ×2 (08:23→21:52)
[2019-03-29] MEDS: polyethylene glycoL 3350 17 GM PACKET PO SCH (08:23)
[2019-03-29] MEDS: ASPIRIN EC 81 MG TABLET PO SCH (08:23)
[2019-03-29] MEDS: buPROPion SR 150 MG TABLET PO SCH ×2 (08:23→21:52)
[2019-03-29] MEDS: NICOTINE 7 MG PATCH TOP SCH (08:24)
--- NOTE | 2019-03-29 11:29 | Discharge Plan ---
"Discharge Plan for SNF / [facility] - Discharge Plan And Transition Orders Problem Reviewed?: Yes Disposition: 03 SNF DC/Xfer Condition: Good Allergies and Adverse Reactions: Allergies Allergy/AdvReac Type Severity Reaction Status Date / Time No Known Drug Allergies Allergy Verified 03/25/19 15:23 Health Concerns: Hypoglycemia Nausea and vomiting SHADIA Fluid overload CHF Falls Weakness Aortic stenosis Plan of Treatment: -Continue rehab at [facility] to regain your strength and return home -Plan to see Malu Booker while at [facility] with Anat, your niece to join that conversation -Follow up with endocrine, [facility] regarding the ongoing work up for your low blood sugars and suspected adrenal disorder -Continue in between meal protein shakes and HS snack to maintain blood sugars, which have been normal for greater than 48 hours -Change positions slowly due to your aortic stenosis Care Goals: Treat pain caused by your lumbar compression fractures Regain strength to return home after rehab Have a goals of care conversation with Palliative care Remain free of infection Prevent hospital stays or ED visits Assessment: The patient has had 3 consecutive hospital admissions with the first time being on 02/03/2019 after she fell at [facility]. During the first hospital stay, she was found to have hypercalcemia, a 3.2 x 2.5 x 1.6 cm heavily calcified mass adjacent to the uncinated process of the pancreas, concerning for malignancy. She had chest pain, likely due to rib bruising from her fall, which has resolved. She was found to have several lumbar compression fractures that are an ongoing problem as she has severe difficulty sitting for prolonged times in a chair. She has had nausea with vomiting since the first admission. She was discharged on 02/09/2019 to [facility] for physical therapy to treat weakness. She returned to the ED on 02/22/2019 for uncontrolled pain and given Percocet. She returned to the ED on 03/06/2019 for uncontrolled nausea and vomiting and admitted for HCAP and SHADIA. A sputum sample from 03/07/2019 grew MRSA. She was sent home on 03/10/2019 with Clindamycin, but she reportedly did not get a chance to pick this up. She returned to the ED on 03/11/2019 with non- radiating chest pain, nausea and vomiting, so admitted to observation for symptom management. During this admission, she underwent an EGD for her intractable nausea with vomiting and found to have michel esophagitis, gastritis, and anemia. She completed her oral fluconazole on 03/27/2019. She was transfused with 1 unit PRBCs on 03/13/2019, but continues to have trending down H/H, so she is to continue her iron supplement if tolerated despite her ongoing nausea and vomiting. She was discharged home again on 03/15/2019. She returned to the ED on 03/25/2019 after falling at home without LOC. For this hospital stay she has had issues with hypoglycemia, without symptoms other than lethargy. I spoke with Dr. Herman Johnson with [facility] who suggested miscellaneous labs, which are still pending including; Plasma insulin, plasma pro-insulin, C peptide, Plasma beta-hydroxybutyrate, and sulfonylureas screen, ACTH stimulation test using 250 mcg IM of costotropin and timed labs to follow at 30 minutes, then 60 minutes. The hypoglycemia resolved, and the patient has had normal blood glucose for the past 48 hours. Since she continues to have poor kidney function, no diuretic therapy is being continued. Her blood pressure and heart rate have been normal without treatment with antihypertensives. She is medically stable and free to go to [facility] for ongoing PT with a Palliative care consult which should take place in the upcoming week when the patients Anat rao can attend the meeting with [facility] Mayo. - SNF / [facility] Transition Orders Admit to (Facility): [facility] Under the care of (Name): Gene Garcia/Dr. Alvarado Discharge Diagnosis: Acute on chronic systolic and diastolic heart failure, NYHA class 3 Acute on chronic kidney failure Nausea and vomiting Hypoglycemia Normocytic anemia Fall Moderate aortic stenosis Hyponatremia Generalized weakness Hypertension GERD (gastroesophageal reflux disease) Vitamin D deficiency Chronic pain Depression Dementia Tobacco dependence Medicare Certification Statement: I certify that Post Hospital alf care is medically necessary on a continuing basis for any of the conditions for which she/he is receiving care during hospitalization. Notify PCP of admission and forward orders to primary provider for signature. Weight on admission and: Weekly House Bowel Program: Yes Medication Orders: PLEASE REFER TO THE DISCHARGE MEDICATION LIST Insulin Orders?: No - Medications New Prescriptions: HYDROcodone/ACET 7.5/325 [[place] 7.5/325] 1 tab PO Q4HR PRN #25 tablet PRN Reason: Pain Ondansetron Odt [Zofran Odt] 4 mg TL Q4HR PRN #90 tablet PRN Reason: Nausea / Vomiting Ferrous Gluconate 240 mg PO DAILY #30 tablet Ipratropium/Albuterol [Duoneb] 3 ml INH RTQID PRN #90 neb PRN Reason: Shortness Of Air/Wheezing Pantoprazole [Protonix] 40 mg PO BID #60 tablet - Diet Type: Geriatric Texture: Regular Liquids: Thin Supplements: Yes, between meals protein shakes May have monthly special meal: Yes - Therapies | Activity Therapy: Evaluation | Treat if indicated: PT, OT Rehabilitation Potential: Maximize functional status, Return to independent living Activity: Activity as Tolerated Weight Bearing: Full Weight Assistance Devices: Wheelchair, Walker"
[2019-03-29 12:10] LABS: ALBUMIN 2.4 g/dL (3.2-5.5); ALBUMIN/GLOBULIN RATIO 0.7 (1.0-2.2); BILIRUBIN,TOTAL 0.6 mg/dL (0.2-1.0); CALCIUM 8.3 mg/dL (8.5-10.3); CREATININE 2.4 mg/dL (0.4-1.0); TOTAL PROTEIN 5.7 g/dL (6.7-8.2)
[2019-03-29] MEDS: HYDROcod/ACETAM 7.5 MG/325 MG TABLET PO PRN ×2 (13:46→19:23)
--- NOTE | 2019-03-29 16:03 | PROVIDER PROGRESS NOTE ---
Subjective - Prog Note Date Prog Note Date: 03/29/19 Prog Note Time: 16:00 - Subjective Pt reports feeling: Improved Subjective: Cara feels very tired today and has not been tolerating meals today with ongoing nausea and vomiting. Intermittent mildly low blood sugars, but no further clinical hypoglycemia is noted. Current Medications - Current Medications Current Medications: Active Medications Hydrocodone Bitart/Acetaminophen ([place] 7.5/325) 1 tab PO Q4HR PRN PRN Reason: PAIN Last Admin: 03/29/19 13:46 Dose: 1 tab Albuterol () 2.5 mg INH RTQ4H PRN PRN Reason: Wheezing Albuterol/Ipratropium (Duoneb) 3 ml INH RTQID PRN PRN Reason: Shortness of Air/Wheezing Last Admin: 03/27/19 09:09 Dose: 3 ml Aspirin (Ecotrin) 81 mg PO DAILY [facility] Last Admin: 03/29/19 08:23 Dose: 81 mg Bupropion HCl (Wellbutrin Sr) 150 mg PO BID [facility] Last Admin: 03/29/19 08:23 Dose: 150 mg Enoxaparin Sodium (Lovenox) 30 mg SUBQ DAILY [facility] Last Admin: 03/29/19 08:23 Dose: 30 mg Nicotine (Nicoderm) 1 patch TOP DAILY [facility] Last Admin: 03/29/19 08:24 Dose: 1 patch Pantoprazole Sodium (Protonix) 40 mg PO BID [facility] Last Admin: 03/29/19 08:23 Dose: 40 mg Polyethylene Glycol (Miralax) 17 gm PO DAILY [facility] Last Admin: 03/29/19 08:23 Dose: 17 gm Objective - Vital Signs/Intake & Output Reviewed Vital Signs: Yes Vital Signs: Vital Signs x48h Temp Pulse Pulse Resp BP Pulse Ox 03/29/19 12:00 65 20 03/29/19 09:48 36.5 C 66 16 157/55 H 90 L Intake & Output: Intake & Output 03/26/19 03/27/19 03/28/19 03/29/19 23:59 23:59 23:59 23:59 Intake Total 650 3224.61 1380 890 Output Total 2418 900 2500 1400 Balance -1768 2324.61 -1120 -510 - Objective General Appearance: positive: No acute distress, Alert, Other (slight confusion today) Eyes Bilateral: positive: No lid inflammation Eyes: OU Conjunctivae pale ENT: positive: Pharyngeal erythema, Dry mucous membranes Neck: positive: No JVD, Trachea midline Respiratory: positive: Chest non-tender, No respiratory distress, Breath sounds nml, Other (diminished in bilateral bases) Cardiovascular: positive: Regular rate & rhythm, No gallop, Systolic murmur, Decreased pulse(s) Peripheral Pulses: 1+ Radial (R), 1+ Radial (L) Abdomen: positive: Non-tender, Nml bowel sounds, Other (rounded, soft) Back: positive: Nml inspection Skin: positive: No rash, Warm, Dry, Other (bronze toned skin-generalized, lacking subcutaneous tissue, scattered brusing to BUEs, petiche to BLEs, d ependent edema to BLEs, decreased sensation) Extremities: positive: Non-tender, No pedal edema Neurologic/Psychiatric: positive: CN's nml (2-12), Disoriented to time, Weakness, Sensory loss, Depressed mood/affect (flat affect, poor short term memory) Reflexes: Bicep (R): 3+, Bicep (L): 3+ Comments/Other: Bilateral asterixis to upper extremities - Lab Results Fish Bones: 03/30/19 05:15 03/30/19 05:15 Other Labs: Lab Results x24hrs 03/29/19 03/29/19 Range/Units 11:54 05:15 WBC 3.5 L (4.8-10.8) x10^3/uL RBC 2.69 L (4.20-5.40) 10^6/uL Hgb 7.8 L (12.0-16.0) g/dL Hct 24.1 L (37.0-47.0) % MCV 89.6 (81.0-99.0) fL MCH 29.0 (27.0-31.0) pg MCHC 32.4 (32.0-36.0) g/dL RDW 15.5 H (12.0-15.0) % Plt Count 187 (130-450) 10^3/uL MPV 10.4 (7.9-10.8) fL Neut # (Auto) 1.7 (1.5-6.6) 10^3/uL Lymph # (Auto) 1.1 L (1.5-3.5) 10^3/uL [place] # (Auto) 0.4 (0.0-1.0) 10^3/uL Eos # (Auto) 0.3 (0.0-0.7) 10^3/uL Baso # (Auto) 0.0 (0.0-0.1) 10^3/uL Absolute Nucleated RBC 0.00 x10^3/uL Nucleated RBC % 0.0 /100WBC Sodium 131 L (135-145) mmol/L Potassium 4.7 (3.5-5.0) mmol/L Chloride 91 L (101-111) mmol/L Carbon Dioxide 29 (21-32) mmol/L Anion Gap 11.0 (6-13) BUN 20 (6-20) mg/dL Creatinine 2.4 H (0.4-1.0) mg/dL Estimated GFR (MDRD) 20 L (>89) Glucose 77 (70-100) mg/dL Calcium 8.3 L (8.5-10.3) mg/dL Total Bilirubin 0.6 (0.2-1.0) mg/dL AST 21 (10-42) IU/L ALT 12 (10-60) IU/L Alkaline Phosphatase 79 (42-121) IU/L Total Protein 5.7 L (6.7-8.2) g/dL Albumin 2.4 L (3.2-5.5) g/dL Globulin 3.3 (2.1-4.2) g/dL Albumin/Globulin Ratio 0.7 L (1.0-2.2) ABX Reporting Has patient been on IV antibiotics over the past 48 hours?: No Sepsis Event Note (H) - Evaluation Current Stage of Sepsis: Ruled out Assessment/Plan - Problem List (1) Acute on chronic diastolic (congestive) heart failure Impression: -Echo from 03/25/2019 shows a grade II diastolic dysfunction, LVH -Moderate aortic stenosis, profound murmur on exam -Preserved EF of 50-55% -Exam findings of pitting BUE edema (improved today), abdominal edema, dependent BLE edema -sausage appearing fingers have resolved since yesterday -Elevated BNP at 445 -Weight is 67 kg, on admit 71 kg -Imaging showed both bilateral pleural effusion, and free fluid within the pelvis -SHADIA is likely due to poor cardiac perfusion, lasix on hold today -Daily weights, strict I/O, and routine labs Acute kidney Injury -Baseline creatinine has been ~1.4 -Upon admission, up to 2.1, worsened to 2.4 -GFR is only 20, low serum sodium of 131 -Imaging from February showed a cortical cyst on the right kidney -This is likely a consequence of poor renal perfusion given her known aortic stenosis, diastolic dysfunction, and exam findings -Discontinued IV Lasix today since elevated creatinine -Kidney US shows no hydronephrosis, evidence of chronic renal disease -US also shows urinary retention, urine today appears clear, light yellow noted in wall canister -Continue routine labs Nausea and vomiting -Several episodes charted -Improved with vomiting -Occurs after meals -Complicated by hypoglycemia, which has improved today Hypoglycemia -Patient is NOT a diabetic -Known pancreatic calcification located on the posterior pancreatic head -Admission BS was 55, today on AM labs greater than 70 -Patient denies waking up in a full body sweat, or sweating throughout the day, also no nursing reports of this -TSH also elevated of greater than 8 -Possible liver dysfunction, although LFTs have been normal -AM cortisol normal -Spoke with Dr. Herman Johnson, [facility] for a phone consult who recommends: AM labs to include; Plasma insulin, plasma pro-insulin, C peptide, Plasma beta- hydroxybutyrate, and sulfonylureas screen - ACTH stimulation test using 250 mcg IM of costotropin and timed labs to follow at 30 minutes, then 60 minutes is still pending -Will likely require outpatient endocrine consult follow up, a referral to this clinic has already been made prior to this admission Normocytic anemia -Status post blood transfusion within the past 2 weeks (~ 03/13) -No anemia in January 2019 -Hemoglobin continues to trend down from 8.5 upon admission, now down to 7.7 -Known iron deficiency, resumed iron supplement -Holding iron supplement due to ongoing N/V Falls -Patient describes that she does not have a LOC, but rather profound weakness and as if someone is pulling her down, backwards -Patient has known lumbar spinal compression fractures -Continues with daily PT/OT who recommends rehab at a SNF -Fall precautions Moderate aortic stenosis -Echo shows moderate without measurements -A likely contributing factor of the patients recent falls/syncope -Rate control, diuretics are the treatment of choice -Fall precautions, change positions slowly Generalized weakness -Multiple, recurrent hospital admission, 3 in the past 1 month -Progressive weakness AND falls with injury -Lives alone with poor social support Hypertension -Takes Norvasc at home -Now stopped due to SHADIA -No indication for rate control or antihypertensives, continues to be on hold GERD (gastroesophageal reflux disease) -Exacerbated by sliding hiatal hernia, history of alcohol gastritits diagnosed via EGD -Home medications include PPI -Continues on Protonix Vitamin D deficiency -Complicated by CKD -Hypercalcemia noted in January 2019, now low serum calcium -Recent clinic notes from 03/16/2019 show an Endocrine consult which is still pending with Dr. Herman Johnson from [facility] -Spoke with Dr. Herman Johnson today regarding further work up for the new finding of; hemoglobin A1C of 3.3% -May consider starting on Vitamin D3 upon discharge, to allow for hypoglycemia etiology testing Tobacco dependence -Patient notes this is life-long, greater than 1 PPD, lately patient admits to around 10 per day -COPD as a consequence -Patient states, she has attempted several times to stop -Recommend pulmonary rehab after SNF rehab -Nicotine patch stopped
[2019-03-29] MEDS ORDERED: ONDANSETRON ODT 4 MG TABLET TL PRN (16:07)
[2019-03-30] MEDS: HYDROcod/ACETAM 7.5 MG/325 MG TABLET PO PRN ×2 (00:28→04:21)
[2019-03-30 05:36] LABS: BASOPHILS % (AUTO) 0.6 %; EOSINOPHILS # (AUTO) 0.4 10^3/uL (0.0-0.7); EOSINOPHILS % (AUTO) 11.3 %; HGB - HEMOGLOBIN 7.7 g/dL (12.0-16.0); LYMPHOCYTES # (AUTO) 1.3 10^3/uL (1.5-3.5); LYMPHOCYTES % (AUTO) 34.5 %; MEAN CORPUSCULAR HEMOGLOBIN 29.6 pg (27.0-31.0); MEAN CORPUSCULAR HGB CONC 32.4 g/dL (32.0-36.0); MEAN CORPUSCULAR VOLUME 91.5 fL (81.0-99.0); MEAN PLATELET VOLUME 10.7 fL (7.9-10.8); MONOCYTES # (AUTO) 0.5 10^3/uL (0.0-1.0); MONOCYTES % (AUTO) 12.4 %; NEUTROPHILS # (AUTO) 1.5 10^3/uL (1.5-6.6); NEUTROPHILS % (AUTO) 40.6 %; PLT - PLATELET COUNT 181 10^3/uL (130-450); RED CELL DISTRIBUTION WIDTH 15.7 % (12.0-15.0); WHITE BLOOD COUNT 3.6 x10^3/uL (4.8-10.8)
[2019-03-30 05:47] LABS: CALCIUM 8.5 mg/dL (8.5-10.3); CREATININE 2.4 mg/dL (0.4-1.0); MAGNESIUM 1.9 mg/dL (1.7-2.8)
[2019-03-30] MEDS: PANTOPRAZOLE 40 MG TABLET PO SCH (08:32)
[2019-03-30] MEDS: ASPIRIN EC 81 MG TABLET PO SCH (08:32)
[2019-03-30] MEDS: ENOXAPARIN 30 MG/0.3 ML SYRINGE SUBQ SCH (08:33)
[2019-03-30] MEDS: NICOTINE 7 MG PATCH TOP SCH (08:33)
[2019-03-30] MEDS: buPROPion SR 150 MG TABLET PO SCH (08:33)
[2019-03-30] MEDS: polyethylene glycoL 3350 17 GM PACKET PO SCH (08:43)
--- NOTE | 2019-03-30 09:24 | DISCHARGE SUMMARY ---
Discharge Summary Admit Date: 03/25/19 Discharge Date: 03/30/19 Discharging Provider: CORAZON Bucio Primary Care Provider: Gene Garcia Code Status: Do Not Attempt Resuscitation Condition at Discharge: Good Discharge Disposition: 03 SNF DC/Xfer Discharge Facility Name: [facility] Age of Gema - DIAGNOSES Admission Diagnoses: Acute exacerbation of congestive heart failure Acute on chronic kidney failure Hypertension GERD (gastroesophageal reflux disease) Generalized weakness Discharge Diagnoses with Status of Each Condition: Acute on chronic systolic and diastolic heart failure, NYHA class 3- Chronic, acute s/s resolved Acute on chronic kidney failure-Chronic, acute s/s resolved, present on a dmission Nausea and vomiting-Chronic, present on admit, continues to have symptoms Hypoglycemia-Resolved Normocytic anemia-Chronic, continue iron supplements Fall-Chronic & recurrent, no falls while at the hospital Moderate aortic stenosis-Chronic, may play a role in her recurrent falls Hyponatremia-Chronic, confusion is resolved Generalized weakness-Present on admission, recommend SNF for continued rehab Hypertension-Chronic, no longer on antihypertensives since all vital signs have been WNL GERD (gastroesophageal reflux disease)-Chronic, stable Vitamin D deficiency-Chronic, no supplement at this time, needs endocrine follow up Chronic pain-Chronic, known lumbar compression fractures, exacerbated by recurrent falls Depression-Chronic, stable, continues on Wellbutrin Dementia-Chronic & progressive, stable Tobacco dependence-Chronic, wore a nicotine patch for a few days, no interest in tobacco use at the time of discharge - HPI History of Present Illness: HPI per Dr. Fulton: Cara Green is a 78 y/o female who presented to the ED after a fall at home. She was using a walker at the time of the incident. She reports feeling dizzy prior to falling. She fell backwards, hitting her head. She did not black out. Her roommate (Hannah) called EMS. She was recently discharged from the hospital on 03/15/19. This is her 4th admission in the past 7 weeks. Since discharge she has been progressively weak and unable to carry out activities of daily living. She has been relying significantly on her roommate Hannah. She has pain in her hips from the fall. She reports swelling in her legs and arms over the past 1 week. This is more significant on the left side. She reports a reproducible sternal chest pain. She describes it as an ache and it is non- radiating. She denies dyspnea, however her oxygenation dropped to 86% on room air while attempting to ambulate in the ED. She has wheezes but is also a chronic smoker. She denies abdominal pain, nausea, vomiting, fever or chills. She was found to have a BNP of 558 and a Cr of 2.1. Her last echo was on 03/12/2019. It showed an EF of 50-55%. Overall left ventricular function was estimated at the lower limit of normal. Left ventricle was normal size. She was presented for admission for further treatment. - HOSPITAL COURSE Hospital Course: The patient has had 3 consecutive hospital admissions with the first time being on 02/03/2019 after she fell at [facility]. During the first hospital stay, she was found to have hypercalcemia, a 3.2 x 2.5 x 1.6 cm heavily calcified mass adjacent to the uncinated process of the pancreas, concerning for malignancy. She had chest pain, likely due to rib bruising from her fall, which has resolved. She was found to have several lumbar compression fractures that are an ongoing problem as she has severe difficulty sitting for prolonged times in a chair. She has had nausea with vomiting since the first admission. She was discharged on 02/09/2019 to [facility] for physical therapy to treat weakness. She returned to the ED on 02/22/2019 for uncontrolled pain and given Percocet. She returned to the ED on 03/06/2019 for uncontrolled nausea and vomiting and admitted for HCAP and SHADIA. A sputum sample from 03/07/2019 grew MRSA. She was sent home on 03/10/2019 with Clindamycin, but she reportedly did not get a chance to pick this up. She returned to the ED on 03/11/2019 with non- radiating chest pain, nausea and vomiting, so admitted to observation for symptom management. During this admission, she underwent an EGD for her intractable nausea with vomiting and found to have michel esophagitis, gastritis, and anemia. She completed her oral fluconazole on 03/27/2019. She was transfused with 1 unit PRBCs on 03/13/2019, but continues to have trending down H/H, so she is to continue her iron supplement if tolerated despite her ongoing nausea and vomiting. She was discharged home again on 03/15/2019. She returned to the ED on 03/25/2019 after falling at home without LOC. For this hospital stay she has had issues with hypoglycemia, without symptoms other than lethargy. I spoke with Dr. Herman Johnson with [facility] who suggested miscellaneous labs, which are still pending including; Plasma insulin, plasma pro-insulin, C peptide, Plasma beta-hydroxybutyrate, and sulfonylureas screen, ACTH stimulation test using 250 mcg IM of costotropin and timed labs to follow at 30 minutes, then 60 minutes. The hypoglycemia resolved, and the patient has had normal blood glucose for the past 48 hours. Since she continues to have poor kidney function, no diuretic therapy is being continued. Her blood pressure and heart rate have been normal without treatment with antihypertensives. She is medically stable and free to go to [facility] for ongoing PT with a Palliative care consult which should take place in the upcoming week when the patients Anat rao can attend the meeting with CORAZON Mayo. - ALLERGIES Allergies/Adverse Reactions: Allergies Allergy/AdvReac Type Severity Reaction Status Date / Time No Known Drug Allergies Allergy Verified 03/25/19 15:23 - MEDICATIONS Home Medications: Ambulatory Orders Medication Instructions Recorded Confirmed Multivitamin W/Minerals [Theragran 1 tab PO DAILYWM tablet 02/09/19 03/25/19 M] Acetaminophen [Tylenol] 650 mg PO Q4HR PRN #30 tablet 03/15/19 03/25/19 Pantoprazole [Protonix] 40 mg PO BID #60 tablet 03/15/19 03/25/19 Ferrous Gluconate 240 mg PO DAILY #30 tablet 03/30/19 HYDROcodone/ACET 7.5/325 [[place] 1 tab PO Q4HR PRN #25 tablet 03/30/19 7.5/325] Ipratropium/Albuterol [Duoneb] 3 ml INH RTQID PRN #90 neb 03/30/19 Magnesium Oxide [Mag Ox] 400 mg PO DAILYWM #30 tablet 03/30/19 03/25/19 Ondansetron Odt [Zofran Odt] 4 mg TL Q4HR PRN #90 tablet 03/30/19 Pantoprazole [Protonix] 40 mg PO BID #60 tablet 03/30/19 - PHYSICAL EXAM AT DISCHARGE General Appearance: positive: No acute distress, Alert Eyes Bilateral: positive: No lid inflammation ENT: positive: No signs of dehydration, Dry mucous membranes Neck: positive: No JVD, Trachea midline, Stiff neck Respiratory: positive: Chest non-tender, No respiratory distress, Other (diminished, bilaterally) Cardiovascular: positive: Regular rate & rhythm, No gallop, Systolic murmur, Decreased pulse(s) Peripheral Pulses: positive: 1+ Abdomen: positive: Non-tender, Nml bowel sounds, Other (rounded, soft) Back: positive: Nml inspection Skin: positive: No rash, Dry, Pallor, Other (scattered bruising) Extremities: positive: Non-tender, No pedal edema, Other (BUEs edema is improved) Neurologic/Psychiatric: positive: Oriented x3, CN's nml (2-12), Motor nml, Sensation nml, Sensory loss, Depressed mood/affect (flat affect, short term memory loss related to baseline dementia) Reflexes: Bicep (R): 3+, Bicep (L): 3+ - LABS Result Diagrams: 03/30/19 05:15 03/30/19 05:15 - SEPSIS Current Stage of Sepsis: Ruled out - TIME SPENT Time Spent in Discharge (Minutes): 55
[2019-03-30] MEDS ORDERED: CHOLECALCIFEROL 1,000 UNIT TABLET PO SCH (10:00)
[2019-03-30] MEDS ORDERED: FERROUS GLUCONATE 324 MG TABLET PO SCH (10:00)
[2019-03-30 13:03] VITALS: BP 152/54
== END 2019-03-30 15:00 | DRG 291 ==
LOC: EDUNIT# → ED 15:14 → MS2 19:27
PROVIDERS: ADMIT Internal Medicine; ATTEND Nurse Practitioner
DX: I13.0 Hypertensive heart and chronic kidney disease with heart failure and stage 1 through stage 4 chronic kidney disease, or unspecified chronic kidney disease (principal); I50.9 Heart failure, unspecified; I50.43 Acute on chronic combined systolic (congestive) and diastolic (congestive) heart failure; S00.03XA Contusion of scalp, initial encounter; M54.5 Low back pain; W18.39XA Other fall on same level, initial encounter; N17.9 Acute kidney failure, unspecified; D64.9 Anemia, unspecified; R79.89 Other specified abnormal findings of blood chemistry; E87.1 Hypo-osmolality and hyponatremia; B37.81 Candidal esophagitis; R25.1 Tremor, unspecified; R93.7 Abnormal findings on diagnostic imaging of other parts of musculoskeletal system; M40.209 Unspecified kyphosis, site unspecified; C25.0 Malignant neoplasm of head of pancreas; Z87.891 Personal history of nicotine dependence; Q61.01 Congenital single renal cyst; E46 Unspecified protein-calorie malnutrition; M80.08XG Age-related osteoporosis with current pathological fracture, vertebra(e), subsequent encounter for fracture with delayed healing; S32.2XXG Fracture of coccyx, subsequent encounter for fracture with delayed healing; N18.9 Chronic kidney disease, unspecified; E86.0 Dehydration; R11.2 Nausea with vomiting, unspecified; K21.9 Gastro-esophageal reflux disease without esophagitis; K44.9 Diaphragmatic hernia without obstruction or gangrene; E16.2 Hypoglycemia, unspecified; D50.9 Iron deficiency anemia, unspecified; I35.0 Nonrheumatic aortic (valve) stenosis; R09.02 Hypoxemia; G89.29 Other chronic pain; F32.9 Major depressive disorder, single episode, unspecified; F03.90 Unspecified dementia, unspecified severity, without behavioral disturbance, psychotic disturbance, mood disturbance, and anxiety; J44.9 Chronic obstructive pulmonary disease, unspecified; F17.210 Nicotine dependence, cigarettes, uncomplicated; Z66 Do not resuscitate; Z51.5 Encounter for palliative care; Z60.2 Problems related to living alone; Z86.14 Personal history of Methicillin resistant Staphylococcus aureus infection; Z87.01 Personal history of pneumonia (recurrent); Z79.899 Other long term (current) drug therapy; Z91.81 History of falling; Z87.19 Personal history of other diseases of the digestive system; Z68.25 Body mass index [BMI] 25.0-25.9, adult
CPT/HCPCS: 36415; 70450; 71045; 72131; 76770; 80048; 80053; 81001; 81599; 82533; 83036; 83690; 83735; 83880; 84439; 84443; 84484; 85025; 85610; 93005; 93306; 93971; 94640; 96360; 96361; 97116; 97161; 97165; 97530; 99284; 99285; A9270; J1650; Q0162; 80320; 87086

== ENCOUNTER 2019-04-05 08:00 | Outpatient (CLI) | payer MEDICARE, MEDICAID ==
[2019-04-05 17:43] LABS: BASOPHILS # (AUTO) 0.1 10^3/uL (0.0-0.1); BASOPHILS % (AUTO) 1.4 %; EOSINOPHILS # (AUTO) 0.3 10^3/uL (0.0-0.7); EOSINOPHILS % (AUTO) 8.9 %; HGB - HEMOGLOBIN 8.4 g/dL (12.0-16.0); MEAN CORPUSCULAR HEMOGLOBIN 29.8 pg (27.0-31.0); MEAN CORPUSCULAR HGB CONC 32.2 g/dL (32.0-36.0); MEAN CORPUSCULAR VOLUME 92.6 fL (81.0-99.0); MEAN PLATELET VOLUME 10.8 fL (7.9-10.8); MONOCYTES # (AUTO) 0.4 10^3/uL (0.0-1.0); NEUTROPHILS # (AUTO) 1.9 10^3/uL (1.5-6.6); NEUTROPHILS % (AUTO) 51.9 %; PLT - PLATELET COUNT 231 10^3/uL (130-450); RED BLOOD COUNT 2.82 10^6/uL (4.20-5.40); RED CELL DISTRIBUTION WIDTH 16.5 % (12.0-15.0); WHITE BLOOD COUNT 3.6 x10^3/uL (4.8-10.8)
[2019-04-05 18:57] LABS: CALCIUM 8.1 mg/dL (8.5-10.3); CREATININE 1.9 mg/dL (0.4-1.0)
== END 2019-04-05 23:59 | disposition home or self-care (01) ==
LOC: LAB.R 08:00
PROVIDERS: ATTEND Family Medicine
DX: I50.43 Acute on chronic combined systolic (congestive) and diastolic (congestive) heart failure (principal)
CPT/HCPCS: 80048; 85025

== ENCOUNTER 2019-04-14 00:20 | Outpatient (CLI) | payer MEDICARE, MEDICAID | END 2019-04-14 23:59 | disposition home or self-care (01) | LOC: LAB.R 00:20 | PROVIDERS: ATTEND Family Medicine | DX: R94.6 Abnormal results of thyroid function studies (principal) | CPT/HCPCS: 83880; 84443 ==

== ENCOUNTER 2019-05-03 14:47 | Outpatient (CLI) | payer MEDICARE | END 2019-05-03 14:48 | disposition critical access hospital (66) | LOC: EMS 14:47 | PROVIDERS: ATTEND Surgery | DX: M25.551 Pain in right hip (principal); R09.89 Other specified symptoms and signs involving the circulatory and respiratory systems | CPT/HCPCS: A0425; A0429 ==

== ENCOUNTER 2019-05-03 15:10 | Inpatient (IN) | payer MEDICARE, MEDICAID ==
[2019-05-03] MEDS ORDERED: oxyCODONE 5 MG TABLET PO STA (15:26)
[2019-05-03] MEDS ORDERED: IPRATROPIUM/ALBUTEROL 3 ML NEB INH STA (15:26)
--- NOTE | 2019-05-03 15:29 | ED Physician Documentation ---
PD HPI DYSPNEA - Stated complaint Stated Complaint: R HIP PX - History obtained from History obtained from: Patient (This is a very pleasant 78-year-old woman with history of COPD, congestive heart failure, MRSA pneumonia,. She is had a tough year so far with MRSA pneumonia and Kelsi gastritis and esophagitis. She needed 1 unit of blood and took some fluconazole. She is currently in a assisted, and was referred here for hip pain on the right. She says been going on for about 3 days. There is no clear injury, but it is much worse today and she cannot walk today. She is also noted to be quite hypoxemic on exam and admits to a productive cough and shortness of breath without chest pain.) Review of Systems Ten Systems: 10 systems reviewed and negative Constitutional: denies: Fever, Chills Cardiac: denies: Chest pain / pressure, Palpitations Respiratory: reports: Dyspnea, Cough PD PAST MEDICAL HISTORY - Past Medical History Cardiovascular: Hypertension Respiratory: Pneumonia GI: GERD, GI bleed : None Psych: Depression Musculoskeletal: Chronic back pain Derm: None - Past Surgical History Past Surgical History: Yes HEENT: Tonsil/Adenoidectomy - Present Medications Home Medications: Ambulatory Orders Medication Instructions Recorded Confirmed Multivitamin W/Minerals [Theragran 1 tab PO DAILYWM tablet 02/09/19 03/25/19 M] Acetaminophen [Tylenol] 650 mg PO Q4HR PRN #30 tablet 03/15/19 03/25/19 Pantoprazole [Protonix] 40 mg PO BID #60 tablet 03/15/19 03/25/19 Ferrous Gluconate 240 mg PO DAILY #30 tablet 03/30/19 HYDROcodone/ACET 7.5/325 [[place] 1 tab PO Q4HR PRN #25 tablet 03/30/19 7.5/325] Ipratropium/Albuterol [Duoneb] 3 ml INH RTQID PRN #90 neb 03/30/19 Magnesium Oxide [Mag Ox] 400 mg PO DAILYWM #30 tablet 03/30/19 03/25/19 Ondansetron Odt [Zofran Odt] 4 mg TL Q4HR PRN #90 tablet 03/30/19 Pantoprazole [Protonix] 40 mg PO BID #60 tablet 03/30/19 - Allergies Allergies/Adverse Reactions: Allergies Allergy/AdvReac Type Severity Reaction Status Date / Time No Known Drug Allergies Allergy Verified 03/25/19 15:23 - Social History Does the pt smoke?: Yes Smoking Status: Former smoker Does the pt drink ETOH?: Yes Does the pt have substance abuse?: No - Family History Family history: reports: Non contributory - Immunizations Immunizations are current?: Yes - POLST Patient has POLST: Yes POLST Status: DNR PD ED PE NORMAL - Vitals Vital signs reviewed: Yes - General General: Alert and oriented X 3, Other (Mildly labored breathing, low pulse oximetry) - HEENT HEENT: PERRL, EOMI - Neck Neck: Supple, no meningeal sign, No bony TTP - Cardiac Cardiac: Other (Regular rate and rhythm with a suggestion of a murmur, hard to hear over pulmonary noises.) - Respiratory Respiratory: Other (Very tight breath sounds, diminished throughout) - Abdomen Abdomen: Normal bowel sounds, Soft, Non tender - Derm Derm: Normal color, Warm and dry - Extremities Extremities: No edema, No calf tenderness / cord, Other (Right calf is tender but so is the right hip. She has a lot of pain with range of motion of the lower extremity. Hard to feel a pulse in her right foot, but I was able to Doppler good 1 there.) - Neuro Neuro: Alert and oriented X 3, Normal speech Results - Vitals Vitals: Vital Signs - 24 hr 05/03/19 05/03/19 05/03/19 15:12 15:30 16:00 Temperature 36 C L Heart Rate 62 76 75 Respiratory 24 22 16 Rate Blood Pressure 126/62 151/91 H 147/62 H O2 Saturation 40 L 92 97 05/03/19 16:30 Temperature Heart Rate 76 Respiratory 17 Rate Blood Pressure 144/59 H O2 Saturation 90 L Oxygen O2 Source Non-rebreather mask - EKG (time done) 1537 Rate: Rate (enter#) (nsr) Rhythm: NSR [place]: Normal Intervals: Normal GA, LBBB Compare to prior EKG: Changed from prior EKG Computer interpretation: Agree with computer - Labs Labs: Microbiology 05/03/19 16:00 Respiratory Culture - Preliminary Sputum Laboratory Tests 05/03/19 05/03/19 05/03/19 15:47 15:47 15:47 WBC 7.1 RBC 2.59 L Hgb 7.7 L Hct 24.3 L MCV 93.8 MCH 29.7 MCHC 31.7 L RDW 18.6 H Plt Count 187 MPV 10.9 H Neut # (Auto) 5.8 Lymph # (Auto) 0.6 L [place] # (Auto) 0.7 Eos # (Auto) 0.0 Baso # (Auto) 0.0 Absolute Nucleated RBC 0.05 Nucleated RBC % 0.7 PT 16.1 H INR 1.4 H VBG pH VBG pCO2 VBG pO2 VBG HCO3 VBG Total CO2 VBG O2 Saturation VBG Base Excess Sodium 134 L Potassium 6.1 H* Chloride 99 L Carbon Dioxide 22 Anion Gap 13.0 BUN 45 H Creatinine 2.9 H Estimated GFR (MDRD) 16 L Glucose 85 Lactic Acid Calcium 8.2 L Total Bilirubin 1.5 H AST 647 H ALT 261 H Alkaline Phosphatase 69 Troponin I High Sens B-Natriuretic Peptide Total Protein 6.6 L Albumin 2.9 L Globulin 3.7 Albumin/Globulin Ratio 0.8 L Lipase 298 H Influenza A (Rapid) Influenza B (Rapid) 05/03/19 05/03/19 05/03/19 15:47 15:47 15:47 WBC RBC Hgb Hct MCV MCH MCHC RDW Plt Count MPV Neut # (Auto) Lymph # (Auto) [place] # (Auto) Eos # (Auto) Baso # (Auto) Absolute Nucleated RBC Nucleated RBC % PT INR VBG pH VBG pCO2 VBG pO2 VBG HCO3 VBG Total CO2 VBG O2 Saturation VBG Base Excess Sodium Potassium Chloride Carbon Dioxide Anion Gap BUN Creatinine Estimated GFR (MDRD) Glucose Lactic Acid 2.9 H Calcium Total Bilirubin AST ALT Alkaline Phosphatase Troponin I High Sens 1074.1 H* B-Natriuretic Peptide 3794 H Total Protein Albumin Globulin Albumin/Globulin Ratio Lipase Influenza A (Rapid) Influenza B (Rapid) 05/03/19 05/03/19 15:47 16:08 WBC RBC Hgb Hct MCV MCH MCHC RDW Plt Count MPV Neut # (Auto) Lymph # (Auto) [place] # (Auto) Eos # (Auto) Baso # (Auto) Absolute Nucleated RBC Nucleated RBC % PT INR VBG pH 7.265 L VBG pCO2 54.4 H VBG pO2 50.5 H VBG HCO3 24.1 VBG Total CO2 25.8 VBG O2 Saturation 79.4 VBG Base Excess -3.0 L Sodium Potassium Chloride Carbon Dioxide Anion Gap BUN Creatinine Estimated GFR (MDRD) Glucose Lactic Acid Calcium Total Bilirubin AST ALT Alkaline Phosphatase Troponin I High Sens B-Natriuretic Peptide Total Protein Albumin Globulin Albumin/Globulin Ratio Lipase Influenza A (Rapid) Negative Influenza B (Rapid) Negative Procedures - General procedure General procedure: She was difficult for IV access, the nurses tried and failed. I personally placed a long 20-gauge IV in the right deep brachial vein after ChloraPrep using real-time ultrasound guidance which flushed and elver well. PD MEDICAL DECISION MAKING - ED course ED course: Her EKG last month was incomplete left bundle that is now complete. This is a 78-year-old woman who presents with respiratory distress in the setting of hip pain. Room air pulse oximetry was 40 which improved with a nonrebreather. Work-up demonstrates significant CHF, elevated troponin which with a new but left bundle could be a STEMI. Worsening renal dysfunction with mild hyperkalemia and significant anemia. I recommended the patient transfer to a tertiary facility that has potentially dialysis and interventional radiology and cardiology capacity which she refused. She understands that she is critically ill but does not want heroic or interventional measures and actually wanted to go home but agreed to stay here for medical management. She was started on a heparin drip, blood was readied, given some Lasix. Also aspirin. Cannot rule out PE due to her renal function but she will be anticoagulated. Spoke with Dr. Mora for admission at 4:45 PM. - Critical Care Time(min): 45 Time Includes: Direct patient care, Review records, Reassess patient, Document care, Coordinate care, Medical consult Data interpretation: Labs, Pulse ox Procedures included in critical care time: Peripheral IV Procedures excluded from critical care time: EKG Departure - Departure Disposition: 66 [facility] DC/Xfer Clinical Impression: Acute kidney injury superimposed on chronic kidney disease STEMI (ST elevation myocardial infarction) Qualifiers: Involved coronary artery: unspecified coronary artery Qualified Code(s): I21.3 - ST elevation (STEMI) myocardial infarction of unspecified site CHF (congestive heart failure) Qualifiers: Heart failure type: unspecified Heart failure chronicity: acute on chronic Qualified Code(s): I50.9 - Heart failure, unspecified Condition: Critical
[2019-05-03] MEDS ORDERED: IOVERSOL 320 100 ML VIAL IVP ONE (15:52)
[2019-05-03 15:54] LABS: BASOPHILS % (AUTO) 0.1 %; EOSINOPHILS % (AUTO) 0.1 %; HGB - HEMOGLOBIN 7.7 g/dL (12.0-16.0); LYMPHOCYTES # (AUTO) 0.6 10^3/uL (1.5-3.5); LYMPHOCYTES % (AUTO) 8.4 %; MEAN CORPUSCULAR HEMOGLOBIN 29.7 pg (27.0-31.0); MEAN CORPUSCULAR HGB CONC 31.7 g/dL (32.0-36.0); MEAN CORPUSCULAR VOLUME 93.8 fL (81.0-99.0); MEAN PLATELET VOLUME 10.9 fL (7.9-10.8); MONOCYTES # (AUTO) 0.7 10^3/uL (0.0-1.0); MONOCYTES % (AUTO) 9.3 %; NEUTROPHILS # (AUTO) 5.8 10^3/uL (1.5-6.6); NEUTROPHILS % (AUTO) 81.1 %; PLT - PLATELET COUNT 187 10^3/uL (130-450); RED BLOOD COUNT 2.59 10^6/uL (4.20-5.40); RED CELL DISTRIBUTION WIDTH 18.6 % (12.0-15.0); WHITE BLOOD COUNT 7.1 x10^3/uL (4.8-10.8)
[2019-05-03 15:59] LABS: INR 1.4 (0.8-1.2); PT - PROTHROMBIN TIME 16.1 secs (9.9-12.6)
[2019-05-03 16:23] LABS: ALBUMIN 2.9 g/dL (3.2-5.5); ALBUMIN/GLOBULIN RATIO 0.8 (1.0-2.2); BILIRUBIN,TOTAL 1.5 mg/dL (0.2-1.0); CALCIUM 8.2 mg/dL (8.5-10.3); CREATININE 2.9 mg/dL (0.4-1.0); TOTAL PROTEIN 6.6 g/dL (6.7-8.2)
[2019-05-03 16:32] LABS: VBG PCO2 54.4 mmHg (41-51); VBG PH 7.265 (7.31-7.41); VBG PO2 50.5 mmHg (25-47); VBG TOTAL CO2 25.8 mmol/L (24-29)
--- NOTE | 2019-05-03 16:32 | XRAY Report ---
Reason: dyspnea Procedure Date: 05/03/2019 Accession Number: [id number] / [id number] Procedure: XR - Chest 1 View X-Ray CPT Code: 96094 Final Report FULL RESULT: EXAM: CHEST RADIOGRAPHY EXAM DATE: 05/03/2019 04:16 PM. CLINICAL HISTORY: Dyspnea. COMPARISON: CHEST 1 VIEW 03/25/2019 4:01 PM. TECHNIQUE: 1 view. FINDINGS: Lungs/Pleura: Small bilateral pleural effusions with consolidations in the lung bases medially. Increased interstitial markings with Moy B-lines. Mediastinum: Heart is enlarged. The pulmonary vasculature is indistinct. Other: None. IMPRESSION: Cardiomegaly with pulmonary vascular congestion and bilateral pleural effusions can be seen in the setting of CHF exacerbation. Superimposed infectious process not excluded. RADIA
--- NOTE | 2019-05-03 16:33 | XRAY Report ---
Reason: hip pain Procedure Date: 05/03/2019 Accession Number: [id number] / [id number] Procedure: XR - Hip w/Pelvis 2-3V RT CPT Code: Final Report FULL RESULT: EXAM: RIGHT HIP RADIOGRAPHY EXAM DATE: 05/03/2019 04:16 PM. CLINICAL HISTORY: Hip pain. COMPARISON: None. TECHNIQUE: 2 views. FINDINGS: Bones: Normal. No fractures or bone lesion. Joints: Mild to moderate degenerative changes in the right hip joint. Mild degenerative changes in the left hip joint. Soft Tissues: Atherosclerotic disease. IMPRESSION: Mild to moderate degenerative changes in the right hip joint. RADIA
[2019-05-03] MEDS ORDERED: FUROSEMIDE 40 MG/4 ML VIAL IVP STA (16:34)
[2019-05-03] MEDS ORDERED: ASPIRIN CHEW 81 MG TABLET PO STA (16:34)
[2019-05-03] MEDS ORDERED: HEPARIN 25000UNITS/500ML (D5W) 25,000 UNIT/500 ML BAG IV STA (16:34)
[2019-05-03] MEDS ORDERED: MORPHINE 2 MG/ML CARPUJECT IVP STA (16:46)
--- NOTE | 2019-05-03 17:56 | HISTORY & PHYSICAL EXAMINATION ---
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 She was d/c to [facility] on last admission in here. Pt report her roommate called EMS because she was unable to stand on her right leg. She report she has been going on right hip pain for about 3 days. she denies injury or fall. she state she can not walk because of the pain. She denies fever, chill, chest pain. Per Triage nurse report, pt came with very pale, lips dusky with initial O2 sat 40% on room air. pt had O2 78% on placed 5 l NC, then pt had sat up to 97% sats on placed on NRB mask. In route lab in ER, pt was found to have initial troponin 1074, creatinine 2.9, k 6.1, AST 647, ALT 261, BNP 3794, HGB 7.7. EKG reveals a new but left bundle. ER provider recommended the patient transfer to a tertiary facility that has potentially dialysis and interventional radiology and cardiology capacity but pt refused. She understood that she was critically ill but did not want heroic or interventional measures. I also discussed with for possibility transfer. Pt state" the ball is the ball, I do not want to be transferred." I called Anat Lopez, pt's Niece, at [facility], no one picked the phone, I left message to her. Discussed with pt about the care goal, pt would like to have DNR/DNI. pt is admitted in medical unit for further medical management. History - Past Medical History Cardiovascular: reports: Hypertension Respiratory: reports: Pneumonia GI: reports: GERD, GI bleed : reports: None Psych: reports: Depression Musculoskeletal: reports: Chronic back pain Derm: reports: None MRSA Hx?: Yes - Past Surgical History HEENT: reports: Tonsil/Adenoidectomy - Family & Social History Family History Comment/Other: FH CRC in brother in his 80s Social History Notes: She lives at home with a friend. She ambulates on her own at baseline. She continues to smoke a pack a day and has been smoking for more than 50 years. She does drink alcohol but denies daily use. 03/14/19: states stopped tobacco in 12/2018 and no alcohol for 5 yrs... - Substance History Use: Uses substance without health or social issues: Tobacco, Alcohol - POLST Patient has POLST: Yes POLST Status: DNR Meds/Allgy - Home Medications Home Medications: Ambulatory Orders Medication Instructions Recorded Confirmed Multivitamin W/Minerals [Theragran 1 tab PO DAILYWM tablet 02/09/19 03/25/19 M] Acetaminophen [Tylenol] 650 mg PO Q4HR PRN #30 tablet 03/15/19 03/25/19 Ferrous Gluconate 240 mg PO DAILY #30 tablet 03/30/19 HYDROcodone/ACET 7.5/325 [[place] 1 tab PO Q4HR PRN #25 tablet 03/30/19 7.5/325] Ipratropium/Albuterol [Duoneb] 3 ml INH RTQID PRN #90 neb 03/30/19 Magnesium Oxide [Mag Ox] 400 mg PO DAILYWM #30 tablet 03/30/19 03/25/19 Ondansetron Odt [Zofran Odt] 4 mg TL Q4HR PRN #90 tablet 03/30/19 Pantoprazole [Protonix] 40 mg PO BID #60 tablet 03/30/19 - Allergies Allergies/Adverse Reactions: Allergies Allergy/AdvReac Type Severity Reaction Status Date / Time No Known Drug Allergies Allergy Verified 03/25/19 15:23 Review of Systems - Constitutional Constitutional: reports: Fatigue, Weakness, Poor appetite. denies: Fever, Chills, Malaise, Diaphoresis, Night sweats - Eyes Eyes: denies: Pain, Blurred vision, Field loss, Vision loss, Dipolpia - Ears, Nose & Throat Ears, Nose & Throat: denies: Ear pain, Hearing loss, Hearing aids, Nosebleeds, Nasal congestion - Cardiovascular Cariovascular: reports: Exertional dyspnea, Decr. exercise tolerance. denies: Irregular heart rate, Palpitations, Chest pain, Lightheadedness, Syncope - Respiratory Respiratory: reports: SOB at rest, SOB with exertion. denies: Cough, Sputum production, Wheezing, Hemoptysis - Gastrointestinal Gastrointestinal: denies: Abdominal pain, Abdominal distention, Diarrhea, Rectal bleeding, Black stools, Bloody stools, Nausea, Vomiting - Genitourinary Genitourinary: denies: Dysuria, Frequency, Hematuria - Musculoskeletal Musculoskeletal: reports: Muscle pain, Limited range of motion, Muscle weakness. denies: Back pain, Muscle aches - Integumentary Integumentary: denies: Rash, Pruritis, Lesions, Lumps - Neurological Neurological: reports: General weakness. denies: Focal weakness, Headache, Numbness, Pre-existing deficit, Seizures, Incoordination, Slurred speech - Psychiatric Psychiatric: denies: Depression, Anxiety, Suicidal, Delusions, Hallucinations, Homicidal - Endocrine Endocrine: denies: Polyuria, Polydypsia, Polyphagia - Hematologic/Lymphatic Hematologic/Lymphatic: reports: Anemia. denies: Bruising Exam - Vital Signs Reviewed Vital Signs: Yes Vital Signs: Vital Signs x48h Temp Pulse Resp BP Pulse Ox 05/03/19 16:30 76 17 144/59 H 90 L 05/03/19 16:00 75 16 147/62 H 97 05/03/19 15:30 76 22 151/91 H 92 05/03/19 15:12 36 C L 62 24 126/62 40 L - Physical Exam General Appearance: positive: Alert, Mild distress. negative: Lethargic Eyes Bilateral: positive: Normal inspection, PERRL, No lid inflammation ENT: positive: ENT inspection nml, No signs of dehydration. negative: Purulent nasal drainage Neck: positive: Nml inspection, Thyroid nml, No JVD, Trachea midline. negative: Thyromegaly, Lymphadenopathy (R), Lymphadenopathy (L), Stiff neck, Tracheal dev iation Respiratory: positive: Chest non-tender, Wheezes, Rhonchi. negative: No respiratory distress Cardiovascular: positive: Irregularly irregular, Systolic murmur. negative: Tachycardia, Bradycardia Peripheral Pulses: positive: 2+ Abdomen: positive: Non-tender, No organomegaly, Nml bowel sounds, No distention. negative: Tenderness, Guarding, Rebound Back: positive: Nml inspection Skin: positive: Color nml, No rash, Warm, Dry. negative: Cyanosis, Diaphoresis, Pallor Extremities: positive: Non-tender. negative: Calf tenderness, Say's sign/cords Neurologic/Psychiatric: positive: Oriented x3, Sensation nml, Mood/affect nml. negative: Weakness, Sensory loss, Facial droop, Slurred/abnml speech, Depressed mood/affect Conclusion/Plan - Problem List (1) STEMI (ST elevation myocardial infarction) Conclusion/Plan: Troponin over 1000, new LLLB, indicate STEMI/NSTEMI ER start on Heparin drip, continue tele monitor continue serial troponin nitro past Qualifiers: Involved coronary artery: unspecified coronary artery Qualified Code(s): I21.3 - ST elevation (STEMI) myocardial infarction of unspecified site (2) Respiratory failure with hypoxia Conclusion/Plan: pt required 14 liter of O2 at nonbreath-Mask. CXR reveals pulmonary congestion but excluded infection ER order Covid 19 ER give pt IV of Lasix, will adjust pt has hx of COPD, order albuterol, Duoneb PRN start on Cefepime adjusted with renal function. supplement O2 as needed (3) Acute exacerbation of congestive heart failure Conclusion/Plan: BNP is over 3700, CXR reveals pulmonary congestion. order new ECHO ER start on lasix, will adjust lasix according to renal function lab and tele, vital monitor Qualifiers: Heart failure type: unspecified Qualified Code(s): I50.9 - Heart failure, unspecified (4) Acute on chronic kidney failure Conclusion/Plan: creatinine is 2.9, from acute on chronic CKD, likely from worsening CHF and acute AZ keep hydration, lab monitor, hold nephrotic intoxic agent (5) Hyperkalemia Conclusion/Plan: k is 6.1. give pt calcium gluconate, regular insulin 10 unit with 250 mg D10 lab monitor, and tele monitor (6) Abnormal liver enzymes Conclusion/Plan: pt has elevated liver enzyme AST,ALT and total bili, likely congestive heart failure and acute AZ treat and manage [place] and acute congestive heart failure continue lab monitor, hold hepatic toxical agents (7) Anemia Conclusion/Plan: HGB 7.7, ER order one unit of blood, continue lab monitor. pt has hx of chronic anemia - Lab Results Fish Bones: 05/04/19 05:10 05/04/19 05:10 Core Measures - Anticipated LOS I expect patient to be DC'd or transferred within 96 hours.: Yes - DVT/VTE - Prophylaxis VTE/DVT Device ordered at admit?: Yes VTE/DVT Prophylaxis med ordered at admit?: Yes
[2019-05-03] MEDS ORDERED: ALBUTEROL NEB 2.5 MG/3 ML INH PRN (17:59)
[2019-05-03] MEDS ORDERED: INSULIN REGULAR HUMAN 300 UNIT/3 ML VIAL SUBQ ONE (18:15)
[2019-05-03] MEDS ORDERED: CALCIUM GLUCONATE 1,000 MG in SODIUM CHLORIDE 0.9% 50 ML IV ONE (19:00)
[2019-05-03] MEDS: NITROGLYCERIN 2% PASTE TOP SCH (19:28)
[2019-05-03] MEDS: HEPARIN 25000UNITS/500ML (D5W) 25,000 UNIT/500 ML BAG IV SCH (19:34)
[2019-05-03] MEDS: CEFEPIME 1 GM in SODIUM CHLORIDE 0.9% MINIBAG 100 ML IV SCH (20:07)
[2019-05-03] MEDS: DEXTROSE 10% 250 ML IV ONE (20:08)
[2019-05-03] MEDS: FAMOTIDINE 20 MG TABLET PO SCH (21:35)
[2019-05-04] MEDS ORDERED: FUROSEMIDE 20 MG/2 ML VIAL IVP STA ×2 (01:24→06:38)
[2019-05-04] MEDS ORDERED: DEXTROSE 10% 250 ML IV STA ×2 (01:35→06:37)
[2019-05-04] MEDS ORDERED: DEXTROSE 10% 250 ML IV ONE ×2 (01:36→05:47)
[2019-05-04] MEDS: DEXTROSE 10% 250 ML IV ONE (01:40)
[2019-05-04] MEDS ORDERED: DEXTROSE 50% ABBOJECT 25 GM/50 ML SYRINGE ONE (01:41)
[2019-05-04] MEDS ORDERED: DEXTROSE 5% 0 ML IV ONE (01:43)
[2019-05-04] MEDS: NITROGLYCERIN 2% PASTE TOP SCH ×3 (01:52→18:10)
[2019-05-04] MEDS: SODIUM CHLORIDE FLUSH 0.9% 10 ML SYRINGE IVP SCH ×3 (01:55→17:36)
[2019-05-04 06:00] LABS: BASOPHILS % (AUTO) 0.1 %; EOSINOPHILS # (AUTO) 0.1 10^3/uL (0.0-0.7); EOSINOPHILS % (AUTO) 1.9 %; LYMPHOCYTES # (AUTO) 0.7 10^3/uL (1.5-3.5); LYMPHOCYTES % (AUTO) 10.9 %; MEAN CORPUSCULAR HEMOGLOBIN 28.6 pg (27.0-31.0); MEAN CORPUSCULAR HGB CONC 31.1 g/dL (32.0-36.0); MEAN CORPUSCULAR VOLUME 91.8 fL (81.0-99.0); MEAN PLATELET VOLUME 10.6 fL (7.9-10.8); MONOCYTES # (AUTO) 0.5 10^3/uL (0.0-1.0); MONOCYTES % (AUTO) 7.8 %; NEUTROPHILS # (AUTO) 5.3 10^3/uL (1.5-6.6); NEUTROPHILS % (AUTO) 78.3 %; PLT - PLATELET COUNT 165 10^3/uL (130-450); RED CELL DISTRIBUTION WIDTH 17.8 % (12.0-15.0); WHITE BLOOD COUNT 6.8 x10^3/uL (4.8-10.8)
[2019-05-04 06:27] LABS: ALBUMIN 2.7 g/dL (3.2-5.5); ALBUMIN/GLOBULIN RATIO 0.8 (1.0-2.2); BILIRUBIN,TOTAL 1.2 mg/dL (0.2-1.0); CALCIUM 7.7 mg/dL (8.5-10.3); CREATININE 3.1 mg/dL (0.4-1.0); TOTAL PROTEIN 6.1 g/dL (6.7-8.2)
[2019-05-04] MEDS ORDERED: DEXTROSE GEL 37.5 GM TUBE ONE (06:27)
[2019-05-04] MEDS ORDERED: DEXTROSE GEL 37.5 GM TUBE PO ONE (06:29)
[2019-05-04] MEDS: IPRATROPIUM/ALBUTEROL 3 ML NEB INH PRN (06:54)
[2019-05-04] MEDS: SODIUM CHLORIDE FLUSH 0.9% 10 ML SYRINGE IVP PRN (07:20)
[2019-05-04] MEDS ORDERED: DEXTROSE 10% 250 ML IV SCH (07:55)
--- NOTE | 2019-05-04 08:46 | CONSULTATION NOTE ---
Consultation Report: Call to place IV d/t inadequate access. Pt easily arousable, cooperative for 20ga IV placed at R AC attempt x1 w/ultrasound. Easily aspirates and flushes with cap. Secured, dressed. Pt tolerated procedure without complication.
[2019-05-04] MEDS: ASPIRIN EC 325 MG TABLET PO SCH (09:45)
[2019-05-04] MEDS: FUROSEMIDE 40 MG/4 ML VIAL IVP SCH ×2 (10:01→15:32)
[2019-05-04 10:15] LABS: HGB - HEMOGLOBIN 8.6 g/dL (12.0-16.0); MEAN CORPUSCULAR HEMOGLOBIN 30.2 pg (27.0-31.0); MEAN CORPUSCULAR HGB CONC 33.6 g/dL (32.0-36.0); MEAN CORPUSCULAR VOLUME 89.8 fL (81.0-99.0); MEAN PLATELET VOLUME 11.2 fL (7.9-10.8); RED BLOOD COUNT 2.85 10^6/uL (4.20-5.40); RED CELL DISTRIBUTION WIDTH 17.6 % (12.0-15.0); WHITE BLOOD COUNT 7.4 x10^3/uL (4.8-10.8)
--- NOTE | 2019-05-04 10:38 | PROVIDER PROGRESS NOTE ---
Assessment/Plan - Problem List (1) Respiratory failure with hypoxia Assessment/Plan: Multi-factorial: from CHF and possible infiltrate Continue to treat CHF and infection Continue supplemental oxygen; the 14L has decreased to 7-11 L of supplemental O2. (2) STEMI (ST elevation myocardial infarction) Qualifiers: Involved coronary artery: unspecified coronary artery Qualified Code(s): I21.3 - ST elevation (STEMI) myocardial infarction of unspecified site Assessment/Plan: Her EKG showed a new LBBB at admission yesterday and her troponin-hs has peaked at >2000. She wanted no intervention, no transfer to another hospital, wanted just medical management. Will plan 48 hours of Heparin drip then stop, daily ASA, B-bocker and statin. Her next-of-kin, the niece, Anat called today and I updated her on the patient's serious condition. (3) Acute systolic heart failure Assessment/Plan: The Echo done today showed a new depressed LVEF of 30% with Grade 2 dfiastolic dysfunction. Just 1 mo ago it was 55% with Grade 2 diastolic dysfunction. Continue B-mason. Continue iv bid Lasix. Use a Davis for accurate I's and O's. Will use JESS and Spironolactone, if creat improves. Follow BNP and BMP daily. 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 (5) HCAP (healthcare-associated pneumonia) Assessment/Plan: Bilateral infiltrates are possibly present under the pulminary fluid, therefore empiric iv Cefepime was started. Also, she may have been in a facility with COVID present; is on respiratory isolation, and a COVID swab was sent and result still pending. (6) Acute kidney injury superimposed on chronic kidney disease Assessment/Plan: Her creat is likely worsened from cardiorenal syndrome and elevated venous pressure in the kidneys. If she gets oloiguric and worsening LFTs and hepato-renal syndrome, her prognosis will be very poor. Will use high dose iv bid Lasix for needed diuresis. She was told in ER that she needs a hospital with nephrology specialty for medical management, but refused transfer and understood that she may not survive and wished to stay here for medical management. Her next-of-kin, the niece, Anat called today and I updated her on the patient's serious condition. Follow BMP daily. (7) Hyperkalemia Assessment/Plan: Related to her SHADIA, for which she needed Insulin and glucose. May need Kayexelate. Follow serum K q12h (8) Hypoglycemia Assessment/Plan: This is related to the Insulin dosed for treating hyperkalemia, without alot of D5 given by iv, due to iv problem. Also, she has had times of hypoglycemia on past admissions. A second large bore iv was requested of Anesthesia dept. and will use continuous D5 infusion. (9) Elevated LFTs Assessment/Plan: Likely from hepatic passive congestion with this presentation. If she gets oloiguric and worsening LFTs and hepato-renal syndrome, prognosis is very poor. Continue iv bid Lasix. Follow CMP and ammonia daily. (10) Hyponatremia Assessment/Plan: She has hypervolemic hyponatremia, from free water excess in this fluid overloa ded state. hemofiltration with a dialysis machine and Assessment Rn managing would be optimal, but she wanted no transfer to a different facility. (11) Anemia Assessment/Plan: She received 1U PRBCs as she presented to the ER yesterday due to symptomatic anemia. Follow CBC daily. (12) Dementia Assessment/Plan: She had some noticeable memory problems even during her last admissions. (13) Hypertension Assessment/Plan: BP stable with current meds and management. (14) History of COPD Assessment/Plan: Prn nebs oredered. Since there is no significant wheezing, iv steroids were not ordered since NJ healing is worsened on steroids. (15) Weakness Assessment/Plan: This may be due to acute NJ, uremia or possible rising ammonia (liver dysfunction). Her prognosis is poor. No OOB or PT ordered during this acute phase of NJ and since she is requiring high supplemental oxygen needs. - Current Meds Current Meds: Current Medications Generic Name Dose Route Start Last Admin Trade Name Freq PRN Reason Stop Dose Admin Albuterol/Ipratropium 3 ml 05/03/19 17:59 05/04/19 06:54 Duoneb INH 3 ml RTQID PRN Administration Shortness of Air/Wheezing Famotidine 10 mg 05/03/19 21:00 05/03/19 21:35 Pepcid PO 10 mg BID MIRANDA Administration Furosemide 80 mg 05/04/19 08:30 05/04/19 10:01 Lasix Inj 40 Mg Vial IVP 80 mg BIDDIURETIC MIRANDA Administration Cefepime HCl 1 gm/ Sodium 100 mls @ 200 mls/hr 05/03/19 18:04 05/03/19 20:40 Chloride IV Infused BID MIRANDA Infusion Heparin Sodium/Dextrose 25,000 unit in 500 mls @ 15.241 mls/hr 05/03/19 19:00 05/03/19 19:34 IV Not Given .[id number] MIRANDA Protocol 12 UNIT/KG/HR Nitroglycerin 1 inch 05/03/19 18:00 05/04/19 01:52 Nitro-Bid (Pkt) TOP 1 inch Q8H MIRANDA Administration Sodium Chloride 10 ml 05/03/19 17:22 05/04/19 07:20 Normal Saline Flush 0.9% IVP 10 ml PRN PRN Administration NEEDED PER PROVIDER ORDERS Sodium Chloride 10 ml 05/04/19 01:00 05/04/19 01:55 Normal Saline Flush 0.9% IVP 30 ml 0100,0900,1700 MIRANDA Administration - Lab Result Fish Bone Diagrams: 05/04/19 10:00 05/04/19 17:23 - Additional Planning My Orders: My Active Orders 05/04/19 08:30 FUROSEMIDE INJ 40mg VIAL [LASIX INJ 40 mg VIAL] 80 mg IVP BIDDIURETIC 05/04/19 09:00 Aspirin EC [Ecotrin] 325 mg PO DAILY 05/04/19 09:12 Notify Provider - Specific Ins [RC] PRN 05/04/19 10:35 Davis Continuation and Care [RC] QSHIFT Davis Insertion [RC] QSHIFT 05/04/19 21:00 Atorvastatin [Lipitor] 40 mg PO QPM 05/05/19 09:00 CBC W/O DIFF (HEMOGRAM) [HEME] DAILY 05/06/19 05:00 FACTOR XA [COAG] DAILYLAB Subjective - Subjective Patient Reports: Other (Somnolent, in no respiratory distress on a ventimask) Objective Vital Signs: Vital Signs - 24 hr 05/03/19 05/03/19 05/03/19 15:12 15:30 16:00 Temperature 36 C L Heart Rate 62 76 75 Heart Rate [ Brachial] Respiratory 24 22 16 Rate Blood Pressure 126/62 151/91 H 147/62 H Blood Pressure [Right Brachial artery] O2 Saturation 40 L 92 97 05/03/19 05/03/19 05/03/19 16:30 18:00 18:21 Temperature 36.0 C L Heart Rate 76 80 Heart Rate [ 77 Brachial] Respiratory 17 16 16 Rate Blood Pressure 144/59 H 142/100 H Blood Pressure 133/72 H [Right Brachial artery] O2 Saturation 90 L 96 93 05/03/19 05/03/19 05/03/19 21:12 21:44 21:49 Temperature 36.5 C 36.3 C L 36.4 C L Heart Rate 73 70 Heart Rate [ 77 Brachial] Respiratory 14 14 14 Rate Blood Pressure 131/69 H 135/69 H Blood Pressure 144/62 H [Right Brachial artery] O2 Saturation 92 05/03/19 05/04/19 05/04/19 21:57 00:34 01:35 Temperature 36.4 C L 36.7 C 36.4 C L Heart Rate 71 Heart Rate [ 69 Brachial] Respiratory 15 18 10 L Rate Blood Pressure 139/60 H Blood Pressure 130/71 121/59 L [Right Brachial artery] O2 Saturation 96 94 05/04/19 05/04/19 05/04/19 02:20 02:39 06:09 Temperature 36.3 C L Heart Rate Heart Rate [ 72 Brachial] Respiratory 16 Rate Blood Pressure Blood Pressure 151/64 H [Right Brachial artery] O2 Saturation 89 L 94 92 05/04/19 05/04/19 05/04/19 06:30 06:46 06:55 Temperature Heart Rate 76 Heart Rate [ Brachial] Respiratory 22 Rate Blood Pressure Blood Pressure [Right Brachial artery] O2 Saturation 77 L 91 L 05/04/19 07:02 Temperature 36.3 C L Heart Rate 76 Heart Rate [ Brachial] Respiratory 22 Rate Blood Pressure Blood Pressure [Right Brachial artery] O2 Saturation 92 Oxygen O2 Source Oxymask I&O (Last 24 Hrs): Intake and Output Totals x24h 05/02/19 05/03/19 05/04/19 23:59 23:59 23:59 Intake Total 560.667 479.75 Output Total 0 Balance 560.667 479.75 General: Other (Somnolent) HEENT: Other (Venti mask on, eyes closed, temporal wasting noted and sunken ey es) Neck: Supple Neuro: Other (Obtunded, awakens) Cardiovascular: Regular rate Respiratory: Other (Distant breath sounds) Abdomen: Soft Extremities: No edema - Results Results: Laboratory Results WBC 7.4 x10^3/uL (4.8-10.8) 05/04/19 10:00 RBC 2.85 10^6/uL (4.20-5.40) L 05/04/19 10:00 Hgb 8.6 g/dL (12.0-16.0) L 05/04/19 10:00 Hct 25.6 % (37.0-47.0) L 05/04/19 10:00 MCV 89.8 fL (81.0-99.0) 05/04/19 10:00 MCH 30.2 pg (27.0-31.0) 05/04/19 10:00 MCHC 33.6 g/dL (32.0-36.0) 05/04/19 10:00 RDW 17.6 % (12.0-15.0) H 05/04/19 10:00 Plt Count 155 10^3/uL (130-450) 05/04/19 10:00 MPV 11.2 fL (7.9-10.8) H 05/04/19 10:00 Neut # (Auto) 5.3 10^3/uL (1.5-6.6) 05/04/19 05:10 Lymph # (Auto) 0.7 10^3/uL (1.5-3.5) L 05/04/19 05:10 [place] # (Auto) 0.5 10^3/uL (0.0-1.0) 05/04/19 05:10 Eos # (Auto) 0.1 10^3/uL (0.0-0.7) 05/04/19 05:10 Baso # (Auto) 0.0 10^3/uL (0.0-0.1) 05/04/19 05:10 Absolute Nucleated RBC 0.12 x10^3/uL 05/04/19 05:10 Nucleated RBC % 1.8 /100WBC 05/04/19 05:10 PT 16.1 secs (9.9-12.6) H 05/03/19 15:47 INR 1.4 (0.8-1.2) H 05/03/19 15:47 Anti-Xa Level 0.5 U/mL (-0.7) 05/04/19 05:10 VBG pH 7.265 (7.31-7.41) L 05/03/19 15:47 VBG pCO2 54.4 mmHg (41-51) H 05/03/19 15:47 VBG pO2 50.5 mmHg (25-47) H 05/03/19 15:47 VBG HCO3 24.1 mmol/L (23-28) 05/03/19 15:47 VBG Total CO2 25.8 mmol/L (24-29) 05/03/19 15:47 VBG O2 Saturation 79.4 % (60-80) 05/03/19 15:47 VBG Base Excess -3.0 mmol/L (-2 - +2) L 05/03/19 15:47 Sodium 132 mmol/L (135-145) L 05/04/19 05:10 Potassium 5.2 mmol/L (3.5-5.0) H 05/04/19 05:10 Chloride 98 mmol/L (101-111) L 05/04/19 05:10 Carbon Dioxide 24 mmol/L (21-32) 05/04/19 05:10 Anion Gap 10.0 (6-13) 05/04/19 05:10 BUN 52 mg/dL (6-20) H 05/04/19 05:10 Creatinine 3.1 mg/dL (0.4-1.0) H 05/04/19 05:10 Estimated GFR (MDRD) 15 (>89) L 05/04/19 05:10 Glucose 33 mg/dL (70-100) L* 05/04/19 05:10 Lactic Acid 1.5 mmol/L (0.5-2.2) 05/03/19 22:04 Calcium 7.7 mg/dL (8.5-10.3) L 05/04/19 05:10 Total Bilirubin 1.2 mg/dL (0.2-1.0) H 05/04/19 05:10 AST 1005 IU/L (10-42) H 05/04/19 05:10 ALT 424 IU/L (10-60) H 05/04/19 05:10 Alkaline Phosphatase 63 IU/L (42-121) 05/04/19 05:10 Troponin I High Sens 2098.7 ng/L (2.3-14.8) H* 05/04/19 05:10 B-Natriuretic Peptide 2388 pg/mL (5-100) H 05/04/19 05:10 Total Protein 6.1 g/dL (6.7-8.2) L 05/04/19 05:10 Albumin 2.7 g/dL (3.2-5.5) L 05/04/19 05:10 Globulin 3.4 g/dL (2.1-4.2) 05/04/19 05:10 Albumin/Globulin Ratio 0.8 (1.0-2.2) L 05/04/19 05:10 Lipase 298 U/L (22-51) H 05/03/19 15:47 Influenza A (Rapid) Negative (Negative) 05/03/19 16:08 Influenza B (Rapid) Negative (Negative) 05/03/19 16:08 Blood Type O POSITIVE 05/03/19 16:18 Antibody Screen NEGATIVE 05/03/19 16:18 Crossmatch IS Only See Detail 05/03/19 16:18 - Procedures Procedures: Procedures EXCISION OF LOWER ESOPHAGUS, ENDO, DIAGN (03/12/19) EXCISION OF MIDDLE ESOPHAGUS, ENDO, DIAGN (03/12/19) EXCISION OF STOMACH, ENDO, DIAGN (03/12/19) TRANSFUSE NONAUT RED BLOOD CELLS IN PERIPH VEIN, PERC (03/12/19)
--- NOTE | 2019-05-04 10:56 | PHARMACY PROGRESS NOTE ---
- Best Possible Medication History Admit Date and Time: 05/03/19 1735 Processed by: Pharmacy Medication History completed: Yes Patient Interview: Pt unable to participate Secondary Source(s): Previous admit records Patient is pending COVID results; No patient interview conducted. Med list populated using most recent admit. As the person ultimately responsible for medication therapy, providers are able to order a medication from an existing home medication list in [facility] via the "Reconcile Routine" prior to Confirmation of that medication by support team assoc. Such practice is discouraged except when the physician, in their clinical judgment, deems that a medical need exists for a medication without regard to previous use.
[2019-05-04] MEDS: DEXTROSE 5%-0.9% NACL 1,000 ML IV SCH (11:57)
[2019-05-04] MEDS: FAMOTIDINE 20 MG TABLET PO SCH ×2 (12:05→20:34)
[2019-05-04] MEDS: CEFEPIME 1 GM in SODIUM CHLORIDE 0.9% MINIBAG 100 ML IV SCH ×2 (12:08→20:37)
[2019-05-04] MEDS: MORPHINE 2 MG/ML CARPUJECT IVP PRN ×2 (12:13→15:32)
--- NOTE | 2019-05-04 16:43 | CONSULTATION NOTE ---
Consultation Report: Call for IV placement after AM IV infiltrated at R AC. 20ga placed at L basilic vein attempt x2 w/US. Easily aspirates and flushes with cap in place. Pt tolerated the procedure without complication.
[2019-05-04] MEDS: ATORVASTATIN 40 MG TABLET PO SCH (20:34)
[2019-05-05] MEDS: HEPARIN 25000UNITS/500ML (D5W) 25,000 UNIT/500 ML BAG IV SCH (01:04)
[2019-05-05] MEDS: NITROGLYCERIN 2% PASTE TOP SCH ×3 (01:16→18:21)
[2019-05-05] MEDS: SODIUM CHLORIDE FLUSH 0.9% 10 ML SYRINGE IVP SCH ×3 (01:17→16:28)
[2019-05-05] MEDS: DEXTROSE 5%-0.9% NACL 1,000 ML IV SCH ×2 (04:14→11:32)
[2019-05-05] MEDS: FUROSEMIDE 40 MG/4 ML VIAL IVP SCH ×2 (06:14→14:05)
[2019-05-05] MEDS: FAMOTIDINE 20 MG TABLET PO SCH ×2 (08:49→21:27)
[2019-05-05] MEDS: ASPIRIN EC 325 MG TABLET PO SCH (08:49)
[2019-05-05] MEDS: IPRATROPIUM/ALBUTEROL 3 ML NEB INH PRN (09:20)
[2019-05-05] MEDS: oxyCODONE 5 MG TABLET PO PRN (11:28)
[2019-05-05] MEDS: CEFEPIME 1 GM in SODIUM CHLORIDE 0.9% MINIBAG 100 ML IV SCH ×2 (11:28→21:27)
--- NOTE | 2019-05-05 11:31 | ANESTHESIA PROCEDURE NOTE ---
Anesth Central Line Template - Central Line Central Line Preparation: Consent Obtained Central line location: Right IJ Central line type: Triple lumen Central line catheter tip site resides: Superior vena cava (SVC) (waiting for radiology confirmation.) Central line aftercare: Chlorhexidine disc placed, Secured, Placement confirmed (we will still wait for radiology confirmation.), No pneumothorax, No complications, Pt tolerated well, Other (patient is on droplet precautions.)
--- NOTE | 2019-05-05 11:35 | PROCEDURE REPORT ---
Hospitalist Procedure Note - Procedure Note Procedure Note: central line for this patient requested by the hospitalist. Patient is on droplet precautions. On high flow nasal cannula. We used the appropriate protective measures. Explained the procedure, benefits and risks of the procedure to this patient. She agrees to proceed and signed the consent. Standard monitors on. Oxygen saturation is 92% on high flow NC. Right IJ site cleaned x3 with chlorohexidine. Sterile drapping/prep. Sterility maintained through out the procedure. US guidance used. 7 Amharic, tripple lumen cathter inserted to about 16 cm in and 4 centimeters at the skin. Bio patch placed on the insertion site. X ray obtained. Tip appears in the proximal SVC. We will wait for radiology confirmation. Patient tolerated the procedure well. Catheter sutured and secured in place.
[2019-05-05 12:05] LABS: BASOPHILS % (AUTO) 0.3 %; EOSINOPHILS # (AUTO) 0.2 10^3/uL (0.0-0.7); EOSINOPHILS % (AUTO) 2.4 %; HGB - HEMOGLOBIN 8.8 g/dL (12.0-16.0); LYMPHOCYTES # (AUTO) 0.7 10^3/uL (1.5-3.5); LYMPHOCYTES % (AUTO) 11.2 %; MEAN CORPUSCULAR HEMOGLOBIN 29.7 pg (27.0-31.0); MEAN CORPUSCULAR VOLUME 90.2 fL (81.0-99.0); MEAN PLATELET VOLUME 10.7 fL (7.9-10.8); MONOCYTES # (AUTO) 0.7 10^3/uL (0.0-1.0); MONOCYTES % (AUTO) 10.5 %; NEUTROPHILS # (AUTO) 4.9 10^3/uL (1.5-6.6); NEUTROPHILS % (AUTO) 73.9 %; PLT - PLATELET COUNT 152 10^3/uL (130-450); RED BLOOD COUNT 2.96 10^6/uL (4.20-5.40); RED CELL DISTRIBUTION WIDTH 17.8 % (12.0-15.0); WHITE BLOOD COUNT 6.6 x10^3/uL (4.8-10.8)
--- NOTE | 2019-05-05 12:20 | PROVIDER PROGRESS NOTE ---
Assessment/Plan - Problem List (1) Altered mental status Assessment/Plan: Multi-factorial: from hypoglycemia, uremia, possible liver failure on top of current infection and underlying dementia. Will request a CVP line placement by anesthesia and order restraints so she does not pull that out. Her oral intake is charted as 0%, unclear if this is from confusion, weakness or no appetite. Will change to a pureed diet, cardiac and low salt. (2) Acute kidney injury superimposed on chronic kidney disease Assessment/Plan: Her BUN/creat ratio is worsening. The BNP is also rising, possibly due to worsening renal function. This bodes a poor prognosis. She did not want to be transferred to a facility with Nephrology and hemodialysis. (3) Respiratory failure with hypoxia Assessment/Plan: Her supplemental O2 setting is slowly decreasing. Continue to treat the underlying new CHF, possible pneumonia and COPD exacerbation. (4) STEMI (ST elevation myocardial infarction) Qualifiers: Involved coronary artery: unspecified coronary artery Qualified Code(s): I2 1.3 - ST elevation (STEMI) myocardial infarction of unspecified site Assessment/Plan: Her iv Heparin will be stopped today, she was to get 2 days of tx. Will change to bid sq Heparin. Continue B-mason, NTP, aspirin and statin. She wanted no transfer for higher level of care. (5) Acute systolic heart failure Assessment/Plan: Her Echo this admission showed new LVEF of 30%; it was normal just 1 month ago by Echo done here. Today is the first day she is in neg fluid balance, of 3L. Continue iv bid Lasix. Follow I's and O's, and daily weight. Possible addition of po Spironolactone if kidney failure improves or stabilizes. (6) Aortic stenosis Assessment/Plan: THis creates difficulty using afterload reducers, like Hydralazine with Nitrates (7) HCAP (healthcare-associated pneumonia) Assessment/Plan: She remains on empiric iv Cefepime. Cx are neg to date. COVID swab is still pending. She remains with respiratory isolation orders. (8) Hypoglycemia Assessment/Plan: She has had low glu in past plus had this admission whern needed Insulin to treart hyperkalemia (9) Elevated LFTs Assessment/Plan: Improvement in AST and ALT since yesterday. Continue diuresis. Follow CMP daily (10) Hyponatremia Assessment/Plan: She has hypervolemic hyponatremia Serum Na improved from 132 to 133 today. Continue diuresis. Follow BMP daily (11) Anemia Assessment/Plan: She got 1U of blood at admission. Watching CBC daily. (12) Dementia Assessment/Plan: Present before this hospitalization (13) Hypertension Assessment/Plan: Her current combination of meds for FL and for CHF are controlling her BP (14) History of COPD Assessment/Plan: Nebs continue (15) Weakness Assessment/Plan: She has become very deconditioned from repeat hospitalizations in past 6 mos. Not ready for PT due to FL and CHF and due to confusion. (16) Hyperkalemia Assessment/Plan: Resolved - Current Meds Current Meds: Current Medications Generic Name Dose Route Start Last Admin Trade Name Freq PRN Reason Stop Dose Admin Albuterol/Ipratropium 3 ml 05/03/19 17:59 05/05/19 09:20 Duoneb INH 3 ml RTQID PRN Administration Shortness of Air/Wheezing Aspirin 325 mg 05/04/19 09:00 05/05/19 08:49 Ecotrin PO 325 mg DAILY MIRANDA Administration Atorvastatin Calcium 40 mg 05/04/19 21:00 05/04/19 20:34 Lipitor PO 40 mg QPM MIRANDA Administration Famotidine 10 mg 05/03/19 21:00 05/05/19 08:49 Pepcid PO 10 mg BID MIRANDA Administration Furosemide 80 mg 05/04/19 08:30 05/05/19 06:14 Lasix Inj 40 Mg Vial IVP 80 mg BIDDIURETIC MIRANDA Administration Cefepime HCl 1 gm/ Sodium 100 mls @ 200 mls/hr 05/03/19 18:04 05/05/19 11:28 Chloride IV 200 mls/hr BID MIRANDA Administration Dextrose/Sodium Chloride 1,000 mls @ 75 mls/hr 05/04/19 08:00 05/05/19 11:32 D5ns IV 75 mls/hr .[id number] MIRANDA Administration Morphine Sulfate 2 mg 05/03/19 17:22 05/04/19 15:32 Morphine (Carpuject) IVP 2 mg Q2HR PRN Administration Pain 8 to 10 Nitroglycerin 1 inch 05/03/19 18:00 05/05/19 09:03 Nitro-Bid (Pkt) TOP 1 inch Q8H MIRANDA Administration Oxycodone HCl 5 mg 05/03/19 17:22 05/05/19 11:28 Roxicodone PO 5 mg Q4HR PRN Administration Pain 5 to 7 Sodium Chloride 10 ml 05/03/19 17:22 05/04/19 07:20 Normal Saline Flush 0.9% IVP 10 ml PRN PRN Administration NEEDED PER PROVIDER ORDERS Sodium Chloride 10 ml 05/04/19 01:00 05/05/19 06:16 Normal Saline Flush 0.9% IVP 10 ml 0100,0900,1700 MIRANDA Administration - Lab Result Fish Bone Diagrams: 05/05/19 11:55 05/05/19 11:55 - Additional Planning My Orders: My Active Orders 05/04/19 21:00 Atorvastatin [Lipitor] 40 mg PO QPM 05/05/19 08:58 Central Line Insertion [RC] ONCE 05/05/19 11:55 AMMONIA [CHEM] DAILYLAB 05/05/19 12:15 Restraints [RC] Q4H 05/05/19 12:16 Restraints Safety Check [RC] Q15M 05/05/19 21:00 Heparin 5,000 unit SUBQ BID 05/06/19 05:00 AMMONIA [CHEM] DAILYLAB Subjective - Subjective Nursing Reports: Confused, Other (Pulled out both peripheral ivs that Anesthesia put in yesteray. Trying to climb OOB.) Objective Vital Signs: Vital Signs - 24 hr 05/04/19 05/04/19 05/04/19 13:56 17:31 21:00 Temperature 36.7 C 36.8 C 37.3 C Heart Rate Heart Rate [ 78 79 82 Brachial] Respiratory 22 20 18 Rate Blood Pressure 151/62 H 145/66 H [Left Brachial artery] Blood Pressure 153/63 H [Right Brachial artery] O2 Saturation 98 95 94 05/04/19 05/05/19 05/05/19 21:40 00:10 04:24 Temperature 37.3 C 36.8 C Heart Rate 84 Heart Rate [ 84 85 Brachial] Respiratory 20 18 22 Rate Blood Pressure [Left Brachial artery] Blood Pressure 149/67 H 145/57 H [Right Brachial artery] O2 Saturation 96 92 05/05/19 05/05/19 08:43 09:20 Temperature 36.8 C Heart Rate 83 Heart Rate [ 89 Brachial] Respiratory 18 20 Rate Blood Pressure [Left Brachial artery] Blood Pressure 147/71 H [Right Brachial artery] O2 Saturation 92 Oxygen O2 Source Oxymizer I&O (Last 24 Hrs): Intake and Output Totals x24h 05/03/19 05/04/19 05/05/19 23:59 23:59 23:59 Intake Total 961.518 6191.17 1435.55 Output Total 1850 3100 Balance 560.667 -536.83 -1664.45 General: Other (Appears comfortable, resting at 30 degree HOB elevated) HEENT: Mucous membr. moist/pink, Other (Temporal wasting and sunken eyes) Neuro: Disoriented Cardiovascular: Regular rate, Other (syst murmur) Respiratory: Other (Fine rales) Abdomen: Soft Extremities: No edema, Other (Muscle wasting) - Results Results: Laboratory Results WBC 6.6 x10^3/uL (4.8-10.8) 05/05/19 11:55 RBC 2.96 10^6/uL (4.20-5.40) L 05/05/19 11:55 Hgb 8.8 g/dL (12.0-16.0) L 05/05/19 11:55 Hct 26.7 % (37.0-47.0) L 05/05/19 11:55 MCV 90.2 fL (81.0-99.0) 05/05/19 11:55 MCH 29.7 pg (27.0-31.0) 05/05/19 11:55 MCHC 33.0 g/dL (32.0-36.0) 05/05/19 11:55 RDW 17.8 % (12.0-15.0) H 05/05/19 11:55 Plt Count 152 10^3/uL (130-450) 05/05/19 11:55 MPV 10.7 fL (7.9-10.8) 05/05/19 11:55 Neut # (Auto) 4.9 10^3/uL (1.5-6.6) 05/05/19 11:55 Lymph # (Auto) 0.7 10^3/uL (1.5-3.5) L 05/05/19 11:55 [place] # (Auto) 0.7 10^3/uL (0.0-1.0) 05/05/19 11:55 Eos # (Auto) 0.2 10^3/uL (0.0-0.7) 05/05/19 11:55 Baso # (Auto) 0.0 10^3/uL (0.0-0.1) 05/05/19 11:55 Absolute Nucleated RBC 0.09 x10^3/uL 05/05/19 11:55 Nucleated RBC % 1.4 /100WBC 05/05/19 11:55 PT 16.1 secs (9.9-12.6) H 05/03/19 15:47 INR 1.4 (0.8-1.2) H 05/03/19 15:47 Anti-Xa Level 0.5 U/mL (-0.7) 05/04/19 05:10 VBG pH 7.265 (7.31-7.41) L 05/03/19 15:47 VBG pCO2 54.4 mmHg (41-51) H 05/03/19 15:47 VBG pO2 50.5 mmHg (25-47) H 05/03/19 15:47 VBG HCO3 24.1 mmol/L (23-28) 05/03/19 15:47 VBG Total CO2 25.8 mmol/L (24-29) 05/03/19 15:47 VBG O2 Saturation 79.4 % (60-80) 05/03/19 15:47 VBG Base Excess -3.0 mmol/L (-2 - +2) L 05/03/19 15:47 Sodium 132 mmol/L (135-145) L 05/04/19 05:10 Potassium 5.2 mmol/L (3.5-5.0) H 05/04/19 17:23 Chloride 98 mmol/L (101-111) L 05/04/19 05:10 Carbon Dioxide 24 mmol/L (21-32) 05/04/19 05:10 Anion Gap 10.0 (6-13) 05/04/19 05:10 BUN 52 mg/dL (6-20) H 05/04/19 05:10 Creatinine 3.1 mg/dL (0.4-1.0) H 05/04/19 05:10 Estimated GFR (MDRD) 15 (>89) L 05/04/19 05:10 Glucose 33 mg/dL (70-100) L* 05/04/19 05:10 Lactic Acid 1.5 mmol/L (0.5-2.2) 05/03/19 22:04 Calcium 7.7 mg/dL (8.5-10.3) L 05/04/19 05:10 Total Bilirubin 1.2 mg/dL (0.2-1.0) H 05/04/19 05:10 AST 1005 IU/L (10-42) H 05/04/19 05:10 ALT 424 IU/L (10-60) H 05/04/19 05:10 Alkaline Phosphatase 63 IU/L (42-121) 05/04/19 05:10 Troponin I High Sens 1563.9 ng/L (2.3-14.8) H* 05/04/19 10:00 B-Natriuretic Peptide 2388 pg/mL (5-100) H 05/04/19 05:10 Total Protein 6.1 g/dL (6.7-8.2) L 05/04/19 05:10 Albumin 2.7 g/dL (3.2-5.5) L 05/04/19 05:10 Globulin 3.4 g/dL (2.1-4.2) 05/04/19 05:10 Albumin/Globulin Ratio 0.8 (1.0-2.2) L 05/04/19 05:10 Lipase 298 U/L (22-51) H 05/03/19 15:47 Influenza A (Rapid) Negative (Negative) 05/03/19 16:08 Influenza B (Rapid) Negative (Negative) 05/03/19 16:08 Blood Type O POSITIVE 05/03/19 16:18 Antibody Screen NEGATIVE 05/03/19 16:18 Crossmatch IS Only See Detail 05/03/19 16:18 - Procedures Procedures: Procedures EXCISION OF LOWER ESOPHAGUS, ENDO, DIAGN (03/12/19) EXCISION OF MIDDLE ESOPHAGUS, ENDO, DIAGN (03/12/19) EXCISION OF STOMACH, ENDO, DIAGN (03/12/19) TRANSFUSE NONAUT RED BLOOD CELLS IN PERIPH VEIN, PERC (03/12/19)
[2019-05-05 12:21] LABS: ALBUMIN 2.5 g/dL (3.2-5.5); ALBUMIN/GLOBULIN RATIO 0.7 (1.0-2.2); CALCIUM 7.9 mg/dL (8.5-10.3); CREATININE 2.9 mg/dL (0.4-1.0); TOTAL PROTEIN 6.2 g/dL (6.7-8.2)
--- NOTE | 2019-05-05 12:27 | XRAY Report ---
Reason: new CVL @[facility] Procedure Date: 05/05/2019 Accession Number: [id number] / [id number] Procedure: XR - Chest for Line Placement CPT Code: Final Report FULL RESULT: EXAM: CHEST RADIOGRAPHY EXAM DATE: 05/05/2019 11:23 AM. CLINICAL HISTORY: New CVL @[facility]. Line placement. COMPARISON: CHEST 1 VIEW 05/03/2019 3:54 PM. TECHNIQUE: 1 view. FINDINGS: Support apparatus: There is a new right IJ central venous catheter with tip in the mid SVC. Lungs/Pleura: Mild pulmonary vascular congestion and diffuse bilateral interstitial opacities appear decreased compared to the prior exam. Bibasilar pulmonary opacities are decreased in density. There are probable small bilateral pleural effusions, less conspicuous compared to prior. No pneumothorax. Mediastinum: There is stable mild enlargement of the cardiac silhouette. There is mild atherosclerotic calcification of the aortic arch. Other: No acute osseous abnormality. Bones are diffusely demineralized. IMPRESSION: 1. New right IJ central venous catheter with tip in the mid SVC. 2. Mild pulmonary vascular congestion and interstitial edema are decreased compared to the prior exam. 3. Patchy bilateral basilar atelectasis or infiltrate is decreased in density compared to prior. 4. Probable small bilateral pleural effusions, less conspicuous compared to prior. 5. Stable cardiomegaly. RADIA
[2019-05-05] MEDS: SODIUM CHLORIDE FLUSH 0.9% 10 ML SYRINGE IVP PRN (14:06)
[2019-05-05] MEDS: HEPARIN 5,000 UNIT/ML VIAL SUBQ SCH (21:15)
[2019-05-05] MEDS: ATORVASTATIN 40 MG TABLET PO SCH (21:27)
[2019-05-06] MEDS: NITROGLYCERIN 2% PASTE TOP SCH ×2 (01:24→09:58)
[2019-05-06] MEDS: DEXTROSE 5%-0.9% NACL 1,000 ML IV SCH ×2 (01:25→16:09)
[2019-05-06] MEDS: SODIUM CHLORIDE FLUSH 0.9% 10 ML SYRINGE IVP SCH ×4 (01:58→05:12)
[2019-05-06 04:39] LABS: BASOPHILS % (AUTO) 0.2 %; EOSINOPHILS # (AUTO) 0.2 10^3/uL (0.0-0.7); EOSINOPHILS % (AUTO) 2.5 %; HGB - HEMOGLOBIN 8.6 g/dL (12.0-16.0); LYMPHOCYTES # (AUTO) 0.9 10^3/uL (1.5-3.5); LYMPHOCYTES % (AUTO) 14.4 %; MEAN CORPUSCULAR HEMOGLOBIN 29.9 pg (27.0-31.0); MEAN CORPUSCULAR HGB CONC 33.3 g/dL (32.0-36.0); MEAN CORPUSCULAR VOLUME 89.6 fL (81.0-99.0); MEAN PLATELET VOLUME 10.3 fL (7.9-10.8); MONOCYTES # (AUTO) 0.7 10^3/uL (0.0-1.0); MONOCYTES % (AUTO) 10.8 %; NEUTROPHILS # (AUTO) 4.3 10^3/uL (1.5-6.6); NEUTROPHILS % (AUTO) 70.3 %; PLT - PLATELET COUNT 145 10^3/uL (130-450); RED BLOOD COUNT 2.88 10^6/uL (4.20-5.40); RED CELL DISTRIBUTION WIDTH 17.4 % (12.0-15.0); WHITE BLOOD COUNT 6.1 x10^3/uL (4.8-10.8)
[2019-05-06] MEDS: SODIUM CHLORIDE FLUSH 0.9% 10 ML SYRINGE IVP PRN ×2 (04:39→14:04)
[2019-05-06 04:50] LABS: ALBUMIN 2.3 g/dL (3.2-5.5); ALBUMIN/GLOBULIN RATIO 0.7 (1.0-2.2); BILIRUBIN,TOTAL 0.9 mg/dL (0.2-1.0); CREATININE 2.7 mg/dL (0.4-1.0); TOTAL PROTEIN 5.7 g/dL (6.7-8.2)
[2019-05-06] MEDS: FUROSEMIDE 40 MG/4 ML VIAL IVP SCH ×2 (05:11→14:04)
[2019-05-06] MEDS: CEFEPIME 1 GM in SODIUM CHLORIDE 0.9% MINIBAG 100 ML IV SCH ×2 (08:14→21:27)
[2019-05-06] MEDS: oxyCODONE 5 MG TABLET PO PRN ×2 (08:16→21:25)
[2019-05-06] MEDS: FAMOTIDINE 20 MG TABLET PO SCH ×2 (08:16→21:27)
[2019-05-06] MEDS: ASPIRIN EC 325 MG TABLET PO SCH (08:16)
[2019-05-06] MEDS: SENNA 8.6 MG TABLET PO SCH (08:16)
[2019-05-06] MEDS: DOCUSATE SODIUM 250 MG CAPSULE PO SCH (08:16)
[2019-05-06] MEDS: HEPARIN 5,000 UNIT/ML VIAL SUBQ SCH ×2 (09:57→21:23)
--- NOTE | 2019-05-06 10:23 | XRAY Report ---
Reason: F/U CHF and pneumonia Procedure Date: 05/06/2019 Accession Number: [id number] / [id number] Procedure: XR - Chest 1 View X-Ray CPT Code: 52683 Final Report FULL RESULT: EXAM: CHEST RADIOGRAPHY EXAM DATE: 05/06/2019 09:40 AM. CLINICAL HISTORY: F/U CHF and pneumonia. COMPARISON: CHEST FOR LINE PLACEMENT 05/05/2019 11:05 AM CHEST 1 VIEW 05/03/2019 3:54 PM CHEST 1 VIEW 03/25/2019 4:01 PM CHEST 1 VIEW 03/11/2019 11:44 AM CHEST 2 VIEW 03/06/2019 8:35 AM. TECHNIQUE: 1 view. FINDINGS: Support apparatus: Right IJ central venous catheter tip is in the mid SVC, similar to prior. Lungs/Pleura: Mild pulmonary vascular congestion and interstitial edema are decreased compared to the prior exam. Mild bilateral basilar pulmonary opacities are decreased in density. There are persistent probable small bilateral pleural effusions. No pneumothorax. Mediastinum: There is stable mild enlargement of the cardiac silhouette. There is mild atherosclerotic calcification of the aortic arch. Other: No acute osseous abnormality. IMPRESSION: 1. Mild pulmonary vascular congestion and interstitial edema are decreased compared to prior. 2. Decreased density of mild bilateral basilar atelectasis or infiltrate. 3. Probable small bilateral pleural effusions, similar to prior. 4. Stable cardiomegaly. RADIA
--- NOTE | 2019-05-06 10:34 | PROVIDER PROGRESS NOTE ---
Assessment/Plan - Problem List (1) Respiratory failure with hypoxia Assessment/Plan: Supplemental O2 setting slowly. CXR shows improving infiltrate and less CHF Continue supportive O2 and treating volume overload/CHF plus pneumonia (2) STEMI (ST elevation myocardial infarction) Qualifiers: Involved coronary artery: unspecified coronary artery Qualified Code(s): I21.3 - ST elevation (STEMI) myocardial infarction of unspecified site Assessment/Plan: She had 2 days of iv Heparin drip, not on sq Heparin prophylactic dose. Continue B-mason, NTP, Aspirin and statin. No invasive management was wanted by patient. (3) Acute systolic heart failure Assessment/Plan: The BNP marisol to 4000's today, but this is probably a delayed lab, since her volume status is overall 6 L (-) since admission. Supplemental O2 setting slowly decreasing CXR shows improving CHF Continue supportive O2 and treating volume overload with iv bid diuretic. Will add Spironolactone when creat improves further. Continue B-mason and NTP. 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 Will carefully add Hydralazine to Nitrates, watching for hypotension. (5) HCAP (healthcare-associated pneumonia) Assessment/Plan: Supplemental O2 setting slowly decreasing. CXR shows improving infiltrate Continue supportive O2 and treating pneumonia Continue empiric iv Cefepime. Will transition to oral antibx if culture results identify the bacterium. Await cx results. COVID result is negative, resulted today. Will stop droplet/respiratory isolation. Continue pulmonary toilet with Mucinex treatment. She probably cannot cooperate with IS, is confused. It was ordered to manage what was read as possible atelectasis on CXR. Continue neb treatments. (6) Acute kidney injury superimposed on chronic kidney disease Assessment/Plan: Improved BUN/creat with diuresis, which is decreasing the venous congestion. Therefor she had cardiorenal syndrome. Avoid nephrotoxins. Continue iv diuretics. Follow I's and O's, Davis still in place while she is so confused. (7) Elevated LFTs Assessment/Plan: Improving, consistent with less passive liver congestion from CHF. Monitor LFTs daily. (8) Hypoglycemia Assessment/Plan: She has had tis problem on previous admissions, possibly due to poor po intake. This admission it was related to Insulin use for treating hyperkalemia. Since her po intake is only 25% of her tray, continue iv hydration containing D5. (9) Anemia Assessment/Plan: The Hgb has been stable since 1U PRBCs transfused at admission. Will check B12, Folate and Iron stores and replace if low. (10) Dementia Assessment/Plan: Chronic. Will request Palliative Care to start working with her on Mon (tomorrow). (11) Hypertension Assessment/Plan: Stable BP on current combination of cardiac meds (12) Altered mental status Qualifiers: Altered mental status type: disorientation Qualified Code(s): R41.0 - Disorientation, unspecified Assessment/Plan: Underlying dementia worsened by current infection plus uremia. She pulled out several iv's, which had been difficult to start, thus she needed a CVP placed yesterday, and therefore wrist restraints were ordered yesterday as well. Will start to get her OOB and work with PT today, if she can cooperate. (13) Weakness Assessment/Plan: Very deconditioned from many hospitalizations over the past 6 mos. PT to start today. (14) History of COPD Assessment/Plan: Continue nebs prn (15) Hyponatremia Assessment/Plan: Resolved with diuretics to excrete free water. Monitor BMP daily (16) Hyperkalemia Assessment/Plan: Resolved - Current Meds Current Meds: Current Medications Generic Name Dose Route Start Last Admin Trade Name Freq PRN Reason Stop Dose Admin Albuterol/Ipratropium 3 ml 05/03/19 17:59 05/05/19 09:20 Duoneb INH 3 ml RTQID PRN Administration Shortness of Air/Wheezing Aspirin 325 mg 05/04/19 09:00 05/06/19 08:16 Ecotrin PO 325 mg DAILY MIRANDA Administration Atorvastatin Calcium 40 mg 05/04/19 21:00 05/05/19 21:27 Lipitor PO 40 mg QPM MIRANDA Administration Docusate Sodium 250 - 500 mg 05/06/19 09:00 05/06/19 08:16 Colace 250mg Capsule PO 250 mg DAILY MIRANDA Administration Famotidine 10 mg 05/03/19 21:00 05/06/19 08:16 Pepcid PO 10 mg BID MIRANDA Administration Furosemide 80 mg 05/04/19 08:30 05/06/19 05:11 Lasix Inj 40 Mg Vial IVP 80 mg BIDDIURETIC MIRANDA Administration Heparin Sodium (Beef Lung) 30 - 50 unit 05/06/19 03:39 05/06/19 04:38 IVP 30 unit PRN PRN Administration Central Line Protocol (<24 hr) Heparin Sodium (Porcine) 5,000 unit 05/05/19 21:00 05/06/19 09:57 SUBQ 5,000 unit BID MIRANDA Administration Cefepime HCl 1 gm/ Sodium 100 mls @ 200 mls/hr 05/03/19 18:04 05/06/19 08:44 Chloride IV Infused BID MIRANDA Infusion Dextrose/Sodium Chloride 1,000 mls @ 75 mls/hr 05/04/19 08:00 05/06/19 01:25 D5ns IV 75 mls/hr .[id number] MIRANDA Administration Morphine Sulfate 2 mg 05/03/19 17:22 05/04/19 15:32 Morphine (Carpuject) IVP 2 mg Q2HR PRN Administration Pain 8 to 10 Nitroglycerin 1 inch 05/03/19 18:00 05/06/19 09:58 Nitro-Bid (Pkt) TOP 1 inch Q8H MIRANDA Administration Oxycodone HCl 5 mg 05/03/19 17:22 05/06/19 08:16 Roxicodone PO 5 mg Q4HR PRN Administration Pain 5 to 7 Senna 8.6 - 17.2 mg 05/06/19 09:00 05/06/19 08:16 Senokot PO 8.6 mg DAILY MIRANDA Administration Sodium Chloride 10 ml 05/03/19 17:22 05/06/19 04:39 Normal Saline Flush 0.9% IVP 10 ml PRN PRN Administration NEEDED PER PROVIDER ORDERS Sodium Chloride 10 ml 05/04/19 01:00 05/06/19 05:12 Normal Saline Flush 0.9% IVP 10 ml 0100,0900,1700 MIRANDA Administration - Lab Result Fish Bone Diagrams: 05/06/19 04:15 05/06/19 04:15 - Additional Planning My Orders: My Active Orders 05/05/19 12:15 Restraints [RC] Q4H 05/05/19 12:16 Restraints Safety Check [RC] Q1H 05/05/19 21:00 Heparin 5,000 unit SUBQ BID 05/06/19 03:39 Heparin Flush 30 - 50 unit IVP PRN PRN 05/06/19 08:38 Isolation [Isolation - Discontinue] [RC] .once 05/06/19 09:00 Docusate Sodium 250Mg Capsule [Colace 250Mg Capsule] 250 - 500 mg PO DAILY Senna [Senokot] 8.6 - 17.2 mg PO DAILY 05/06/19 Breakfast DIET [Dysphagia Puree Diet] [DIET] Subjective - Subjective Nursing Reports: Confused Objective Vital Signs: Vital Signs - 24 hr 05/05/19 05/05/19 05/05/19 12:53 16:26 20:15 Temperature 36.9 C 37.2 C Heart Rate 72 Heart Rate [ 83 83 Brachial] Respiratory 20 12 18 Rate Blood Pressure 143/81 H 146/67 H [Right Brachial artery] O2 Saturation 97 98 05/05/19 05/06/19 05/06/19 21:00 01:40 04:29 Temperature 37.4 C 37.5 C 36.7 C Heart Rate Heart Rate [ 78 79 77 Brachial] Respiratory 16 16 20 Rate Blood Pressure 144/64 H 129/67 136/61 H [Right Brachial artery] O2 Saturation 97 95 97 05/06/19 07:47 Temperature 37.2 C Heart Rate Heart Rate [ 77 Brachial] Respiratory 18 Rate Blood Pressure 145/58 H [Right Brachial artery] O2 Saturation 95 Oxygen O2 Source Oxymizer I&O (Last 24 Hrs): Intake and Output Totals x24h 05/04/19 05/05/19 05/06/19 23:59 23:59 23:59 Intake Total 1313.17 2335.55 1460 Output Total 1850 6900 3450 Balance -536.83 -4564.45 General: Alert HEENT: Mucous membr. moist/pink, Other (Wearing nasal oximizer O2) Neck: Supple Neuro: Disoriented Cardiovascular: Regular rate, Other (Murmur) Respiratory: No respiratory distress Abdomen: Soft Extremities: No edema - Results Results: Laboratory Results WBC 6.1 x10^3/uL (4.8-10.8) 05/06/19 04:15 RBC 2.88 10^6/uL (4.20-5.40) L 05/06/19 04:15 Hgb 8.6 g/dL (12.0-16.0) L 05/06/19 04:15 Hct 25.8 % (37.0-47.0) L 05/06/19 04:15 MCV 89.6 fL (81.0-99.0) 05/06/19 04:15 MCH 29.9 pg (27.0-31.0) 05/06/19 04:15 MCHC 33.3 g/dL (32.0-36.0) 05/06/19 04:15 RDW 17.4 % (12.0-15.0) H 05/06/19 04:15 Plt Count 145 10^3/uL (130-450) 05/06/19 04:15 MPV 10.3 fL (7.9-10.8) 05/06/19 04:15 Neut # (Auto) 4.3 10^3/uL (1.5-6.6) 05/06/19 04:15 Lymph # (Auto) 0.9 10^3/uL (1.5-3.5) L 05/06/19 04:15 [place] # (Auto) 0.7 10^3/uL (0.0-1.0) 05/06/19 04:15 Eos # (Auto) 0.2 10^3/uL (0.0-0.7) 05/06/19 04:15 Baso # (Auto) 0.0 10^3/uL (0.0-0.1) 05/06/19 04:15 Absolute Nucleated RBC 0.05 x10^3/uL 05/06/19 04:15 Nucleated RBC % 0.8 /100WBC 05/06/19 04:15 PT 16.1 secs (9.9-12.6) H 05/03/19 15:47 INR 1.4 (0.8-1.2) H 05/03/19 15:47 Anti-Xa Level 0.0 U/mL (-0.7) 05/05/19 11:55 VBG pH 7.265 (7.31-7.41) L 05/03/19 15:47 VBG pCO2 54.4 mmHg (41-51) H 05/03/19 15:47 VBG pO2 50.5 mmHg (25-47) H 05/03/19 15:47 VBG HCO3 24.1 mmol/L (23-28) 05/03/19 15:47 VBG Total CO2 25.8 mmol/L (24-29) 05/03/19 15:47 VBG O2 Saturation 79.4 % (60-80) 05/03/19 15:47 VBG Base Excess -3.0 mmol/L (-2 - +2) L 05/03/19 15:47 Sodium 137 mmol/L (135-145) 05/06/19 04:15 Potassium 4.2 mmol/L (3.5-5.0) 05/06/19 04:15 Chloride 94 mmol/L (101-111) L 05/06/19 04:15 Carbon Dioxide 32 mmol/L (21-32) 05/06/19 04:15 Anion Gap 11.0 (6-13) 05/06/19 04:15 BUN 52 mg/dL (6-20) H 05/06/19 04:15 Creatinine 2.7 mg/dL (0.4-1.0) H 05/06/19 04:15 Estimated GFR (MDRD) 17 (>89) L 05/06/19 04:15 Glucose 77 mg/dL (70-100) 05/06/19 04:15 POC Whole Bld Glucose 73 mg/dL (70 - 100) 05/06/19 07:41 Lactic Acid 1.5 mmol/L (0.5-2.2) 05/03/19 22:04 Calcium 8.0 mg/dL (8.5-10.3) L 05/06/19 04:15 Total Bilirubin 0.9 mg/dL (0.2-1.0) 05/06/19 04:15 AST 194 IU/L (10-42) H 05/06/19 04:15 ALT 225 IU/L (10-60) H 05/06/19 04:15 Alkaline Phosphatase 62 IU/L (42-121) 05/06/19 04:15 Ammonia 16.1 umol/L (7-35) 05/06/19 04:15 Troponin I High Sens 1563.9 ng/L (2.3-14.8) H* 05/04/19 10:00 B-Natriuretic Peptide 4574 pg/mL (5-100) H 05/06/19 04:15 Total Protein 5.7 g/dL (6.7-8.2) L 05/06/19 04:15 Albumin 2.3 g/dL (3.2-5.5) L 05/06/19 04:15 Globulin 3.4 g/dL (2.1-4.2) 05/06/19 04:15 Albumin/Globulin Ratio 0.7 (1.0-2.2) L 05/06/19 04:15 Lipase 298 U/L (22-51) H 05/03/19 15:47 Influenza A (Rapid) Negative (Negative) 05/03/19 16:08 Influenza B (Rapid) Negative (Negative) 05/03/19 16:08 Ref Lab Test Result REPORT 05/03/19 16:08 Blood Type O POSITIVE 05/03/19 16:18 Antibody Screen NEGATIVE 05/03/19 16:18 Crossmatch IS Only See Detail 05/03/19 16:18 - Procedures Procedures: Procedures EXCISION OF LOWER ESOPHAGUS, ENDO, DIAGN (03/12/19) EXCISION OF MIDDLE ESOPHAGUS, ENDO, DIAGN (03/12/19) EXCISION OF STOMACH, ENDO, DIAGN (03/12/19) TRANSFUSE NONAUT RED BLOOD CELLS IN PERIPH VEIN, PERC (03/12/19)
[2019-05-06] MEDS: hydrALAZINE 10 MG TABLET PO SCH ×2 (14:04→21:27)
[2019-05-06 15:55] LABS: CALCIUM 8.1 mg/dL (8.5-10.3); CREATININE 2.5 mg/dL (0.4-1.0); MAGNESIUM 1.8 mg/dL (1.7-2.8)
[2019-05-06 16:07] LABS: CALCIUM 8.1 mg/dL (8.5-10.3)
[2019-05-06] MEDS: ISOSORBIDE MONONITRATE ER 30 MG TABLET PO SCH (16:08)
[2019-05-06 16:10] LABS: VBG PH 7.427 (7.31-7.41)
[2019-05-06] MEDS: ATORVASTATIN 40 MG TABLET PO SCH (21:26)
[2019-05-06] MEDS: polyethylene glycoL 3350 17 GM PACKET PO SCH (21:28)
[2019-05-07] MEDS ORDERED: diltiaZEM INJ 5 MG/ML VIAL IVP ONE (04:13)
[2019-05-07 06:13] LABS: BASOPHILS % (AUTO) 0.4 %; EOSINOPHILS # (AUTO) 0.3 10^3/uL (0.0-0.7); EOSINOPHILS % (AUTO) 5.7 %; HGB - HEMOGLOBIN 8.6 g/dL (12.0-16.0); LYMPHOCYTES % (AUTO) 21.2 %; MEAN CORPUSCULAR HEMOGLOBIN 29.3 pg (27.0-31.0); MEAN CORPUSCULAR HGB CONC 32.3 g/dL (32.0-36.0); MEAN CORPUSCULAR VOLUME 90.5 fL (81.0-99.0); MEAN PLATELET VOLUME 11.2 fL (7.9-10.8); MONOCYTES # (AUTO) 0.8 10^3/uL (0.0-1.0); MONOCYTES % (AUTO) 15.5 %; NEUTROPHILS # (AUTO) 2.7 10^3/uL (1.5-6.6); NEUTROPHILS % (AUTO) 55.4 %; PLT - PLATELET COUNT 150 10^3/uL (130-450); RED BLOOD COUNT 2.94 10^6/uL (4.20-5.40); RED CELL DISTRIBUTION WIDTH 17.4 % (12.0-15.0); WHITE BLOOD COUNT 4.9 x10^3/uL (4.8-10.8)
[2019-05-07 06:27] LABS: ALBUMIN 2.1 g/dL (3.2-5.5); ALBUMIN/GLOBULIN RATIO 0.6 (1.0-2.2); BILIRUBIN,TOTAL 0.7 mg/dL (0.2-1.0); CALCIUM 8.1 mg/dL (8.5-10.3); CREATININE 2.5 mg/dL (0.4-1.0); TOTAL PROTEIN 5.8 g/dL (6.7-8.2)
[2019-05-07 06:48] LABS: FOLATE 11.61 ng/mL (5.90 - >24.8)
[2019-05-07] MEDS ORDERED: BISACODYL 10 MG SUPP PR ONE (09:00)
[2019-05-07] MEDS: CEFEPIME 1 GM in SODIUM CHLORIDE 0.9% MINIBAG 100 ML IV SCH ×2 (09:15→20:50)
[2019-05-07] MEDS: ISOSORBIDE MONONITRATE ER 30 MG TABLET PO SCH (09:17)
[2019-05-07] MEDS: DOCUSATE SODIUM 250 MG CAPSULE PO SCH (09:17)
[2019-05-07] MEDS: SENNA 8.6 MG TABLET PO SCH (09:17)
[2019-05-07] MEDS: AMIODARONE 200 MG TABLET PO SCH ×2 (09:18→20:50)
[2019-05-07] MEDS: ASPIRIN EC 81 MG TABLET PO SCH (09:18)
[2019-05-07] MEDS: FUROSEMIDE 40 MG TABLET PO SCH (09:18)
[2019-05-07] MEDS: FAMOTIDINE 20 MG TABLET PO SCH ×2 (09:18→20:51)
[2019-05-07] MEDS: polyethylene glycoL 3350 17 GM PACKET PO SCH (09:19)
[2019-05-07] MEDS: ONDANSETRON 4 MG/2 ML VIAL IVP PRN (09:31)
--- NOTE | 2019-05-07 10:07 | PROVIDER PROGRESS NOTE ---
Assessment/Plan - Problem List (1) V-tach Assessment/Plan: Yesterday afternoon, she had a 6-beat run of VTach, she was asymptomatic and a repeat troponin and K, [place]. [place] [address], she again had VTach, a 20-beat run, at rate 160, when she was developing new onset Afib, with RVR as well. BP was reported to the Crusher Plant Operator as stable at the time. Potassium is normal this morning. Will check Mg. Will recheck troponin this a.m. Will start Amiodarone, 200 mg po bid loading dose for 7 days, then 200 mg po daily is planned. (2) Atrial fibrillation with RVR Assessment/Plan: New onset Afib this morning at rate 140's. She had VTach within that time. She was given 1 dose of iv Cardizem 10 mg at 0400 which slowed HR to 110's. BP was low when her HR was fast. She does not feel palpitations. Her O2 sats had been good and she was down to room air, but with this she needed 1L O2 restarted. Will use the po Amiodarone load for HR slowing and possible conversion of Afib. Will give an additional Cardizem iv dose, since HR is now rising to 120's. Her CHADS scorte is 3 (CHF, Age >75, and HTN) and thus she should be on an anticoagulant. Will start Eliquis at 2.5 mg bid, watching the creat closely. Continue baby ASA daily for the recent acute PR. Will decrease the Lipitor from 40 to 20 mg, since Amio will increase the statin effect. (3) Respiratory failure with hypoxia Assessment/Plan: Caused by flash pulmonary edema and HCAP in a COPDer. The CHF and infiltrates are getting better, per CXR done yesterday. The BNP is improving, but lags behind her clinical status by a day. Her O2 requirements have improved from 14L high-flow at admission to 1L now. She did not have a COPD exacerbation, to need iv steroids. Nebs are prn. Continue treatment of CHF and pneumonia. (4) Acute systolic heart failure Assessment/Plan: Her Echo done this admission showed LVEF of 20-25%, compared to a normal LVEF from just 1 month previously, done on her last admission here. She is on Lasix, starting Spironolactone today while watching the creatinine, her B-mason is Amio, she is not on JESS or ARB since she presented with a creat of 2.9, instead she is on Nitrates plus (she was on) Hydralazine, but Hydralazine stopped today due to low BP. Her fluid balance is neg 6.5L since admission. With that, her creat improved to 2.5, suggesting she had Cardio-Renal syndome. (5) STEMI (ST elevation myocardial infarction) Qualifiers: Involved coronary artery: unspecified coronary artery Qualified Code(s): I21.3 - ST elevation (STEMI) myocardial infarction of unspecified site Assessment/Plan: She presented to the ER with an O2 sat of 40%, SOB but not complaining of chest pain. Troponins were therefore checked and her initial troponin was 3700. The troponin has peaked at 4300. She had been advised transfer for a cor angio by the ER Provider (and a facility with Nephrology and Hemodialysis), when she presented, and refused it, and understood that she may not survive. She wanted medical management only. She is on ASA, statin, B-mason and Nitrates. Physical Therapy started yesterday, which she tolerated. If she stabilizes and is DCh, she would need a SNF for Rehab. (6) Aortic stenosis Assessment/Plan: The Echo also showed moderate . This makes choosing meds for CHF treatment more difficult, since she has a fixed afterload due to the aortic stenosis, and thus Hydralazine and ACEs or ARBs may drop her BP excessively without producing the desired afterload reduction. Also, with severe systolic heart failure, gives her a poor prognosis of < 1 year survival. For this reason, Palliative Care consult will be requested (ordered today), to help transition her to Hospice. (7) HCAP (healthcare-associated pneumonia) Assessment/Plan: The infiltrates are improving on empiric Cefepime, chosen for Health Care Associated Pneumonia, since this lady has been hospitalized recently. Her COVID result was neg. Blood cx remain neg to date. The sputum cx is growing a gram pos, not yet identified. (8) Acute kidney injury superimposed on chronic kidney disease Assessment/Plan: Her baseline creat was 1.3-1.7. At presentation now, her creat was 2.9. With managing venous overload due to CHF, with diuretics, her creat has improved to 2.5, where it is for the past 2 days. This also bodes a poor prognosis of < 6 mos, which was communicated to Palliative Care, Malu Booker NP for a consult today. Follow BMP daily. (9) Elevated LFTs Assessment/Plan: Passive congestion of the liver from CHF has improved with the diuresis, and LFTs have decreased. Follow LFTs intermittently. (10) Hypoglycemia Assessment/Plan: She has had this problem on previous admissions, possibly due to poor po intake. This admission it was related to Insulin use for treating hyperkalemia at presentation. Since her po intake is only 25% of her tray, continue very slow iv hydration containing D5. (11) Anemia Qualifiers: Anemia type: iron deficiency Assessment/Plan: She presented to ER complaining of weakness (and hip pain) and Hgb was 7.7. When the PR was diagnosed in the ER, she was transfused 1U PRBCs and Hgb marisol to 8, and is now stable at 8.6 daily. The B12 and Folate levels are adequate but Iron stores are low. Will start daily oral Iron replacement. (12) Dementia Assessment/Plan: Chronic. She has been less confused yesterday and today as she her pulmonary status improved. Palliative Care consult requested. (13) Hypertension Assessment/Plan: Low BP this a.m, possibly from new tachycardia, since BP improved as HR was controlled. Will stop Hydralazine. Continue Imdur. Will start Amio as her B-mason. Continue diuretics which will also lower the BP. (14) Altered mental status Qualifiers: Altered mental status type: disorientation Qualified Code(s): R41.0 - Disorientation, unspecified Assessment/Plan: Baseline dementia was present. Less confused than at admission. (15) Weakness Assessment/Plan: PT started yesterday (16) History of COPD Assessment/Plan: No wheezing, no exacerbation this admission. (17) Hyponatremia Assessment/Plan: Resolved (18) Hyperkalemia Assessment/Plan: Resolved - Current Meds Current Meds: Current Medications Generic Name Dose Route Start Last Admin Trade Name Freq PRN Reason Stop Dose Admin Albuterol/Ipratropium 3 ml 05/03/19 17:59 05/05/19 09:20 Duoneb INH 3 ml RTQID PRN Administration Shortness of Air/Wheezing Amiodarone HCl 200 mg 05/07/19 09:00 05/07/19 09:18 Pacerone PO 200 mg BID MIRANDA Administration Aspirin 81 mg 05/07/19 09:00 05/07/19 09:18 Ecotrin PO 81 mg DAILY MIRANDA Administration Docusate Sodium 250 - 500 mg 05/06/19 09:00 05/07/19 09:17 Colace 250mg Capsule PO 500 mg DAILY MIRANDA Administration Famotidine 10 mg 05/03/19 21:00 05/07/19 09:18 Pepcid PO 10 mg BID MIRANDA Administration Furosemide 80 mg 05/07/19 09:00 05/07/19 09:18 Lasix PO 80 mg DAILY MIRANDA Administration Heparin Sodium (Beef Lung) 30 - 50 unit 05/06/19 03:39 05/06/19 04:38 IVP 30 unit PRN PRN Administration Central Line Protocol (<24 hr) Cefepime HCl 1 gm/ Sodium 100 mls @ 200 mls/hr 05/03/19 18:04 05/07/19 09:15 Chloride IV 200 mls/hr BID MIRANDA Administration Dextrose/Sodium Chloride 1,000 mls @ 50 mls/hr 05/06/19 11:02 05/06/19 16:09 D5ns IV 50 mls/hr .Q20H MIRANDA Administration Isosorbide Mononitrate 30 mg 05/06/19 16:00 05/07/19 09:17 Imdur PO 30 mg DAILY MIRANDA Administration Morphine Sulfate 2 mg 05/03/19 17:22 05/04/19 15:32 Morphine (Carpuject) IVP 2 mg Q2HR PRN Administration Pain 8 to 10 Ondansetron HCl 4 mg 05/03/19 17:22 05/07/19 09:31 Zofran Inj IVP 4 mg Q6HR PRN Administration Nausea / Vomiting Oxycodone HCl 5 mg 05/03/19 17:22 05/06/19 21:25 Roxicodone PO 5 mg Q4HR PRN Administration Pain 5 to 7 Polyethylene Glycol 17 gm 05/06/19 22:00 05/07/19 09:19 Miralax PO 17 gm DAILY MIRANDA Administration Senna 8.6 - 17.2 mg 05/06/19 09:00 05/07/19 09:17 Senokot PO 17.2 mg DAILY MIRANDA Administration Sodium Chloride 10 ml 05/03/19 17:22 05/06/19 14:04 Normal Saline Flush 0.9% IVP 20 ml PRN PRN Administration NEEDED PER PROVIDER ORDERS Sodium Chloride 10 ml 05/04/19 01:00 05/06/19 05:12 Normal Saline Flush 0.9% IVP 10 ml 0100,0900,1700 MIRANDA Administration - Lab Result Fish Bone Diagrams: 05/07/19 05:50 05/07/19 05:50 - EKG Results EKG Interpreted Independently: Yes EKG Comparison: Changed from prior EKG EKG Findings: Afib with RVR, ventr rate 144, marked LVH voltage, QS waves V1-V2, and [address] depressions in V4-V6. Since the admission EKG, LBBB is now absent, all other findings are new. - Additional Planning My Orders: My Active Orders 05/06/19 11:02 Dextrose 5%-0.9% NaCl [D5ns] 1,000 ml IV 50 mls/hr 05/06/19 11:03 Miscellaenous Nursing Order [RC] QSHIFT 05/06/19 12:33 Miscellaenous Nursing Order [RC] QSHIFT 05/06/19 16:00 Isosorbide Mononitrate ER [Imdur] 30 mg PO DAILY 05/06/19 17:05 Restraints [RC] Q24H 05/06/19 22:00 polyethylene glycoL 3350 [Miralax] 17 gm PO DAILY 05/07/19 09:00 Amiodarone [Pacerone] 200 mg PO BID Apixaban [Eliquis] 2.5 mg PO BID Aspirin EC [Ecotrin] 81 mg PO DAILY Furosemide [Lasix] 80 mg PO DAILY 05/07/19 12:00 Spironolactone [Aldactone] 25 mg PO 1200 05/07/19 21:00 Atorvastatin [Lipitor] 20 mg PO QPM Subjective - Subjective Nursing Reports: No Complaints, Other (O2 sat dropped slightly and 1L O2 is back on, but she was tolerating room air last night.) Objective Vital Signs: Vital Signs - 24 hr 05/06/19 05/06/19 05/06/19 10:20 10:30 10:45 Temperature 37.1 C Heart Rate Heart Rate [ 75 82 81 Brachial] Respiratory 20 20 20 Rate Blood Pressure [Left Brachial artery] Blood Pressure 131/55 H 131/55 H 129/76 [Right Brachial artery] O2 Saturation 93 95 94 05/06/19 05/06/19 05/06/19 10:50 14:06 15:25 Temperature 36.7 C Heart Rate 81 Heart Rate [ 69 73 Brachial] Respiratory 20 16 17 Rate Blood Pressure [Left Brachial artery] Blood Pressure 113/47 L 123/59 L [Right Brachial artery] O2 Saturation 95 95 05/06/19 05/06/19 05/07/19 20:10 21:00 01:00 Temperature 36.8 C 37.1 C Heart Rate 76 Heart Rate [ 76 76 Brachial] Respiratory 16 20 18 Rate Blood Pressure 129/52 L [Left Brachial artery] Blood Pressure 130/57 L [Right Brachial artery] O2 Saturation 94 93 05/07/19 05/07/19 05/07/19 03:51 04:29 04:33 Temperature 36.3 C L Heart Rate Heart Rate [ 135 H 118 H 112 H Brachial] Respiratory 16 Rate Blood Pressure 147/61 H [Left Brachial artery] Blood Pressure 110/77 92/46 L [Right Brachial artery] O2 Saturation 92 05/07/19 05/07/19 05/07/19 04:36 04:42 04:51 Temperature Heart Rate Heart Rate [ 118 H 98 92 Brachial] Respiratory Rate Blood Pressure [Left Brachial artery] Blood Pressure 95/59 L 126/60 94/60 [Right Brachial artery] O2 Saturation 05/07/19 05/07/19 05/07/19 05:15 05:30 08:39 Temperature 36.7 C Heart Rate Heart Rate [ 93 88 75 Brachial] Respiratory 16 Rate Blood Pressure [Left Brachial artery] Blood Pressure 104/62 117/75 112/74 [Right Brachial artery] O2 Saturation 93 Oxygen O2 Source Nasal cannula I&O (Last 24 Hrs): Intake and Output Totals x24h 05/05/19 05/06/19 05/07/19 23:59 23:59 23:59 Intake Total 2335.55 3278.70 200 Output Total 6900 5950 1250 Balance -4564.45 -2671.30 -1050 General: Alert HEENT: Mucous membr. moist/pink, Other (Temporal wasting, eyes sunken.) Neck: Supple Neuro: Alert, Disoriented Cardiovascular: Other (Irreg irreg, soft systolic murmur) Respiratory: No respiratory distress, Other (No wheezing, is on O2 per n.c.) Abdomen: Soft Extremities: No edema Skin: No breakdown (Pale) - Results Results: Laboratory Results WBC 4.9 x10^3/uL (4.8-10.8) 05/07/19 05:50 RBC 2.94 10^6/uL (4.20-5.40) L 05/07/19 05:50 Hgb 8.6 g/dL (12.0-16.0) L 05/07/19 05:50 Hct 26.6 % (37.0-47.0) L 05/07/19 05:50 MCV 90.5 fL (81.0-99.0) 05/07/19 05:50 MCH 29.3 pg (27.0-31.0) 05/07/19 05:50 MCHC 32.3 g/dL (32.0-36.0) 05/07/19 05:50 RDW 17.4 % (12.0-15.0) H 05/07/19 05:50 Plt Count 150 10^3/uL (130-450) 05/07/19 05:50 MPV 11.2 fL (7.9-10.8) H 05/07/19 05:50 Neut # (Auto) 2.7 10^3/uL (1.5-6.6) 05/07/19 05:50 Lymph # (Auto) 1.0 10^3/uL (1.5-3.5) L 05/07/19 05:50 [place] # (Auto) 0.8 10^3/uL (0.0-1.0) 05/07/19 05:50 Eos # (Auto) 0.3 10^3/uL (0.0-0.7) 05/07/19 05:50 Baso # (Auto) 0.0 10^3/uL (0.0-0.1) 05/07/19 05:50 Absolute Nucleated RBC 0.04 x10^3/uL 05/07/19 05:50 Nucleated RBC % 0.8 /100WBC 05/07/19 05:50 PT 16.1 secs (9.9-12.6) H 05/03/19 15:47 INR 1.4 (0.8-1.2) H 05/03/19 15:47 Anti-Xa Level 0.0 U/mL (-0.7) 05/05/19 11:55 VBG pH 7.427 (7.31-7.41) H 05/06/19 15:40 VBG pCO2 54.4 mmHg (41-51) H 05/03/19 15:47 VBG pO2 50.5 mmHg (25-47) H 05/03/19 15:47 VBG HCO3 24.1 mmol/L (23-28) 05/03/19 15:47 VBG Total CO2 25.8 mmol/L (24-29) 05/03/19 15:47 VBG O2 Saturation 79.4 % (60-80) 05/03/19 15:47 VBG Base Excess -3.0 mmol/L (-2 - +2) L 05/03/19 15:47 Ionized Calcium 1.04 mmol/L (1.15-1.33) L 05/06/19 15:40 Sodium 138 mmol/L (135-145) 05/07/19 05:50 Potassium 4.3 mmol/L (3.5-5.0) 05/07/19 05:50 Chloride 95 mmol/L (101-111) L 05/07/19 05:50 Carbon Dioxide 32 mmol/L (21-32) 05/07/19 05:50 Anion Gap 11.0 (6-13) 05/07/19 05:50 BUN 47 mg/dL (6-20) H 05/07/19 05:50 Creatinine 2.5 mg/dL (0.4-1.0) H 05/07/19 05:50 Estimated GFR (MDRD) 19 (>89) L 05/07/19 05:50 Glucose 93 mg/dL (70-100) 05/07/19 05:50 POC Whole Bld Glucose 83 mg/dL (70 - 100) 05/07/19 07:39 Lactic Acid 1.5 mmol/L (0.5-2.2) 05/03/19 22:04 Calcium 8.1 mg/dL (8.5-10.3) L 05/07/19 05:50 Ionized Calcium YES 05/06/19 15:40 Magnesium 1.8 mg/dL (1.7-2.8) 05/06/19 15:40 Iron 17 ug/dL (28-170) L 05/07/19 05:50 TIBC 241 ug/dL (250-450) L 05/07/19 05:50 % Saturation 7 % (20-50) L 05/07/19 05:50 Transferrin 172 mg/dL (192-382) L 05/07/19 05:50 Total Bilirubin 0.7 mg/dL (0.2-1.0) 05/07/19 05:50 AST 78 IU/L (10-42) H 05/07/19 05:50 ALT 151 IU/L (10-60) H 05/07/19 05:50 Alkaline Phosphatase 59 IU/L (42-121) 05/07/19 05:50 Ammonia 16.1 umol/L (7-35) 05/06/19 04:15 Troponin I High Sens 730.1 ng/L (2.3-14.8) H* 05/07/19 08:21 B-Natriuretic Peptide 2496 pg/mL (5-100) H 05/07/19 05:50 Total Protein 5.8 g/dL (6.7-8.2) L 05/07/19 05:50 Albumin 2.1 g/dL (3.2-5.5) L 05/07/19 05:50 Globulin 3.7 g/dL (2.1-4.2) 05/07/19 05:50 Albumin/Globulin Ratio 0.6 (1.0-2.2) L 05/07/19 05:50 Lipase 298 U/L (22-51) H 05/03/19 15:47 Vitamin B12 751 pg/mL (180-914) 05/07/19 05:50 Folate 11.61 ng/mL (5.90 - >24.8) 05/07/19 05:50 Nasal Screen MRSA (PCR) NEGATIVE (NEGATIVE) 05/06/19 11:06 Influenza A (Rapid) Negative (Negative) 05/03/19 16:08 Influenza B (Rapid) Negative (Negative) 05/03/19 16:08 Ref Lab Test Result REPORT 05/03/19 16:08 Blood Type O POSITIVE 05/03/19 16:18 Antibody Screen NEGATIVE 05/03/19 16:18 Crossmatch IS Only See Detail 05/03/19 16:18 - Procedures Procedures: Procedures EXCISION OF LOWER ESOPHAGUS, ENDO, DIAGN (03/12/19) EXCISION OF MIDDLE ESOPHAGUS, ENDO, DIAGN (03/12/19) EXCISION OF STOMACH, ENDO, DIAGN (03/12/19) TRANSFUSE NONAUT RED BLOOD CELLS IN PERIPH VEIN, PERC (03/12/19)
[2019-05-07] MEDS ORDERED: DILTIAZEM 50 MG/10 ML VIAL IVP ONE (10:18)
[2019-05-07] MEDS: APIXABAN 2.5 MG TABLET PO SCH ×2 (10:31→20:50)
[2019-05-07] MEDS: DEXTROSE 5%-0.9% NACL 1,000 ML IV SCH (10:38)
[2019-05-07] MEDS: SPIRONOLACTONE 25 MG TABLET PO SCH (11:37)
[2019-05-07] MEDS: FERROUS GLUCONATE 324 MG TABLET PO SCH (11:37)
--- NOTE | 2019-05-07 13:37 | ADVANCE CARE PLANNING NOTE ---
Advance Care Planning - Planning Encounter Date: 05/07/19 Time: 12:05 Purpose: To discuss the patient's status and care plans with her (previously estranged) son, Ti, by phone. Parties in Attendance: I spoke to the son Ti Leung by phone outside of the patient's room. Decisional Capacity of the Patient: She has no decisional capacity; today she knows she is in the hospital but does not know what she is here for. - Diagnosis for Encounter (1) Acute CA Summary: Diagnosed with acute CA by new LBBB on EKG at admission and troponin-hs of > 3000 at presentation. - Encounter Subjective/Patient's Story: I had received a phone call from Anat several days ago, when this patient was first admitted, and updated Anat on the patient's status. Anat said she would call her Sister Shonna and Shonna did indeed reach out to the patient's son, Ti. Earlier today Ti was able to contact our Cut Out Stitcher, who gave me this phone number in order to reach Ti, get past medical history established and update him on her clinical status. Ti described that the patient used to live in [place] with him, her only son, Ti Leung. 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 She was a "raging alcoholic". Approximately 10 years ago, the patient did complete a DPOA form which stated that the son Ti was the DPOA. Ti does not know where the paperwork is now, he does not have it. They had arguments over her alcoholism, did not get along and the patient eventually moved out of his residence to live with a different relative and subsequently ended up on [facility]. On the January 2019 POLST, the patient listed her two nieces, Anat and Shonna, as the closest next-of-kin, because she was "estranged from her son". (I did not ask how long they were estranged). Objective/Medical Story: I gave the son a summary of her current problem: The patient has been hospitalized frequently over the last several months, for UTI, sepsis, pneumonia, COPD, confusion from mild dementia. In January 2019, she did complete a POLST form specifying what medical management she wanted and a DNR was requested. She presented now with shortness of breath, oxygen saturation of 40%, was found to have a large sized CA, leading to CHF causing pulmonary edema, bilateral pneumonia, considered a health care associated pneumonia because of her recent admissions, also significant acute kidney injury on top of prior chronic kidney disease. She was advised to be transferred at the time of presentation in the ER, to a facility that had cardiology, cardiac cath and nephrology with hemodialysis. Patient refused this transfer. She did state she understood she could from being severely ill. Her heart failure has improved with diuresis, pneumonia is being treated and getting better, she tested COVID negative, the oxygen demands are less, kidney failure is slightly better, today she went into new A. fib which is a known complication with heart failure. 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 With the above combination of diagnoses, her prognosis is less than a year, possibly less than 6 months, this was discussed with the son. Because of that, I have ordered Palliative Care to be involved in her case to transition her slowly to Hospice. Goals of Care: Ti Leung indicated that he would be the one making medical decisions for his mother, that his 2 cousins, Anat and Shonna, told him they were "overwhelmed and did not want to be making decisions for the patient". Ti agreed with all that was planned and with what his mother had written in the POLST form. He understood that she would need a SNF for rehab and higher levels of caregiving after this hospitalization. Plan: Continue DNR/DNI. Continue limited care as spelled out in the POLST. Continue plan for discharge to an SNF. Continue plan for requiring more caregiving than the patient was getting in the apartment where she was living. I will give high-dose Thiamine, for possibly some improvement of her dementia. Additional Discussion: I told Ti that the Hospitalists that are taking care of her may be different because of our schedules. I told him he can reach out to the Hospitalists, Nurses and Social Workers here at any time. I told him that Malu Booker NP would be reaching out to him as the Palliative Care provider. He understood and thanked me. Code Status: Do Not Attempt Resuscitation Time spent on advance care plannin min
[2019-05-07] MEDS: THIAMINE INJ 500 MG in SODIUM CHLORIDE 0.9% 50 ML IV SCH (16:14)
[2019-05-07] MEDS: SODIUM CHLORIDE FLUSH 0.9% 10 ML SYRINGE IVP SCH (16:25)
[2019-05-07] MEDS: ATORVASTATIN 40 MG TABLET PO SCH (20:50)
[2019-05-07] MEDS: oxyCODONE 5 MG TABLET PO PRN (20:51)
[2019-05-08] MEDS: SODIUM CHLORIDE FLUSH 0.9% 10 ML SYRINGE IVP SCH ×3 (02:33→16:26)
[2019-05-08] MEDS: MORPHINE 2 MG/ML CARPUJECT IVP PRN (02:40)
[2019-05-08 06:50] LABS: BASOPHILS % (AUTO) 0.4 %; EOSINOPHILS # (AUTO) 0.3 10^3/uL (0.0-0.7); EOSINOPHILS % (AUTO) 6.8 %; HGB - HEMOGLOBIN 8.4 g/dL (12.0-16.0); LYMPHOCYTES # (AUTO) 1.2 10^3/uL (1.5-3.5); LYMPHOCYTES % (AUTO) 26.2 %; MEAN CORPUSCULAR HEMOGLOBIN 29.7 pg (27.0-31.0); MEAN CORPUSCULAR HGB CONC 32.4 g/dL (32.0-36.0); MEAN CORPUSCULAR VOLUME 91.5 fL (81.0-99.0); MEAN PLATELET VOLUME 11.4 fL (7.9-10.8); MONOCYTES # (AUTO) 0.9 10^3/uL (0.0-1.0); MONOCYTES % (AUTO) 18.5 %; NEUTROPHILS # (AUTO) 2.2 10^3/uL (1.5-6.6); NEUTROPHILS % (AUTO) 46.6 %; PLT - PLATELET COUNT 141 10^3/uL (130-450); RED BLOOD COUNT 2.83 10^6/uL (4.20-5.40); RED CELL DISTRIBUTION WIDTH 17.4 % (12.0-15.0); WHITE BLOOD COUNT 4.7 x10^3/uL (4.8-10.8)
[2019-05-08 07:04] LABS: ALBUMIN 2.2 g/dL (3.2-5.5); ALBUMIN/GLOBULIN RATIO 0.6 (1.0-2.2); BILIRUBIN,TOTAL 0.9 mg/dL (0.2-1.0); CALCIUM 8.8 mg/dL (8.5-10.3); CREATININE 2.2 mg/dL (0.4-1.0); TOTAL PROTEIN 5.9 g/dL (6.7-8.2)
[2019-05-08] MEDS: SODIUM CHLORIDE FLUSH 0.9% 10 ML SYRINGE IVP PRN (07:17)
[2019-05-08] MEDS: DEXTROSE 5%-0.9% NACL 1,000 ML IV SCH (07:56)
[2019-05-08] MEDS: CEFEPIME 1 GM in SODIUM CHLORIDE 0.9% MINIBAG 100 ML IV SCH (08:06)
[2019-05-08] MEDS: ACETAMINOPHEN 325 MG TABLET PO PRN (08:08)
[2019-05-08] MEDS: AMIODARONE 200 MG TABLET PO SCH ×2 (08:09→20:22)
[2019-05-08] MEDS: DOCUSATE SODIUM 250 MG CAPSULE PO SCH (08:09)
[2019-05-08] MEDS: ASPIRIN EC 81 MG TABLET PO SCH (08:09)
[2019-05-08] MEDS: SENNA 8.6 MG TABLET PO SCH (08:09)
[2019-05-08] MEDS: FAMOTIDINE 20 MG TABLET PO SCH ×2 (08:09→20:22)
[2019-05-08] MEDS: FERROUS GLUCONATE 324 MG TABLET PO SCH (08:09)
[2019-05-08] MEDS: FUROSEMIDE 40 MG TABLET PO SCH (08:09)
[2019-05-08] MEDS: ISOSORBIDE MONONITRATE ER 30 MG TABLET PO SCH (08:09)
[2019-05-08] MEDS: ONDANSETRON 4 MG/2 ML VIAL IVP PRN (08:09)
[2019-05-08] MEDS: APIXABAN 2.5 MG TABLET PO SCH ×2 (08:10→20:22)
[2019-05-08] MEDS: polyethylene glycoL 3350 17 GM PACKET PO SCH (08:10)
[2019-05-08] MEDS: THIAMINE INJ 500 MG in SODIUM CHLORIDE 0.9% 50 ML IV SCH (10:36)
[2019-05-08] MEDS: SPIRONOLACTONE 25 MG TABLET PO SCH (11:10)
--- NOTE | 2019-05-08 11:38 | PROVIDER PROGRESS NOTE ---
Subjective - Prog Note Date Prog Note Date: 05/08/19 Prog Note Time: 11:38 - Subjective Pt reports feeling: No change (but she has no insight. Doesn't remember why she's here but wants to "go home now") Subjective: This unfortunate female has suffered the late effects of alcohol abuse which include persistent alcohol-related dementia. She presented as a STEMI and complications of that STEMI have included acute on chronic systolic heart failure, acute kidney injury superimposed on chronic, atrial fibrillation, and ventricular tachycardia. Her echocardiogram done May 03 and compared to March 26 shows mild to moderate LV dilation with mild concentric left ventricular hypertrophy and moderately reduced systolic function with an ejection fraction of 30 to 35% accompanied by global hypokinesis. She has grade 2 diastolic dysfunction. Severe left atrial dilation with moderate to severe right atrial dilation. Moderate aortic stenosis and mild mitral stenosis. Moderate pulmonary hypertension with an estimated RVSP of 53 mmHg. She has a large left pleural effusion. Further recommendation for low flow/low gradient severe aortic stenosis. Her previous ejection fraction on March 26 was 50 to 55% with moderate aortic stenosis. Social situation is still problematic and that she lives with a roommate who does not want her be responsible for this unfortunate woman's care. Patient herself letter Medicaid ran out and she may no longer have any qualified days left under her jail facility benefits for rehab. Her niece, previous power of literacy specialist, no longer wishes to be power of literacy specialist and her estranged son has now been identified as a new power of literacy specialist. Current Medications - Current Medications Current Medications: Active Medications Acetaminophen (Tylenol) 650 mg PO Q4HR PRN PRN Reason: Pain 1 to 4 Last Admin: 05/08/19 08:08 Dose: 650 mg Albuterol () 2.5 mg INH RTQ4H PRN PRN Reason: Wheezing Albuterol/Ipratropium (Duoneb) 3 ml INH RTQID PRN PRN Reason: Shortness of Air/Wheezing Last Admin: 05/05/19 09:20 Dose: 3 ml Amiodarone HCl (Pacerone) 200 mg PO BID [facility] Last Admin: 05/08/19 08:09 Dose: 200 mg Apixaban (Eliquis) 2.5 mg PO BID [facility] Last Admin: 05/08/19 08:10 Dose: 2.5 mg Aspirin (Ecotrin) 81 mg PO DAILY [facility] Last Admin: 05/08/19 08:09 Dose: 81 mg Atorvastatin Calcium (Lipitor) 20 mg PO QPM [facility] Last Admin: 05/07/19 20:50 Dose: 20 mg Docusate Sodium (Colace 250mg Capsule) 250 - 500 mg PO DAILY [facility] Last Admin: 05/08/19 08:09 Dose: 250 mg Famotidine (Pepcid) 10 mg PO BID [facility] Last Admin: 05/08/19 08:09 Dose: 10 mg Ferrous Gluconate (Fergon) 324 mg PO DAILYWM [facility] Last Admin: 05/08/19 08:09 Dose: 324 mg Furosemide (Lasix) 80 mg PO DAILY [facility] Last Admin: 05/08/19 08:09 Dose: 80 mg Heparin Sodium (Beef Lung) () 30 - 50 unit IVP PRN PRN PRN Reason: Central Line Protocol (<24 hr) Last Admin: 05/08/19 07:17 Dose: 50 unit Cefepime HCl 1 gm/ Sodium (Chloride) 100 mls @ 200 mls/hr IV BID [facility] Last Infusion: 05/08/19 09:06 Dose: Infused Dextrose/Sodium Chloride (D5ns) 1,000 mls @ 50 mls/hr IV .Q20H [facility] Last Admin: 05/08/19 07:56 Dose: 50 mls/hr Thiamine HCl 500 mg/ Sodium (Chloride) 55 mls @ 100 mls/hr IV DAILY [facility] Stop: 05/10/19 15:29 Last Infusion: 05/08/19 11:06 Dose: Infused Isosorbide Mononitrate (Imdur) 30 mg PO DAILY [facility] Last Admin: 05/08/19 08:09 Dose: 30 mg Morphine Sulfate (Morphine (Carpuject)) 2 mg IVP Q2HR PRN PRN Reason: Pain 8 to 10 Last Admin: 05/08/19 02:40 Dose: 2 mg Ondansetron HCl (Zofran Inj) 4 mg IVP Q6HR PRN PRN Reason: Nausea / Vomiting Last Admin: 05/08/19 08:09 Dose: 4 mg Oxycodone HCl (Roxicodone) 5 mg PO Q4HR PRN PRN Reason: Pain 5 to 7 Last Admin: 05/07/19 20:51 Dose: 5 mg Polyethylene Glycol (Miralax) 17 gm PO DAILY [facility] Last Admin: 05/08/19 08:10 Dose: Not Given Senna (Senokot) 8.6 - 17.2 mg PO DAILY [facility] Last Admin: 05/08/19 08:09 Dose: 8.6 mg Sodium Chloride (Normal Saline Flush 0.9%) 10 ml IVP PRN PRN PRN Reason: NEEDED PER PROVIDER ORDERS Last Admin: 05/08/19 07:17 Dose: 10 ml Sodium Chloride (Normal Saline Flush 0.9%) 10 ml IVP 0100,0900,1700 [facility] Last Admin: 05/08/19 08:10 Dose: 10 ml Spironolactone (Aldactone) 25 mg PO 1200 [facility] Last Admin: 05/08/19 11:10 Dose: 25 mg Thiamine HCl (Vitamin B-1) 100 mg PO DAILY [facility] Objective - Vital Signs/Intake & Output Reviewed Vital Signs: Yes Vital Signs: Vital Signs x48h Temp Pulse Pulse Pulse Resp BP BP 05/08/19 10:38 128 H 20 120/85 H 05/08/19 09:06 36.6 C 100 16 05/08/19 09:00 36.6 C 125 H 16 119/72 05/08/19 04:11 36.6 C 100 16 117/88 H Pulse Ox 05/08/19 10:38 05/08/19 09:06 94 05/08/19 09:00 94 05/08/19 04:11 96 Intake & Output: Intake & Output 05/05/19 05/06/19 05/07/19 05/08/19 23:59 23:59 23:59 23:59 Intake Total 2335.55 3278.70 2275.167 1445 Output Total 6900 5950 2975 775 Balance -4564.45 -2671.30 -699.833 670 - Objective General Appearance: positive: No acute distress, Alert, Other (elderly forgetful and fretful white female) Eyes Bilateral: positive: PERRL ENT: positive: Pharynx nml Neck: positive: No JVD, Carotid bruit. negative: Stiff neck Respiratory: positive: Chest non-tender, No respiratory distress, Rales, Other (dull left base with percussion and ?egophony) Cardiovascular: positive: Irregularly irregular (She has had V. tach overnight, and has had a 5 beat run of V. tach again at 10:28 AM), Systolic murmur. negative: Gallop/S4, Friction rub Abdomen: positive: Non-tender, Nml bowel sounds, No distention. negative: Guarding, Rebound Skin: positive: Warm, Dry, Other (echymoses of hands, forearms) Extremities: positive: No pedal edema Neurologic/Psychiatric: positive: CN's nml (2-12), Motor nml (but diffusely weak), Disoriented to place (at times), Disoriented to time (at times) - Lab Results Fish Bones: 05/08/19 06:25 05/08/19 06:25 Other Labs: Lab Results x24hrs 05/08/19 05/08/19 05/08/19 Range/Units 07:59 06:25 06:25 WBC (4.8-10.8) x10^3/uL RBC (4.20-5.40) 10^6/uL Hgb (12.0-16.0) g/dL Hct (37.0-47.0) % MCV (81.0-99.0) fL MCH (27.0-31.0) pg MCHC (32.0-36.0) g/dL RDW (12.0-15.0) % Plt Count (130-450) 10^3/uL MPV (7.9-10.8) fL Neut # (Auto) (1.5-6.6) 10^3/uL Lymph # (Auto) (1.5-3.5) 10^3/uL Bowie # (Auto) (0.0-1.0) 10^3/uL Eos # (Auto) (0.0-0.7) 10^3/uL Baso # (Auto) (0.0-0.1) 10^3/uL Absolute Nucleated RBC x10^3/uL Nucleated RBC % /100WBC Sodium (135-145) mmol/L Potassium (3.5-5.0) mmol/L Chloride (101-111) mmol/L Carbon Dioxide (21-32) mmol/L Anion Gap (6-13) BUN (6-20) mg/dL Creatinine (0.4-1.0) mg/dL Estimated GFR (MDRD) (>89) Glucose (70-100) mg/dL POC Whole Bld Glucose 88 (70 - 100) mg/dL Calcium (8.5-10.3) mg/dL Total Bilirubin (0.2-1.0) mg/dL AST (10-42) IU/L ALT (10-60) IU/L Alkaline Phosphatase (42-121) IU/L B-Natriuretic Peptide 2166 H (5-100) pg/mL Total Protein (6.7-8.2) g/dL Albumin (3.2-5.5) g/dL Globulin (2.1-4.2) g/dL Albumin/Globulin Ratio (1.0-2.2) TSH 3.45 (0.34-5.60) uIU/mL 05/08/19 05/08/19 05/07/19 Range/Units 06:25 06:25 16:48 WBC 4.7 L (4.8-10.8) x10^3/uL RBC 2.83 L (4.20-5.40) 10^6/uL Hgb 8.4 L (12.0-16.0) g/dL Hct 25.9 L (37.0-47.0) % MCV 91.5 (81.0-99.0) fL MCH 29.7 (27.0-31.0) pg MCHC 32.4 (32.0-36.0) g/dL RDW 17.4 H (12.0-15.0) % Plt Count 141 (130-450) 10^3/uL MPV 11.4 H (7.9-10.8) fL Neut # (Auto) 2.2 (1.5-6.6) 10^3/uL Lymph # (Auto) 1.2 L (1.5-3.5) 10^3/uL Bowie # (Auto) 0.9 (0.0-1.0) 10^3/uL Eos # (Auto) 0.3 (0.0-0.7) 10^3/uL Baso # (Auto) 0.0 (0.0-0.1) 10^3/uL Absolute Nucleated RBC 0.05 x10^3/uL Nucleated RBC % 1.1 /100WBC Sodium 138 (135-145) mmol/L Potassium 4.7 (3.5-5.0) mmol/L Chloride 99 L (101-111) mmol/L Carbon Dioxide 30 (21-32) mmol/L Anion Gap 9.0 (6-13) BUN 43 H (6-20) mg/dL Creatinine 2.2 H (0.4-1.0) mg/dL Estimated GFR (MDRD) 22 L (>89) Glucose 93 (70-100) mg/dL POC Whole Bld Glucose 94 (70 - 100) mg/dL Calcium 8.8 (8.5-10.3) mg/dL Total Bilirubin 0.9 (0.2-1.0) mg/dL AST 44 H (10-42) IU/L ALT 112 H (10-60) IU/L Alkaline Phosphatase 55 (42-121) IU/L B-Natriuretic Peptide (5-100) pg/mL Total Protein 5.9 L (6.7-8.2) g/dL Albumin 2.2 L (3.2-5.5) g/dL Globulin 3.7 (2.1-4.2) g/dL Albumin/Globulin Ratio 0.6 L (1.0-2.2) TSH (0.34-5.60) uIU/mL ABX Reporting Has patient been on IV antibiotics over the past 48 hours?: No Assessment/Plan - Problem List (1) V-tach Impression: She has had V. tach on May 05 afternoon, 6 beats. Had another 20 beat run May 06 in the afternoon and subsequent A. fib with RVR. So far her potassium, magnesium have been normal. Repeat troponin yesterday does not show a bump in troponins. This morning she had another 5 beat run. She is on amiodarone oral loading dose. She is DO NOT RESUSCITATE. In essence, we are addressing the problem, and underlying issues, but if she codes, she is a DO NOT RESUSCITATE. (2) Atrial fibrillation with RVR Assessment/Plan: 05/06 had new onset Afib at rate 140's. She had VTach within that time. She was given 1 dose of iv Cardizem 10 mg at 0400 which slowed HR to 110's. BP was low when her HR was fast. She does not feel palpitations. Her O2 sats had been good and she was down to room air, but with this she had 1L O2 restarted. She was started on po Amiodarone load for HR slowing and possible conversion of Afib. Given an additional Cardizem iv dose, since HR was to 120's. Her CHADS scorte is 3 (CHF, Age >75, and HTN) and thus she should be on an anticoagulant. Started Eliquis at 2.5 mg bid, watching the creat closely. Continue baby ASA daily for the recent acute TN. Will decrease the Lipitor from 40 to 20 mg, since Amio will increase the statin effect. 05/07 rate is controlled. No change in meds. (3) Respiratory failure with hypoxia resolved Assessment/Plan: She was on 4 L nasal cannula May 05 and has been 1 L since then. Caused by flash pulmonary edema and HCAP in a COPDer. The CHF and infiltrates are getting better, per CXR done 05/05 The BNP is improving. Peaked at 4574 on May 05 >2196 >2166 today , but lags behind her clinical status by a day. Her O2 requirements have improved from 14L high-flow at admission to 1L now. She did not have a COPD exacerbation so no iv steroids. Nebs are prn. Continue treatment of CHF and pneumonia. (4) Acute systolic heart failure Assessment/Plan: Her Echo done this admission showed LVEF of 20-25%, compared to a normal LVEF from just 1 month previously, done on her last admission here. She is on Lasix, starting Spironolactone 05/06 while watching the creatinine, her B-mason is Amio, she is not on JESS or ARB since she presented with a creat of 2.9, instead she is on Nitrates plus (she was on) Hydralazine, but Hydralazine stopped 05/06 due to low BP. Her fluid balance is neg 6.5L since admission. With that, her creat improved to 2.5, suggesting she had Cardio-Renal syndome. No change in meds today. (5) STEMI (ST elevation myocardial infarction) Qualifiers: Involved coronary artery: unspecified coronary artery Qualified Code(s): I21.3 - ST elevation (STEMI) myocardial infarction of unspecified site Assessment/Plan: She presented to the ER with an O2 sat of 40%, SOB but not complaining of chest pain. Troponins were therefore checked and her initial troponin was 3700. The troponin has peaked at 4300. She had been advised transfer for a cor angio by the ER Provider (and a facility with Nephrology and Hemodialysis), when she presented, and refused it, and understood that she may not survive. She wanted medical management only. She is on ASA, statin, B-mason and Nitrates. Physical Therapy started 05/05, which she tolerated. If she stabilizes and is [facility], she would need a SNF for Rehab. Complications of her STEMI have included new acute systolic heart failure, atrial fibrillation, V. tach, and healthcare associated pneumonia. (6) Aortic stenosis Assessment/Plan: The Echo also showed moderate . This makes choosing meds for CHF treatment more difficult, since she has a fixed afterload due to the aortic stenosis, and thus Hydralazine and ACEs or ARBs may drop her BP excessively without producing the desired afterload reduction. Also, with severe systolic heart failure, gives her a poor prognosis of < 1 year survival. For this reason, Palliative Care consult was requested (ordered 05/06), to help transition her to Hospice. Palliative care has seen her yesterday and will be seen again this morning. I have conferred with GRAPHICS SPECIALIST this morning. The patient has poor insight due to her dementia and will contact her son. (7) HCAP (healthcare-associated pneumonia) Assessment/Plan: The infiltrates are improving on empiric Cefepime, chosen for Health Care Associated Pneumonia, since this lady has been hospitalized recently. Her COVID result was neg. Normal respiratory venus on sputum culture. Blood cultures negative on the 12th. Day#6 for the abx. Since no fever or WBC, will stop empiric abx now. (8) Acute kidney injury superimposed on chronic kidney disease Assessment/Plan: Her baseline creat was 1.3-1.7. At presentation now, her creat was 2.9. With managing venous overload due to CHF, with diuretics, her creat has improved to 2.5, where it is for the past 2 days. This also bodes a poor prognosis of < 6 mos, which was communicated to Palliative Care, Malu Booker NP for a consult today. Follow BMP daily. (9) Elevated LFTs Assessment/Plan: Passive congestion of the liver from CHF has improved with the diuresis, and LFTs have decreased. Follow LFTs intermittently. (10) Hypoglycemia Assessment/Plan: She has had this problem on previous admissions, possibly due to poor po intake. This admission it was related to Insulin use for treating hyperkalemia at presentation. Since her po intake is only 25% of her tray, continue very slow iv hydration containing D5. (11) Anemia Qualifiers: Anemia type: iron deficiency Assessment/Plan: She presented to ER complaining of weakness (and hip pain) and Hgb was 7.7. When the TN was diagnosed in the ER, she was transfused 1U PRBCs and Hgb marisol to 8, a nd is now stable at 8.6 daily. The B12 and Folate levels are adequate but Iron stores are low. FOBT (+) but no melena or hematochezia. Will start daily oral Iron replacement. (12) Dementia Assessment/Plan: Chronic. She has been less confused as she her pulmonary status improved but she still has poor insight, doesn't recognize the severity of illness or her disability and just wants to go home. Palliative Care consult requested. (13) Hypertension Assessment/Plan: Low BP on the morning of 05/06 possibly from new tachycardia, since BP improved as HR was controlled. Hydralazine stopped. Continued on Imdur. Will start Amio as her B-mason. Continue diuretics which will also lower the BP. (14) Altered mental status Qualifiers: Altered mental status type: disorientation Qualified Code(s): R41.0 - Disorientation, unspecified Assessment/Plan: Baseline dementia was present. Less confused than at admission. (15) Weakness Assessment/Plan: PT started yesterday (16) History of COPD Assessment/Plan: No wheezing, no exacerbation this admission. (17) Hyponatremia Assessment/Plan: Resolved (18) Hyperkalemia Assessment/Plan: Resolved
--- NOTE | 2019-05-08 14:05 | CONSULTATION NOTE ---
Palliative Care Consultation - Referral Referring Provider: Dr. Tanisha Mora Time of Visit: 4449-4113 Referral setting: Hospitalized patient Referral Reason: STEMI with cardiac complications/Alcohol Associated Dementia - Information Sources Records reviewed: Previous records reviewed History/Review of Systems obtained from: Patient, Family (son, Les via phone), Nursing Exam limitations: Clinical condition (short term memory deficits due to dementia) - History of Present Illness Brief History of Present Illness: This is a 78-year-old female Who presented to [facility] emergency department on 05/03/2019 with right hip pain in the setting of respiratory distress. On initial presentation the patient was satting at 40% on room air. She was subsequently placed on a nonrebreather mask and was found to have an elevated troponin level and potential for ST ELKIN with recommendation to transfer to a tertiary facility that had additional services but the patient declined and she was admitted to the medical floor for additional management. The patient herself has had frequent hospitalizations since the fall 2018. This is approximately her 6 hospitalizations since January 2019. She presently is having complications due to ST ELKIN with congestive heart failure, A. fib with RVR and ventricular tachycardia. She also was found to have acute kidney injury on chronic kidney disease with an initial creatinine of 2.9 and potassium of 6.1 on presentation. The patient herself has been at [facility] after previous hospitalizations. And she is well-known to the staff there. The patient herself resides with a roommate and it was this roommate that had called EMS services to the patient's inability to stand on her right leg. The patient's niece has assisted in prior hospitalizations but during this hospitalization due to the acuity of the patient it was determined that her next of kin, her only son, who has been estranged from the patient assume role and medical decision making. 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 During this hospitalization she has had various runs of ventricular tachycardia, has remained asymptomatic. Her echocardiogram performed on 05/03 demonstrated an LVEF of 30 to 35% with global hypokinesis, moderate aortic stenosis and moderate pulmonary hypertension. Her respiratory component has improved and she is just on a nasal cannula with supplemental oxygen at this time. Her congestive heart failure is being managed medically and she is being treated for healthcare acquired pneumonia. She did have testing for CO VID which was subsequently negative. Nursing reports that the patient is forgetful despite redirection. She has pulled out various peripheral IV access lines and as she is a difficult patient access she presents has access through her right IJ. Has she will pick at her IV sites she is on soft restraints at the present time. When this INS[employer]ING presented to the patient she had just completed working with physical therapy and had done well and was anticipating lunch. Other past medical history include: COPD, MRSA pneumonia, Kelsi diet gastritis and esophagitis, chronic anemia, hypertension, CKD stage III, moderate aortic stenosis, history of hyperkalemia, pancreatic mass noted on CT, vitamin D deficiency. Medical/Surgical History - Past Medical History Cardiovascular: reports: Hypertension Respiratory: reports: Pneumonia GI: reports: GERD, GI bleed : reports: None Psych: reports: Depression Musculoskeletal: reports: Chronic back pain Derm: reports: None MRSA Hx?: Yes - Past Surgical History HEENT: reports: Tonsil/Adenoidectomy - Substance History Use: Uses substance without health or social issues: Tobacco (History of tobacco use but she cannot recall how many packs per day), Alcohol Social History - Living Situation Living arrangement: At home (with a landlord, Hannah) Support System: The patient has been residing in her room at her formerly [facility] home in [place] for approximately last 3 to 4 years. The patient herself reports that she and Hannah have their "ins and outs." The patient reports that she grew up in [place], [place]. She relocated to [facility] to be closer to her brother who subsequently passed approximately 8 to 9 months ago. She has 2 nieces in the area, Anat and Shonna. [place] and Shonna lives in [facility] her contact number is [phone]. The patient was residing with her only son, dimitry Leung for approximately 5 years in [place] until she opted to move to [facility] to be closer to her brother. Due to her alcohol use she chose to leave as her son and his were attempting to help her as they "did not want to see her drink herself to ." Her son, dimitry reports that the patient has had drinking problems most of her life. 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 Her son reports that paperwork was completed for him to be her D POA but he does not have copy of the paperwork. The patient divo rced her son's father when he is approximately 3 years of age. She has been approximately 6 times in the past. Ti Leung is the patient's next of kin for decision [phone] Family History - Family History Family History: Mother: , Father: Family History Comment/Other: The patient had 2 brothers who are now both . Her father at approximately age 87 due to complications of diabetes. Her mother at approximately 94 years of age and the patient reports that she "starved to ." The patient was a caregiver for her mother until her . Medications/Allergies - Medications Active Medication List: Active Medications Acetaminophen (Tylenol) 650 mg PO Q4HR PRN PRN Reason: Pain 1 to 4 Last Admin: 05/08/19 08:08 Dose: 650 mg Albuterol () 2.5 mg INH RTQ4H PRN PRN Reason: Wheezing Albuterol/Ipratropium (Duoneb) 3 ml INH RTQID PRN PRN Reason: Shortness of Air/Wheezing Last Admin: 05/05/19 09:20 Dose: 3 ml Amiodarone HCl (Pacerone) 200 mg PO BID [facility] Last Admin: 05/08/19 08:09 Dose: 200 mg Apixaban (Eliquis) 2.5 mg PO BID [facility] Last Admin: 05/08/19 08:10 Dose: 2.5 mg Aspirin (Ecotrin) 81 mg PO DAILY [facility] Last Admin: 05/08/19 08:09 Dose: 81 mg Atorvastatin Calcium (Lipitor) 20 mg PO QPM [facility] Last Admin: 05/07/19 20:50 Dose: 20 mg Docusate Sodium (Colace 250mg Capsule) 250 - 500 mg PO DAILY [facility] Last Admin: 05/08/19 08:09 Dose: 250 mg Famotidine (Pepcid) 10 mg PO BID [facility] Last Admin: 05/08/19 08:09 Dose: 10 mg Ferrous Gluconate (Fergon) 324 mg PO DAILYWM [facility] Last Admin: 05/08/19 08:09 Dose: 324 mg Furosemide (Lasix) 80 mg PO DAILY [facility] Last Admin: 05/08/19 08:09 Dose: 80 mg Heparin Sodium (Beef Lung) () 30 - 50 unit IVP PRN PRN PRN Reason: Central Line Protocol (<24 hr) Last Admin: 05/08/19 07:17 Dose: 50 unit Thiamine HCl 500 mg/ Sodium (Chloride) 55 mls @ 100 mls/hr IV DAILY [facility] Stop: 05/10/19 15:29 Last Infusion: 05/08/19 11:06 Dose: Infused Isosorbide Mononitrate (Imdur) 30 mg PO DAILY [facility] Last Admin: 05/08/19 08:09 Dose: 30 mg Morphine Sulfate (Morphine (Carpuject)) 2 mg IVP Q2HR PRN PRN Reason: Pain 8 to 10 Last Admin: 05/08/19 02:40 Dose: 2 mg Ondansetron HCl (Zofran Inj) 4 mg IVP Q6HR PRN PRN Reason: Nausea / Vomiting Last Admin: 05/08/19 08:09 Dose: 4 mg Oxycodone HCl (Roxicodone) 5 mg PO Q4HR PRN PRN Reason: Pain 5 to 7 Last Admin: 05/07/19 20:51 Dose: 5 mg Polyethylene Glycol (Miralax) 17 gm PO DAILY [facility] Last Admin: 05/08/19 08:10 Dose: Not Given Senna (Senokot) 8.6 - 17.2 mg PO DAILY [facility] Last Admin: 05/08/19 08:09 Dose: 8.6 mg Sodium Chloride (Normal Saline Flush 0.9%) 10 ml IVP PRN PRN PRN Reason: NEEDED PER PROVIDER ORDERS Last Admin: 05/08/19 07:17 Dose: 10 ml Sodium Chloride (Normal Saline Flush 0.9%) 10 ml IVP 0100,0900,1700 [facility] Last Admin: 05/08/19 08:10 Dose: 10 ml Spironolactone (Aldactone) 25 mg PO 1200 [facility] Last Admin: 05/08/19 11:10 Dose: 25 mg Thiamine HCl (Vitamin B-1) 100 mg PO DAILY [facility] - Allergies Allergies/Adverse Reactions: Allergies Allergy/AdvReac Type Severity Reaction Status Date / Time No Known Drug Allergies Allergy Verified 03/25/19 15:23 Review of Systems - Constitutional Constitutional: reports: Fatigue, Weight loss (present weight 139lb; weight in 2016 was 175lb. Patient aware of visible weight loss). denies: Fever, Chills - Eyes Eyes: reports: Blurred vision. denies: Corrective lenses - Ears, Nose & Throat Ears, Nose & Throat: denies: Hearing loss - Cardiovascular Cardiovascular: denies: Palpitations, Chest pain, Edema - Respiratory Respiratory: reports: Cough, Sputum production (clear). denies: Wheezing - Gastrointestinal Gastrointestinal: denies: Abdominal pain, Abdominal distention, Constipation - Genitourinary Genitourinary: reports: Other (+tilley catheter in place). denies: Flank pain - Musculoskeletal Musculoskeletal: reports: Muscle weakness. denies: Joint pain - Integumentary Integumentary: denies: Rash - Neurological Neurological: reports: General weakness, Memory problems - Endocrine Endocrine: denies: Diabetes type 2 - Hematologic/Lymphatic Hematologic/Lymphatic: reports: Recurrent infections - All Other Systems All Other Systems: reports: Reviewed and negative Physical Exam - Vital Signs Vital Signs: Vital Signs x48h Temp Pulse Pulse Pulse Resp BP Pulse Ox 05/08/19 10:38 128 H 20 120/85 H 05/08/19 09:06 36.6 C 100 16 94 05/08/19 09:00 36.6 C 125 H 16 119/72 94 - Physical Exam General Appearance: positive: No acute distress, Alert, Other (Thin elderly female, OOB in side chair with supplemental oxygen via NC in palce) Eyes Bilateral: positive: Normal inspection ENT: positive: No signs of dehydration Neck: positive: No JVD, Trachea midline, Other (+right triple IJ IV access) Cardiovascular: positive: Irregular, Systolic murmur (2/6 ARTEMIO) Respiratory: positive: No respiratory distress, Diminished in bases. negative: Wheezes, Rhonchi Abdomen: positive: Non-tender, Soft, Nml bowel sounds, Other (Tilley to gravity draining clear urine) Skin: positive: No symptoms Extremities: positive: No pedal edema, Other (moves all extremities) Neurologic/Psychiatric: positive: Mood/affect nml, Disoriented to time, Other (Patient was able to track conversation but in response to specific questions often reported "I dont know" or diverted to another topic to cover her deficiency of knowledge. Unclear on time but able to state location and aware of herself and her family.) Palliative Care - POLST Patient has POLST: Yes POLST Status: DNR, Selective Treatment Pain: No pain Tiredness/Fatigue: Mild (1-3) Dyspnea: Mild (1-3) (improved since admission) Anxiety: None Feelings of wellbeing/Perceived Quality of Life: Fair Sleep: Sleeps well Constipation: No Performance Status: The patient has had overall cognitive decline with frequent hospitalizations in the last 6 months. The patient did well working with physical therapy today but given her overall decline there is concern regarding her safety in her current home environment. Presently she is continent of stool. She has a Tilley ca theter in place due to diuresis for her congestive heart failure. - Palliative Care Discussion: The patient herself does not present with decision making capacity. She is aware that she is in the hospital but does not have any insight into her medical conditions as well as her multiple hospitalizations. Her son, dimitry Leung is her next of kin and has been strange from his mother since she left residing with him and his in [place]. Previously last was the patient's D POA, and he believes that the people should not has the paperwork within her home. In discussion with dimitry he seems to comprehend the general decline that has taken place in regards to the patient's health. He was contacted by his cousin Shonna in regards to the patient's circumstance. If there are any updates needed besides himself in the future he advised to contact Shonna at [phone] as there some seems to be some estrangement between his cousin Anat and the patient per his report. Les himself does not speak to Anat. He also reports that in the past his mother had relayed that she wishes to be a DNR and the present POLST that was drawn up in January 2019 he wishes to honor at this time. The patient's son is also aware that there difficult decisions to be made ahead and typically he does not handle the situations very well. He does have the support from his as well as his cousin Shonna in regards to decision making moving forward. Discussed with the patient's son regarding prognosis given the patient's overall decline and reviewed palliative care and hospice philosophy. At this time the patient's son is in agreement that it would be best to transition the patient to a senior living facility such as [facility] where she is a familiar patient and this would be a safe environment to see how she progresses with rehabilitation. If she continues to have a noted decline while at senior living facility then would transition to hospice and this son is agreeable to this plan. Results - Lab Results Lab results reviewed: Yes Fish Bones: 05/08/19 06:25 05/08/19 06:25 Lab and Imaging Results: Lab Results x24hrs 05/08/19 05/08/19 05/08/19 Range/Units 07:59 06:25 06:25 WBC (4.8-10.8) x10^3/uL RBC (4.20-5.40) 10^6/uL Hgb (12.0-16.0) g/dL Hct (37.0-47.0) % MCV (81.0-99.0) fL MCH (27.0-31.0) pg MCHC (32.0-36.0) g/dL RDW (12.0-15.0) % Plt Count (130-450) 10^3/uL MPV (7.9-10.8) fL Neut # (Auto) (1.5-6.6) 10^3/uL Lymph # (Auto) (1.5-3.5) 10^3/uL Dorado # (Auto) (0.0-1.0) 10^3/uL Eos # (Auto) (0.0-0.7) 10^3/uL Baso # (Auto) (0.0-0.1) 10^3/uL Absolute Nucleated RBC x10^3/uL Nucleated RBC % /100WBC Sodium (135-145) mmol/L Potassium (3.5-5.0) mmol/L Chloride (101-111) mmol/L Carbon Dioxide (21-32) mmol/L Anion Gap (6-13) BUN (6-20) mg/dL Creatinine (0.4-1.0) mg/dL Estimated GFR (MDRD) (>89) Glucose (70-100) mg/dL POC Whole Bld Glucose 88 (70 - 100) mg/dL Calcium (8.5-10.3) mg/dL Total Bilirubin (0.2-1.0) mg/dL AST (10-42) IU/L ALT (10-60) IU/L Alkaline Phosphatase (42-121) IU/L B-Natriuretic Peptide 2166 H (5-100) pg/mL Total Protein (6.7-8.2) g/dL Albumin (3.2-5.5) g/dL Globulin (2.1-4.2) g/dL Albumin/Globulin Ratio (1.0-2.2) TSH 3.45 (0.34-5.60) uIU/mL 05/08/19 05/08/19 05/07/19 Range/Units 06:25 06:25 16:48 WBC 4.7 L (4.8-10.8) x10^3/uL RBC 2.83 L (4.20-5.40) 10^6/uL Hgb 8.4 L (12.0-16.0) g/dL Hct 25.9 L (37.0-47.0) % MCV 91.5 (81.0-99.0) fL MCH 29.7 (27.0-31.0) pg MCHC 32.4 (32.0-36.0) g/dL RDW 17.4 H (12.0-15.0) % Plt Count 141 (130-450) 10^3/uL MPV 11.4 H (7.9-10.8) fL Neut # (Auto) 2.2 (1.5-6.6) 10^3/uL Lymph # (Auto) 1.2 L (1.5-3.5) 10^3/uL Dorado # (Auto) 0.9 (0.0-1.0) 10^3/uL Eos # (Auto) 0.3 (0.0-0.7) 10^3/uL Baso # (Auto) 0.0 (0.0-0.1) 10^3/uL Absolute Nucleated RBC 0.05 x10^3/uL Nucleated RBC % 1.1 /100WBC Sodium 138 (135-145) mmol/L Potassium 4.7 (3.5-5.0) mmol/L Chloride 99 L (101-111) mmol/L Carbon Dioxide 30 (21-32) mmol/L Anion Gap 9.0 (6-13) BUN 43 H (6-20) mg/dL Creatinine 2.2 H (0.4-1.0) mg/dL Estimated GFR (MDRD) 22 L (>89) Glucose 93 (70-100) mg/dL POC Whole Bld Glucose 94 (70 - 100) mg/dL Calcium 8.8 (8.5-10.3) mg/dL Total Bilirubin 0.9 (0.2-1.0) mg/dL AST 44 H (10-42) IU/L ALT 112 H (10-60) IU/L Alkaline Phosphatase 55 (42-121) IU/L B-Natriuretic Peptide (5-100) pg/mL Total Protein 5.9 L (6.7-8.2) g/dL Albumin 2.2 L (3.2-5.5) g/dL Globulin 3.7 (2.1-4.2) g/dL Albumin/Globulin Ratio 0.6 L (1.0-2.2) TSH (0.34-5.60) uIU/mL Impression and Recommendations - Palliative Care Impression: This is a 78-year-old female with multiple comorbidities and frequent hospitalizations in the past several months who presents with acute cardiac symptoms of ST ELKIN with complications of congestive heart failure, acute kidney injury on chronic kidney disease, new onset A. fib and ventricular tachycardia with moderate aortic stenosis and pulmonary hypertension. Presently the patient is receiving noninvasive management and the goal is to transition to a senior living facility. Palliative care to continue to provide symptom management, support for the patient and son, goals of care building, and advanced care plann ing. Recommendations/Counseling Done: 1. STEMI. Patient presented to the emergency department with an oxygen saturation of 40% with shortness of breath without chest pain. She had elevated troponin levels. She opted for noninvasive medical management. Continue medication regimen as ordered. Patient remains a DN AR and this was verified with her son today. Patient is without cardiac complaints. Goal is 1 stabilized to discharge to a senior living facility for rehabilitation. 2. Afib with RVR. New onset. Presently on anticoagulation with eliquis 2.5mg BID and amiodarone for rate control. Asymptomatic. CTM. 3. CHF. Improvement of shortness of breath. Presently on 1L oxygen via NC. Her echocardiogram performed on 05/03 demonstrated an LVEF of 30 to 35%. Continue diuretics as ordered and oxygen supplementation. 4. Dementia. Likely alcohol induced competent given the patient's history of alcohol abuse disorder from her son's report. Noted short term memory deficits. Patient does not present with decision making capacity and therefore medical decisions will lie with her son and next of kin, Ti Leung. Fall precautions. Patient is presently on soft restraints given her removal of IV access and limited ability to maintain new directions. Provided supportive care. 5. HCAP. Afebrile. Improvement of shortness of breath. s/p treatment with empiric cefepime with negative blood cultures. 6. Advanced care planning. See Palliative Care Discussion for full details. Confirmed present POLST from 01/2019 with patient's son and medical decision maker, Ti Leung and confirmed DNAR status. As son reports that the patient is a "creature of habit" it would be an ideal to transition the patient once stable to SNF at [facility] as the patient knows this facility from prior admissions that this would be familiar to her. Discussed with the son regarding overall poor prognosis moving forward and he is aware that hospice may be needed in the more immediate future. But at this time, he wishes to focus on obtaining a safe environment for the patient to provide care and increase her strength with rehabilitation. BALDEMAR Hammond has been working with the patient's son regarding [facility] placement. [facility] has also resubmitted the patient's Medicaid application as it had last month. Son is in agreement for palliative care to continue to follow the patient for support and to assist with a transition to hospice when appropriate. Palliative care to continue to build rapport and develop further goals of care. Time Spent: Total time spent 60 minutes with greater than 50% of this spent in counseling and coordination of care with patient, nursing staff, hospitalist and INTERNAL REVENUE SERVICE AGENT as well as son, Ti Leung; examination of patient; review of pallaitive and hospice philosophy with son; review of cardiac co-morbidities; and anticipatory guidance. Disclaimer: The chart note was formulated using voice recognition technology and unfortunately sound alike errors may occur.
[2019-05-08] MEDS: oxyCODONE 5 MG TABLET PO PRN (16:26)
[2019-05-08] MEDS ORDERED: METOPROLOL 5 MG/5 ML VIAL IVP ONE (18:10)
[2019-05-08] MEDS ORDERED: METOPROLOL TARTRATE 50 MG TABLET PO STA (20:07)
[2019-05-08] MEDS: ATORVASTATIN 40 MG TABLET PO SCH (20:22)
[2019-05-09] MEDS: oxyCODONE 5 MG TABLET PO PRN ×3 (04:22→23:56)
[2019-05-09] MEDS: SODIUM CHLORIDE FLUSH 0.9% 10 ML SYRINGE IVP SCH ×2 (04:23→09:57)
--- NOTE | 2019-05-09 08:49 | Discharge Plan ---
"Discharge Plan for SNF / [facility] - Discharge Plan And Transition Orders Problem Reviewed?: Yes Disposition: 03 SNF DC/Xfer Condition: Good Allergies and Adverse Reactions: Allergies Allergy/AdvReac Type Severity Reaction Status Date / Time No Known Drug Allergies Allergy Verified 03/25/19 15:23 Health Concerns: Acute NH Weakness Dementia Goals of care Plan of Treatment: Return home after rehab Continue working with Palliative care Continue medical guided therapy after acute NH Continue to treat chronic pain using narcotics and activity Encourage PO intake Care Goals: Prevent falls, prevent ED visits or hospital stays Assessment: The patient had an eventful hospital stay with suffering from an acute STEMI upon admission, was ruled out for COVID, treated for HCAP, and had intermittent confusion forcing the medical providers to contact her next of kin, her son who had been uninvolved with her life since she was an alcoholic for much of her sons life. The patient underwent a Palliative care consultation, which should continue at [facility] as she requires a rehab stay. She is medically stable, and her central line will be removed from her right neck prior to her discharge. She has also required a tilley catheter which will remain in place until she becomes stronger in the next week. - SNF / [facility] Transition Orders Admit to (Facility): [facility] Under the care of (Name): Dr. 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-Baseline CHF, exacerbated by acute NH during this hospital stay, not a candidate for cardiac intervention given profound dementia, remains on medical guided therapy including: Metoprolol, Imdur, spironolactone, & Lasix STEMI (ST elevation myocardial infarction)-Present on admission, troponin reached a peak at 2098, reduced to 730, remains on medical guided therapy, no complaints of chest pain, stable Aortic stenosis-Recent echo from 05/03/2019 shows moderate , stable, change positions slowly HCAP (healthcare-associated pneumonia)-Present on admission, completed treatment while inpatient, resolved Acute on chronic kidney failure-Present on admission, likely exacerbated by acute NH which caused poor kidney perfusion, now serum creatinine is back to baseline at 2.2 today, stable Elevated LFTs- Present on admission, likely exacerbated by acute NH which caused poor liver perfusion, now serum AST is down to 44 from 1005, also has baseline LFT elevation from known pancreatic mass, no jaundice on exam, stable Hypoglycemia-Resolved 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, also with vascular, vessel disease, ongoing short term memory loss, no further worries which require HTN (hypertension)-Chronic, continues on medical guided therapy, stable Acute metabolic encephalopathy-Intermittent, baseline dementia, stable Weakness-Ongoing, status post acute NH, requires PT rehab stay, stable 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, remains on rescue inhaler, supplemental oxygen, stable Lumbar compression fracture-Chronic, remains on chronic narcotics, stable Chronic pain-Chronic, stable Chronic narcotic dependence-Chronic, stable Pancreatic mass-Chronic, stable, makes for a poor appetite with nausea at times Chronic nausea-Poor appetite at times, eating 25-75% of meals, stable ESTIVEN-Present on admission, iron studies indicate ESTIVEN, continues on iron supplement, H/H 8.4/25.9, received 1 unit PRBCs on 05/02, stable GERD-Chronic, remains on H2 mason, stable Weight on admission and: Weekly Oxygen Orders: Oxygen to keep oxygen at least 90% per nasal cannula at 2L. Medication Orders: PLEASE REFER TO THE DISCHARGE MEDICATION LIST - Medications New Prescriptions: Acetaminophen [Tylenol] 650 mg PO Q4HR PRN #30 tablet PRN Reason: Pain 1 to 4 Ondansetron Odt [Zofran Odt] 4 mg TL Q4HR PRN #90 tablet PRN Reason: Nausea / Vomiting oxyCODONE [Roxicodone] 5 mg PO Q4HR PRN #25 tablet PRN Reason: Pain 5 to 7 Amiodarone [Pacerone] 200 mg PO DAILY #30 tablet Amiodarone [Pacerone] 200 mg PO BID #11 tablet Apixaban [Eliquis] 2.5 mg PO BID #60 tablet Aspirin 81 mg PO DAILY #30 tab.chew Atorvastatin [Lipitor] 20 mg PO QPM #30 tablet Famotidine [Pepcid] 20 mg PO BID #60 tablet Ferrous Gluconate 240 mg PO DAILY #30 tablet Furosemide [Lasix] 80 mg PO DAILY #60 tablet Ipratropium/Albuterol [Duoneb] 3 ml INH RTQID PRN #90 neb PRN Reason: Shortness Of Air/Wheezing Isosorbide Mononitrate ER [Imdur] 30 mg PO DAILY #30 tablet Magnesium Oxide [Mag Ox] 400 mg PO DAILYWM #30 tablet Metoprolol Succinate [Toprol Xl] 12.5 mg PO BIDWM #30 tablet Multivitamin W/Minerals [Theragran M] 1 tab PO DAILYWM #30 tablet Senna [Senokot] 8.6 - 17.2 mg PO DAILY #30 tablet Spironolactone [Aldactone] 25 mg PO 1200 #30 tablet Thiamine [Vitamin B-1] 100 mg PO DAILY #30 tablet - Diet Type: Geriatric Texture: Regular Liquids: Thin May have monthly special meal: Yes - Therapies | Activity Rehabilitation Potential: Maximize functional status, Return to independent living, Maintain present ADL Functional Activity: Activity as Tolerated Weight Bearing: Partial Weight"
[2019-05-09] MEDS ORDERED: METOPROLOL TARTRATE 25 MG TABLET PO SCH (09:00)
[2019-05-09] MEDS: FERROUS GLUCONATE 324 MG TABLET PO SCH (09:56)
[2019-05-09] MEDS: FUROSEMIDE 40 MG TABLET PO SCH (09:56)
[2019-05-09] MEDS: ONDANSETRON 4 MG/2 ML VIAL IVP PRN (09:56)
[2019-05-09] MEDS: FAMOTIDINE 20 MG TABLET PO SCH ×2 (09:56→20:38)
[2019-05-09] MEDS: SENNA 8.6 MG TABLET PO SCH (09:56)
[2019-05-09] MEDS: ISOSORBIDE MONONITRATE ER 30 MG TABLET PO SCH (09:56)
[2019-05-09] MEDS: ASPIRIN EC 81 MG TABLET PO SCH (09:57)
[2019-05-09] MEDS: AMIODARONE 200 MG TABLET PO SCH ×2 (09:57→20:38)
[2019-05-09] MEDS: ACETAMINOPHEN 325 MG TABLET PO PRN (09:57)
[2019-05-09] MEDS: DOCUSATE SODIUM 250 MG CAPSULE PO SCH (09:57)
[2019-05-09] MEDS: polyethylene glycoL 3350 17 GM PACKET PO SCH (10:03)
[2019-05-09] MEDS: APIXABAN 2.5 MG TABLET PO SCH ×2 (10:03→20:38)
--- NOTE | 2019-05-09 10:08 | PROVIDER PROGRESS NOTE ---
Subjective - Prog Note Date Prog Note Date: 05/09/19 Prog Note Time: 10:05 - Subjective Pt reports feeling: Improved Current Medications - Current Medications Current Medications: Active Medications: Acetaminophen (Tylenol) 650 mg PO Q4HR PRN Albuterol 2.5 mg INH RTQ4H PRN Albuterol/Ipratropium (Duoneb) 3 ml INH RTQID PRN Amiodarone HCl (Pacerone) 200 mg PO BID [facility] Apixaban (Eliquis) 2.5 mg PO BID [facility] Aspirin (Ecotrin) 81 mg PO DAILY [facility] Atorvastatin Calcium (Lipitor) 20 mg PO QPM [facility] Docusate Sodium (Colace 250mg Capsule) 250 - 500 mg PO DAILY [facility] Famotidine (Pepcid) 10 mg PO BID [facility] Ferrous Gluconate (Fergon) 324 mg PO DAILYWM [facility] Furosemide (Lasix) 80 mg PO DAILY [facility] Heparin Sodium (Beef Lung) 30 - 50 unit IVP PRN PRN Isosorbide Mononitrate (Imdur) 30 mg PO DAILY [facility] Metoprolol Succinate (Toprol Xl) 12.5 mg PO BIDWM [facility] Morphine Sulfate (Morphine (Carpuject) 2 mg IVP Q2HR PRN Ondansetron HCl (Zofran Inj) 4 mg IVP Q6HR PRN Oxycodone HCl (Roxicodone) 5 mg PO Q4HR PRN Polyethylene Glycol (Miralax) 17 gm PO DAILY [facility] Senna (Senokot) 8.6 - 17.2 mg PO DAILY [facility] Spironolactone (Aldactone) 25 mg PO 1200 [facility] Thiamine HCl (Vitamin B-1) 100 mg PO DAILY [facility] Objective - Vital Signs/Intake & Output Reviewed Vital Signs: Yes Vital Signs: Vital Signs x48h Temp Pulse Resp BP Pulse Ox 05/09/19 08:11 36.5 C 106 H 18 126/70 94 05/09/19 05:00 36.8 C 107 H 18 117/66 93 Intake & Output: Intake & Output 05/06/19 05/07/19 05/08/19 05/09/19 23:59 23:59 23:59 23:59 Intake Total 3278.70 2275.167 2795 200 Output Total 0990 9125 1950 1100 Balance -2671.30 -699.833 845 -900 - Objective General Appearance: positive: No acute distress, Alert Eyes Bilateral: positive: PERRL, No lid inflammation ENT: positive: Pharyngeal erythema, Dry mucous membranes Neck: positive: Trachea midline Respiratory: positive: Chest non-tender, No respiratory distress, Other (scattered crackles, bilaterally) Peripheral Pulses: 1+ Radial (R), 1+ Radial (L) Abdomen: positive: Non-tender, Nml bowel sounds, Other (rounded, soft) Back: positive: Nml inspection Skin: positive: No rash, Warm, Dry, Other (scattered bruising, fragile skin (thinned)) Neurologic/Psychiatric: positive: CN's nml (2-12), Disoriented to time, Weakness, Sensory loss, Depressed mood/affect (flat) Reflexes: Bicep (R): 2+, Bicep (L): 2+ - Lab Results Fish Bones: 05/08/19 06:25 05/08/19 06:25 Other Labs: Lab Results x24hrs 05/09/19 05/08/19 05/08/19 Range/Units 07:46 20:47 16:44 POC Whole Bld Glucose 82 118 H 98 (70 - 100) mg/dL 05/08/19 Range/Units 11:57 POC Whole Bld Glucose 98 (70 - 100) mg/dL ABX Reporting Has patient been on IV antibiotics over the past 48 hours?: No
[2019-05-09] MEDS: SPIRONOLACTONE 25 MG TABLET PO SCH (13:12)
--- NOTE | 2019-05-09 13:19 | PROVIDER PROGRESS NOTE ---
Subjective - Prog Note Date Prog Note Date: 05/09/19 Prog Note Time: 13:17 - Subjective Pt reports feeling: Improved Subjective: Cara states she is not sleeping well, and does not have chest pain today. She denies dizziness, but does admit to feeling lightheaded when getting out of bed. Her nausea has not been problematic, but continues to have a poor overall appetite. She has no further concerning confusion. Current Medications - Current Medications Current Medications: Active Medications: Acetaminophen (Tylenol) 650 mg PO Q4HR PRN Albuterol 2.5 mg INH RTQ4H PRN Albuterol/Ipratropium (Duoneb) 3 ml INH RTQID PRN Amiodarone HCl (Pacerone) 200 mg PO BID [facility] Apixaban (Eliquis) 2.5 mg PO BID [facility] Aspirin (Ecotrin) 81 mg PO DAILY [facility] Atorvastatin Calcium (Lipitor) 20 mg PO QPM [facility] Docusate Sodium (Colace 250mg Capsule) 250 - 500 mg PO DAILY [facility] Famotidine (Pepcid) 10 mg PO BID [facility] Ferrous Gluconate (Fergon) 324 mg PO DAILYWM [facility] Furosemide (Lasix) 80 mg PO DAILY [facility] Heparin Sodium (Beef Lung) 30 - 50 unit IVP PRN PRN Isosorbide Mononitrate (Imdur) 30 mg PO DAILY [facility] Metoprolol Succinate (Toprol Xl) 12.5 mg PO BIDWM [facility] Morphine Sulfate (Morphine (Carpuject) 2 mg IVP Q2HR PRN Ondansetron HCl (Zofran Inj) 4 mg IVP Q6HR PRN Oxycodone HCl (Roxicodone) 5 mg PO Q4HR PRN Polyethylene Glycol (Miralax) 17 gm PO DAILY [facility] Senna (Senokot) 8.6 - 17.2 mg PO DAILY [facility] Spironolactone (Aldactone) 25 mg PO 1200 [facility] Thiamine HCl (Vitamin B-1) 100 mg PO DAILY [facility] Objective - Vital Signs/Intake & Output Reviewed Vital Signs: Yes Vital Signs: Vital Signs x48h Temp Pulse Pulse Resp BP BP Pulse Ox 05/09/19 11:47 36.5 C 108 H 16 91/57 L 99 05/09/19 08:11 36.5 C 106 H 18 126/70 94 Intake & Output: Intake & Output 0305/07/19 05/08/19 05/09/19 23:59 23:59 23:59 23:59 Intake Total 3278.70 2275.167 2795 200 Output Total 5110 3195 4232 1100 Balance -2671.30 -699.833 845 -900 - Objective General Appearance: positive: No acute distress, Alert, Lethargic Eyes Bilateral: positive: No lid inflammation Eyes: OU Conjunctivae pale ENT: positive: Pharyngeal erythema, Dry mucous membranes Neck: positive: No JVD, Trachea midline, Stiff neck Respiratory: positive: Chest non-tender, Wheezes (expiratory wheeze, bilaterally) Cardiovascular: positive: No gallop, Tachycardia, Systolic murmur, Decreased pulse(s) Peripheral Pulses: 1+ Radial (R), 1+ Radial (L) Abdomen: positive: Non-tender, Nml bowel sounds, Other (rounded, soft) Back: positive: Nml inspection Skin: positive: No rash, Warm, Dry, Other (bronze, no jaundice) Extremities: positive: Non-tender, Nml appearance, No pedal edema, Joint swelling Neurologic/Psychiatric: positive: CN's nml (2-12), Disoriented to time, Weakness, Sensory loss, Depressed mood/affect (flat, baseline dementia) Reflexes: Bicep (R): 2+, Bicep (L): 2+ - Lab Results Fish Bones: 05/08/19 06:25 05/08/19 06:25 Other Labs: Lab Results x24hrs 05/09/19 05/09/19 05/08/19 Range/Units 11:22 07:46 20:47 POC Whole Bld Glucose 124 H 82 118 H (70 - 100) mg/dL 05/08/19 05/08/19 Range/Units 16:44 11:57 POC Whole Bld Glucose 98 98 (70 - 100) mg/dL ABX Reporting Has patient been on IV antibiotics over the past 48 hours?: No Assessment/Plan - Problem List (1) V-tach Impression: - Amiodarone, 200 mg po bid loading dose for 7 days (05/06-05/13), then 200 mg po daily -Started Metoprolol 12.5mg with split dosing BID with meals -Telemetry stopped today, monitory vital signs Atrial fibrillation with RVR -CHADS scorte is 3 (CHF, Age >75, and HTN) -Continues on Eliquis at 2.5 mg bid -Continues on rate control with BB, amiodarone -Stopped telemetry for patient comfort, and lack of recent ectopy Respiratory failure with hypoxia -COVID-19 is negative -Remains on 2L per nasal cannula for her baseline COPD exacerbated by pneumonia -Continue respiratory cares, PRN nebs for SOB Acute on chronic systolic and diastolic heart failure w/reduced EF -Baseline CHF, exacerbated by acute [place] during this hospital stay -Not a candidate for cardiac intervention given profound dementia -Remains on medical guided therapy including: Metoprolol, Imdur, spironolactone, & Lasix -Continue daily weights, manage symptoms, adjust meds as needed STEMI (ST elevation myocardial infarction) -Arrived in the ER with an O2 sat of 40%, SOB but not complaining of chest pain -A Troponin was added after arriving to the nursing floor, showing 3700 -Troponin peaked at 2098 -Patient was not a candidate for cardiac intervention -Continues on medically guided therapy including; ASA, statin, B-mason, diuretics, and Nitrates -Plans to go to SNF for Rehab-on HOLD for facility reasons Aortic stenosis -Recent echo from 05/03/2019 shows moderate -Not critical or severe, which would expedite a Hospice referral -Change positions slowly HCAP (healthcare-associated pneumonia) -Ruled out for COVID-19, negative -Status post Cefepime -Remains on supplemental O2 Acute kidney injury superimposed on chronic kidney disease -Baseline serum creatinine is ~1.8 -Admission serum creatinine was elevated at 2.9, improved to 2.2 on 05/07 -Likely due to acute [place]/HF -Routine labs, avoid hypotension, or nephron-toxic agents Elevated LFTs -Thought to be caused by passive congestion of the liver due to CHF -AST 44, ALT 112 -Continues on medical guided therapy for acute [place]/HFrEF -Routine labs, follow LFTs Hypoglycemia -On prior hospital stays, the patient required dextrose infusions, now resolved -Routine labs, encourage PO Iron deficiency anemia -Iron studies show ESTIVEN -Transfused 1 unit PRBCs on 05/02 -H/H today was 8.4/25.9 -Continue routine labs Dementia -Chronic, exacerbated by alcoholism, small vessel disease -Intermittent confusion, poor short term memory loss, cannot remember exactly what she ate for her last meal on exam -Continue to have poor insight, doesn't recognize the severity of illness or her disability and just wants to go home at times -Palliative Care consult with Malu Booker/Filomena powell Hypertension -Light blood pressures on 05/06, possibly from new tachycardia -Hydralazine discontinued, remains on Imdur, & Amiodarone -Resumed low dose B-mason today with split dosing -Continues with generous diuresis of spironolactone/Lasix -Continue to monitor vital signs, adjust meds accordingly Acute metabolic encephalopathy -Baseline dementia, with intermittent confusion -Last retraints were used on 05/08/2019 ~afternoon -SNF requires at least 48 hours free of restraints before acceptance Weakness -PT daily, qualifies for SNF, awaiting placement likely to [facility]
[2019-05-09] MEDS ORDERED: METOPROLOL SUCCINATE 25 MG TABLET PO SCH (17:00)
[2019-05-09] MEDS: ATORVASTATIN 40 MG TABLET PO SCH (20:38)
[2019-05-10] MEDS: oxyCODONE 5 MG TABLET PO PRN (06:22)
[2019-05-10] MEDS: ONDANSETRON ODT 4 MG TABLET TL PRN ×2 (06:37→12:07)
--- NOTE | 2019-05-10 07:37 | DISCHARGE SUMMARY ---
Discharge Summary Discharge Date: 05/10/19 Discharging Provider: CORAZON Bucio Code Status: Do Not Attempt Resuscitation Condition at Discharge: Good Discharge Disposition: 03 SNF DC/Xfer - ALLERGIES Allergies/Adverse Reactions: Allergies Allergy/AdvReac Type Severity Reaction Status Date / Time No Known Drug Allergies Allergy Verified 03/25/19 15:23 - MEDICATIONS Home Medications: Ambulatory Orders Medication Instructions Recorded Confirmed Acetaminophen [Tylenol] 650 mg PO Q4HR PRN #30 tablet 05/09/19 Amiodarone [Pacerone] 200 mg PO BID #11 tablet 05/09/19 Amiodarone [Pacerone] 200 mg PO DAILY #30 tablet 05/09/19 Apixaban [Eliquis] 2.5 mg PO BID #60 tablet 05/09/19 Aspirin 81 mg PO DAILY #30 tab.chew 05/09/19 Atorvastatin [Lipitor] 20 mg PO QPM #30 tablet 05/09/19 Famotidine [Pepcid] 20 mg PO BID #60 tablet 05/09/19 Ferrous Gluconate 240 mg PO DAILY #30 tablet 05/09/19 Furosemide [Lasix] 80 mg PO DAILY #60 tablet 05/09/19 Ipratropium/Albuterol [Duoneb] 3 ml INH RTQID PRN #90 neb 05/09/19 Isosorbide Mononitrate ER [Imdur] 30 mg PO DAILY #30 tablet 05/09/19 Magnesium Oxide [Mag Ox] 400 mg PO DAILYWM #30 tablet 05/09/19 Metoprolol Succinate [Toprol Xl] 12.5 mg PO BIDWM #30 tablet 05/09/19 Multivitamin W/Minerals [Theragran 1 tab PO DAILYWM #30 tablet 05/09/19 M] Ondansetron Odt [Zofran Odt] 4 mg TL Q4HR PRN #90 tablet 05/09/19 Senna [Senokot] 8.6 - 17.2 mg PO DAILY #30 tablet 05/09/19 Spironolactone [Aldactone] 25 mg PO 1200 #30 tablet 05/09/19 Thiamine [Vitamin B-1] 100 mg PO DAILY #30 tablet 05/09/19 oxyCODONE [Roxicodone] 5 mg PO Q4HR PRN #25 tablet 03/18/20 - PHYSICAL EXAM AT DISCHARGE General Appearance: positive: No acute distress, Alert - LABS Result Diagrams: 05/08/19 06:25 05/08/19 06:25
[2019-05-10] MEDS ORDERED: THIAMINE 100 MG TABLET PO SCH (09:00)
[2019-05-10 09:26] VITALS: BP 83/41
[2019-05-10] MEDS ORDERED: haloperidoL 1 MG TABLET PO PRN (10:23)
[2019-05-10] MEDS ORDERED: LORazepam 1 MG TABLET PO PRN (10:23)
[2019-05-10] MEDS ORDERED: SCOPOLAMINE PATCH TOP PRN (10:23)
[2019-05-10] MEDS ORDERED: METOCLOPRAMIDE 10 MG TABLET PO PRN (10:23)
[2019-05-10] MEDS ORDERED: PROCHLORPERAZINE 25 MG SUPP PR PRN (10:23)
[2019-05-10] MEDS ORDERED: METOPROLOL SUCCINATE 25 MG TABLET PO SCH (12:00)
[2019-05-10] MEDS: MORPHINE SOL 10 MG/0.5 ML SYRINGE SL PRN ×2 (14:59→19:42)
[2019-05-10] MEDS ORDERED: ONDANSETRON 4 MG/2 ML VIAL IVP PRN (14:59)
--- NOTE | 2019-05-10 15:11 | PROVIDER PROGRESS NOTE ---
Subjective - Prog Note Date Prog Note Date: 05/10/19 Prog Note Time: 15:01 - Subjective Pt reports feeling: Worse Subjective: Proceeding with comfort cares after a long discussion with the patient's DPOA, her son since the patient has had an abrupt change in mental status with not answering questions, continued nausea, not eating meals, urine appears clear, light in tilley catheter tubing. Comfort care orders are underway. Orders to insert an IV since not tolerating PO, due to ongoing nausea and hematemesis. Updated Palliative care, Filomena, POCKET CUTTER via phone, cancelled discharge. Current Medications - Current Medications Current Medications: Active Medications Acetaminophen (Tylenol) 650 mg PO Q4HR PRN PRN Reason: Pain 1 to 4 Last Admin: 05/09/19 09:57 Dose: 650 mg Albuterol () 2.5 mg INH RTQ4H PRN PRN Reason: Wheezing Haloperidol (Haldol) 1 mg PO Q6H PRN PRN Reason: Nausea / Vomiting Lorazepam (Ativan) 1 mg PO Q6H PRN PRN Reason: Anxiety/Agitation Metoclopramide HCl (Reglan) 10 mg PO Q4H PRN PRN Reason: Nausea / Vomiting Last Admin: 05/10/19 14:59 Dose: 10 mg Morphine Sulfate (Roxanol) 10 mg SL Q2HR PRN PRN Reason: PAIN Last Admin: 05/10/19 14:59 Dose: 10 mg Morphine Sulfate (Morphine (Carpuject)) 2 mg IVP Q2HR PRN PRN Reason: PAIN Ondansetron HCl (Zofran Odt) 4 mg TL Q4HR PRN PRN Reason: Nausea / Vomiting Last Admin: 05/10/19 12:07 Dose: 4 mg Ondansetron HCl (Zofran Inj) 4 mg IVP Q4HR PRN PRN Reason: Nausea / Vomiting Prochlorperazine Maleate (Compazine Supp) 25 mg ND BID PRN PRN Reason: Nausea / Vomiting Scopolamine HBr (Transderm-Scop) 1 patch TOP Q3D PRN PRN Reason: Excessive Secretions Objective - Vital Signs/Intake & Output Reviewed Vital Signs: Yes Vital Signs: Vital Signs x48h Temp Pulse Resp BP Pulse Ox 05/10/19 09:25 83/41 L 05/10/19 07:37 87/43 L 05/10/19 07:36 36.4 C L 62 22 88/45 L 91 L Intake & Output: Intake & Output 05/07/19 05/08/19 05/09/19 05/10/19 23:59 23:59 23:59 23:59 Intake Total 2275.167 2795 820 Output Total 2975 1950 1924 800 Balance -699.833 845 -2152 -800 - Objective General Appearance: positive: Moderate distress, Anxious, Lethargic, Other (restless, confused, will not answer questions) Eyes Bilateral: positive: No lid inflammation ENT: positive: Pharyngeal erythema, Dry mucous membranes Neck: positive: No JVD, Trachea midline, Stiff neck Respiratory: positive: Chest non-tender, No respiratory distress, Rhonchi Cardiovascular: positive: Tachycardia, Systolic murmur, Diastolic murmur, Decreased pulse(s) Peripheral Pulses: 1+ Radial (R), 1+ Radial (L) Abdomen: positive: Tenderness, Guarding, Abnml bowel sounds Back: positive: Nml inspection Skin: positive: No rash, Warm, Dry, Other (pale, dry, scattered crackles which cover most of the body) Extremities: positive: No pedal edema, Joint swelling Neurologic/Psychiatric: positive: Disoriented to person, Disoriented to place, Disoriented to time, Weakness, Sensory loss, Slurred/abnml speech (garbled speech), Depressed mood/affect Reflexes: Bicep (R): 2+, Bicep (L): 2+ - Lab Results Fish Bones: 05/08/19 06:25 05/08/19 06:25 Other Labs: Lab Results x24hrs 05/10/19 05/09/19 05/09/19 Range/Units 07:28 21:04 16:50 POC Whole Bld Glucose 95 114 H 100 (70 - 100) mg/dL ABX Reporting Has patient been on IV antibiotics over the past 48 hours?: No Assessment/Plan - Problem List (1) Hematemesis with nausea Impression: -Noted this morning, small amounts -Change in mental status, hypotesion, and pale appearance -No treatment per POA, the patient's son via phone -Not tolerating PO, so orders to insert a PIV -Continue with comfort cares, treat symptoms with IV zofran, IV morphine End of life care -Patient has been transitioned to comfort cares only after a long telephone call with the patient's son, POA -Discharge is now on hold, no longer a SNF rehab candidate -Patient may have had a recurrence of her heart attack or GI bleeding from the recent addition of blood thinners -Now patient is actively dying, somewhat restless at times, not tolerating PO meds due to continued nausea and vomiting V-tach - Amiodarone & Metoprolol stopped in light of comfort cares -Telemetry stopped, monitory vital signs only PRN Atrial fibrillation with RVR -Proceeding with comfort cares Respiratory failure with hypoxia -COVID-19 is negative -Proceeding with comfort cares -Continue respiratory cares, PRN nebs for SOB Acute on chronic systolic and diastolic heart failure w/reduced EF -Proceeding with comfort cares STEMI (ST elevation myocardial infarction) -Proceeding with comfort cares Aortic stenosis -Proceeding with comfort cares HCAP (healthcare-associated pneumonia) -Proceeding with comfort cares Acute kidney injury superimposed on chronic kidney disease -Proceeding with comfort cares Elevated LFTs -Proceeding with comfort cares -No further labs Hypoglycemia -Proceeding with comfort cares Iron deficiency anemia -Proceeding with comfort cares -No more labs Dementia -Proceeding with comfort cares -Palliative Care consult with Malu Booker/Filomena Hypertension -Proceeding with comfort cares Acute metabolic encephalopathy -Proceeding with comfort cares -More confusion today Weakness -Proceeding with comfort cares
[2019-05-10] MEDS: MORPHINE 2 MG/ML CARPUJECT IVP PRN ×3 (15:59→22:11)
[2019-05-10] MEDS ORDERED: fentaNYL 12 MCG PATCH TOP SCH (20:00)
--- NOTE | 2019-05-11 01:09 | Discharge Plan ---
Discharge Plan Problem Reviewed?: Yes Disposition: 20 No Smoking: If you smoke, Please STOP! Call for help.
--- NOTE | 2019-05-11 01:13 | DISCHARGE SUMMARY ---
Discharge Summary Admit Date: 05/03/19 Discharge Date: 05/11/19 Discharging Provider: Garcia Puente Primary Care Provider: Ar Garcia Code Status: Do Not Attempt Resuscitation Discharge Disposition: 20 - DIAGNOSES Admission Diagnoses: STEMI Respiratory failure with hypoxia Acute exacerbation of congestive heart failure Acute on chronic kidney failure Hypokalemia Abnormal liver enzymes Anemia Discharge Diagnoses with Status of Each Condition: STEMI V. tach Hematemesis with nausea Atrial fibrillation with RVR Hypoxia Acute metabolic encephalopathy Acute on chronic heart failure reduced ejection fraction diastolic dysfunction End-of-life care Aortic stenosis HCAP Acute on chronic kidney failure - HPI History of Present Illness: H&P per Dr. 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 She was d/c to [facility] [place] on last admission in here. Pt report her roommate called EMS because she was unable to stand on her right leg. She report she has been going on right hip pain for about 3 days. she denies injury or fall. she state she can not walk because of the pain. She denies fever, chill, chest pain. Per Triage nurse report, pt came with very pale, lips dusky with initial O2 sat 40% on room air. pt had O2 78% on placed 5 l NC, then pt had sat up to 97% sats on placed on NRB mask. In route lab in ER, pt was found to have initial troponin 1074, creatinine 2.9, k 6.1, A ST 647, ALT 261, BNP 3794, HGB 7.7. EKG reveals a new but left bundle. ER provider recommended the patient transfer to a tertiary facility that has potentially dialysis and interventional radiology and cardiology capacity but pt refused. She understood that she was critically ill but did not want heroic or interventional measures. I also discussed with for possibility transfer. Pt state" the ball is the ball, I do not want to be transferred." I called Anat Lopez, pt's Niece, at [employer], no one picked the phone, I left message to her. Discussed with pt about the care goal, pt would like to have DNR/DNI. pt is admitted in medical unit for further medical management. - CONSULTS | PROCEDURES Consultations: Palliative Care, Anesthesia - HOSPITAL COURSE Hospital Course: She was admitted for a STEMI and respiratory failure with hypoxia. She had declined transfer to higher level of care and therefore she was treated medically with IV heparin, aspirin, statin, beta mason. Her troponins peaked at nearly 3000. She is initially hypoxic requiring 14 L of oxygen via nonrebreather mask. There was concern for possible HCAP and so she was treated with cefepime and completed her course of antibiotics while hospitalized. An echocardiogram was obtained which showed her ejection fraction had decreased to approximately 35%. She also found to have moderate aortic stenosis. Her heart failure was treated with hydralazine but not an JESS or Aldactone due to her renal dysfunction. She then developed multiple episodes of nonsustained ventricular tachycardia during her hospitalization. She was loaded on oral amiodarone and beta-mason was continued as tolerated. She was then found to have new onset atrial fibrillation the following day after she first had V. tach. She was started on oral Eliquis for anticoagulation. She was given IV Cardizem x1 for rate control and continued on the amiodarone and metoprolol was resumed as her blood pressure tolerates. She continued to be diuresed during this hospitalization given her acute heart failure and her respiratory status improved to 2 L of oxygen. Palliative care was consulted during his hospitalization and the patient was a DNR. The plan was to discharge her to a skilled facility with possible transition to hospice in 1 to 2 weeks. Unfortunately, the day prior to her scheduled discharge to a [facility]pc facility, she had becomes more altered and confused. She also had a small episode of hematemesis. Her deteriorating condition was discussed with her son, Ti, and the decision was made to focus on the patient's comfort. All of her medications were discontinued. She was started on morphine IV and morphine orally as needed. She also had Haldol and Ativan available as needed. The patient at 00:48 on 05/11/2019. I attempted to call her son, Ti, but there was no answer. I left a message asking him to call back once he has a chance. He did call back and spoke with the household assistant and he stated that he had no questions. - ALLERGIES Allergies/Adverse Reactions: Allergies Allergy/AdvReac Type Severity Reaction Status Date / Time No Known Drug Allergies Allergy Verified 03/25/19 15:23 - PHYSICAL EXAM AT DISCHARGE Eyes Bilateral: positive: Other (Pupils dilated and fixed.) Respiratory: positive: Other (Absent breath sounds.) Cardiovascular: positive: Other (No heart sounds present.) Peripheral Pulses: positive: 0 Skin: positive: Pallor - LABS Result Diagrams: 05/08/19 06:25 05/08/19 06:25
== END 2019-05-11 00:48 | disposition expired ==
LOC: EDUNIT# → ED 15:10 → MS2 17:22 → UNDOADMIN 17:38 → MS2 17:38
PROVIDERS: ADMIT Nurse Practitioner Gerontology; ATTEND Internal Medicine
PROC: 30233N1 Transfusion of Nonautologous Red Blood Cells into Peripheral Vein, Percutaneous Approach (ICD-10-PCS; 2019-05-03)
PROC: 4A143B0 Monitoring of Venous Pressure, Central, Percutaneous Approach (ICD-10-PCS; principal; 2019-05-05)
DX: I21.3 ST elevation (STEMI) myocardial infarction of unspecified site (principal); G93.41 Metabolic encephalopathy; J18.9 Pneumonia, unspecified organism; N18.9 Chronic kidney disease, unspecified; I50.9 Heart failure, unspecified; J96.01 Acute respiratory failure with hypoxia; D64.9 Anemia, unspecified; J44.9 Chronic obstructive pulmonary disease, unspecified; I50.43 Acute on chronic combined systolic (congestive) and diastolic (congestive) heart failure; I13.0 Hypertensive heart and chronic kidney disease with heart failure and stage 1 through stage 4 chronic kidney disease, or unspecified chronic kidney disease; N17.9 Acute kidney failure, unspecified; I47.2 Ventricular tachycardia; K92.0 Hematemesis; E87.1 Hypo-osmolality and hyponatremia; F11.20 Opioid dependence, uncomplicated; F10.188 Alcohol abuse with other alcohol-induced disorder; F03.90 Unspecified dementia, unspecified severity, without behavioral disturbance, psychotic disturbance, mood disturbance, and anxiety; F10.11 Alcohol abuse, in remission; N18.3 Chronic kidney disease, stage 3 (moderate); I48.91 Unspecified atrial fibrillation; E87.5 Hyperkalemia; I11.0 Hypertensive heart disease with heart failure; I35.0 Nonrheumatic aortic (valve) stenosis; Y95 Nosocomial condition; J43.9 Emphysema, unspecified; F17.210 Nicotine dependence, cigarettes, uncomplicated; D50.9 Iron deficiency anemia, unspecified; K21.9 Gastro-esophageal reflux disease without esophagitis; K86.9 Disease of pancreas, unspecified; G89.29 Other chronic pain; M54.9 Dorsalgia, unspecified; M25.551 Pain in right hip; H54.7 Unspecified visual loss; E16.0 Drug-induced hypoglycemia without coma; T38.3X5A Adverse effect of insulin and oral hypoglycemic [antidiabetic] drugs, initial encounter; Y92.230 Patient room in hospital as the place of occurrence of the external cause; R79.89 Other specified abnormal findings of blood chemistry; I27.20 Pulmonary hypertension, unspecified; Z78.1 Physical restraint status; Z66 Do not resuscitate; Z51.5 Encounter for palliative care; Z79.51 Long term (current) use of inhaled steroids; Z79.899 Other long term (current) drug therapy; Z86.14 Personal history of Methicillin resistant Staphylococcus aureus infection; Z87.01 Personal history of pneumonia (recurrent); Z99.81 Dependence on supplemental oxygen
CPT/HCPCS: 36415; 71045; 73502; 80048; 80053; 81599; 82140; 82272; 82310; 82330; 82607; 82746; 82803; 83540; 83605; 83690; 83735; 83880; 84132; 84443; 84466; 84484; 85025; 85027; 85520; 85610; 86850; 86900; 86901; 86920; 87040; 87070; 87205; 87275; 87276; 87640; 93005; 93306; 94640; 96374; 96375; 97116; 97162; 97530; 99222; 99285; 99291; A9270; J1815; J3411; J3490; J7040; J8499; P9016; Q0162; U0002